=== PATIENT | female | born 1960 | race Caucasian/White ===

== ENCOUNTER 2020-03-31 11:21 | Inpatient (IN) | payer BC ==
[2020-03-31 12:05] LABS: Basophils % (A) 0 %; Eosinophils # (A) 0.2 k/uL (0-0.7); Eosinophils % (A) 1 %; HCT 27.2 % (34.0-46.0); HGB 8.4 gm/dL (11.4-16.0); Hypochromasia Moderate; Lymphocytes # (A) 2.2 k/uL (1.0-4.8); Lymphocytes % (A) 16 %; MCH 30.1 pg (25.0-35.0); Mean Platelet Volume 7.5; Monocytes # (A) 0.7 k/uL (0-1.0); Monocytes % (A) 5 %; Neutrophils # (A) 10.3 k/uL (1.3-7.7); Neutrophils % (A) 76 %; Platelet Count 360 k/uL (150-450); RDW 15.1 % (11.5-15.5); WBC 13.6 k/uL (3.8-10.6)
--- NOTE | 2020-03-31 12:11 | XR ---
EXAMINATION TYPE: XR chest 1V portable DATE OF EXAM: 03/31/2020 COMPARISON: NONE HISTORY: Shortness of breath TECHNIQUE: Single frontal view of the chest is obtained. FINDINGS: There is hyperinflation compatible COPD. Subcentimeter nodules along the periphery of the left lower lobe. Large area of consolidation and pleural effusion involving the right lung. There is prominence the right paratracheal region which could reflect mass or adenopathy. Diffuse osteopenia. IMPRESSION: 1. Large area of consolidation and pleural effusion on the right correlate for pneumonia. Prominence the right hilum and upper mediastinum could be associated with mass or adenopathy correlate clinicall y. 2. Vague peripheral lung nodules along the periphery of the left lower lobe. 3. COPD correlate for chronic interstitial lung disease.
--- NOTE | 2020-03-31 12:18 | ED ---
SOB HPI - General Chief Complaint: Shortness of Breath Stated Complaint: SOB Time Seen by Provider: 03/31/20 11:30 Source: patient Mode of arrival: EMS Limitations: no limitations - History of Present Illness Initial Comments: Patient is a 60-year-old female who presents to the emergency department from [facility]. She has been hospitalized there for 5 days. Patient previously spent the month before that at [facility]. She was discharged back to the rehab facility and states that she has been feeling unwell. She missed her dialysis last tuesday due to this. EMS were called to [facility] because the patient was having increasing respiratory distress over the weekend which led to impending respiratory arrest today. EMS stated that they arrived on scene and were concerned that they were To intubate the patient. I did place her on CPAP. She has a history of congestive heart failure when she misses her dialysis. Patient denies a cough, fevers or chills. No hemoptysis. Denies any chest pain area patient continues to make urine. No urinary changes. Denies any lower extremity edema. Admits to diarrhea. No black or tarry stools. Remainder of the HPI is limited because the patient is a poor historian Review of the patient's heart demonstrates that the patient was turned back to the [facility] on the . She has a diagnosis chronic inflammatory demyelinating polyneuritis, end-stage renal disease on hemodialysis, diabetes, asthma patient on 1 L nasal cannula - Related Data Home Medications Medication Instructions Recorded Confirmed Acetaminophen Tab [Tylenol] 650 mg PO Q6H PRN 03/31/20 03/31/20 Albuterol Sulfate [Ventolin HFA] 2 puff INHALATION Q4H PRN 03/31/20 03/31/20 Budesonide-Formot 160-4.5 Mcg 2 puff INHALATION RT-BID@0800,199903/31/20 03/31/20 [Symbicort 160-4.5 Mcg Inhaler] Diff-Stat Probiotic 2 cap PO BID 03/31/20 03/31/20 EPINEPHrine (Auto Inject) [Epipen] 0.3 mg IM ONCE PRN 03/31/20 03/31/20 Folic Acid-Vit B Complex-Vit C 1 cap PO DAILY@1700 03/31/20 03/31/20 [Nephrocaps] Hizentra 10gm/50ml 10 gm SQ Q7D 03/31/20 03/31/20 House Supplement 1 can PO TID@0800,1200,1700 03/31/20 03/31/20 House Supplement 1 can PO TID@0900,1300,1800 03/31/20 03/31/20 Levothyroxine Sodium [Synthroid] 200 mcg PO DAILY@59903/31/20 03/31/20 Melatonin 3 mg PO HS@199903/31/20 03/31/20 Montelukast Sodium [Singulair] 10 mg PO HS@199903/31/20 03/31/20 Moxifloxacin HCl [Avelox] 400 mg PO DAILY@59903/31/20 03/31/20 NIFEdipine [NIFEdipine ER] 30 mg PO DAILY@79903/31/20 03/31/20 Ondansetron [Zofran] 4 mg PO Q6H PRN 03/31/20 03/31/20 Simvastatin [Zocor] 80 mg PO DAILY@79903/31/20 03/31/20 hydrALAZINE HCL [Apresoline] 25 mg PO Q4H PRN 03/31/20 03/31/20 sevelamer HCL [Sevelamer HCl] 1,600 mg PO TID@0830,1230,1730 03/31/20 03/31/20 Allergies Allergy/AdvReac Type Severity Reaction Status Date / Time No Known Allergies Allergy Verified 03/31/20 13:53 Review of Systems ROS Statement: Those systems with pertinent positive or pertinent negative responses have been documented in the HPI. ROS Other: All systems not noted in ROS Statement are negative. Past Medical History Past Medical History: Asthma, Heart Failure, Diabetes Mellitus, Hyperlipidemia, Hypertension, Pneumonia, Renal Disease, Thyroid Disorder Additional Past Medical History / Comment(s): type 2 diabetes, end stage renal disease, dialysis, anemia History of Any Multi-Drug Resistant Organisms: None Reported Additional Past Surgical History / Comment(s): dialysis port Past Psychological History: No Psychological Hx Reported Smoking Status: Former smoker Past Alcohol Use History: None Reported Past Drug Use History: None Reported - Past Family History Mother Additional Family Medical History / Comment(s): nothing reported Father Family Medical History: Cancer Additional Family Medical History / Comment(s): no reported hx General Exam Limitations: no limitations General appearance: alert, in distress Eye exam: Present: normal appearance, PERRL, EOMI. Absent: scleral icterus, conjunctival injection, periorbital swelling ENT exam: Present: normal exam, mucous membranes moist Neck exam: Present: normal inspection. Absent: tenderness, meningismus, lymphadenopathy Respiratory exam: Present: respiratory distress, wheezes, rales, accessory muscle use Cardiovascular Exam: Present: normal rhythm, tachycardia GI/Abdominal exam: Present: soft, normal bowel sounds. Absent: distended, tenderness, guarding, rebound, rigid Neurological exam: Present: alert, oriented X3, CN II-XII intact Psychiatric exam: Present: anxious Course Vital Signs 03/31/20 03/31/20 03/31/20 11:27 11:30 12:00 Temperature 98.2 F Pulse Rate 102 H 101 H 98 Pulse Rate [ Pulse Oximetery ] Respiratory 34 H 16 16 Rate Blood Pressure 167/82 167/82 143/102 Blood Pressure [Right Arm] O2 Sat by Pulse 99 100 98 Oximetry 03/31/20 03/31/20 03/31/20 12:46 13:00 14:00 Temperature Pulse Rate 97 99 95 Pulse Rate [ Pulse Oximetery ] Respiratory 25 H 16 14 Rate Blood Pressure 147/78 147/78 158/81 Blood Pressure [Right Arm] O2 Sat by Pulse 98 98 99 Oximetry 03/31/20 03/31/20 03/31/20 15:00 16:00 16:21 Temperature 97.7 F 98.1 F Pulse Rate 97 86 Pulse Rate [ 87 Pulse Oximetery ] Respiratory 30 H 30 H Rate Blood Pressure 153/77 149/73 Blood Pressure 139/73 [Right Arm] O2 Sat by Pulse 99 100 Oximetry Medical Decision Making - Medical Decision Making Upon arrival the patient is placed into room 11. A thorough history and physical exam were performed per patient is up to continuous pulse ox and cardiac monitoring. I reviewed the patient's packet. Patient is transferred from EMS CPAP to BiPAP. Her increased work of breathing decreases. Lab studies were obtained and the patient has a portable chest x-ray performed. Lab studies demonstrate a leukocytosis of 13.6. Creatinine is 5.7. BNP 31,800. Chest x- ray demonstrates a large area of consolidation and pleural effusion on the right. Prominence of the right hilum and upper mediastinum to be associated with mass. Blood cultures were obtained the patient was started on Levaquin and Vanco. She was given 80 mg of Lasix for her CHF. I called and discussed the case with Dr. Bagley will arrange the patient's dialysis. Patient was reevaluated. Breathing was markedly improved. Patient is currently awaiting a bed on the floor - Lab Data Result diagrams: 04/03/20 06:37 04/03/20 06:37 Lab Results 03/31/20 03/31/20 03/31/20 Range/Units 11:47 11:47 11:47 WBC 13.6 H (3.8-10.6) k/uL RBC 2.80 L (3.80-5.40) m/uL Hgb 8.4 L (11.4-16.0) gm/dL Hct 27.2 L (34.0-46.0) % MCV 97.0 (80.0-100.0) fL MCH 30.1 (25.0-35.0) pg MCHC 31.0 (31.0-37.0) g/dL RDW 15.1 (11.5-15.5) % Plt Count 360 (150-450) k/uL Neutrophils % 76 % Lymphocytes % 16 % Monocytes % 5 % Eosinophils % 1 % Basophils % 0 % Neutrophils # 10.3 H (1.3-7.7) k/uL Lymphocytes # 2.2 (1.0-4.8) k/uL Monocytes # 0.7 (0-1.0) k/uL Eosinophils # 0.2 (0-0.7) k/uL Basophils # 0.0 (0-0.2) k/uL Hypochromasia Moderate PT 10.7 (9.0-12.0) sec INR 1.0 (<1.2) APTT 25.1 (22.0-30.0) sec Sodium 135 L (137-145) mmol/L Potassium 5.6 H (3.5-5.1) mmol/L Chloride 99 (98-107) mmol/L Carbon Dioxide 28 (22-30) mmol/L Anion Gap 8 mmol/L BUN 31 H (7-17) mg/dL Creatinine 5.79 H (0.52-1.04) mg/dL Est GFR (CKD-EPI)AfAm 8 (>60 ml/min/1.73 sqM) Est GFR (CKD-EPI)NonAf 7 (>60 ml/min/1.73 sqM) Glucose 90 (74-99) mg/dL Plasma Lactic Acid Elias (0.7-2.0) mmol/L Calcium 9.8 (8.4-10.2) mg/dL Magnesium 2.3 (1.6-2.3) mg/dL Total Bilirubin 0.6 (0.2-1.3) mg/dL AST 27 (14-36) U/L ALT 16 (4-34) U/L Alkaline Phosphatase 144 H (38-126) U/L Troponin I (0.000-0.034) ng/mL NT-Pro-B Natriuret Pep pg/mL Total Protein 6.4 (6.3-8.2) g/dL Albumin 3.0 L (3.5-5.0) g/dL Procalcitonin (0.02-0.09) ng/mL 03/31/20 03/31/20 03/31/20 Range/Units 11:47 11:47 11:47 WBC (3.8-10.6) k/uL RBC (3.80-5.40) m/uL Hgb (11.4-16.0) gm/dL Hct (34.0-46.0) % MCV (80.0-100.0) fL MCH (25.0-35.0) pg MCHC (31.0-37.0) g/dL RDW (11.5-15.5) % Plt Count (150-450) k/uL Neutrophils % % Lymphocytes % % Monocytes % % Eosinophils % % Basophils % % Neutrophils # (1.3-7.7) k/uL Lymphocytes # (1.0-4.8) k/uL Monocytes # (0-1.0) k/uL Eosinophils # (0-0.7) k/uL Basophils # (0-0.2) k/uL Hypochromasia PT (9.0-12.0) sec INR (<1.2) APTT (22.0-30.0) sec Sodium (137-145) mmol/L Potassium (3.5-5.1) mmol/L Chloride (98-107) mmol/L Carbon Dioxide (22-30) mmol/L Anion Gap mmol/L BUN (7-17) mg/dL Creatinine (0.52-1.04) mg/dL Est GFR (CKD-EPI)AfAm (>60 ml/min/1.73 sqM) Est GFR (CKD-EPI)NonAf (>60 ml/min/1.73 sqM) Glucose (74-99) mg/dL Plasma Lactic Acid Elias 1.0 (0.7-2.0) mmol/L Calcium (8.4-10.2) mg/dL Magnesium (1.6-2.3) mg/dL Total Bilirubin (0.2-1.3) mg/dL AST (14-36) U/L ALT (4-34) U/L Alkaline Phosphatase (38-126) U/L Troponin I 0.032 (0.000-0.034) ng/mL NT-Pro-B Natriuret Pep 85373 pg/mL Total Protein (6.3-8.2) g/dL Albumin (3.5-5.0) g/dL Procalcitonin (0.02-0.09) ng/mL 03/31/20 Range/Units 11:47 WBC (3.8-10.6) k/uL RBC (3.80-5.40) m/uL Hgb (11.4-16.0) gm/dL Hct (34.0-46.0) % MCV (80.0-100.0) fL MCH (25.0-35.0) pg MCHC (31.0-37.0) g/dL RDW (11.5-15.5) % Plt Count (150-450) k/uL Neutrophils % % Lymphocytes % % Monocytes % % Eosinophils % % Basophils % % Neutrophils # (1.3-7.7) k/uL Lymphocytes # (1.0-4.8) k/uL Monocytes # (0-1.0) k/uL Eosinophils # (0-0.7) k/uL Basophils # (0-0.2) k/uL Hypochromasia PT (9.0-12.0) sec INR (<1.2) APTT (22.0-30.0) sec Sodium (137-145) mmol/L Potassium (3.5-5.1) mmol/L Chloride (98-107) mmol/L Carbon Dioxide (22-30) mmol/L Anion Gap mmol/L BUN (7-17) mg/dL Creatinine (0.52-1.04) mg/dL Est GFR (CKD-EPI)AfAm (>60 ml/min/1.73 sqM) Est GFR (CKD-EPI)NonAf (>60 ml/min/1.73 sqM) Glucose (74-99) mg/dL Plasma Lactic Acid Elias (0.7-2.0) mmol/L Calcium (8.4-10.2) mg/dL Magnesium (1.6-2.3) mg/dL Total Bilirubin (0.2-1.3) mg/dL AST (14-36) U/L ALT (4-34) U/L Alkaline Phosphatase (38-126) U/L Troponin I (0.000-0.034) ng/mL NT-Pro-B Natriuret Pep pg/mL Total Protein (6.3-8.2) g/dL Albumin (3.5-5.0) g/dL Procalcitonin 2.04 H (0.02-0.09) ng/mL - EKG Data EKG Comments: EKG demonstrates sinus tachycardia with a ventricular rate of 101. AR interval 132. QRS 84. QTC 464. No acute ST segment elevations or depressions or depressions concerning for ischemic changes Critical Care Time Critical Care Time: Yes Critical Care Time: 32 minutes for management of acute respiratory distress requiring BiPap support. Disposition Clinical Impression: Congestive heart failure, Pneumonia, ESRD (end stage renal disease), BiPAP (biphasic positive airway pressure) dependence Disposition: ADMITTED IP TO THIS HOSP Condition: Serious Is patient prescribed a controlled substance at d/c from ED?: No Decision to Admit Reason: Admit from EC Decision Date: 03/31/20 Decision Time: 13:15
[2020-03-31 12:29] LABS: Calcium 9.8 mg/dL (8.4-10.2); Magnesium 2.3 mg/dL (1.6-2.3); Potassium 5.6 mmol/L (3.5-5.1); Total Bilirubin 0.6 mg/dL (0.2-1.3); Total Protein 6.4 g/dL (6.3-8.2)
[2020-03-31 12:49] LABS: Prothrombin Time 10.7 sec (9.0-12.0)
[2020-03-31 12:50] LABS: Partial Thromboplastin Time 25.1 sec (22.0-30.0)
[2020-03-31] MEDS ORDERED: LEVOFLOXACIN 750MG-D5W PMX 750 MG in DEXTROSE/WATER 1 150ML.BAG IVPB STA (13:08)
[2020-03-31] MEDS ORDERED: PIPERACILLIN-TAZOBACTAM 3.375 GM in SODIUM CHLORIDE 0.9% 100 ML IVPB STA (13:08)
[2020-03-31] MEDS ORDERED: VANCOMYCIN IV PER PHARMACY 1 EACH MISC MISCELLANE PRN (13:08)
[2020-03-31] MEDS ORDERED: VANCOMYCIN 750 MG in SODIUM CHLORIDE 0.9% 250 ML IVPB STA (13:13)
[2020-03-31] MEDS ORDERED: NALOXONE 0.4 MG/ML 1 ML VIAL IV PRN (13:19)
[2020-03-31] MEDS ORDERED: FUROSEMIDE 10 MG/ML 10 ML VIAL IV STA (14:38)
[2020-03-31] MEDS: IPRATROPIUM-ALBUTEROL 3 ML NEB INHALATION SCH ×2 (15:54→19:06)
--- NOTE | 2020-03-31 15:56 | US ---
EXAMINATION TYPE: US chest DATE OF EXAM: 03/31/2020 COMPARISON: NONE CLINICAL HISTORY: Markings for thoracentesis by pulmonary staff. TECHNIQUE: Targeted ultrasound of the posterior lower EXAM MEASUREMENTS: Right Pleural Effusion pocket size: 4.2 cm Right skin surface to fluid distance: 1.7 cm Left Pleural Effusion pocket size: 1.6 cm Right side marked for possible thoracentesis outside the dept. Honeycombed pocket. Left side NOT marked for possible thoracentesis outside the dept. Pulmonologists are able to review the images in the patient?s EMR. IMPRESSIONS: 1. Tiny left pleural effusion. 2. Complex small fluid collection with septations involving the right lung correlate clinically.
[2020-03-31 16:59] LABS: Glucose,Whole Blood 75 mg/dL (75-99)
[2020-03-31] MEDS ORDERED: ACETAMINOPHEN TAB 325 MG TAB PO PRN (17:41)
--- NOTE | 2020-03-31 17:41 | P.HPIM ---
History of Present Illness H&P Date: 03/31/20 Chief Complaint: Shortness of breath Patient is a 60-year-old female with past medical history of COPD on 2 L home O2, diabetes mellitus, hypertension, dyslipidemia, ESRD on hemodialysis Tuesday was a Tuesday, hypothyroidism presented to the ED for shortness of breath. Patient is currently on BiPAP and is unable to communicate effectively. Patient states that she was feeling unwell on Tuesday and was unable to attend her dialysis session. She reports shortness of breath has been worsening since then. She reports a cough that is dry. She reports 2 episodes of nausea and vomiting today. EMS was called from [facility] and patient was started on BiPAP in the ED. She was tachypneic with a respiratory rate of 34. She had a pulse of 102. Her blood pressures mildly elevated at 167/82. CBC showed leukocytosis of 13.6 and hemoglobin 8.4. CMP showed sodium 135, potassium of 5.6, BUN of 31, creatinine 5.79, alkaline phosphatase 144. Troponin was 0.032, EKG showing sinus tachycardia with ST abnormalities. BNP was 31,800. Chest x-ray showed large consolidation and pleural effusion on the right, prominence in the right hilum, left lower lobe nodules, signs of COPD. Patient is admitted for acute on chronic hypoxic respiratory failure with nephrology and pulmonology on consult. Review of Systems Pertinent positives and negatives as discussed in HPI, a complete review of systems was performed and all other systems are negative. Past Medical History Past Medical History: Asthma, Heart Failure, Diabetes Mellitus, Hyperlipidemia, Hypertension, Pneumonia, Renal Disease, Thyroid Disorder Additional Past Medical History / Comment(s): type 2 diabetes, end stage renal disease, dialysis, anemia History of Any Multi-Drug Resistant Organisms: None Reported Additional Past Surgical History / Comment(s): dialysis port Past Psychological History: No Psychological Hx Reported Smoking Status: Former smoker Past Alcohol Use History: None Reported Past Drug Use History: None Reported Medications and Allergies Home Medications Medication Instructions Recorded Confirmed Type Acetaminophen Tab [Tylenol] 650 mg PO Q6H PRN 03/31/20 03/31/20 History Albuterol Sulfate [Ventolin HFA] 2 puff INHALATION Q4H PRN 03/31/20 03/31/20 History Budesonide-Formot 160-4.5 Mcg 2 puff INHALATION RT-BID@08,199903/31/20 03/31/20 History [Symbicort 160-4.5 Mcg Inhaler] Diff-Stat Probiotic 2 cap PO BID 03/31/20 03/31/20 History EPINEPHrine (Auto Inject) [Epipen] 0.3 mg IM ONCE PRN 03/31/20 03/31/20 History Folic Acid-Vit B Complex-Vit C 1 cap PO DAILY@1700 03/31/20 03/31/20 History [Nephrocaps] Hizentra 10gm/50ml 10 gm SQ Q7D 03/31/20 03/31/20 History House Supplement 1 can PO TID@0800,1200,1700 03/31/20 03/31/20 History House Supplement 1 can PO TID@0900,1300,1800 03/31/20 03/31/20 History Levothyroxine Sodium [Synthroid] 200 mcg PO DAILY@0600 03/31/20 03/31/20 History Melatonin 3 mg PO HS@199903/31/20 03/31/20 History Montelukast Sodium [Singulair] 10 mg PO HS@199903/31/20 03/31/20 History Moxifloxacin HCl [Avelox] 400 mg PO DAILY@0603/31/20 03/31/20 History NIFEdipine [NIFEdipine ER] 30 mg PO DAILY@79903/31/20 03/31/20 History Ondansetron [Zofran] 4 mg PO Q6H PRN 03/31/20 03/31/20 History Simvastatin [Zocor] 80 mg PO DAILY@79903/31/20 03/31/20 History hydrALAZINE HCL [Apresoline] 25 mg PO Q4H PRN 03/31/20 03/31/20 History sevelamer HCL [Sevelamer HCl] 1,600 mg PO TID@0830,1230,1730 03/31/20 03/31/20 History Allergies Allergy/AdvReac Type Severity Reaction Status Date / Time No Known Allergies Allergy Verified 03/31/20 13:53 Physical Exam Vitals: Vital Signs Temp Pulse Resp BP Pulse Ox 03/31/20 14:00 95 14 158/81 99 03/31/20 13:00 99 16 147/78 98 03/31/20 12:46 97 25 H 147/78 98 03/31/20 12:00 98 16 143/102 98 03/31/20 11:30 101 H 16 167/82 100 03/31/20 11:27 98.2 F 102 H 34 H 16782 99 Intake and Output 03/31/20 03/31/20 03/31/20 06:59 14:59 22:59 Other: Weight 45.359 kg General: [non toxic], [moderate distress on BiPAP], [appears at stated age] Derm: [warm], [dry] Head: [atraumatic], [normocephalic], [symmetric] Eyes: [EOMI], [no lid lag], [anicteric sclera] Mouth: [no lip lesion], [mucus membranes moist] Cardiovascular: [S1S2 reg], [tachycardic], [positive DP pulse bilateral], Lungs: [Coarse breath sounds bilateral worse on the left], [no rhonchi, no rales] , [no accessory muscle use] Abdominal: [soft], [ nontender to palpation], [no guarding], [no appreciable organomegaly] Ext: [no gross muscle atrophy], [no edema], [no contractures] Neuro: [no focal neuro deficits] Psych: [Alert], [oriented], [appropriate affect] Results CBC & Chem 7: 03/31/20 11:47 03/31/20 11:47 Labs: Abnormal Lab Results - Last 24 Hours (Table) 03/31/20 03/31/20 Range/Units 11:47 11:47 WBC 13.6 H (3.8-10.6) k/uL RBC 2.80 L (3.80-5.40) m/uL Hgb 8.4 L (11.4-16.0) gm/dL Hct 27.2 L (34.0-46.0) % Neutrophils # 10.3 H (1.3-7.7) k/uL Sodium 135 L (137-145) mmol/L Potassium 5.6 H (3.5-5.1) mmol/L BUN 31 H (7-17) mg/dL Creatinine 5.79 H (0.52-1.04) mg/dL Alkaline Phosphatase 144 H (38-126) U/L Albumin 3.0 L (3.5-5.0) g/dL Assessment and Plan Assessment: Acute on chronic hypoxic respiratory failure secondary to volume overload and pneumonia Sepsis possibly related to pneumonia Pulmonary nodule Hyperkalemia ESRD on hemodialysis Normocytic anemia COPD Hypertension Hypothyroidism Her shortness of breath is likely multifactorial. Volume overload from missed dialysis session. Chest x-ray shows large consolidation and pleural effusion on the right with possible pulmonary mass. Plans: Nephrology consulted for hemodialysis STAT. Start Lasix 40 mg IV twice a day. Supplemental O2 to maintain O2 saturation greater than 92%. Chest ultrasound ordered. Pulmonology consulted. Telemetry monitoring. Follow pro-calcitonin. Follow blood culture. Follow coronavirus testing. Repeat chest x-ray tomorrow morning. Lactic acid negative. Patient meets sepsis criteria with leukocytosis, tachycardia and positive source of infection. Plans: Start vancomycin and Zosyn for coverage of meeting or pneumonia. Management as above. With possible mass seen on chest x ray. Plans: Chest US ordered. Pulmonology on board. Will need CT chest after clearance of pulmonary edema and consolidation. Potassium 5.6. Likely related to ESRD. Plans: Nephrology consulted for em ergent dialysis. Repeat BMP tomorrow morning. Creatinine 5.79. Plans: Nephrology consulted for emergent dialysis. Avoid nephrotoxins. Repeat BMP tomorrow morning. Restart Sevelamer. Hemoglobin 8.4. Likely related to ESRD. Plans: Follow iron studies. Transfuse if hemoglobin less than 7. Repeat CBC tomorrow morning. Plans: DuoNeb as needed for shortness of breath and wheezing. Restart Sy mbicort. Restart Singulair. BP 158/81. Plans: Restart nifedipine. Anticipated BP to improve with dialysis. Plans: Restart Synthroid. She names her decision maker she can't make decisions for herself. Patient is adamant about being no code. She does not want to be intubated. CODE STATUS was addressed multiple times during this encounter. [Patient admitted for volume overload. Nephrology consulted for emergent dialysis. Also found to be septic with possible pneumonia. On IV antibiotics. Pulmonology on board. She is pending clinical improvement. Likely DC in 2-3 days.]
[2020-03-31] MEDS: SEVELAMER 800 MG TAB PO SCH (18:35)
[2020-03-31] MEDS: SYMBICORT 160-4.5 MCG INHALER INHALATION SCH (19:06)
[2020-03-31 20:43] LABS: Glucose,Whole Blood 116 mg/dL (75-99)
[2020-03-31] MEDS ORDERED: GELATIN SPONGE,ABSORB (LARGE) 1 EACH SPONGE ONE (22:00)
[2020-04-01] MEDS: PIPERACILLIN-TAZOBACTAM 3.375 GM in SODIUM CHLORIDE 0.9% 100 ML IVPB SCH ×3 (00:10→22:19)
[2020-04-01] MEDS: HEPARIN SODIUM,PORCINE 5,000 UNIT/ML 1 ML VIAL SQ SCH ×3 (00:10→22:19)
[2020-04-01] MEDS: MELATONIN 3 MG TABLET PO SCH ×2 (00:11→22:18)
[2020-04-01] MEDS: FUROSEMIDE 10 MG/ML 4 ML VIAL IV SCH ×3 (00:11→22:18)
[2020-04-01] MEDS: MONTELUKAST 10 MG TAB PO SCH ×2 (00:11→22:18)
[2020-04-01] MEDS: IPRATROPIUM-ALBUTEROL 3 ML NEB INHALATION SCH ×6 (00:52→19:18)
[2020-04-01 06:16] LABS: Glucose,Whole Blood 85 mg/dL (75-99)
[2020-04-01] MEDS: LEVOTHYROXINE 100 MCG TAB PO SCH (07:12)
[2020-04-01] MEDS: SYMBICORT 160-4.5 MCG INHALER INHALATION SCH ×2 (07:44→19:18)
[2020-04-01 07:52] LABS: Basophils # (A) 0.1 k/uL (0-0.2); Basophils % (A) 1 %; Eosinophils # (A) 0.2 k/uL (0-0.7); Eosinophils % (A) 2 %; HCT 24.4 % (34.0-46.0); HGB 7.6 gm/dL (11.4-16.0); Hypochromasia Moderate; Lymphocytes # (A) 1.5 k/uL (1.0-4.8); Lymphocytes % (A) 18 %; MCH 30.5 pg (25.0-35.0); MCHC 31.3 g/dL (31.0-37.0); MCV 97.5 fL (80.0-100.0); Mean Platelet Volume 8.2; Monocytes # (A) 0.8 k/uL (0-1.0); Monocytes % (A) 10 %; Neutrophils # (A) 5.6 k/uL (1.3-7.7); Neutrophils % (A) 67 %; Platelet Count 349 k/uL (150-450); RBC 2.51 m/uL (3.80-5.40); RDW 14.4 % (11.5-15.5); WBC 8.3 k/uL (3.8-10.6)
[2020-04-01 07:59] LABS: Calcium 8.9 mg/dL (8.4-10.2); Magnesium 2.1 mg/dL (1.6-2.3); Phosphorus 3.7 mg/dL (2.5-4.5); Potassium 4.3 mmol/L (3.5-5.1)
--- NOTE | 2020-04-01 08:41 | XR ---
EXAMINATION TYPE: XR chest 1V DATE OF EXAM: 04/01/2020 COMPARISON: Prior chest x-ray 03/31/2020 HISTORY: Pneumonia TECHNIQUE: Single frontal view of the chest is obtained. FINDINGS: Airspace disease persists at the right lung base, there is obscured right hemidiaphragm. V olume loss is present in the right hemithorax. Heart remains enlarged. Increased right paratracheal d ensity is noted. No evident pneumothorax, there is persistent nodularity in the left lung base. There are overlying cardiac leads. IMPRESSION: Findings are similar to prior exam. Right lower lobe pneumonia and associated atelectasi s, follow-up recommended to exclude underlying mass.
[2020-04-01] MEDS: ATORVASTATIN 40 MG TAB PO SCH (08:47)
[2020-04-01] MEDS: SEVELAMER 800 MG TAB PO SCH ×3 (08:47→22:18)
[2020-04-01] MEDS: LORazepam 2 MG/ML INJ IV PRN (08:48)
--- NOTE | 2020-04-01 11:54 | CT ---
EXAMINATION TYPE: CT chest wo con DATE OF EXAM: 04/01/2020 COMPARISON: Chest x-ray earlier today and yesterday. Chest ultrasound yesterday. HISTORY: loculated pleural effusion CT DLP: 260.8 mGycm. Automated Exposure Control for Dose Reduction was Utilized. TECHNIQUE: CT scan of the thorax is performed without IV contrast. FINDINGS: LUNGS: Corresponding to ultrasound there is small to moderate size nonsimple right pleural fluid dulce ection. Corresponding to x-ray there is right-sided volume loss. There is diffuse groundglass opacity centrally bilaterally but are seen in the left lung. There is more prominent irregular masslike righ t lung consolidation and/or atelectasis. There is narrowing and irregular filling defects throughout the right upper lobe bronchus along with some narrowing and secretions in the bronchus intermedius ex tending into the middle and lower lobe bronchi. Mild to moderate basilar irregular bronchiectatic lakia nges felt present. There is tiny anterior component of pneumothorax with horizontal air-fluid level a xial image 29. MEDIASTINUM: Lack of IV contrast is noted to limit evaluation for mediastinal and especially hilar a denopathy. There are abnormal thoracic lymph nodes. For reference right pericarinal lymph node measur es 3.0 x 2.0 cm on image 20. Abnormal lymph nodes throughout the anterior superior mediastinum along with prevascular space and AP window. No significant pericardial effusion is seen. Cardiomegaly is pr esent. Moderate three-vessel coronary artery calcification and/or stents. Diminished size and cortica l thinning in both kidneys consistent with product of chronic medical renal disease. OTHER: Linear lucency with sclerosis through the superior L1 endplate consistent with subacute on chr onic fracture. [id number] multilevel anterior spurring in the thoracic spine. IMPRESSION: Small to moderate nonsimple right pleural fluid correlates with ultrasound. There is a lo culated pneumothorax component anterior right mid to lower lung. There is background cardiomegaly and mild to moderate alveolar edema suggesting CHF exacerbation or fluid overload state. There is right- sided volume loss with significant irregular right mass like consolidation greatest inferiorly and ce ntrally with endobronchial involvement and basilar bronchiectasis. Suspect acute infectious process. Underlying neoplasm not excluded. Patient may benefit with bronchoscopy evaluation.
--- NOTE | 2020-04-01 12:07 | P.NPCON ---
History of Present Illness - Reason for Consult end stage renal disease - History of Present Illness Reason for consultation: End-stage renal disease History of present illness: Patient is a 60-year-old female seen in consultation for end-stage renal disease. She is maintained on hemodialysis on Tuesday schedule. Patient was recently admitted at [facility] for over a month and was subsequently discharged to [facility]. She did go to hemodialysis on Tuesday but cut the treatment short. Patient developed respiratory distress over the weekend and was sent to the hospital. She underwent hemodialysis yesterday with 3 L ultrafiltration. She is currently on 4 L is cannula. Denies chest pain at this time. She went for a chest CT this morning which revealed right-sided pleural fluid. She was also noted to have alveolar edema suggestive of CHF exacerbation. Patient has had pneumonia in the past and has required thoracentesis. She is maintained on antibiotics. Hemodynamically stable. No vomiting or diarrhea. She states she feels okay. Tired. Vital signs are stable. General: The patient appeared well nourished and normally developed. HEENT: Head exam is unremarkable. Neck is without jugular venous distension. LUNGS: Breath sounds decreased. HEART: Rate and Rhythm are regular. ABDOMEN: Soft, nontender. EXTREMITITES: No clubbing, cyanosis, or edema. Past Medical History Past Medical History: Asthma, Heart Failure, Diabetes Mellitus, Hyperlipidemia, Hypertension, Pneumonia, Renal Disease, Thyroid Disorder Additional Past Medical History / Comment(s): type 2 diabetes, end stage renal disease, dialysis, anemia History of Any Multi-Drug Resistant Organisms: None Reported Additional Past Surgical History / Comment(s): dialysis port Past Psychological History: No Psychological Hx Reported Smoking Status: Former smoker Past Alcohol Use History: None Reported Past Drug Use History: None Reported - Past Family History Mother Additional Family Medical History / Comment(s): nothing reported Father Additional Family Medical History / Comment(s): no reported hx Medications and Allergies Home Medications Medication Instructions Recorded Confirmed Type Acetaminophen Tab [Tylenol] 650 mg PO Q6H PRN 03/31/20 03/31/20 History Albuterol Sulfate [Ventolin HFA] 2 puff INHALATION Q4H PRN 03/31/20 03/31/20 History Budesonide-Formot 160-4.5 Mcg 2 puff INHALATION RT-BID@0800,199903/31/20 03/31/20 History [Symbicort 160-4.5 Mcg Inhaler] Diff-Stat Probiotic 2 cap PO BID 03/31/20 03/31/20 History EPINEPHrine (Auto Inject) [Epipen] 0.3 mg IM ONCE PRN 03/31/20 03/31/20 History Folic Acid-Vit B Complex-Vit C 1 cap PO DAILY@1700 03/31/20 03/31/20 History [Nephrocaps] Hizentra 10gm/50ml 10 gm SQ Q7D 03/31/20 03/31/20 History House Supplement 1 can PO TID@0800,1200,1700 03/31/20 03/31/20 History House Supplement 1 can PO TID@0900,1300,1800 03/31/20 03/31/20 History Levothyroxine Sodium [Synthroid] 200 mcg PO DAILY@0600 03/31/20 03/31/20 History Melatonin 3 mg PO HS@199903/31/20 03/31/20 History Montelukast Sodium [Singulair] 10 mg PO HS@199903/31/20 03/31/20 History Moxifloxacin HCl [Avelox] 400 mg PO DAILY@0603/31/20 03/31/20 History NIFEdipine [NIFEdipine ER] 30 mg PO DAILY@79903/31/20 03/31/20 History Ondansetron [Zofran] 4 mg PO Q6H PRN 03/31/20 03/31/20 History Simvastatin [Zocor] 80 mg PO DAILY@79903/31/20 03/31/20 History hydrALAZINE HCL [Apresoline] 25 mg PO Q4H PRN 03/31/20 03/31/20 History sevelamer HCL [Sevelamer HCl] 1,600 mg PO TID@0830,1230,1730 03/31/20 03/31/20 History Allergies Allergy/AdvReac Type Severity Reaction Status Date / Time No Known Allergies Allergy Verified 03/31/20 13:53 Physical Exam Vitals: Vital Signs Temp Pulse Pulse Resp BP BP Pulse Ox 04/01/20 11:40 16 04/01/20 08:00 91 16 124/74 100 04/01/20 04:00 91 18 136/63 100 04/01/20 00:00 98.1 F 95 30 H 130/50 99 03/31/20 23:39 97.4 F L 70 18 100/50 03/31/20 20:00 98.0 F 85 36 H 152/72 100 03/31/20 19:17 92 32 H 03/31/20 19:06 90 34 H 03/31/20 16:21 98.1 F 03/31/20 16:00 97.7 F 86 87 30 H 149/73 139/73 100 03/31/20 15:00 97 30 H 153/77 99 03/31/20 14:00 95 14 158/81 99 03/31/20 13:00 99 16 147/78 98 03/31/20 12:46 97 25 H 147/78 98 Intake and Output 03/31/20 04/01/20 04/01/20 22:59 06:59 14:59 Intake Total 240 Output Total 3000 Balance 240 -3000 Intake: Oral 240 Output: Hemodialysis 3000 Other: Voiding Method Bedpan Bedpan Bedpan Incontinent Incontinent Incontinent # Voids 1 0 # Bowel Movements 1 Weight 46.5 kg Results - Lab Results Most recent lab results Calcium 8.9 mg/dL (8.4-10.2) 04/01/20 06:49 Phosphorus 3.7 mg/dL (2.5-4.5) 04/01/20 06:49 Magnesium 2.1 mg/dL (1.6-2.3) 04/01/20 06:49 04/01/20 06:49 04/01/20 06:49 Assessment and Plan Plan: Assessment: 1. End-stage renal disease maintained on hemodialysis on Tuesday schedule. Tolerated hemodialysis well yesterday with 3 L ultrafiltration. 2. Volume overload. Improved post dialysis. 3. Right-sided pleural fluid. 4. Chronic kidney disease mineral bone disease maintained on Renvela. 5. Hypertension with chronic kidney disease. Controlled. 6. Chronic inflammatory demyelinating polyneuritis. Patient has received IVIG in the past. 7. Anemia of chronic kidney disease. Rule out iron deficiency. Plan: Hemodialysis tomorrow. Check iron studies. Add Chenp. Thank you for the consultation. I will continue to follow the patient with you during her hospital stay.
[2020-04-01 12:33] LABS: Glucose,Whole Blood 74 mg/dL (75-99)
[2020-04-01] MEDS ORDERED: VANCOMYCIN 750 MG in SODIUM CHLORIDE 0.9% 250 ML IVPB ONE (14:00)
--- NOTE | 2020-04-01 15:50 | P.CNPUL ---
History of Present Illness Consult date: 04/01/20 Requesting physician: Alirio Weller Reason for consult: pneumonia, pleural effusion Chief complaint: shortness of breath. History of present illness: this is a 60-year-old white female with history of COPD, chronic hypoxic arrest or failure, maintained on home oxygen. End-stage renal disease, on hemodialysis Wednesdays and Fridays.patient is not a great historian, unable to commu nicate effectively, and new to our system, patient lives in [place], and normally gets her medical care in [facility].patient was brought in because she hasn't been feeling well since Tuesday and did not attend her last dialysis session. She was complaining of shortness of breath, dry cough, and 2 episodes of nausea and vomiting the day of admission. EMS picked up the patient from medical [place], and she was placed on BiPAP initially in the emergency room department, she was quite tachypneic, tachycardic, and hypertensive. She was noted to have leukocytosis, hemoglobin of 8.4, and she was also noted to have a right lower lobe consolidation, and right-sided pleural effusion. Ultrasound of the chest showed possibly complicated pleural effusion, it is rather small barely 4.0 cm in size, hence I chose not to perform thoracentesis at this point yet.CT of the chest showed loculated right-sided pneumothorax,and moderate alveolar edema suggestive of congestive heart failure as well as volume loss with significant irregular mass like consolidation in the right lower lobe and basilar bronchiectasis. Underlying neoplasm is not excluded. The overall presentation is mostly a presentation of infection with a parapneumonic effusion, again possibility of underlying malignancy is not entirely ruled out. Review of Systems could not be obtained, patient is a very poor historian. Past Medical History Past Medical History: Asthma, Heart Failure, Diabetes Mellitus, Hyperlipidemia, Hypertension, Pneumonia, Renal Disease, Thyroid Disorder Additional Past Medical History / Comment(s): type 2 diabetes, end stage renal disease, dialysis, anemia History of Any Multi-Drug Resistant Organisms: None Reported Additional Past Surgical History / Comment(s): dialysis port Past Psychological History: No Psychological Hx Reported Smoking Status: Former smoker Past Alcohol Use History: None Reported Past Drug Use History: None Reported - Past Family History Mother Additional Family Medical History / Comment(s): nothing reported Father Additional Family Medical History / Comment(s): no reported hx Medications and Allergies Home Medications Medication Instructions Recorded Confirmed Type Acetaminophen Tab [Tylenol] 650 mg PO Q6H PRN 03/31/20 03/31/20 History Albuterol Sulfate [Ventolin HFA] 2 puff INHALATION Q4H PRN 03/31/20 03/31/20 History Budesonide-Formot 160-4.5 Mcg 2 puff INHALATION RT-BID@799,199903/31/20 03/31/20 History [Symbicort 160-4.5 Mcg Inhaler] Diff-Stat Probiotic 2 cap PO BID 03/31/20 03/31/20 History EPINEPHrine (Auto Inject) [Epipen] 0.3 mg IM ONCE PRN 03/31/20 03/31/20 History Folic Acid-Vit B Complex-Vit C 1 cap PO DAILY@1700 03/31/20 03/31/20 History [Nephrocaps] Hizentra 10gm/50ml 10 gm SQ Q7D 03/31/20 03/31/20 History House Supplement 1 can PO TID@0800,1200,1700 03/31/20 03/31/20 History House Supplement 1 can PO TID@0900,1300,1800 03/31/20 03/31/20 History Levothyroxine Sodium [Synthroid] 200 mcg PO DAILY@59903/31/20 03/31/20 History Melatonin 3 mg PO HS@199903/31/20 03/31/20 History Montelukast Sodium [Singulair] 10 mg PO HS@199903/31/20 03/31/20 History Moxifloxacin HCl [Avelox] 400 mg PO DAILY@59903/31/20 03/31/20 History NIFEdipine [NIFEdipine ER] 30 mg PO DAILY@79903/31/20 03/31/20 History Ondansetron [Zofran] 4 mg PO Q6H PRN 03/31/20 03/31/20 History Simvastatin [Zocor] 80 mg PO DAILY@79903/31/20 03/31/20 History hydrALAZINE HCL [Apresoline] 25 mg PO Q4H PRN 03/31/20 03/31/20 History sevelamer HCL [Sevelamer HCl] 1,600 mg PO TID@0830,1230,1730 03/31/20 03/31/20 History Allergies Allergy/AdvReac Type Severity Reaction Status Date / Time No Known Allergies Allergy Verified 03/31/20 13:53 Physical Exam Vitals: Vital Signs Temp Pulse Pulse Resp BP BP Pulse Ox 04/01/20 15:32 16 04/01/20 12:00 87 16 139/81 04/01/20 11:40 16 04/01/20 08:00 91 16 124/74 100 04/01/20 04:00 91 18 136/63 100 04/01/20 00:00 98.1 F 95 30 H 130/50 99 03/31/20 23:39 97.4 F L 70 18 100/50 03/31/20 20:00 98.0 F 85 36 H 152/72 100 03/31/20 19:17 92 32 H 03/31/20 19:06 90 34 H 03/31/20 16:21 98.1 F 03/31/20 16:00 97.7 F 86 87 30 H 149/73 139/73 100 Intake and Output 04/01/20 04/01/20 04/01/20 06:59 14:59 22:59 Intake Total 180 Output Total 3000 Balance -3000 180 Intake: Oral 180 Output: Hemodialysis 3000 Other: Voiding Method Bedpan Bedpan Bedpan Incontinent Incontinent Incontinent # Voids 0 0 Weight 46.5 kg Physical Exam: Revealed 60-year-old female in no distress. Head: Atraumatic, normocephalic. HEENT:[Neck is supple.] [No neck masses.] [No thyromegaly.] [No JVD.] Chest: [diminished breath sounds and crackles at the right base, left side is clear. Cardiac Exam: [Normal S1 and S2, no S3 gallop, no murmur.] Abdomen: [Soft, nontender, no megaly, no rebound, no guarding, normal bowel sounds.] Extremities: [No clubbing, no edema, no cyanosis.] Neurological Exam: alert, oriented 2, could not give details about her medical history. Psychiatric: Normal mood, affect, and poor mental status. Results - Laboratory Findings CBC and BMP: 04/01/20 06:49 04/01/20 06:49 PT/INR, D-dimer PT 10.7 sec (9.0-12.0) 03/31/20 11:47 INR 1.0 (<1.2) 03/31/20 11:47 Abnormal lab findings: Abnormal Labs 03/31/20 03/31/20 03/31/20 11:47 11:47 11:47 WBC 13.6 H RBC 2.80 L Hgb 8.4 L Hct 27.2 L Neutrophils # 10.3 H Sodium 135 L Potassium 5.6 H Carbon Dioxide BUN 31 H Creatinine 5.79 H POC Glucose (mg/dL) Alkaline Phosphatase 144 H Albumin 3.0 L Procalcitonin 2.04 H 03/31/20 04/01/20 04/01/20 20:42 06:49 06:49 WBC RBC 2.51 L Hgb 7.6 L Hct 24.4 L Neutrophils # Sodium Potassium Carbon Dioxide 32 H BUN Creatinine 2.80 H POC Glucose (mg/dL) 116 H Alkaline Phosphatase Albumin Procalcitonin 04/01/20 12:19 WBC RBC Hgb Hct Neutrophils # Sodium Potassium Carbon Dioxide BUN Creatinine POC Glucose (mg/dL) 74 L Alkaline Phosphatase Albumin Procalcitonin - Diagnostic Findings CT scan - chest: image reviewed (as noted in HPI) Assessment and Plan Assessment: impression: Acute on chronic hypoxic respiratory failure secondary to right lower lobe pneumonia, and suspect chronic right-sided pleural effusion. Fluid overload secondary to end-stage renal disease and missed hemodialysis. Chronic obstructive pulmonary disease. Possible bronchogenic carcinoma however this is felt to be less likely I believe the findings are mostly findings of pneumonia and parapneumonic pleural effusion. Doubt empyema. Benign essential hypertension. Hypothyroidism. Recommendation: Continue hemodialysis. Continue empiric antibiotics. continue bronchodilators. Depending on the patient's response to treatment, may consider bronchoscopy and bronchoalveolar lavage of the right lower lobe. Follow-up chest x-ray in a.m. May consider pigtail catheter placement. By interventional radiology. We'll continue to follow closely. Time with Patient: Greater than 30
[2020-04-01] MEDS: NIFEdipine XL 30 MG TAB.ER.24 PO SCH (16:21)
[2020-04-01] MEDS: DARBEPOETIN ALFA 40 MCG/0.4 ML SYRINGE SQ SCH (16:21)
[2020-04-01 16:56] LABS: Glucose,Whole Blood 106 mg/dL (75-99)
--- NOTE | 2020-04-01 18:18 | P.PN ---
Subjective Progress Note Date: 04/01/20 Patient was seen and examined. No acute events overnight. Patient reports significant improvement in breathing since yesterday. She denies any chest pain or palpitations. No nausea or vomiting. No fever or chills. Discussed with , reports 2 month hospitalization at [facility] discharge 3 days ago to subacute rehab. States that she was treated for pneumonia and had fluid drained from her lungs. Objective - Vital Signs Vital signs: Vital Signs Temp 98.1 F 04/01/20 00:00 Pulse 84 04/01/20 16:00 Resp 16 04/01/20 16:00 BP 133/72 04/01/20 16:00 Pulse Ox 100 04/01/20 16:00 Intake & Output 03/31/20 04/01/20 04/01/20 18:59 06:59 18:59 Intake Total 440 270 Output Total 3000 Balance 440 -3000 270 Weight 45.359 kg 46.5 kg Intake: Oral 440 270 Output: Hemodialysis 3000 Other: Voiding Method Bedpan Bedpan Bedpan Incontinent Incontinent Incontinent # Voids 3 1 1 # Bowel Movements 2 1 1 - Exam General: [non toxic], [no distress on nasal cannula], [appears at stated age] Derm: [warm], [dry] Head: [atraumatic], [normocephalic], [symmetric] Eyes: [EOMI], [no lid lag], [anicteric sclera] Mouth: [no lip lesion], [mucus membranes moist] Cardiovascular: [S1S2 reg], [tachycardic], [positive DP pulse bilateral], Lungs: [Coarse breath sounds bilateral worse on the left], [no rhonchi, no rales] , [no accessory muscle use] Abdominal: [soft], [ nontender to palpation], [no guarding], [no appreciable organomegaly] Ext: [no gross muscle atrophy], [no edema], [no contractures] Neuro: [no focal neuro deficits] Psych: [Alert], [oriented], [appropriate affect] - Labs CBC & Chem 7: 04/01/20 06:49 04/01/20 06:49 Labs: Abnormal Lab Results - Last 24 Hours (Table) 03/31/20 03/31/20 04/01/20 Range/Units 11:47 20:42 06:49 RBC 2.51 L (3.80-5.40) m/uL Hgb 7.6 L (11.4-16.0) gm/dL Hct 24.4 L (34.0-46.0) % Carbon Dioxide (22-30) mmol/L Creatinine (0.52-1.04) mg/dL POC Glucose (mg/dL) 116 H (75-99) mg/dL Procalcitonin 2.04 H (0.02-0.09) ng/mL 04/01/20 04/01/20 04/01/20 Range/Units 06:49 12:19 16:35 RBC (3.80-5.40) m/uL Hgb (11.4-16.0) gm/dL Hct (34.0-46.0) % Carbon Dioxide 32 H (22-30) mmol/L Creatinine 2.80 H (0.52-1.04) mg/dL POC Glucose (mg/dL) 74 L 106 H (75-99) mg/dL Procalcitonin (0.02-0.09) ng/mL Microbiology - Last 24 Hours (Table) 03/31/20 13:36 Blood Culture - Preliminary Blood No Growth after 24 hours Assessment and Plan Assessment: Acute on chronic hypoxic respiratory failure secondary to volume overload and pneumonia Sepsis possibly related to pneumonia Pulmonary nodule ESRD on hemodialysis Normocytic anemia COPD Hypertension Hypothyroidism Her shortness of breath is likely multifactorial. Volume overload from missed dialysis session. Elevated pro-calcitonin. Coronavirus testing. Chest x-ray shows large consolidation and pleural effusion on the right with possible pulm onary mass. Plans: Nephrology consulted for hemodialysis. Start Lasix 40 mg IV twice a day. Supplemental O2 to maintain O2 saturation greater than 92%. Follow CT chest. Pulmonology consulted. Telemetry monitoring. Follow blood culture. Repeat chest x-ray tomorrow morning. Lactic acid negative. Patient meets sepsis criteria with leukocytosis, tachycardia and positive source of infection. Plans: Start vancomycin and Zosyn for coverage of meeting or pneumonia. Management as above. With possible mass seen on chest x ray. Plans: Pulmonology on board. Follow CT chest. Creatinine 2.8. Plans: Nephrology consulted for emergent dialysis. Avoid nephrotoxins. Repeat BMP tomorrow morning. Restart Sevelamer. Hemoglobin 7.6. Likely related to ESRD. Plans: Follow iron studies. Transfuse if hemoglobin less than 7. Repeat CBC tomorrow morning. Plans: DuoNeb as needed for shortness of breath and wheezing. Restart Symbicort. Restart Singulair. BP 133/72. Plans: Restart nifedipine. Anticipated BP to improve with dialysis. Plans: Restart Synthroid. She names her decision maker she can't make decisions for herself. Patient is wanting to be FULL CODE at this time. Continue hemodialysis. Continue IV antibiotics. Follow CT chest. Obtain records from [facility]. Patient is pending clinical improvement. Likely DC in 3-4 days.
[2020-04-01 19:07] LABS: % Iron Saturation 11.41 (12.00-45.00); Ferritin 2175.7 ng/mL (10.0-291.0)
[2020-04-01 20:13] LABS: Glucose,Whole Blood 118 mg/dL (75-99)
[2020-04-02] MEDS: IPRATROPIUM-ALBUTEROL 3 ML NEB INHALATION SCH ×6 (01:09→21:17)
[2020-04-02 06:20] LABS: Glucose,Whole Blood 93 mg/dL (75-99)
[2020-04-02] MEDS: MONTELUKAST 10 MG TAB PO SCH ×2 (06:43→21:07)
[2020-04-02] MEDS: MELATONIN 3 MG TABLET PO SCH ×2 (06:43→21:07)
[2020-04-02] MEDS: SEVELAMER 800 MG TAB PO SCH ×4 (06:43→17:22)
[2020-04-02] MEDS: LEVOTHYROXINE 100 MCG TAB PO SCH (06:45)
[2020-04-02] MEDS: SYMBICORT 160-4.5 MCG INHALER INHALATION SCH ×2 (08:08→21:17)
[2020-04-02] MEDS: FUROSEMIDE 10 MG/ML 4 ML VIAL IV SCH ×2 (08:58→21:06)
[2020-04-02] MEDS: HEPARIN SODIUM,PORCINE 5,000 UNIT/ML 1 ML VIAL SQ SCH ×2 (08:58→21:06)
[2020-04-02] MEDS: LORazepam 2 MG/ML INJ IV PRN (08:58)
[2020-04-02] MEDS: ATORVASTATIN 40 MG TAB PO SCH (08:58)
[2020-04-02] MEDS: PIPERACILLIN-TAZOBACTAM 3.375 GM in SODIUM CHLORIDE 0.9% 100 ML IVPB SCH ×2 (08:58→21:07)
--- NOTE | 2020-04-02 09:16 | XR ---
EXAMINATION TYPE: XR chest 1V portable DATE OF EXAM: 04/02/2020 CLINICAL HISTORY: Pneumonia TECHNIQUE: Portable upright view of the chest obtained COMPARISON: 04/01/2020 chest radiograph. Ultrasound chest 03/31/2020. CT chest 04/01/2020. FINDINGS: Cardiomegaly. Mediastinal silhouette unchanged. Right-sided volume loss. There is moderate right pleural effusion with loculated anterior pneumothorax component better defined on 04/01/2020 CT comparison. Unchanged patchy right basilar consolidative opacities. No left pleural effusion. IMPRESSION: Unchanged radiographic appearance of the chest as above.
[2020-04-02 09:39] LABS: Basophils # (A) 0.1 k/uL (0-0.2); Basophils % (A) 1 %; Eosinophils # (A) 0.2 k/uL (0-0.7); Eosinophils % (A) 3 %; HCT 24.8 % (34.0-46.0); HGB 7.4 gm/dL (11.4-16.0); Hypochromasia Marked; Lymphocytes # (A) 1.7 k/uL (1.0-4.8); Lymphocytes % (A) 23 %; MCH 29.9 pg (25.0-35.0); MCHC 29.8 g/dL (31.0-37.0); MCV 100.3 fL (80.0-100.0); Macrocytosis Slight; Mean Platelet Volume 7.7; Monocytes # (A) 0.9 k/uL (0-1.0); Monocytes % (A) 12 %; Neutrophils % (A) 57 %; Platelet Count 368 k/uL (150-450); RBC 2.47 m/uL (3.80-5.40); RDW 14.9 % (11.5-15.5); WBC 7.1 k/uL (3.8-10.6)
[2020-04-02 09:52] LABS: Vancomycin,Random 19.7 ug/mL
--- NOTE | 2020-04-02 10:55 | P.PN ---
Subjective Progress Note Date: 04/02/20 Patient was seen and examined. No acute events overnight. Patient reports significant improvement in breathing since yesterday. She denies any chest pain or palpitations. No nausea or vomiting. No fever or chills. [facility] records reviewed showed the patient was admitted for hospital-acquired pneu monia, acute hypoxic respiratory failure requiring intubation, sepsis and complete heart block/bradycardia. she did have a chest tube during this admission. [facility] to [facility] oral antibiotics. Objective - Vital Signs Vital signs: Vital Signs Temp 98.2 F 04/02/20 04:00 Pulse 88 04/02/20 08:25 Resp 18 04/02/20 04:00 BP 142/81 04/02/20 04:00 Pulse Ox 100 04/02/20 04:00 Intake & Output 04/01/20 04/02/20 04/02/20 18:59 06:59 18:59 Intake Total 507 237 120 Balance 507 237 120 Weight 46 kg Intake: Oral 507 237 120 Other: Voiding Method Bedpan Bedpan Incontinent Incontinent # Voids 1 1 # Bowel Movements 1 1 - Exam General: [non toxic], [no distress on nasal cannula], [appears at stated age] Derm: [warm], [dry] Head: [atraumatic], [normocephalic], [symmetric] Eyes: [EOMI], [no lid lag], [anicteric sclera] Mouth: [no lip lesion], [mucus membranes moist] Cardiovascular: [S1S2 reg], [tachycardic], [positive DP pulse bilateral], Lungs: [Coarse breath sounds bilateral worse on the left], [no rhonchi, no rales] , [no accessory muscle use] Abdominal: [soft], [ nontender to palpation], [no guarding], [no appreciable organomegaly] Ext: [no gross muscle atrophy], [no edema], [no contractures] Neuro: [no focal neuro deficits] Psych: [Alert], [oriented], [appropriate affect] - Labs CBC & Chem 7: 04/02/20 06:17 04/02/20 06:17 Labs: Abnormal Lab Results - Last 24 Hours (Table) 04/01/20 04/01/20 04/01/20 Range/Units 06:49 06:49 12:19 RBC 2.51 L (3.80-5.40) m/uL Hgb 7.6 L (11.4-16.0) gm/dL Hct 24.4 L (34.0-46.0) % MCV (80.0-100.0) fL MCHC (31.0-37.0) g/dL Creatinine (0.52-1.04) mg/dL POC Glucose (mg/dL) 74 L (75-99) mg/dL Iron 21 L (50-170) ug/dL TIBC 184 L (228-460) ug/dL % Saturation 11.41 L (12.00-45.00) Ferritin 2175.7 H (10.0-291.0) ng/mL 04/01/20 04/01/20 04/02/20 Range/Units 16:35 20:12 06:17 RBC (3.80-5.40) m/uL Hgb (11.4-16.0) gm/dL Hct (34.0-46.0) % MCV (80.0-100.0) fL MCHC (31.0-37.0) g/dL Creatinine 4.50 H (0.52-1.04) mg/dL POC Glucose (mg/dL) 106 H 118 H (75-99) mg/dL Iron (50-170) ug/dL TIBC (228-460) ug/dL % Saturation (12.00-45.00) Ferritin (10.0-291.0) ng/mL 04/02/20 Range/Units 06:17 RBC 2.47 L (3.80-5.40) m/uL Hgb 7.4 L (11.4-16.0) gm/dL Hct 24.8 L (34.0-46.0) % MCV 100.3 H (80.0-100.0) fL MCHC 29.8 L (31.0-37.0) g/dL Creatinine (0.52-1.04) mg/dL POC Glucose (mg/dL) (75-99) mg/dL Iron (50-170) ug/dL TIBC (228-460) ug/dL % Saturation (12.00-45.00) Ferritin (10.0-291.0) ng/mL Microbiology - Last 24 Hours (Table) 03/31/20 13:36 Blood Culture - Preliminary Blood No Growth after 24 hours Assessment and Plan Assessment: Acute on chronic hypoxic respiratory failure secondary to volume overload and pneumonia Sepsis possibly related to pneumonia Pulmonary nodule ESRD on hemodialysis Normocytic anemia COPD Hypertension Hypothyroidism Her shortness of breath is likely multifactorial. Volume overload from missed dialysis session. Elevated pro-calcitonin. Coronavirus testing negative. Chest x-ray shows large consolidation and pleural effusion on the right with possible pulmonary mass. CT chest shows small to moderate non-simple right pleural fluid,loculated pneumothorax, alveolar edema, irregular masslike consolidation with endobronchial involvement and basilar bronchiectasis. Plans: Nephrology consulted for hemodialysis. Start Lasix 40 mg IV twice a day. Supplemental O2 to maintain O2 saturation greater than 92%. Pulmonology consulted. Telemetry monitoring. Follow blood culture. Repeat chest x-ray tomorrow morning. Lactic acid negative. Patient meets sepsis criteria with leukocytosis, tachycardia and positive source of infection. Plans: Start vancomycin and Zosyn for coverage of meeting or pneumonia. Management as above.follow pulmonology consultation. With possible mass seen on chest x ray. Plans: Pulmonology on board. Creatinine 4.5. Plans: Nephrology consulted for emergent dialysis. Avoid ne phrotoxins. Repeat BMP tomorrow morning. Restart Sevelamer. Hemoglobin 7.4. Likely related to ESRD. Plans: Follow iron studies. Transfuse if hemoglobin less than 7. Repeat CBC tomorrow morning. Plans: DuoNeb as needed for shortness of breath and wheezing. Restart Symbicort. Restart Singulair. BP 142/81. Plans: Restart nifedipine. Anticipated BP to improve with dialysis. Plans: Restart Synthroid. She names her decision maker she can't make decisions for herself. Patient is wanting to be FULL CODE at this time. Continue hemodialysis. Continue IV antibiotics. Pulmonology on board. Patient would benefit from repeat CT after clearing consolidation. Patient is pending cl inical improvement. Likely DC in 2-3 days.
[2020-04-02 11:21] LABS: Calcium 9.4 mg/dL (8.4-10.2); Potassium 5.1 mmol/L (3.5-5.1)
--- NOTE | 2020-04-02 11:25 | P.PN ---
Subjective Patient is seen in follow-up for end-stage renal disease. She is maintained on hemodialysis on Tuesday schedule. Currently awake and alert. Hemodynamically stable. Denies chest pain or shortness of breath. Feels better today. Vital signs are stable. General: The patient appeared well nourished and normally developed. HEENT: Head exam is unremarkable. Neck is without jugular venous distension. LUNGS: Breath sounds decreased. HEART: Rate and Rhythm are regular. ABDOMEN: Breath sounds decreased. EXTREMITITES: No clubbing, cyanosis, or edema. Objective - Vital Signs Vital signs: Vital Signs Temp 98.2 F 04/02/20 04:00 Pulse 88 04/02/20 08:25 Resp 18 04/02/20 04:00 BP 142/81 04/02/20 04:00 Pulse Ox 100 04/02/20 04:00 Intake & Output 04/01/20 04/02/20 04/02/20 18:59 06:59 18:59 Intake Total 507 237 120 Balance 507 237 120 Weight 46 kg 46 kg Intake: Oral 507 237 120 Other: Voiding Method Bedpan Bedpan Incontinent Incontinent # Voids 1 1 1 # Bowel Movements 1 1 1 - Labs CBC & Chem 7: 04/02/20 06:17 04/02/20 06:17 Labs: Abnormal Lab Results - Last 24 Hours (Table) 04/01/20 04/01/20 04/01/20 Range/Units 06:49 06:49 12:19 RBC 2.51 L (3.80-5.40) m/uL Hgb 7.6 L (11.4-16.0) gm/dL Hct 24.4 L (34.0-46.0) % MCV (80.0-100.0) fL MCHC (31.0-37.0) g/dL BUN (7-17) mg/dL Creatinine (0.52-1.04) mg/dL Glucose (74-99) mg/dL POC Glucose (mg/dL) 74 L (75-99) mg/dL Iron 21 L (50-170) ug/dL TIBC 184 L (228-460) ug/dL % Saturation 11.41 L (12.00-45.00) Ferritin 2175.7 H (10.0-291.0) ng/mL 04/01/20 04/01/20 04/02/20 Range/Units 16:35 20:12 06:17 RBC (3.80-5.40) m/uL Hgb (11.4-16.0) gm/dL Hct (34.0-46.0) % MCV (80.0-100.0) fL MCHC (31.0-37.0) g/dL BUN 19 H (7-17) mg/dL Creatinine 4.50 H (0.52-1.04) mg/dL Glucose 73 L (74-99) mg/dL POC Glucose (mg/dL) 106 H 118 H (75-99) mg/dL Iron (50-170) ug/dL TIBC (228-460) ug/dL % Saturation (12.00-45.00) Ferritin (10.0-291.0) ng/mL 04/02/20 Range/Units 06:17 RBC 2.47 L (3.80-5.40) m/uL Hgb 7.4 L (11.4-16.0) gm/dL Hct 24.8 L (34.0-46.0) % MCV 100.3 H (80.0-100.0) fL MCHC 29.8 L (31.0-37.0) g/dL BUN (7-17) mg/dL Creatinine (0.52-1.04) mg/dL Glucose (74-99) mg/dL POC Glucose (mg/dL) (75-99) mg/dL Iron (50-170) ug/dL TIBC (228-460) ug/dL % Saturation (12.00-45.00) Ferritin (10.0-291.0) ng/mL Microbiology - Last 24 Hours (Table) 03/31/20 13:36 Blood Culture - Preliminary Blood No Growth after 24 hours Assessment and Plan Plan: Assessment: 1. End-stage renal disease maintained on hemodialysis on Tuesday schedule. 2. Volume overload. Improved post dialysis. 3. Right-sided pleural fluid. Pulmonology following. 4. Chronic kidney disease mineral bone disease maintained on Renvela. 5. Hypertension with chronic kidney disease. Controlled. 6. Chronic inflammatory demyelinating polyneuritis. Patient has received IVIG in the past. 7. Anemia of chronic kidney disease. Maintained on Aranesp. High ferritin noted. Plan: Hemodialysis today. Monitor vancomycin levels. Target level near 15. Dose to be adjusted for renal function.
[2020-04-02] MEDS ORDERED: VANCOMYCIN 750 MG in SODIUM CHLORIDE 0.9% 250 ML IVPB ONE (12:00)
[2020-04-02 12:03] LABS: Glucose,Whole Blood 104 mg/dL (75-99)
[2020-04-02] MEDS: NIFEdipine XL 30 MG TAB.ER.24 PO SCH (12:35)
--- NOTE | 2020-04-02 12:45 | P.PN ---
Subjective Progress Note Date: 04/02/20 Principal diagnosis: Acute hypoxic respiratory failure related to right lower lobe pneumonia and chronic right-sided pleural effusion this is a 60-year-old white female with history of COPD, chronic hypoxic arrest or failure, maintained on home oxygen. End-stage renal disease, on hemodialysis Wednesdays and Fridays.patient is not a great historian, unable to communicate effectively, and new to our system, patient lives in [place], and normally gets her medical care in [facility].patient was brought in because she hasn't been feeling well since Tuesday and did not attend her last dialysis session. She was complaining of shortness of breath, dry cough, and 2 episodes of nausea and vomiting the day of admission. EMS picked up the patient from medical [place], and she was placed on BiPAP initially in the emergency room department, she was quite tachypneic, tachycardic, and hypertensive. She was noted to have leukocytosis, hemoglobin of 8.4, and she was also noted to have a right lower lobe consolidation, and right-sided pleural effusion. Ultrasound of the chest showed possibly complicated pleural effusion, it is rather small barely 4.0 cm in size, hence I chose not to perform thoracentesis at this point yet.CT of the chest showed loculated right-sided pneumothorax,and moderate alveolar edema suggestive of congestive heart failure as well as volume loss with significant irregular mass like consolidation in the right lower lobe and basilar bronchiectasis. Underlying neoplasm is not excluded. The overall presentation is mostly a presentation of infection with a parapneumonic effusion, again possibility of underlying malignancy is not entirely ruled out. On 04/02/2020 patient seen in follow-up on selective care unit, she is much more awake on today's exam, breathing has significantly improved, she had hemodial ysis treatment yesterday with removal of 3 L of fluid. She is breathing much easier, did not require BiPAP support last night, FiO2 is currently down to 2 L and her pulse ox is 98%. No complaints of chest pain, occasional cough, nonproductive. Mentation is appropriate, however patient is a poor historian. Today's chest x-ray has been reviewed showing right pleural effusion with loculation and patchy right basilar consolidative opacity likely related to underlying right lung pneumonia. Patient remains on Zosyn and vancomycin, afebrile, hemodynamically stable, she is weak, gets short of breath with exertion, has not been up out of bed. Breathing is comfortable at rest. Today's labs have been reviewed, white blood cell count is 7.1, hemoglobin 7.4, platelet count 368. Electrodes are within normal limits, however renal profile worsened, with BUN at 19, and creatinine has almost doubled, at 4.5. Nephrology has been following. Her procalcitonin level came back elevated at 2.04, proBNP was 31,800. COVID 19 negative. Blood cultures are negative thus far, we reviewed the records from the [facility], where patient had a recent hospitalization, from 02/03/2020 through 03/26/2020, and patient was on the ventilator support for acute exacerbation of CHF, possible pneumonia, right pleural effusion with right chest tube insertion and removal, and patient apparently had some episodes of bradycardia and possibly transient heart block while there, it is unknown what the pleural fluid showed whether was transudative or exudative, and what the cultures grew. Apparently patient was treated with a combination of cefepime and vancomycin while there, she was successfully weaned and extubated, and subsequently went to the [facility] for rehabilitation. On today's exam she is much more awake, and communicative. No hemoptysis, no chest pain. She continues on Zosyn and vancomycin. Objective - Vital Signs Vital signs: Vital Signs Temp 97.2 F L 04/02/20 08:00 Pulse 88 04/02/20 11:55 Resp 16 04/02/20 12:00 BP 126/70 04/02/20 08:00 Pulse Ox 98 04/02/20 08:00 Intake & Output 04/01/20 04/02/20 04/02/20 18:59 06:59 18:59 Intake Total 507 237 120 Balance 507 237 120 Weight 46 kg 46 kg Intake: Oral 507 237 120 Other: Voiding Method Bedpan Bedpan Bedpan Incontinent Incontinent Incontinent # Voids 1 1 1 # Bowel Movements 1 1 1 - Exam GENERAL EXAM: Alert,very pleasant, chronically ill looking, very frail-looking, 60-year-old white female, on 2 L of oxygen with a pulse ox of 98%, comfortable in no apparent distress. HEAD: Normocephalic/atraumatic. EYES: Normal reaction of pupils, equal size. Conjunctiva pink, sclera white. NOSE: Clear with pink turbinates. THROAT: No erythema or exudates. NECK: No masses, no JVD, no thyroid enlargement, no adenopathy. CHEST: No chest wall deformity. Symmetrical expansion. LUNGS: Equal air entry with no crackles, wheeze, rhonchi or dullness. CVS: Regular rate and rhythm, normal S1 and S2, no gallops, no murmurs, no rubs ABDOMEN: Soft, nontender. No hepatosplenomegaly, normal bowel sounds, no guarding or rigidity. EXTREMITIES: No clubbing, no edema, no cyanosis, 2+ pulses and upper and lower extremities. left arm AV fistula with positive bruit and thrill MUSCULOSKELETAL: Muscle strength and tone normal. SPINE: No scoliosis or deformity SKIN: No rashes CENTRAL NERVOUS SYSTEM: Alert and oriented -3. No focal deficits, tone is normal in all 4 extremities. - Labs CBC & Chem 7: 04/02/20 06:17 04/02/20 06:17 Labs: Abnormal Lab Results - Last 24 Hours (Table) 04/01/20 04/01/20 04/01/20 Range/Units 06:49 12:19 16:35 RBC (3.80-5.40) m/uL Hgb (11.4-16.0) gm/dL Hct (34.0-46.0) % MCV (80.0-100.0) fL MCHC (31.0-37.0) g/dL BUN (7-17) mg/dL Creatinine (0.52-1.04) mg/dL Glucose (74-99) mg/dL POC Glucose (mg/dL) 74 L 106 H (75-99) mg/dL Iron 21 L (50-170) ug/dL TIBC 184 L (228-460) ug/dL % Saturation 11.41 L (12.00-45.00) Ferritin 2175.7 H (10.0-291.0) ng/mL 04/01/20 04/02/20 04/02/20 Range/Units 20:12 06:17 06:17 RBC 2.47 L (3.80-5.40) m/uL Hgb 7.4 L (11.4-16.0) gm/dL Hct 24.8 L (34.0-46.0) % MCV 100.3 H (80.0-100.0) fL MCHC 29.8 L (31.0-37.0) g/dL BUN 19 H (7-17) mg/dL Creatinine 4.50 H (0.52-1.04) mg/dL Glucose 73 L (74-99) mg/dL POC Glucose (mg/dL) 118 H (75-99) mg/dL Iron (50-170) ug/dL TIBC (228-460) ug/dL % Saturation (12.00-45.00) Ferritin (10.0-291.0) ng/mL 04/02/20 Range/Units 11:46 RBC (3.80-5.40) m/uL Hgb (11.4-16.0) gm/dL Hct (34.0-46.0) % MCV (80.0-100.0) fL MCHC (31.0-37.0) g/dL BUN (7-17) mg/dL Creatinine (0.52-1.04) mg/dL Glucose (74-99) mg/dL POC Glucose (mg/dL) 104 H (75-99) mg/dL Iron (50-170) ug/dL TIBC (228-460) ug/dL % Saturation (12.00-45.00) Ferritin (10.0-291.0) ng/mL Microbiology - Last 24 Hours (Table) 03/31/20 13:36 Blood Culture - Preliminary Blood No Growth after 24 hours Assessment and Plan Plan: #1. Acute on chronic hypoxic respiratory failure secondary to right lower lobe pneumonia and suspected chronic right-sided pleural effusion #2. Acute exacerbation of CHF, fluid overload secondary to end-stage renal disease, and missed hemodialysis treatment #3. Recent hospitalization from 02/03/2020 through 03/26/2020 at [facility] with acute hypoxic respiratory failure requiring intubation and mechanical ventilator support for right lung pneumonia, acute exacerbation of CHF, bradycardia and possible transient heart block. Patient had a right chest tube at that time for drainage of right pleural effusion, that was possibly parapneumonic, unknown the characteristics of the fluid or the pleural fluid cultures. Further records patient was treated for healthcare acquired pneumonia with cefepime and vancomycin #4. Chronic obstructive pulmonary disease #5. Possibility of bronchogenic carcinoma in the right lung is considered, felt to be less likely #6. Benign essential hypertension #7. Hypothyroidism #8. End-stage renal disease on hemodialysis #9. Former smoker #10. Diabetes mellitus #11. Hypertension #12. Hyperlipidemia #13. Hypothyroidism Plan: Try to obtain records from [facility] regarding the characteristics of the pleural fluid removed from the right lung and the pleural fluid cultures during her most recent admission there. Today's chest x-ray shows persistent right lower lobe consolidation and pleural effusion, which was found to be loculated. We will make the patient nothing by mouth after midnight, and proceed with bronchoscopy with BAL tomorrow, patient may need a pigtail chest tube placed in the right loculated pleural effusion. In the meantime continue same antibiotics, Zosyn and vancomycin. Clinically patient is doing and looking better, weaning FiO2, maintain aspiration precautions will continue to follow I performed a history & physical examination of the patient and discussed their management with my nurse practitioner, Teresa Ortiz. I reviewed the nurse practitioner's note and agree with the documented findings and plan of care. Lung sounds are positive for diminished breath sounds. The findings and the impression was discussed with the patient. I attest to the documentation by the nurse practitioner. Time with Patient: Less than 30
[2020-04-02 16:47] LABS: Glucose,Whole Blood 158 mg/dL (75-99)
[2020-04-02 20:06] LABS: Glucose,Whole Blood 254 mg/dL (75-99)
[2020-04-02] MEDS ORDERED: ONDANSETRON 4 MG/2 ML VIAL IVP PRN (22:02)
[2020-04-03] MEDS: IPRATROPIUM-ALBUTEROL 3 ML NEB INHALATION SCH ×7 (00:16→23:18)
[2020-04-03] MEDS: LEVOTHYROXINE 100 MCG TAB PO SCH (06:05)
[2020-04-03 06:08] LABS: Glucose,Whole Blood 106 mg/dL (75-99)
[2020-04-03] MEDS: LACTATED RINGERS 1,000 ML IV SCH (06:13)
[2020-04-03] MEDS: SYMBICORT 160-4.5 MCG INHALER INHALATION SCH ×2 (08:20→19:18)
[2020-04-03 08:58] LABS: Basophils # (A) 0.1 k/uL (0-0.2); Basophils % (A) 1 %; Eosinophils # (A) 0.2 k/uL (0-0.7); Eosinophils % (A) 3 %; HCT 23.1 % (34.0-46.0); HGB 7.2 gm/dL (11.4-16.0); Hypochromasia Marked; Lymphocytes # (A) 1.5 k/uL (1.0-4.8); Lymphocytes % (A) 22 %; MCH 30.5 pg (25.0-35.0); MCHC 30.9 g/dL (31.0-37.0); MCV 98.7 fL (80.0-100.0); Mean Platelet Volume 7.7; Monocytes # (A) 0.9 k/uL (0-1.0); Monocytes % (A) 13 %; Neutrophils # (A) 3.9 k/uL (1.3-7.7); Neutrophils % (A) 57 %; Platelet Count 330 k/uL (150-450); RBC 2.34 m/uL (3.80-5.40); RDW 14.9 % (11.5-15.5)
[2020-04-03] MEDS: ATORVASTATIN 40 MG TAB PO SCH (09:11)
[2020-04-03] MEDS: NIFEdipine XL 30 MG TAB.ER.24 PO SCH (09:11)
[2020-04-03] MEDS: FUROSEMIDE 10 MG/ML 4 ML VIAL IV SCH ×2 (09:11→20:56)
[2020-04-03] MEDS: SEVELAMER 800 MG TAB PO SCH ×3 (09:11→17:29)
[2020-04-03] MEDS: PIPERACILLIN-TAZOBACTAM 3.375 GM in SODIUM CHLORIDE 0.9% 100 ML IVPB SCH ×2 (09:12→20:56)
[2020-04-03] MEDS: HEPARIN SODIUM,PORCINE 5,000 UNIT/ML 1 ML VIAL SQ SCH ×2 (09:12→20:56)
[2020-04-03 09:15] LABS: Potassium 4.6 mmol/L (3.5-5.1)
--- NOTE | 2020-04-03 10:48 | P.PN ---
Subjective Patient is seen in follow-up for end-stage renal disease. She is maintained on hemodialysis on Tuesday schedule. Feels tired. Hemodynamically stable. Denies chest pain or shortness of breath. He tolerated dialysis well yesterday. Vital signs are stable. General: The patient appeared well nourished and normally developed. HEENT: Head exam is unremarkable. Neck is without jugular venous distension. LUNGS: Breath sounds decreased. HEART: Rate and Rhythm are regular. ABDOMEN: Breath sounds decreased. EXTREMITITES: No clubbing, cyanosis, or edema. Objective - Vital Signs Vital signs: Vital Signs Temp 97.5 F L 04/03/20 03:42 Pulse 85 04/03/20 08:00 Resp 16 04/03/20 08:00 BP 143/80 04/03/20 08:00 Pulse Ox 97 04/03/20 08:00 Intake & Output 04/02/20 04/03/20 04/03/20 18:59 06:59 18:59 Intake Total 860 Output Total 2800 Balance -1940 Weight 46 kg 46.5 kg Intake: Intake, IV Titration 350 Amount Piperacillin-Tazobactam 3 100 .375 gm In Sodium Chloride 0.9% 100 ml @ 25 mls/hr IVPB Q12H [facility] Rx# :[id number] Vancomycin 750 mg In 250 Sodium Chloride 0.9% 250 ml @ 125 mls/hr IVPB ONCE ONE Rx#:[id number] Oral 510 Output: Urine 100 Hemodialysis 2700 Other: Voiding Method Bedpan Bedpan Bedpan Incontinent Incontinent Incontinent # Voids 1 1 # Bowel Movements 1 1 - Labs CBC & Chem 7: 04/03/20 06:37 04/03/20 06:37 Labs: Abnormal Lab Results - Last 24 Hours (Table) 04/02/20 04/02/20 04/02/20 Range/Units 06:17 11:46 16:38 RBC (3.80-5.40) m/uL Hgb (11.4-16.0) gm/dL Hct (34.0-46.0) % MCHC (31.0-37.0) g/dL BUN 19 H (7-17) mg/dL Creatinine 4.50 H (0.52-1.04) mg/dL Glucose 73 L (74-99) mg/dL POC Glucose (mg/dL) 104 H 158 H (75-99) mg/dL 04/02/20 04/03/20 04/03/20 Range/Units 20:04 06:06 06:37 RBC (3.80-5.40) m/uL Hgb (11.4-16.0) gm/dL Hct (34.0-46.0) % MCHC (31.0-37.0) g/dL BUN (7-17) mg/dL Creatinine 2.62 H (0.52-1.04) mg/dL Glucose (74-99) mg/dL POC Glucose (mg/dL) 254 H 106 H (75-99) mg/dL 04/03/20 Range/Units 06:37 RBC 2.34 L (3.80-5.40) m/uL Hgb 7.2 L (11.4-16.0) gm/dL Hct 23.1 L (34.0-46.0) % MCHC 30.9 L (31.0-37.0) g/dL BUN (7-17) mg/dL Creatinine (0.52-1.04) mg/dL Glucose (74-99) mg/dL POC Glucose (mg/dL) (75-99) mg/dL Microbiology - Last 24 Hours (Table) 03/31/20 13:36 Blood Culture - Preliminary Blood No Growth after 48 hours Assessment and Plan Plan: Assessment: 1. End-stage renal disease maintained on hemodialysis on Tuesday schedule. 2. Volume overload. Improved post dialysis. 3. Right-sided pleural fluid. Pulmonology following. 4. Chronic kidney disease mineral bone disease maintained on Renvela. 5. Hypertension with chronic kidney disease. Controlled. 6. Chronic inflammatory demyelinating polyneuritis. Patient has received IVIG in the past. 7. Anemia of chronic kidney disease. Maintained on Aranesp. High ferritin noted. Plan: Hemodialysis tomorrow. Monitor vancomycin levels. Target level near 15. Dose to be adjusted for renal function.
[2020-04-03 11:39] LABS: Glucose,Whole Blood 91 mg/dL (75-99)
[2020-04-03] MEDS ORDERED: PROPOFOL 10 MG/ML 20 ML VIAL IV ONE (12:13)
[2020-04-03] MEDS ORDERED: LIDOCAINE 1% INJ 10MG/ML (20 ML MDV) ONE (12:13)
[2020-04-03] MEDS ORDERED: IV FLUID CONTINUATION 1,000 ML IV ONE (12:14)
[2020-04-03] MEDS ORDERED: LIDOCAINE 2% INJ 20 MG/ML INTRATRACH ONE (12:21)
--- NOTE | 2020-04-03 12:59 | P.PN ---
Subjective Progress Note Date: 04/03/20 Principal diagnosis: Acute hypoxic respiratory failure related to right lower lobe pneumonia and chronic right-sided pleural effusion this is a 60-year-old white female with history of COPD, chronic hypoxic arrest or failure, maintained on home oxygen. End-stage renal disease, on hemodialysis Wednesdays and Fridays.patient is not a great historian, unable to communicate effectively, and new to our system, patient lives in [place], and normally gets her medical care in [facility].patient was brought in because she hasn't been feeling well since Tuesday and did not attend her last dialysis session. She was complaining of shortness of breath, dry cough, and 2 episodes of nausea and vomiting the day of admission. EMS picked up the patient from medical [place], and she was placed on BiPAP initially in the emergency room department, she was quite tachypneic, tachycardic, and hypertensive. She was noted to have leukocytosis, hemoglobin of 8.4, and she was also noted to have a right lower lobe consolidation, and right-sided pleural effusion. Ultrasound of the chest showed possibly complicated pleural effusion, it is rather small barely 4.0 cm in size, hence I chose not to perform thoracentesis at this point yet.CT of the chest showed loculated right-sided pneumothorax,and moderate alveolar edema suggestive of congestive heart failure as well as volume loss with significant irregular mass like consolidation in the right lower lobe and basilar bronchiectasis. Underlying neoplasm is not excluded. The overall presentation is mostly a presentation of infection with a parapneumonic effusion, again possibility of underlying malignancy is not entirely ruled out. On 04/02/2020 patient seen in follow-up on selective care unit, she is much more awake on today's exam, breathing has significantly improved, she had hemodial ysis treatment yesterday with removal of 3 L of fluid. She is breathing much easier, did not require BiPAP support last night, FiO2 is currently down to 2 L and her pulse ox is 98%. No complaints of chest pain, occasional cough, nonproductive. Mentation is appropriate, however patient is a poor historian. Today's chest x-ray has been reviewed showing right pleural effusion with loculation and patchy right basilar consolidative opacity likely related to underlying right lung pneumonia. Patient remains on Zosyn and vancomycin, afebrile, hemodynamically stable, she is weak, gets short of breath with exertion, has not been up out of bed. Breathing is comfortable at rest. Today's labs have been reviewed, white blood cell count is 7.1, hemoglobin 7.4, platelet count 368. Electrodes are within normal limits, however renal profile worsened, with BUN at 19, and creatinine has almost doubled, at 4.5. Nephrology has been following. Her procalcitonin level came back elevated at 2.04, proBNP was 31,800. COVID 19 negative. Blood cultures are negative thus far, we reviewed the records from the [facility], where patient had a recent hospitalization, from 02/03/2020 through 03/26/2020, and patient was on the ventilator support for acute exacerbation of CHF, possible pneumonia, right pleural effusion with right chest tube insertion and removal, and patient apparently had some episodes of bradycardia and possibly transient heart block while there, it is unknown what the pleural fluid showed whether was transudative or exudative, and what the cultures grew. Apparently patient was treated with a combination of cefepime and vancomycin while there, she was successfully weaned and extubated, and subsequently went to the [facility] for rehabilitation. On today's exam she is much more awake, and communicative. No hemoptysis, no chest pain. She continues on Zosyn and vancomycin. On 04/03/2020 patient seen in follow-up on selective care unit. She is resting comfortably in bed, in no acute distress, she is on 2 L of oxygen her pulse ox is 97%, respirations are nonlabored, altered mentation, patient is answering questions appropriately, she is on a combination of Zosyn and vancomycin for empiric antibiotic coverage, patient has been nothing by mouth after midnight for bronchoscopy with BAL today. No complaints of chest pain, no hemoptysis. She had hemodialysis treatment today would removal of 2.7 L of fluid. Today's labs have been reviewed, showing white blood cell count of 7.0, hemoglobin is 7.2, electrolytes were within normal limits, renal profile improved, with creatinine down to 2.62. Objective - Vital Signs Vital signs: Vital Signs Temp 97.5 F L 04/03/20 03:42 Pulse 85 04/03/20 08:00 Resp 16 04/03/20 11:31 BP 143/80 04/03/20 08:00 Pulse Ox 97 04/03/20 08:00 Intake & Output 04/02/20 04/03/20 04/03/20 18:59 06:59 18:59 Intake Total 860 50 Output Total 2800 Balance -1940 50 Weight 46 kg 46.5 kg Intake: IV 50 Intake, IV Titration 350 Amount Piperacillin-Tazobactam 3 100 .375 gm In Sodium Chloride 0.9% 100 ml @ 25 mls/hr IVPB Q12H [facility] Rx# :[id number] Vancomycin 750 mg In 250 Sodium Chloride 0.9% 250 ml @ 125 mls/hr IVPB ONCE ONE Rx#:[id number] Oral 510 Output: Urine 100 Hemodialysis 2700 Other: Voiding Method Bedpan Bedpan Bedpan Incontinent Incontinent Incontinent # Voids 1 1 # Bowel Movements 1 1 1 - Exam GENERAL EXAM: Alert,very pleasant, chronically ill looking, very frail-looking, 60-year-old white female, on 2 L of oxygen with a pulse ox of 98%, comfortable in no apparent distress. HEAD: Normocephalic/atraumatic. EYES: Normal reaction of pupils, equal size. Conjunctiva pink, sclera white. NOSE: Clear with pink turbinates. THROAT: No erythema or exudates. NECK: No masses, no JVD, no thyroid enlargement, no adenopathy. CHEST: No chest wall deformity. Symmetrical expansion. LUNGS: Equal air entry with no crackles, wheeze, rhonchi or dullness. CVS: Regular rate and rhythm, normal S1 and S2, no gallops, no murmurs, no rubs ABDOMEN: Soft, nontender. No hepatosplenomegaly, normal bowel sounds, no guarding or rigidity. EXTREMITIES: No clubbing, no edema, no cyanosis, 2+ pulses and upper and lower extremities. left arm AV fistula with positive bruit and thrill MUSCULOSKELETAL: Muscle strength and tone normal. SPINE: No scoliosis or deformity SKIN: No rashes CENTRAL NERVOUS SYSTEM: Alert and oriented -3. No focal deficits, tone is n ormal in all 4 extremities. - Labs CBC & Chem 7: 04/03/20 06:37 04/03/20 06:37 Labs: Abnormal Lab Results - Last 24 Hours (Table) 04/02/20 04/02/20 04/03/20 Range/Units 16:38 20:04 06:06 RBC (3.80-5.40) m/uL Hgb (11.4-16.0) gm/dL Hct (34.0-46.0) % MCHC (31.0-37.0) g/dL Creatinine (0.52-1.04) mg/dL POC Glucose (mg/dL) 158 H 254 H 106 H (75-99) mg/dL 04/03/20 04/03/20 Range/Units 06:37 06:37 RBC 2.34 L (3.80-5.40) m/uL Hgb 7.2 L (11.4-16.0) gm/dL Hct 23.1 L (34.0-46.0) % MCHC 30.9 L (31.0-37.0) g/dL Creatinine 2.62 H (0.52-1.04) mg/dL POC Glucose (mg/dL) (75-99) mg/dL Microbiology - Last 24 Hours (Table) 03/31/20 13:36 Blood Culture - Preliminary Blood No Growth after 48 hours Assessment and Plan Plan: #1. Acute on chronic hypoxic respiratory failure secondary to right lower lobe pneumonia and suspected chronic right-sided pleural effusion #2. Acute exacerbation of CHF, fluid overload secondary to end-stage renal disease, and missed hemodialysis treatment #3. Recent hospitalization from 02/03/2020 through 03/26/2020 at [facility] with acute hypoxic respiratory failure requiring intubation and mechanical ventilator support for right lung pneumonia, acute exacerbation of CHF, bradycardia and possible transient heart block. Patient had a right chest tube at that time for drainage of right pleural effusion, that was possibly parapneumonic, unknown the characteristics of the fluid or the pleural fluid cultures. Further records patient was treated for healthcare acquired pneumonia with cefepime and vancomycin #4. Chronic obstructive pulmonary disease #5. Possibility of bronchogenic carcinoma in the right lung is considered, felt to be less likely #6. Benign essential hypertension #7. Hypothyroidism #8. End-stage renal disease on hemodialysis #9. Former smoker #10. Diabetes mellitus #11. Hypertension #12. Hyperlipidemia #13. Hypothyroidism Plan: Lab results obtained from [facility] have been reviewed, however I don't see any results for pleural fluid cultures or pleural fluid analysis. Clinically patient is doing better, she is looking her breathing better, esteban nue with same antibiotics, she was taken down for a bronchoscopy with BAL, tolerated procedure well, will await results of the bronchial wash cultures. Follow-up chest x-ray in the morning I performed a history & physical examination of the patient and discussed their management with my nurse practitioner, Teresa Ortiz. I reviewed the nurse practitioner's note and agree with the documented findings and plan of care. Lung sounds are positive for diminished breath sounds. The findings and the impression was discussed with the patient. I attest to the documentation by the nurse practitioner. Time with Patient: Less than 30
--- NOTE | 2020-04-03 14:46 | XR ---
EXAMINATION TYPE: XR chest 1V portable DATE OF EXAM: 04/03/2020 CLINICAL HISTORY: Shortness of breath. Post bronchoscopy and bronchoalveolar lavage of right lung. TECHNIQUE: Portable upright view of the chest obtained. COMPARISON: Chest radiograph 04/02/2020. CT chest 04/01/2020. FINDINGS: Cardiomegaly. Sternal silhouette unchanged. Right-sided volume loss. Moderate right pleura l effusion and patchy right lung airspace opacities unchanged. There is loculated mid and lower anter ior pneumothorax which is better appreciated on CT comparison. No evidence of new or significantly in creased pneumothorax status post endoscopy. IMPRESSION: Unchanged moderate right pleural effusion, patchy right consolidative opacities, and mid/ lower anterior right loculated pneumothorax. No evidence of significant change status post bronchosco py.
[2020-04-03] MEDS ORDERED: HYDROmorphone 0.5 MG/0.5 ML SYRINGE IVP STA (16:04)
[2020-04-03 16:16] LABS: Appearance,BF Cloudy; Nucleated Cells, Body Fluid 1000 /uL; RBC, Body Fluid 300 /uL
[2020-04-03 16:20] LABS: Mononuclear WBC,Body Fluid 12 %; Polynuclear WBC,Body Fluid 88 %; Total Cells Counted,Body Fluid 100
--- NOTE | 2020-04-03 16:31 | P.PN ---
Subjective Progress Note Date: 04/03/20 Patient was seen and examined. No acute events overnight. Patient reports significant improvement in breathing since yesterday. She denies any chest pain or palpitations. No nausea or vomiting. No fever or chills. Underwent bronchoscopy and BAL today. CT surgery consulted for pigtail catheter placement for loculated complex fluid. Objective - Vital Signs Vital signs: Vital Signs Temp 97.5 F L 04/03/20 03:42 Pulse 81 04/03/20 16:05 Resp 22 04/03/20 15:36 BP 103/60 04/03/20 16:05 Pulse Ox 96 04/03/20 16:05 Intake & Output 04/02/20 04/03/20 04/03/20 18:59 06:59 18:59 Intake Total 860 50 Output Total 2800 Balance -1940 50 Weight 46 kg 46.5 kg Intake: IV 50 Intake, IV Titration 350 Amount Piperacillin-Tazobactam 3 100 .375 gm In Sodium Chloride 0.9% 100 ml @ 25 mls/hr IVPB Q12H [facility] Rx# :[id number] Vancomycin 750 mg In 250 Sodium Chloride 0.9% 250 ml @ 125 mls/hr IVPB ONCE ONE Rx#:[id number] Oral 510 Output: Urine 100 Hemodialysis 2700 Other: Voiding Method Bedpan Bedpan Bedpan Incontinent Incontinent Incontinent # Voids 1 1 # Bowel Movements 1 1 1 - Exam General: [non toxic], [no distress on nasal cannula], [appears at stated age] Derm: [warm], [dry] Head: [atraumatic], [normocephalic], [symmetric] Eyes: [EOMI], [no lid lag], [anicteric sclera] Mouth: [no lip lesion], [mucus membranes moist] Cardiovascular: [S1S2 reg], [tachycardic], [positive DP pulse bilateral], Lungs: [Coarse breath sounds bilateral worse on the left], [no rhonchi, no rales] , [no accessory muscle use] Abdominal: [soft], [ nontender to palpation], [no guarding], [no appreciable organomegaly] Ext: [no gross muscle atrophy], [no edema], [no contractures] Neuro: [no focal neuro deficits] Psych: [Alert], [oriented], [appropriate affect] - Labs CBC & Chem 7: 04/03/20 06:37 04/03/20 06:37 Labs: Abnormal Lab Results - Last 24 Hours (Table) 04/02/20 04/02/20 04/03/20 Range/Units 16:38 20:04 06:06 RBC (3.80-5.40) m/uL Hgb (11.4-16.0) gm/dL Hct (34.0-46.0) % MCHC (31.0-37.0) g/dL Creatinine (0.52-1.04) mg/dL POC Glucose (mg/dL) 158 H 254 H 106 H (75-99) mg/dL 04/03/20 04/03/20 Range/Units 06:37 06:37 RBC 2.34 L (3.80-5.40) m/uL Hgb 7.2 L (11.4-16.0) gm/dL Hct 23.1 L (34.0-46.0) % MCHC 30.9 L (31.0-37.0) g/dL Creatinine 2.62 H (0.52-1.04) mg/dL POC Glucose (mg/dL) (75-99) mg/dL Microbiology - Last 24 Hours (Table) 03/31/20 13:36 Blood Culture - Preliminary Blood No Growth after 72 hours Assessment and Plan Assessment: Acute on chronic hypoxic respiratory failure secondary to volume overload and pneumonia Sepsis possibly related to pneumonia Pulmonary nodule ESRD on hemodialysis Normocytic anemia COPD Hypertension Hypothyroidism Her shortness of breath is likely multifactorial. Volume overload from missed dialysis session. Elevated pro-calcitonin. Coronavirus testing negative. Chest x-ray shows large consolidation and pleural effusion on the right with possible pulmonary mass. CT chest shows small to moderate non-simple right pleural fluid, loculated pneumothorax, alveolar edema, irregular masslike consolidation with endobronchial involvement and basilar bronchiectasis. Plans: Nephrology consulted for hemodialysis. Start Lasix 40 mg IV twice a day. Supplemental O2 to maintain O2 saturation greater than 92%. Pulmonology consulted. Telemetry monitoring. Follow blood culture. Repeat chest x-ray tomorrow morning. s/p bronchoscopy and BAL, follow up cultures. CT surgery consulted for pigtail placement for complex loculated fluid collection in the R lung. Lactic acid negative. Patient meets sepsis criteria with leukocytosis, tachycardia and positive source of infection. Plans: Start vancomycin and Zosyn for coverage of meeting or pneumonia. Management as above. Follow pulmonology consultation. With possible mass seen on chest x ray. Plans: Pulmonology on board. Creatinine 2.62. Plans: Nephrology consulted for emergent dialysis. Avoid nephrotoxins. Repeat BMP tomorrow morning. Restart Sevelamer. Hemoglobin 7.2. Likely related to ESRD. Plans: Follow iron studies. Transfuse if hemoglobin less than 7. Repeat CBC tomorrow morning. Plans: DuoNeb as needed for shortness of breath and wheezing. Restart Symbicort. Restart Singulair. BP 103/57. Plans: Restart nifedipine. Anticipated BP to improve with dialysis. Plans: Restart Synthroid. She names her decision maker she can't make decisions for herself. Patient is wanting to be FULL CODE at this time. [Continue hemodialysis. Continue IV antibiotics. Pulmonology on board. s/p BAL, cultures pending. CT surgery for pigtail placement. Patient is pending clinical improvement. Likely DC in 2-3 days.]
--- NOTE | 2020-04-03 16:37 | PCN ---
PROCEDURE NOTE PROCEDURE: Bronchoscopy and bronchoalveolar lavage of the right lower lobe, right middle lobe and right upper lobe. PREOPERATIVE DIAGNOSIS: Extensive right-sided pneumonia with parapneumonic effusion. POSTOPERATIVE DIAGNOSIS: Extensive right-sided pneumonia with parapneumonic effusion. ANESTHESIA USED: IV conscious sedation. PROCEDURE DESCRIPTION: The patient was prepared according the bronchoscopy protocol. O2 was applied via nasal cannula, and she was in the supine position, we monitored his O2 saturation continuously. Blood pressure was intermittently monitored and cardiac rhythm was continuously monitored. After adequate IV conscious sedation, the bronchoscope was inserted through the left naris to the area of the vocal cords, lidocaine applied over the vocal cords and vocal cords were noted to be patent. Then the bronchoscope was advanced further down to the trachea. Thorough examination was done of the trachea, right upper lobe, briana, right middle lobe, right lower lobe, left upper lobe, lingula and left lower lobe. There was evidence of significant purulent thick secretions in the distal trachea, also in the right mainstem bronchus, right upper lobe bronchus, the right middle lobe bronchus and right lower lobe. All these thick secretions were lavaged and suctioned, and I was able to visualize the different segments of the different lobes, these were lavages orally until all the thick purulent secretions were cleared. The left side was examined. No evidence of any significant abnormalities on the left side, no lavages were done on the left side. The procedure was well tolerated. There was definitely no evidence of endobronchial tumors. The procedure was well tolerated and the fluid was sent for different diagnostic studies, updated her on her condition. MMODL / IJN: [id number] /
--- NOTE | 2020-04-03 17:05 | P.OP ---
Date of Procedure: 04/03/20 Preoperative Diagnosis: pneumonia with loculated right pleural effusion and loculated anterior right pneumothorax Procedure(s) Performed: CT-guided right chest tube placement Anesthesia: local Surgeon: Bess Bello Estimated Blood Loss (ml): 0 Pathology: none sent Condition: stable Disposition: floor Description of Procedure: Right CT-guided 10FR chest tube placement into loculated right pleural effusion. 100 cc clear serous fluid removed. Small right posterior pneumothorax and/or component of trapped lung at completion of exam. Pt stable vitals with no difficulty breathing. Chest tube connected to Pleura Vac.
--- NOTE | 2020-04-03 17:16 | P.GSCN ---
History of Present Illness Consult date: 04/03/20 Reason for Consult: Complicated right pleural effusion, possible decortication Requesting physician: Earline Stinson History of present illness: This is a 60-year-old female who follows on an outpatient basis with Dr. Tim soriano. She is a previous medical history of COPD, chronic hypoxic respiratory failure currently maintained on home oxygen, end-stage renal disease currently receiving hemodialysis with chronic anemia, diabetes mellitus, hypertension, hyperlipidemia, hypothyroid, and previous tobacco dependence. She presented to [facility] emergency room on 03/31/2020 from [facility] for shortness of breath. Per the patient he was not the best historian, she was at [facility] for over a month with pulmonary issues. She does describe having had a chest tube placed at some point with drainage. She states she was transferred to [facility] upon discharge from the hospital for rehabilitation. She has been there for a few days and has had progressive shortness of breath, she was felt to be in impending respiratory failure and was brought here for treatment. In the ER she was to, tachycardic, and hypertensive. She was placed on BiPAP. She was afebrile. White blood cell count was 13.6. She was found to have right lower lobe consolidation on chest x-ray and right-sided pleural effusion. Ultrasound of the chest demonstrated complicated pleural effusion but it was small and thoracentesis was not performed. CT of the chest demonstrated a loculated right-sided pneumothorax, moderate alveolar output edema as well as volume loss, irregular masslike consolidation in the right lower lobe and basilar bronchiectasis. The overall presentation was consistent with infection with parapneumonic effusion. She was admitted for treatment with consultation placed to pulmonology and nephrology. Dr. Stinson performed bronchoscopy with bronchoalveolar lavage of the right lower lobe, right middle lobe, and right upper lobe today until all thick purulent secretions were cleared. Consultation was placed to infectious disease as well as Dr. Aariza for recommendations and treatment of complicated right pleural effusion. Review of Systems Review of systems was completed and was negative except as noted - Respiratory Reports as per HPI, Reports cough with sputum, Reports dyspnea Past Medical History Past Medical History: Asthma, Heart Failure, Diabetes Mellitus, Hyperlipidemia, Hypertension, Pneumonia, Renal Disease, Thyroid Disorder Additional Past Medical History / Comment(s): type 2 diabetes, end stage renal disease, dialysis, anemia History of Any Multi-Drug Resistant Organisms: None Reported Past Surgical History: Appendectomy Additional Past Surgical History / Comment(s): dialysis port Past Psychological History: No Psychological Hx Reported Smoking Status: Former smoker Past Alcohol Use History: None Reported Past Drug Use History: None Reported - Past Family History Mother Additional Family Medical History / Comment(s): nothing reported Father Family Medical History: Cancer Additional Family Medical History / Comment(s): Throat cancer Medications and Allergies Home Medications Medication Instructions Recorded Confirmed Type Acetaminophen Tab [Tylenol] 650 mg PO Q6H PRN 03/31/20 03/31/20 History Albuterol Sulfate [Ventolin HFA] 2 puff INHALATION Q4H PRN 03/31/20 03/31/20 History Budesonide-Formot 160-4.5 Mcg 2 puff INHALATION RT-BID@799,199903/31/20 03/31/20 History [Symbicort 160-4.5 Mcg Inhaler] Diff-Stat Probiotic 2 cap PO BID 03/31/20 03/31/20 History EPINEPHrine (Auto Inject) [Epipen] 0.3 mg IM ONCE PRN 03/31/20 03/31/20 History Folic Acid-Vit B Complex-Vit C 1 cap PO DAILY@169903/31/20 03/31/20 History [Nephrocaps] Hizentra 10gm/50ml 10 gm SQ Q7D 03/31/20 03/31/20 History House Supplement 1 can PO TID@0800,1200,1700 03/31/20 03/31/20 History House Supplement 1 can PO TID@0900,1300,1800 03/31/20 03/31/20 History Levothyroxine Sodium [Synthroid] 200 mcg PO DAILY@59903/31/20 03/31/20 History Melatonin 3 mg PO HS@199903/31/20 03/31/20 History Montelukast Sodium [Singulair] 10 mg PO HS@199903/31/20 03/31/20 History Moxifloxacin HCl [Avelox] 400 mg PO DAILY@0600 03/31/20 03/31/20 History NIFEdipine [NIFEdipine ER] 30 mg PO DAILY@0803/31/20 03/31/20 History Ondansetron [Zofran] 4 mg PO Q6H PRN 03/31/20 03/31/20 History Simvastatin [Zocor] 80 mg PO DAILY@0800 03/31/20 03/31/20 History hydrALAZINE HCL [Apresoline] 25 mg PO Q4H PRN 03/31/20 03/31/20 History sevelamer HCL [Sevelamer HCl] 1,600 mg PO TID@0830,1230,1730 03/31/20 03/31/20 History Allergies Allergy/AdvReac Type Severity Reaction Status Date / Time No Known Allergies Allergy Verified 03/31/20 13:53 Surgical - Exam Vital Signs Temp Pulse Resp BP Pulse Ox 98.2 F 102 H 34 H 167/82 99 03/31/20 11:27 03/31/20 11:27 03/31/20 11:27 03/31/20 11:27 03/31/20 11:27 - General well developed, well nourished, no distress, no pain, chronically ill - Eyes normal ocular movement - ENT no hearing loss - Neck no masses, no bruits, trachea midline - Respiratory Lungs sounds diminished on the left, coarse on the right. Respirations even, nonlabored. Currently on 4 L nasal cannula with oxygen saturation 99%. - Cardiovascular S1, S2 present. Regular rate and rhythm, sinus rhythm on telemetry. Palpable peripheral pulses bilaterally. No edema present. No calf pain or tenderness noted. - Abdomen Abdomen: soft, non tender, bowel sounds - Genitourinary Deferred - Rectum Deferred - Integumentary no rash, no growths - Neurologic normal coordination, normal sensation - Musculoskeletal normal posture - Psychiatric oriented to time, oriented to person, oriented to place Results - Labs 04/03/20 06:37 04/03/20 06:37 Abnormal Lab Results - Last 24 Hours (Table) 04/02/20 04/03/20 04/03/20 Range/Units 20:04 06:06 06:37 RBC (3.80-5.40) m/uL Hgb (11.4-16.0) gm/dL Hct (34.0-46.0) % MCHC (31.0-37.0) g/dL Creatinine 2.62 H (0.52-1.04) mg/dL POC Glucose (mg/dL) 254 H 106 H (75-99) mg/dL 04/03/20 Range/Units 06:37 RBC 2.34 L (3.80-5.40) m/uL Hgb 7.2 L (11.4-16.0) gm/dL Hct 23.1 L (34.0-46.0) % MCHC 30.9 L (31.0-37.0) g/dL Creatinine (0.52-1.04) mg/dL POC Glucose (mg/dL) (75-99) mg/dL Microbiology - Last 24 Hours (Table) 03/31/20 13:36 Blood Culture - Preliminary Blood No Growth after 72 hours Diabetes panel 04/03/20 Range/Units 06:37 Sodium 137 (137-145) mmol/L Potassium 4.6 (3.5-5.1) mmol/L Chloride 102 (98-107) mmol/L Carbon Dioxide 30 (22-30) mmol/L BUN 16 (7-17) mg/dL Creatinine 2.62 H (0.52-1.04) mg/dL Glucose 88 (74-99) mg/dL Calcium 9.0 (8.4-10.2) mg/dL Calcium panel 04/03/20 Range/Units 06:37 Calcium 9.0 (8.4-10.2) mg/dL Pituitary panel 04/03/20 Range/Units 06:37 Sodium 137 (137-145) mmol/L Potassium 4.6 (3.5-5.1) mmol/L Chloride 102 (98-107) mmol/L Carbon Dioxide 30 (22-30) mmol/L BUN 16 (7-17) mg/dL Creatinine 2.62 H (0.52-1.04) mg/dL Glucose 88 (74-99) mg/dL Calcium 9.0 (8.4-10.2) mg/dL Adrenal panel 04/03/20 Range/Units 06:37 Sodium 137 (137-145) mmol/L Potassium 4.6 (3.5-5.1) mmol/L Chloride 102 (98-107) mmol/L Carbon Dioxide 30 (22-30) mmol/L BUN 16 (7-17) mg/dL Creatinine 2.62 H (0.52-1.04) mg/dL Glucose 88 (74-99) mg/dL Calcium 9.0 (8.4-10.2) mg/dL - Imaging Chest x-ray: report reviewed, image reviewed CT scan - chest: report reviewed, image reviewed Assessment and Plan Assessment: 1. Shortness of breath on admission, right-sided pleural effusion, likely parapneumonic effusion 2. Acute and chronic hypoxic respiratory failure 3. Leukocytosis on admission, pneumonia 4. History of COPD, chronic hypoxic respiratory failure currently maintained on home oxygen 5. End-stage renal disease, on hemodialysis with chronic anemia 6. Diabetes mellitus 7. Hypertension 8. Hyperlipidemia 9. Hypothyroid 10. Previous tobacco dependence Plan: The patient was seen and examined at bedside. Chart/diagnostics were reviewed with Dr. Araiza. Our recommendations are for placement of pigtail catheter by interventional radiology for alteplase infusion to break up loculations. This was discussed with the patient and her and they were agreeable. I nterventional radiology consultation was placed, we will instill alteplase tomorrow. Wean O2 as tolerated. Antibiotics per infectious disease. Will check chest x-ray tomorrow. Management of other comorbidities per primary care service, pulmonology, nephrology. More recommendations to follow. Thank you Dr. Stinson for this consult. We look forward to working with you in the care of your patient Time with Patient: Greater than 30
[2020-04-03 17:26] LABS: Glucose,Whole Blood 73 mg/dL (75-99)
--- NOTE | 2020-04-03 17:36 | CT ---
EXAMINATION TYPE: CT chest tube insertion DATE OF EXAM: 04/03/2020 COMPARISON: EXAMINATION TYPE: CT chest tube insertion DATE OF EXAM: 04/03/2020 HISTORY: Right-sided pneumonia with loculated right pleural effusion and loculated right anterior pne umothorax. COMPARISON: CT chest 04/01/2020. Ultrasound chest 03/31/2020. VISION REHABILITATION THERAPIST: Dr. Bess Bello PROCEDURE: Right-sided chest tube placement. The procedure was discussed with the patient. The risks, complications, benefits, and alternatives we re discussed and any questions were answered. Informed consent was obtained. Preprocedure preliminary imaging demonstrated multilobar right-sided consolidative opacities, small t o moderate volume right pleural effusion, and loculated anterior pneumothorax. Maximal barrier technique was utilized. The skin over suitable path to the right pleural effusion was localized with CT and the right anterolateral chest overlying skin prepped and draped. Lidocaine was used for local anesthesia. Access was gained using CT guidance with a 5FR 7cm one-step centesis cath eter, with return of clear serous fluid. The centesis needle was removed. A 0.018 inch wire was advan tien through the centesis catheter sheath and the access site was upsized. Subsequently an 10-FR drai n was deployed within the right pleural effusion. 100 cc of clear serous fluid aspirated. Catheter fi xed in place with stay-fix device and the cathter was attached to Pleur-evac. There is small right po sterior pneumothorax. The patient remained in stable condition with oxygen saturation 99% on 2 L O2 v ia nasal cannula. Postprocedure imaging demonstrated small right basilar pneumothorax, and chest tube coiled posteriorl y and inferiorly in the desirable position. Drain care orders placed in patient's chart. Dr. Bess Bello spoke with LUKE Barrera on 04/03/2020 at 1700 hours to discuss procedure findi ngs and chest tube management. IMPRESSION: 1. Status post CT-guided 10FR coiled catheter drainage of loculated right pleural effusion. 2. There was a small right basilar pneumothorax status post chest tube placement, and patient remain ed in stable condition.
[2020-04-03 19:45] LABS: Glucose,Whole Blood 110 mg/dL (75-99)
--- NOTE | 2020-04-03 22:52 | P.CONS ---
History of Present Illness - Reason for Consult Consult date: 04/03/20 Pneumonia and antibiotic recommendation Requesting physician: Alirio Weller - Chief Complaint Shortness of breath x one day - History of Present Illness Patient is a 60 year female with a past medical history significant for COPD chronic hypoxic respiratory failure on home O2 and still uses on hemodialysis in this patient who recently did have a prolonged stay at [facility] where apparently the patient did have pneumonia and pleural effusion requiring chest tube subsequently the patient was sent to [facility] for rehabilitation with the patient has been there for a few days patient was sent to [facility] ER on 03/31/2020 for increasing shortness of breath that was getting worse for a day before the patient was sent to the ER patient denies having any chest pain patient did have mild to moderate cough with occasional sputum and no hemoptysis denies having any nausea no vomiting and no choking with food no abdominal pain or any diarrhea on arrival to the patient was afebrile patient did have elevated white count 13.6 chest x-ray was suspicious for right-sided pneumonia and effusion CT chest was suggestive of pneumothorax and loculated effusion, patient is status post bronchoscopy this morning by pulmonary and also have a chest tube placement by interventional radiology, patient is currently being treated vancomycin and Zosyn and infectious disease was consulted for further management of antibiotic therapy Review of Systems Positive point has been mentioned in the HPI rest of the systems are negative Past Medical History Past Medical History: Asthma, Heart Failure, Diabetes Mellitus, Hyperlipidemia, Hypertension, Pneumonia, Renal Disease, Thyroid Disorder Additional Past Medical History / Comment(s): type 2 diabetes, end stage renal disease, dialysis, anemia History of Any Multi-Drug Resistant Organisms: None Reported Additional Past Surgical History / Comment(s): dialysis port Past Psychological History: No Psychological Hx Reported Smoking Status: Former smoker Past Alcohol Use History: None Reported Past Drug Use History: None Reported - Past Family History Mother Additional Family Medical History / Comment(s): nothing reported Father Additional Family Medical History / Comment(s): no reported hx Medications and Allergies Home Medications Medication Instructions Recorded Confirmed Type Acetaminophen Tab [Tylenol] 650 mg PO Q6H PRN 03/31/20 03/31/20 History Albuterol Sulfate [Ventolin HFA] 2 puff INHALATION Q4H PRN 03/31/20 03/31/20 History Budesonide-Formot 160-4.5 Mcg 2 puff INHALATION RT-BID@799,199903/31/20 03/31/20 History [Symbicort 160-4.5 Mcg Inhaler] Diff-Stat Probiotic 2 cap PO BID 03/31/20 03/31/20 History EPINEPHrine (Auto Inject) [Epipen] 0.3 mg IM ONCE PRN 03/31/20 03/31/20 History Folic Acid-Vit B Complex-Vit C 1 cap PO DAILY@17003/31/20 03/31/20 History [Nephrocaps] Hizentra 10gm/50ml 10 gm SQ Q7D 03/31/20 03/31/20 History House Supplement 1 can PO TID@0800,1200,1700 03/31/20 03/31/20 History House Supplement 1 can PO TID@0900,1300,1800 03/31/20 03/31/20 History Levothyroxine Sodium [Synthroid] 200 mcg PO DAILY@59903/31/20 03/31/20 History Melatonin 3 mg PO HS@199903/31/20 03/31/20 History Montelukast Sodium [Singulair] 10 mg PO HS@199903/31/20 03/31/20 History Moxifloxacin HCl [Avelox] 400 mg PO DAILY@59903/31/20 03/31/20 History NIFEdipine [NIFEdipine ER] 30 mg PO DAILY@79903/31/20 03/31/20 History Ondansetron [Zofran] 4 mg PO Q6H PRN 03/31/20 03/31/20 History Simvastatin [Zocor] 80 mg PO DAILY@79903/31/20 03/31/20 History hydrALAZINE HCL [Apresoline] 25 mg PO Q4H PRN 03/31/20 03/31/20 History sevelamer HCL [Sevelamer HCl] 1,600 mg PO TID@0830,1230,1730 03/31/20 03/31/20 History Allergies Allergy/AdvReac Type Severity Reaction Status Date / Time No Known Allergies Allergy Verified 03/31/20 13:53 Physical Exam Vitals: Vital Signs Temp Pulse Pulse Resp BP Pulse Ox 04/03/20 16:25 80 103/57 99 04/03/20 16:20 79 20 105/47 100 04/03/20 16:15 76 20 101/47 100 04/03/20 16:05 81 103/60 96 04/03/20 15:36 79 22 125/48 93 L 04/03/20 11:31 16 04/03/20 08:00 85 16 143/80 97 04/03/20 03:42 97.5 F L 90 19 148/79 95 04/03/20 00:00 97.9 F 104 H 18 150/81 94 L 04/02/20 21:28 92 04/02/20 21:18 93 04/02/20 20:00 98.2 F 109 H 19 134/93 95 Intake and Output 04/03/20 04/03/20 04/03/20 06:59 14:59 22:59 Intake Total 50 Balance 50 Intake: IV 50 Other: Voiding Method Bedpan Bedpan Bedpan Incontinent Incontinent Incontinent # Voids 1 # Bowel Movements 1 1 Weight 46.5 kg GENERAL DESCRIPTION: Middle-aged female lying in bed, no distress. No tachypnea or accessory muscle of respiration use. HEENT: Shows Pallor , no scleral icterus. Oral mucous membrane is dry. No pharyngeal erythema or thrush NECK: Trachea central, no thyromegaly. LUNGS: Unlabored breathing. Decreased breath sound the bases. HEART: S1, S2, regular rate and rhythm. No loud murmur ABDOMEN: Soft, no tenderness , guarding or rigidity, no organomegaly EXTREMITIES: No edema of feet. SKIN: No rash, no masses palpable. NEUROLOGICAL: The patient is awake, alert, oriented x3, mood and affect normal. Results CBC & Chem 7: 04/03/20 06:37 04/03/20 06:37 Labs: Abnormal Lab Results - Last 24 Hours (Table) 04/02/20 04/03/20 04/03/20 Range/Units 20:04 06:06 06:37 RBC (3.80-5.40) m/uL Hgb (11.4-16.0) gm/dL Hct (34.0-46.0) % MCHC (31.0-37.0) g/dL Creatinine 2.62 H (0.52-1.04) mg/dL POC Glucose (mg/dL) 254 H 106 H (75-99) mg/dL 04/03/20 Range/Units 06:37 RBC 2.34 L (3.80-5.40) m/uL Hgb 7.2 L (11.4-16.0) gm/dL Hct 23.1 L (34.0-46.0) % MCHC 30.9 L (31.0-37.0) g/dL Creatinine (0.52-1.04) mg/dL POC Glucose (mg/dL) (75-99) mg/dL Microbiology - Last 24 Hours (Table) 03/31/20 13:36 Blood Culture - Preliminary Blood No Growth after 72 hours Assessment and Plan Assessment: 1-patient presented to the hospital with increasing shortness of breath and cough with slightly multifactorial in this patient who did have underlying COPD and stage I home O2 with this admission to the outside facility with pneumonia and effusion requiring chest tube now with evidence of recurrent pleural effusion which has been reported to be loculated status post chest tube and bronchoscopy, we will need to cover for resistant gram-positive as well as g jhoan-negative pathogen to be the likely source of his pneumonia (1) Loculated pleural effusion Current Visit: Yes Status: Acute Code(s): J90 - PLEURAL EFFUSION, NOT ELSEWHERE CLASSIFIED SNOMED Code(s): 794481245 (2) Pneumonia Current Visit: Yes Status: Acute Code(s): J18.9 - PNEUMONIA, UNSPECIFIED ORGANISM SNOMED Code(s): 147345702 Plan: 1- Zosyn 3.375 g every 12 dose adjusted to the kidney function 2-vancomycin pharmacy to dose We will follow on clinical condition and cultures to further adjust medication if needed Thank you for this consultation will follow this patient with you Time with Patient: Greater than 30
[2020-04-03] MEDS ORDERED: IPRATROPIUM-ALBUTEROL 3 ML NEB INHALATION PRN (23:19)
[2020-04-04] MEDS: MONTELUKAST 10 MG TAB PO SCH ×2 (00:37→20:10)
[2020-04-04] MEDS: MELATONIN 3 MG TABLET PO SCH ×2 (00:37→20:10)
[2020-04-04 06:09] LABS: Glucose,Whole Blood 91 mg/dL (75-99)
[2020-04-04] MEDS ORDERED: ALTEPLASE 10 MG in SODIUM CHLORIDE 0.9% 100 ML IRRIGATION ONE ×2 (06:17→20:00)
[2020-04-04] MEDS: LEVOTHYROXINE 100 MCG TAB PO SCH (06:21)
[2020-04-04] MEDS: IPRATROPIUM-ALBUTEROL 3 ML NEB INHALATION SCH ×4 (07:37→19:14)
[2020-04-04] MEDS: SYMBICORT 160-4.5 MCG INHALER INHALATION SCH ×2 (07:37→19:14)
[2020-04-04 08:09] LABS: Calcium 9.3 mg/dL (8.4-10.2); Potassium 5.2 mmol/L (3.5-5.1)
[2020-04-04 08:18] LABS: Basophils # (A) 0.1 k/uL (0-0.2); Basophils % (A) 1 %; Eosinophils # (A) 0.2 k/uL (0-0.7); Eosinophils % (A) 3 %; HCT 23.7 % (34.0-46.0); HGB 7.2 gm/dL (11.4-16.0); Hypochromasia Moderate; Lymphocytes # (A) 2.1 k/uL (1.0-4.8); Lymphocytes % (A) 28 %; MCH 29.7 pg (25.0-35.0); MCHC 30.4 g/dL (31.0-37.0); MCV 97.8 fL (80.0-100.0); Mean Platelet Volume 7.5; Monocytes # (A) 0.8 k/uL (0-1.0); Monocytes % (A) 11 %; Neutrophils # (A) 3.8 k/uL (1.3-7.7); Neutrophils % (A) 53 %; Platelet Count 314 k/uL (150-450); RBC 2.42 m/uL (3.80-5.40); RDW 14.8 % (11.5-15.5); WBC 7.3 k/uL (3.8-10.6)
[2020-04-04] MEDS: LACTATED RINGERS 1,000 ML IV SCH (08:44)
[2020-04-04] MEDS: PIPERACILLIN-TAZOBACTAM 3.375 GM in SODIUM CHLORIDE 0.9% 100 ML IVPB SCH ×2 (08:45→20:11)
[2020-04-04] MEDS: HEPARIN SODIUM,PORCINE 5,000 UNIT/ML 1 ML VIAL SQ SCH ×2 (08:45→20:10)
[2020-04-04] MEDS: NIFEdipine XL 30 MG TAB.ER.24 PO SCH (08:45)
[2020-04-04] MEDS: ATORVASTATIN 40 MG TAB PO SCH (08:45)
[2020-04-04] MEDS: FUROSEMIDE 10 MG/ML 4 ML VIAL IV SCH ×2 (08:45→20:11)
[2020-04-04] MEDS: SEVELAMER 800 MG TAB PO SCH ×3 (08:45→17:17)
--- NOTE | 2020-04-04 08:55 | P.PN ---
Subjective Progress Note Date: 04/04/20 Principal diagnosis: Complicated right pleural effusion, likely parapneumonic in nature, acute on chronic hypoxic respiratory failure, leukocytosis on admission, pneumonia. Previous medical history of COPD, chronic hypoxic respiratory failure currently on home oxygen, end-stage renal disease on hemodialysis, chronic anemia, diabetes, hypertension, hyperlipidemia, hypothyroid, previous tobacco dependence POD #1 placement of right sided pigtail catheter by interventional radiology The patient is currently sitting up in bed in no acute distress eating breakfast in the cardiac stepdown unit. Does complain of pain from the electronic device monitor but denies pain from her pigtail catheter, states shortness of breath has improved. Pigtail catheter was placed history by interventional radiology, will consult placed today Objective - Vital Signs Vital signs: Vital Signs Temp 98.8 F 04/04/20 04:00 Pulse 83 04/04/20 04:00 Resp 16 04/04/20 04:00 BP 135/67 04/04/20 04:00 Pulse Ox 96 04/04/20 04:00 Intake & Output 04/03/20 04/04/20 04/04/20 18:59 06:59 18:59 Intake Total 50 120 Output Total 42 Balance 50 78 Weight 48.5 kg Intake: IV 50 120 Lactated Ringers 1,000 ml 120 @ 20 mls/hr IV .Q24H FORMERLY [facility], 1928–1983 Rx#:[id number] Output: Chest Tube Drainage 42 Pleural Catheter Right 42 Upper Lateral Chest Other: Voiding Method Bedpan Bedpan Incontinent Incontinent # Bowel Movements 1 - Constitutional General appearance: Present: cooperative, no acute distress - Respiratory Details: Lungs sounds diminished on the left, coarse on the right. Respirations even, nonlabored. Currently on 2 L nasal cannula with oxygen saturation 96%. Right- sided pigtail catheter present, connected to continuous wall suction, 15 mL serous fluid drained overnight, 85 mL since placement, no air leak - Cardiovascular Details: S1, S2 present. Regular rate and rhythm, sinus rhythm on telemetry. Palpable peripheral pulses bilaterally. No edema present. No calf pain or tenderness noted. - Gastrointestinal Gastrointestinal Comment(s): Abdomen soft, nontender, nondistended. Active bowel sounds present 4 quadrants. Tolerating diet. - Genitourinary Genitourinary Comment(s): Continues to void - Integumentary Integumentary Comment(s): Skin is warm and dry - Neurologic Neurologic: Present: CNII-XII intact - Musculoskeletal Musculoskeletal: Present: strength equal bilaterally - Psychiatric Psychiatric: Present: A&O x's 3, appropriate affect - Allied health notes Allied health notes reviewed: nursing - Labs CBC & Chem 7: 04/04/20 07:16 04/04/20 07:16 Labs: Abnormal Lab Results - Last 24 Hours (Table) 04/03/20 04/03/20 04/03/20 Range/Units 06:37 06:37 17:24 RBC 2.34 L (3.80-5.40) m/uL Hgb 7.2 L (11.4-16.0) gm/dL Hct 23.1 L (34.0-46.0) % MCHC 30.9 L (31.0-37.0) g/dL Creatinine 2.62 H (0.52-1.04) mg/dL POC Glucose (mg/dL) 73 L (75-99) mg/dL 04/03/20 Range/Units 19:43 RBC (3.80-5.40) m/uL Hgb (11.4-16.0) gm/dL Hct (34.0-46.0) % MCHC (31.0-37.0) g/dL Creatinine (0.52-1.04) mg/dL POC Glucose (mg/dL) 110 H (75-99) mg/dL Microbiology - Last 24 Hours (Table) 04/03/20 12:23 Acid Fast Bacilli Smear - Final Bronchial Washings - Right Acid Fast Bacilli Culture - Preliminary 04/03/20 12:23 Fungal Culture - Preliminary Bronchial Washings - Right 04/03/20 12:23 Bronchial Washings Culture - Preliminary Bronchial Washings - Right 03/31/20 13:36 Blood Culture - Preliminary Blood No Growth after 72 hours - Imaging and Cardiology Chest x-ray: image reviewed Assessment and Plan Assessment: 1. Shortness of breath on admission, right-sided pleural effusion, likely parapneumonic effusion, status post right-sided pigtail catheter placement by interventional radiology 2. Acute and chronic hypoxic respiratory failure 3. Leukocytosis on admission, pneumonia 4. History of COPD, chronic hypoxic respiratory failure currently maintained on home oxygen 5. End-stage renal disease, on hemodialysis with chronic anemia 6. Diabetes mellitus 7. Hypertension 8. Hyperlipidemia 9. Hypothyroid 10. Previous tobacco dependence Plan: 1. We will instill alteplase today and clamp pigtail for 1 hour. We will continue to monitor output and instill alteplase daily 2. Will monitor daily x-rays 3. Wean O2 as tolerated. Bronchodilators, steroids per pulmonology 4. Incentive spirometry ordered, encourage its use 10 times every hour while awake 5. Antibiotics per infectious disease 6. Management of other comorbidities per primary care service, other consultants 7. More recommendations to follow Time with Patient: Greater than 30
[2020-04-04 09:02] LABS: Vancomycin,Random 21.3 ug/mL
--- NOTE | 2020-04-04 09:07 | XR ---
EXAMINATION TYPE: XR chest 1V portable DATE OF EXAM: 04/04/2020 COMPARISON: 04/03/2020 HISTORY: Pneumothorax TECHNIQUE: Single frontal view of the chest is obtained. FINDINGS: Right-sided pigtail catheter seen and there is persistent consolidation and pleural effusi on as well as air likely representing loculated pleural fluid with pneumothorax. The left lung is eliana ar. Heart is enlarged and there is changes of COPD. Arthropathy of the shoulders with diffuse osteope abdi. IMPRESSION: 1. Hydropneumothorax in the right is reduced relative to the prior exam. Perihilar and lower lobe con solidation persists. 2. COPD and cardiomegaly. Chronic interstitial lung disease suspected.
[2020-04-04] MEDS: LOPERAMIDE 2 MG CAP PO SCH ×4 (10:14→22:07)
--- NOTE | 2020-04-04 11:09 | P.PN ---
Subjective Patient is seen in follow-up for end-stage renal disease. She is maintained on hemodialysis on Tuesday schedule. Currently working with physical therapy. She is noted to have right-sided parapneumonic effusion and had a pigtail catheter placed yesterday. Hemodynamically stable. Denies chest pain or shortness of breath. Vital signs are stable. General: The patient appeared well nourished and normally developed. HEENT: Head exam is unremarkable. Neck is without jugular venous distension. LUNGS: Breath sounds decreased. HEART: Rate and Rhythm are regular. ABDOMEN: Breath sounds decreased. EXTREMITITES: No clubbing, cyanosis, or edema. Objective - Vital Signs Vital signs: Vital Signs Temp 98 F 04/04/20 08:00 Pulse 84 04/04/20 08:00 Resp 18 04/04/20 08:00 BP 137/76 04/04/20 08:00 Pulse Ox 97 04/04/20 08:00 Intake & Output 04/03/20 04/04/20 04/04/20 18:59 06:59 18:59 Intake Total 50 120 236 Output Total 42 Balance 50 78 236 Weight 48.5 kg Intake: IV 50 120 Lactated Ringers 1,000 ml 120 @ 20 mls/hr IV .Q24H [facility] Rx#:[id number] Oral 236 Output: Chest Tube Drainage 42 Pleural Catheter Right 42 Upper Lateral Chest Other: Voiding Method Bedpan Bedpan Bedpan Incontinent Incontinent Incontinent # Bowel Movements 1 1 1 - Labs CBC & Chem 7: 04/04/20 07:16 04/04/20 07:16 Labs: Abnormal Lab Results - Last 24 Hours (Table) 04/03/20 04/03/20 04/04/20 Range/Units 17:24 19:43 07:12 RBC (3.80-5.40) m/uL Hgb (11.4-16.0) gm/dL Hct (34.0-46.0) % MCHC (31.0-37.0) g/dL Sodium (137-145) mmol/L Potassium (3.5-5.1) mmol/L BUN (7-17) mg/dL Creatinine 4.06 H (0.52-1.04) mg/dL POC Glucose (mg/dL) 73 L 110 H (75-99) mg/dL 04/04/20 04/04/20 Range/Units 07:16 07:16 RBC 2.42 L (3.80-5.40) m/uL Hgb 7.2 L (11.4-16.0) gm/dL Hct 23.7 L (34.0-46.0) % MCHC 30.4 L (31.0-37.0) g/dL Sodium 134 L (137-145) mmol/L Potassium 5.2 H (3.5-5.1) mmol/L BUN 22 H (7-17) mg/dL Creatinine 4.16 H (0.52-1.04) mg/dL POC Glucose (mg/dL) (75-99) mg/dL Microbiology - Last 24 Hours (Table) 04/03/20 12:23 Gram Stain - Preliminary Bronchial Washings - Right Bronchial Washings Culture - Preliminary 04/03/20 12:23 Acid Fast Bacilli Smear - Final Bronchial Washings - Right Acid Fast Bacilli Culture - Preliminary 04/03/20 12:23 Fungal Culture - Preliminary Bronchial Washings - Right 03/31/20 13:36 Blood Culture - Preliminary Blood No Growth after 72 hours Assessment and Plan Plan: Assessment: 1. End-stage renal disease maintained on hemodialysis on Tuesday schedule. 2. Volume overload. Improved post dialysis. 3. Right-sided parapneumonic effusion status post pigtail catheter placement on April 03. 4. Chronic kidney disease mineral bone disease maintained on Renvela. 5. Hypertension with chronic kidney disease. Controlled. 6. Chronic inflammatory demyelinating polyneuritis. Patient has received IVIG in the past. 7. Anemia of chronic kidney disease. Maintained on Aranesp. High ferritin noted. Plan: Hemodialysis today. Monitor vancomycin levels. Target level near 15. Dose to be adjusted for renal function.
[2020-04-04 11:45] LABS: Glucose,Whole Blood 90 mg/dL (75-99)
--- NOTE | 2020-04-04 14:49 | P.PN ---
Subjective Progress Note Date: 04/04/20 Principal diagnosis: Acute hypoxic respiratory failure related to right lower lobe pneumonia and chronic right-sided pleural effusion this is a 60-year-old white female with history of COPD, chronic hypoxic arrest or failure, maintained on home oxygen. End-stage renal disease, on hemodialysis Wednesdays and Fridays.patient is not a great historian, unable to communicate effectively, and new to our system, patient lives in [place], and normally gets her medical care in [facility].patient was brought in because she hasn't been feeling well since Tuesday and did not attend her last dialysis session. She was complaining of shortness of breath, dry cough, and 2 episodes of nausea and vomiting the day of admission. EMS picked up the patient from [facility], and she was placed on BiPAP initially in the emergency room department, she was quite tachypneic, tachycardic, and hypertensive. She was noted to have leukocytosis, hemoglobin of 8.4, and she was also noted to have a right lower lobe consolidation, and right-sided pleural effusion. Ultrasound of the chest showed possibly complicated pleural effusion, it is rather small barely 4.0 cm in size, hence I chose not to perform thoracentesis at this point yet.CT of the chest showed loculated right-sided pneumothorax,and moderate alveolar edema suggestive of congestive heart failure as well as volume loss with significant irregular mass like consolidation in the right lower lobe and basilar bronchiectasis. Underlying neoplasm is not excluded. The overall presentation is mostly a presentation of infection with a parapneumonic effusion, again possibility of underlying malignancy is not entirely ruled out. On 04/02/2020 patient seen in follow-up on selective care unit, she is much more awake on today's exam, breathing has significantly improved, she had hemodial ysis treatment yesterday with removal of 3 L of fluid. She is breathing much easier, did not require BiPAP support last night, FiO2 is currently down to 2 L and her pulse ox is 98%. No complaints of chest pain, occasional cough, nonproductive. Mentation is appropriate, however patient is a poor historian. Today's chest x-ray has been reviewed showing right pleural effusion with loculation and patchy right basilar consolidative opacity likely related to underlying right lung pneumonia. Patient remains on Zosyn and vancomycin, afebrile, hemodynamically stable, she is weak, gets short of breath with exertion, has not been up out of bed. Breathing is comfortable at rest. Today's labs have been reviewed, white blood cell count is 7.1, hemoglobin 7.4, platelet count 368. Electrodes are within normal limits, however renal profile worsened, with BUN at 19, and creatinine has almost doubled, at 4.5. Nephrology has been following. Her procalcitonin level came back elevated at 2.04, proBNP was 31,800. COVID 19 negative. Blood cultures are negative thus far, we reviewed the records from the [facility], where patient had a recent hospitalization, from 02/03/2020 through 03/26/2020, and patient was on the ventilator support for acute exacerbation of CHF, possible pneumonia, right pleural effusion with right chest tube insertion and removal, and patient apparently had some episodes of bradycardia and possibly transient heart block while there, it is unknown what the pleural fluid showed whether was transudative or exudative, and what the cultures grew. Apparently patient was treated with a combination of cefepime and vancomycin while there, she was successfully weaned and extubated, and subsequently went to the [facility] for rehabilitation. On today's exam she is much more awake, and communicative. No hemoptysis, no chest pain. She continues on Zosyn and vancomycin. On 04/03/2020 patient seen in follow-up on selective care unit. She is resting comfortably in bed, in no acute distress, she is on 2 L of oxygen her pulse ox is 97%, respirations are nonlabored, altered mentation, patient is answering questions appropriately, she is on a combination of Zosyn and vancomycin for empiric antibiotic coverage, patient has been nothing by mouth after midnight for bronchoscopy with BAL today. No complaints of chest pain, no hemoptysis. She had hemodialysis treatment today would removal of 2.7 L of fluid. Today's labs have been reviewed, showing white blood cell count of 7.0, hemoglobin is 7.2, electrolytes were within normal limits, renal profile improved, with creatinine down to 2.62. On 04/04/2020 patient seen in follow-up on selective care unit. She is awake and alert, resting comfortably in bed, on 2 L of oxygen pulse ox is 99%, she is afebrile, respirations are nonlabored, she status post right CT-guided 10-Mauritan[place] pigtail chest tube insertion by interventional radiology on 04/03/2020 into the loculated right pleural effusion. Patient had a small right posterior pneumothorax and/or component of trapped lung at completion of the exam, however clinically she denies any worsening shortness of breath. In the last 24 hours there has been 90 mL of clear yellow-colored fluid resembling urine. Patient also underwent bronchoscopy with bronchoalveolar lavage yesterday, brown quash cultures are pending, Gram stain showing no organisms. Remains on IV diuretics, and broad-spectrum antibiotics including Zosyn and vancomycin. Today's chest x- ray shows hydropneumothorax in the right slightly improved and persistence of perihilar and lower lobe consolidation on the right. Dose of TPA was given per CT surgery. Objective - Vital Signs Vital signs: Vital Signs Temp 97.8 F 04/04/20 11:14 Pulse 82 04/04/20 11:14 Resp 18 04/04/20 11:14 BP 148/84 04/04/20 11:14 Pulse Ox 99 04/04/20 11:14 Intake & Output 04/03/20 04/04/20 04/04/20 18:59 06:59 18:59 Intake Total 50 120 236 Output Total 42 45 Balance 50 78 191 Weight 48.5 kg 48.5 kg Intake: IV 50 120 Lactated Ringers 1,000 ml 120 @ 20 mls/hr IV .Q24H [facility] Rx#:[id number] Oral 236 Output: Chest Tube Drainage 42 45 Pleural Catheter Right 42 45 Upper Lateral Chest Other: Voiding Method Bedpan Bedpan Bedpan Incontinent Incontinent Incontinent # Bowel Movements 1 1 1 - Exam GENERAL EXAM: Alert,very pleasant, chronically ill looking, very frail-looking, 60-year-old white female, on 2 L of oxygen with a pulse ox of 98%, comfortable in no apparent distress. HEAD: Normocephalic/atraumatic. EYES: Normal reaction of pupils, equal size. Conjunctiva pink, sclera white. NOSE: Clear with pink turbinates. THROAT: No erythema or exudates. NECK: No masses, no JVD, no thyroid enlargement, no adenopathy. CHEST: No chest wall deformity. Symmetrical expansion. Right posterior pigtail chest tube connected to pleuravac with 90 cc of clear yellow urine-like output LUNGS: Equal air entry with no crackles, wheeze, rhonchi or dullness. CVS: Regular rate and rhythm, normal S1 and S2, no gallops, no murmurs, no rubs ABDOMEN: Soft, nontender. No hepatosplenomegaly, normal bowel sounds, no guarding or rigidity. EXTREMITIES: No clubbing, no edema, no cyanosis, 2+ pulses and upper and lower extremities. left arm AV fistula with positive bruit and thrill MUSCULOSKELETAL: Muscle strength and tone normal. SPINE: No scoliosis or deformity SKIN: No rashes CENTRAL NERVOUS SYSTEM: Alert and oriented -3. No focal deficits, tone is normal in all 4 extremities. - Labs CBC & Chem 7: 04/04/20 07:16 04/04/20 07:16 Labs: Abnormal Lab Results - Last 24 Hours (Table) 04/03/20 04/03/20 04/04/20 Range/Units 17:24 19:43 07:12 RBC (3.80-5.40) m/uL Hgb (11.4-16.0) gm/dL Hct (34.0-46.0) % MCHC (31.0-37.0) g/dL Sodium (137-145) mmol/L Potassium (3.5-5.1) mmol/L BUN (7-17) mg/dL Creatinine 4.06 H (0.52-1.04) mg/dL POC Glucose (mg/dL) 73 L 110 H (75-99) mg/dL 04/04/20 04/04/20 Range/Units 07:16 07:16 RBC 2.42 L (3.80-5.40) m/uL Hgb 7.2 L (11.4-16.0) gm/dL Hct 23.7 L (34.0-46.0) % MCHC 30.4 L (31.0-37.0) g/dL Sodium 134 L (137-145) mmol/L Potassium 5.2 H (3.5-5.1) mmol/L BUN 22 H (7-17) mg/dL Creatinine 4.16 H (0.52-1.04) mg/dL POC Glucose (mg/dL) (75-99) mg/dL Microbiology - Last 24 Hours (Table) 04/03/20 12:23 Gram Stain - Preliminary Bronchial Washings - Right Bronchial Washings Culture - Preliminary 04/03/20 12:23 Acid Fast Bacilli Smear - Final Bronchial Washings - Right Acid Fast Bacilli Culture - Preliminary 04/03/20 12:23 Fungal Culture - Preliminary Bronchial Washings - Right 03/31/20 13:36 Blood Culture - Preliminary Blood No Growth after 72 hours Assessment and Plan Plan: #1. Acute on chronic hypoxic respiratory failure secondary to right lower lobe pneumonia and loculated right-sided pleural effusion, status post bronchoscopy with bronchoalveolar lavage on 04/04/2020, and placement of right-sided pigtail chest tube catheter on 04/04/2020, bronch lavage cultures are negative thus far, cytology is pending, pleural fluid cultures pending, cytology pending #2. Acute exacerbation of CHF, fluid overload secondary to end-stage renal disease, and missed hemodialysis treatment #3. Recent hospitalization from 02/03/2020 through 03/26/2020 at [facility] with acute hypoxic respiratory failure requiring intubation and mechanical ventilator support for right lung pneumonia, acute exacerbation of CHF, bradycardia and possible transient heart block. Patient had a right chest tube at that time for drainage of right pleural effusion, that was possibly parapneumonic, unknown the characteristics of the fluid or the pleural fluid cultures. Per [facility] records patient was treated for healthcare acquired pneumonia with cefepime and vancomycin #4. Chronic obstructive pulmonary disease #5. Possibility of bronchogenic carcinoma in the right lung is considered, felt to be less likely #6. Benign essential hypertension #7. Hypothyroidism #8. End-stage renal disease on hemodialysis #9. Former smoker #10. Diabetes mellitus #11. Hypertension #12. Hyperlipidemia #13. Hypothyroidism Plan: Today's chest x-ray has been reviewed, agree with the TPA infusion into the right chest pigtail catheter to continue draining the loculated right-sided pleural effusion. Awaiting results of the bronchial lavage and pleural fluid cultures and cytology, so far Gram stain negative. Clinically patient is stable, no worsening dyspnea, continue same antibiotics, continue diuretics and hemodialysis per nephrology. Daily chest x-rays and labs, we'll continue to follow I performed a history & physical examination of the patient and discussed their management with my nurse practitioner, Teresa Ortiz. I reviewed the nurse jayna hopson's note and agree with the documented findings and plan of care. Lung sounds are positive for diminished breath sounds. The findings and the impression was discussed with the patient. I attest to the documentation by the nurse practitioner. Time with Patient: Less than 30
--- NOTE | 2020-04-04 15:37 | P.PN ---
Subjective Progress Note Date: 04/04/20 Patient was seen and examined. No acute events overnight. Patient reports significant improvement in breathing since yesterday. She denies any chest pain or palpitations. No nausea or vomiting. No fever or chills. Patient reports multiple episodes of diarrhea since last night. Pigtail placed yesterday by CT surgery, 90 mL drainage overnight of serous sanguinous fluid. Objective - Vital Signs Vital signs: Vital Signs Temp 97.8 F 04/04/20 11:14 Pulse 82 04/04/20 11:14 Resp 18 04/04/20 11:14 BP 148/84 04/04/20 11:14 Pulse Ox 99 04/04/20 11:14 Intake & Output 04/03/20 04/04/20 04/04/20 18:59 06:59 18:59 Intake Total 50 120 236 Output Total 42 45 Balance 50 78 191 Weight 48.5 kg 48.5 kg Intake: IV 50 120 Lactated Ringers 1,000 ml 120 @ 20 mls/hr IV .Q24H [facility] Rx#:[id number] Oral 236 Output: Chest Tube Drainage 42 45 Pleural Catheter Right 42 45 Upper Lateral Chest Other: Voiding Method Bedpan Bedpan Bedpan Incontinent Incontinent Incontinent # Bowel Movements 1 1 1 - Exam General: [non toxic], [no distress on nasal cannula], [appears at stated age] Derm: [warm], [dry] Head: [atraumatic], [normocephalic], [symmetric] Eyes: [EOMI], [no lid lag], [anicteric sclera] Mouth: [no lip lesion], [mucus membranes moist] Cardiovascular: [S1S2 reg], [no murmur], [positive DP pulse bilateral], Lungs: [Coarse breath sounds bilateral worse on the left], [no rhonchi, no rales] , [no accessory muscle use], right-sided pigtail in place Abdominal: [soft], [ nontender to palpation], [no guarding], [no appreciable organomegaly] Ext: [no gross muscle atrophy], [no edema], [no contractures] Neuro: [no focal neuro deficits] Psych: [Alert], [oriented], [appropriate affect] - Labs CBC & Chem 7: 04/04/20 07:16 04/04/20 07:16 Labs: Abnormal Lab Results - Last 24 Hours (Table) 04/03/20 04/03/20 04/04/20 Range/Units 17:24 19:43 07:12 RBC (3.80-5.40) m/uL Hgb (11.4-16.0) gm/dL Hct (34.0-46.0) % MCHC (31.0-37.0) g/dL Sodium (137-145) mmol/L Potassium (3.5-5.1) mmol/L BUN (7-17) mg/dL Creatinine 4.06 H (0.52-1.04) mg/dL POC Glucose (mg/dL) 73 L 110 H (75-99) mg/dL 04/04/20 04/04/20 Range/Units 07:16 07:16 RBC 2.42 L (3.80-5.40) m/uL Hgb 7.2 L (11.4-16.0) gm/dL Hct 23.7 L (34.0-46.0) % MCHC 30.4 L (31.0-37.0) g/dL Sodium 134 L (137-145) mmol/L Potassium 5.2 H (3.5-5.1) mmol/L BUN 22 H (7-17) mg/dL Creatinine 4.16 H (0.52-1.04) mg/dL POC Glucose (mg/dL) (75-99) mg/dL Microbiology - Last 24 Hours (Table) 04/03/20 12:23 Gram Stain - Preliminary Bronchial Washings - Right Bronchial Washings Culture - Preliminary 04/03/20 12:23 Acid Fast Bacilli Smear - Final Bronchial Washings - Right Acid Fast Bacilli Culture - Preliminary 04/03/20 12:23 Fungal Culture - Preliminary Bronchial Washings - Right 03/31/20 13:36 Blood Culture - Preliminary Blood No Growth after 72 hours Assessment and Plan Assessment: Diarrhea Hyperkalemia Acute on chronic hypoxic respiratory failure secondary to volume overload and pneumonia Sepsis possibly related to pneumonia Pulmonary nodule ESRD on hemodialysis Normocytic anemia COPD Hypertension Hypothyroidism Likely due to antibiotics. Plans: Follow C. diff. Start Imodium. Potassium 5.2. Plans: Repeat BMP tomorrow morning. Telemetry monitoring. Continue dialysis as per nephrology recommendations. Her shortness of breath is likely multifactorial. Volume overload from missed dialysis session. Elevated pro-calcitonin. Coronavirus testing negative. Chest x-ray shows large consolidation and pleural effusion on the right with possible pulmonary mass. CT chest shows small to moderate non-simple right pleural fluid, loculated pneumothorax, alveolar edema, irregular masslike consolidation with endobronchial involvement and basilar bronchiectasis. Plans: Nephrology consulted for hemodialysis. Continue Lasix 40 mg IV twice a day. Supplemental O2 to maintain O2 saturation greater than 92%. Pulmonology consulted. Telemetry monitoring. Follow blood culture. Repeat chest x-ray tomorrow morning. s/p bronchoscopy and BAL 04/03, follow up cultures. s/p pigtail placement 04/03 for complex loculated fluid collection in the R lung. Lactic acid negative. Patient meets sepsis criteria with leukocytosis, tachycardia and positive source of infection. Plans: Continue vancomycin and Zosyn for coverage of meeting or pneumonia. Management as above. Follow pulmonology consultation. ID consulted. With possible mass seen on chest x ray. Plans: Pulmonology on board. Creatinine 4.16. Plans: Nephrology consulted for emergent dialysis. Avoid nephrotoxins. Repeat BMP tomorrow morning. Restart Sevelamer. Hemoglobin 7.2. Likely related to ESRD. Plans: Follow iron studies. Transfuse if hemoglobin less than 7. Repeat CBC tomorrow morning. Plans: DuoNeb as needed for shortness of breath and wheezing. Restart Symbicort. Restart Singulair. BP 148/84. Plans: Restart nifedipine. Anticipated BP to improve with dialysis. Plans: Restart Synthroid. She names her decision maker she can't make decisions for herself. Patient is wanting to be FULL CODE at this time. [Continue hemodialysis. Continue IV antibiotics. Pulmonology on board. s/p BAL, cultures pending. s/p pigtail placement. Patient is pending clinical improvement. ID on board. New onset diarrhea today. Likely DC in 2-3 days.]
[2020-04-04 17:00] LABS: Glucose,Whole Blood 113 mg/dL (75-99)
--- NOTE | 2020-04-04 17:21 | PN ---
PROGRESS NOTE DATE OF SERVICE: 04/04/2020 REASON FOR FOLLOWUP: Pneumonia and loculated effusion. INTERVAL HISTORY: The patient is currently afebrile. The patient is breathing more comfortably. Patient denies having any chest pain. Minimal cough. No nausea. No abdominal pain or diarrhea. EXAMINATION: Blood pressure 142/84 with a pulse of 82, temperature 97.8. He is 99% on 2 liters nasal cannula. General description is a middle-aged male lying in bed in no distress. Respiratory system: Unlabored breathing, decreased breath sounds, no wheeze. Heart S1, S2. Regular rate and rhythm. Abdomen soft, no tenderness. LABS: Hemoglobin 7.1, white count 7.3, BUN of 22, creatinine 4.16. DIAGNOSTIC IMPRESSION AND PLAN: Patient with right-sided pneumonia and loculated effusion status post bronchoscopy and chest tube placement. Patient is covered with Zosyn and vancomycin to continue while waiting for the culture to finalize. Continue supportive care. MMODL / IJN: [id number] /
[2020-04-04 18:24] LABS: Glucose,Whole Blood 80 mg/dL (75-99)
[2020-04-04 19:45] LABS: Glucose,Whole Blood 106 mg/dL (75-99)
[2020-04-05] MEDS: LACTATED RINGERS 1,000 ML IV SCH (00:35)
[2020-04-05 06:10] LABS: Glucose,Whole Blood 83 mg/dL (75-99)
[2020-04-05] MEDS: LEVOTHYROXINE 100 MCG TAB PO SCH (06:33)
--- NOTE | 2020-04-05 07:05 | XR ---
EXAMINATION TYPE: XR chest 1V portable DATE OF EXAM: 04/05/2020 CLINICAL HISTORY: Difficulty breathing and pleural effusion progress study. TECHNIQUE: Single AP portable upright view of the chest is obtained. COMPARISON: Chest x-ray from one day earlier and older studies. CT chest 4 days ago. FINDINGS: Persistent right basilar pigtail pleural drainage catheter. Persistent lateral focal air l ikely reflecting loculated pneumothorax. Persistent right mid and lower lung consolidation. Left lung remains clear. Heart size remains enlarged. Osseous structures remain demineralized. IMPRESSION: Overall stable findings from most recent x-ray, right-sided hydropneumothorax with basil ar pigtail pleural drainage catheter. Cardiomegaly and chronic emphysematous change with right mid to lower lung infiltrate and/or atelectasis and right-sided volume loss all redemonstrated.
[2020-04-05] MEDS ORDERED: ALTEPLASE 10 MG in SODIUM CHLORIDE 0.9% 100 ML IRRIGATION ONE (07:30)
[2020-04-05] MEDS: SYMBICORT 160-4.5 MCG INHALER INHALATION SCH ×2 (08:09→20:00)
[2020-04-05] MEDS: IPRATROPIUM-ALBUTEROL 3 ML NEB INHALATION SCH ×4 (08:09→20:00)
[2020-04-05] MEDS: NIFEdipine XL 30 MG TAB.ER.24 PO SCH (08:50)
[2020-04-05] MEDS: FUROSEMIDE 10 MG/ML 4 ML VIAL IV SCH ×2 (08:50→20:27)
[2020-04-05] MEDS: LOPERAMIDE 2 MG CAP PO SCH ×4 (08:50→20:28)
[2020-04-05] MEDS: ATORVASTATIN 40 MG TAB PO SCH (08:50)
[2020-04-05] MEDS: PIPERACILLIN-TAZOBACTAM 3.375 GM in SODIUM CHLORIDE 0.9% 100 ML IVPB SCH ×2 (08:50→20:27)
[2020-04-05] MEDS: HEPARIN SODIUM,PORCINE 5,000 UNIT/ML 1 ML VIAL SQ SCH ×2 (08:50→20:27)
[2020-04-05] MEDS: SEVELAMER 800 MG TAB PO SCH ×3 (08:50→17:07)
[2020-04-05] MEDS ORDERED: VANCOMYCIN 750 MG in SODIUM CHLORIDE 0.9% 250 ML IVPB ONE (10:00)
[2020-04-05] MEDS: HYDROcodone/APAP 5-325MG 1 EACH TAB PO PRN (10:37)
--- NOTE | 2020-04-05 11:59 | P.PN ---
Subjective Progress Note Date: 04/05/20 Principal diagnosis: Complicated right pleural effusion, likely parapneumonic in nature, acute on chronic hypoxic respiratory failure, leukocytosis on admission, pneumonia. Previous medical history of COPD, chronic hypoxic respiratory failure currently on home oxygen, end-stage renal disease on hemodialysis, chronic anemia, diabetes, hypertension, hyperlipidemia, hypothyroid, previous tobacco dependence POD #2 placement of right sided pigtail catheter by interventional radiology. The patient was seen and examined today on 04/05/2020 at her bedside on the cardiac stepdown unit. She is awake, alert and oriented 3 and a no acute distress. She is complaining of some generalized back discomfort at her insertion site of the pigtail catheter. Her right chest pigtail catheter remains in place and is draining thin serous sanguinous drainage with 230 mL output the last 8 hours and 660 mL output in the last 24 hours. A dose of alteplase 10 mg/100 mL of normal saline 0.9% was instilled per the pigtail catheter yesterday. Oxygen saturations are 96% on 2 L nasal cannula and she is achieving 500 mL on her incentive spirometry. Objective - Vital Signs Vital signs: Vital Signs Temp 98.3 F 04/05/20 08:00 Pulse 74 04/05/20 08:00 Resp 16 04/05/20 08:00 BP 133/50 04/05/20 08:00 Pulse Ox 96 04/05/20 08:00 Intake & Output 04/04/20 04/05/20 04/05/20 18:59 06:59 18:59 Intake Total 236 60 Output Total 2075 320 210 Balance -1839 -320 -150 Weight 48.5 kg 48.7 kg Intake: Oral 236 60 Output: Chest Tube Drainage 75 320 20 Pleural Catheter Right 75 320 20 Upper Lateral Chest Urine 0 190 Hemodialysis 2000 Other: Voiding Method Bedpan Bedpan Bedpan Incontinent Incontinent Incontinent # Voids 0 1 # Bowel Movements 1 - Constitutional General appearance: Present: cooperative, no acute distress, thin - EENT Eyes: Present: PERRLA, normal appearance. Absent: scleral icterus ENT: Present: hearing grossly normal - Neck Details: Neck is supple, no JVD. - Respiratory Details: Lung sounds diminished to her right lower lobe, essentially clear throughout. Respirations are symmetrical and nonlabored. Oxygen saturation are 96% on 2 L nasal cannula. Right-sided pigtail catheter is in place and connected to cont inuous low wall suction -20 cm H2O. No air leak is present. 230 mL output in the last 8 hours, 660 mL output in the last 24 hours. - Cardiovascular Details: Regular rhythm and rate. S1 and S2 present, negative for S3, gallop or murmur. No edema present. - Gastrointestinal Gastrointestinal Comment(s): Abdomen is soft, nontender and nondistended. Active bowel sounds present in all 4 abdominal quadrants. Tolerating oral intake. - Genitourinary Genitourinary Comment(s): Left arm fistula with good thrill and bruit. Hemodialysis yesterday with 2000 mL of fluid removed. - Integumentary Integumentary Comment(s): Skin is warm and dry. No clubbing or cyanosis is present. - Neurologic Neurologic: Present: CNII-XII intact - Musculoskeletal Musculoskeletal: Present: generalized weakness, strength equal bilaterally - Psychiatric Psychiatric: Present: A&O x's 3, appropriate affect, intact judgment & insight - Allied health notes Allied health notes reviewed: nursing - Labs CBC & Chem 7: 04/04/20 07:16 04/04/20 07:16 Labs: Abnormal Lab Results - Last 24 Hours (Table) 04/04/20 04/04/20 Range/Units 16:58 19:44 POC Glucose (mg/dL) 113 H 106 H (75-99) mg/dL Microbiology - Last 24 Hours (Table) 04/03/20 12:23 Gram Stain - Final Bronchial Washings - Right Bronchial Washings Culture - Final Shantell albicans 03/31/20 13:36 Blood Culture - Preliminary Blood No Growth after 96 hours - Imaging and Cardiology Chest x-ray: report reviewed, image reviewed Assessment and Plan Assessment: 1. Shortness of breath on admission, right-sided pleural effusion, likely parapneumonic effusion, status post right-sided pigtail catheter placement by interventional radiology 2. Acute and chronic hypoxic respiratory failure 3. Leukocytosis on admission, pneumonia 4. History of COPD, chronic hypoxic respiratory failure currently maintained on home oxygen 5. End-stage renal disease, on hemodialysis with chronic anemia 6. Diabetes mellitus 7. Hypertension 8. Hyperlipidemia 9. Hypothyroid 10. Previous tobacco dependence Plan: 1. We will instill alteplase today and clamp pigtail for 1 hour then release after an hour. We will continue to monitor output and instill alteplase daily. 2. Will monitor daily x-rays. 3. Wean O2 as tolerated. Bronchodilators, steroids per pulmonology. 4. Encourage incentive spirometry use 10 times every hour while awake. 5. Antibiotics management per infectious disease. 6. Management of other comorbidities per primary care service, other consultants. 7. More recommendations to follow based on patient's clinical course. Time with Patient: Greater than 30
[2020-04-05 12:11] LABS: Glucose,Whole Blood 109 mg/dL (75-99)
--- NOTE | 2020-04-05 12:13 | P.PN ---
Subjective Progress Note Date: 04/05/20 Follow-up for ESRD. Objective - Vital Signs Vital signs: Vital Signs Temp 98.3 F 04/05/20 11:50 Pulse 79 04/05/20 11:50 Resp 16 04/05/20 11:50 BP 131/62 04/05/20 11:50 Pulse Ox 98 04/05/20 11:50 Intake & Output 04/04/20 04/05/20 04/05/20 18:59 06:59 18:59 Intake Total 236 60 Output Total 2075 320 230 Balance -1839 -320 -170 Weight 48.5 kg 48.7 kg Intake: Oral 236 60 Output: Chest Tube Drainage 75 320 40 Pleural Catheter Right 75 320 40 Upper Lateral Chest Urine 0 190 Hemodialysis 2000 Other: Voiding Method Bedpan Bedpan Bedpan Incontinent Incontinent Incontinent # Voids 0 1 # Bowel Movements 1 - Exam No acute distress S1-S2 heard Lungs clear Abdomen soft No edema Left upper arm aVF - Labs CBC & Chem 7: 04/04/20 07:16 04/04/20 07:16 Labs: Abnormal Lab Results - Last 24 Hours (Table) 04/04/20 04/04/20 Range/Units 16:58 19:44 POC Glucose (mg/dL) 113 H 106 H (75-99) mg/dL Microbiology - Last 24 Hours (Table) 04/03/20 12:23 Gram Stain - Final Bronchial Washings - Right Bronchial Washings Culture - Final Shantell albicans 03/31/20 13:36 Blood Culture - Preliminary Blood No Growth after 96 hours Assessment and Plan Assessment: #1 ESRD MWF #2 volume overload improved postdialysis #3 right-sided parapneumonic effusion status post pigtail catheter placement #4 anemia with ESRD #5 hypertension with ESRD #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
--- NOTE | 2020-04-05 13:22 | P.PN ---
Subjective Progress Note Date: 04/05/20 No new complaints today. Patient says her shortness of breath is much better. Was able to get some sleep last night, but still feels tired today. Her breathing is improved. Objective - Vital Signs Vital signs: Vital Signs Temp 98.3 F 04/05/20 11:50 Pulse 79 04/05/20 11:50 Resp 16 04/05/20 11:50 BP 131/62 04/05/20 11:50 Pulse Ox 98 04/05/20 11:50 Intake & Output 04/04/20 04/05/20 04/05/20 18:59 06:59 18:59 Intake Total 236 120 Output Total 2075 320 230 Balance -1839 -320 -110 Weight 48.5 kg 48.7 kg Intake: Oral 236 120 Output: Chest Tube Drainage 75 320 40 Pleural Catheter Right 75 320 40 Upper Lateral Chest Urine 0 190 Hemodialysis 2000 Other: Voiding Method Bedpan Bedpan Bedpan Incontinent Incontinent Incontinent # Voids 0 1 # Bowel Movements 1 - Exam Gen: awake, alert HEENT: normocephalic, atraumatic, good hearing acuity, moist mucous membranes Resp: no accessory muscle use, exchanging air well on 2 L nasal cannula, chest tube on the right side CVS: good distal perfusion x 4, RRR, no murmurs, clicks, gallops GI: soft, NTTP, ND : no SPT, no CVAT, bender catheter [IS/NOT] present MSK: no pitting edema, no clubbing Neuro: non-focal, no sensory deficits, appropriate tone Psych: cooperative, euthymic mood - Labs CBC & Chem 7: 04/04/20 07:16 04/04/20 07:16 Labs: Abnormal Lab Results - Last 24 Hours (Table) 04/04/20 04/04/20 04/05/20 Range/Units 16:58 19:44 12:10 POC Glucose (mg/dL) 113 H 106 H 109 H (75-99) mg/dL Microbiology - Last 24 Hours (Table) 04/03/20 12:23 Gram Stain - Final Bronchial Washings - Right Bronchial Washings Culture - Final Shantell albicans 03/31/20 13:36 Blood Culture - Preliminary Blood No Growth after 96 hours Assessment and Plan Assessment: Diarrhea Hyperkalemia Acute on chronic hypoxic respiratory failure secondary to volume overload and pneumonia Sepsis possibly related to pneumonia Pulmonary nodule ESRD on hemodialysis Normocytic anemia COPD Hypertension Hypothyroidism Likely due to antibiotics. Plans: C. diff was negative. Start Imodium. Potassium 5.2. Plans: Repeat BMP tomorrow morning. Telemetry monitoring. Continue dialysis as per nephrology recommendations. Her shortness of breath is likely multifactorial. Volume overload from missed d ialysis session. Elevated pro-calcitonin. Coronavirus testing negative. Chest x-ray shows large consolidation and pleural effusion on the right with possible pulmonary mass. CT chest shows small to moderate non-simple right pleural fluid, loculated pneumothorax, alveolar edema, irregular masslike consolidation with endobronchial involvement and basilar bronchiectasis. Plans: Nephrology consulted for hemodialysis. Continue Lasix 40 mg IV twice a day. Supplemental O2 to maintain O2 saturation greater than 92%. Pulmonology consulted. Telemetry monitoring. Follow blood culture. Repeat chest x-ray tomorrow morning. s/p bronchoscopy and BAL 04/03, follow up cultures. s/p pigtail placement 04/03 for complex loculated fluid collection in the R lung. Daily alteplase in the chest tube per pulmonology Lactic acid negative. Patient meets sepsis criteria with leukocytosis, tachycardia and positive source of infection. Plans: Continue vancomycin and Zosyn for coverage of meeting or pneumonia. Management as above. Follow pulmonology consultation. ID consulted. With possible mass seen on chest x ray. Plans: Pulmonology on board. Creatinine 4.16. Plans: Nephrology consulted for emergent dialysis. Avoid nephrotoxins. Repeat BMP tomorrow morning. Restart Sevelamer. Hemoglobin 7.2. Likely related to ESRD. Plans: Follow iron studies. Transfuse if hemoglobin less than 7. Repeat CBC tomorrow morning. Plans: DuoNeb as needed for shortness of breath and wheezing. Restart Symb icort. Restart Singulair. BP 148/84. Plans: Restart nifedipine. Anticipated BP to improve with dialysis. Plans: Restart Synthroid. She names her decision maker she can't make decisions for herself. Patient is wanting to be FULL CODE at this time. [Continue hemodialysis. Continue IV antibiotics. Pulmonology on board. s/p BAL, cultures pending. s/p pigtail placement. Patient is pending clinical improvement. ID on board. New onset diarrhea today. Likely DC in 2-3 days.]
--- NOTE | 2020-04-05 14:39 | P.PN ---
Subjective Progress Note Date: 04/05/20 Principal diagnosis: Right lower lobe pneumonia with a right sided parapneumonic complicated pleural effusion. this is a 60-year-old white female with history of COPD, chronic hypoxic arrest or failure, maintained on home oxygen. End-stage renal disease, on hemodialysis Wednesdays and Fridays.patient is not a great historian, unable to communicate effectively, and new to our system, patient lives in [place], and normally gets her medical care in [facility].patient was brought in because she hasn't been feeling well since Tuesday and did not attend her last dialysis session. She was complaining of shortness of breath, dry cough, and 2 episodes of nausea and vomiting the day of admission. EMS picked up the patient from [facility], and she was placed on BiPAP initially in the emergency room department, she was quite tachypneic, tachycardic, and hypertensive. She was noted to have leukocytosis, hemoglobin of 8.4, and she was also noted to have a right lower lobe consolidation, and right-sided pleural effusion. Ultrasound of the chest showed possibly complicated pleural effusion, it is rather small barely 4.0 cm in size, hence I chose not to perform thoracentesis at this point yet.CT of the chest showed loculated right-sided pneumothorax,and moderate alveolar edema suggestive of congestive heart failure as well as volume loss with significant irregular mass like consolidation in the right lower lobe and basilar bronchiectasis. Underlying neoplasm is not excluded. The overall presentation is mostly a presentation of infection with a parapneumonic effusion, again possibility of underlying malignancy is not entirely ruled out. On 04/02/2020 patient seen in follow-up on selective care unit, she is much more awake on today's exam, breathing has significantly improved, she had hemodialysis treatment yesterday with removal of 3 L of fluid. She is breathing much easier, did not require BiPAP support last night, FiO2 is currently down to 2 L and her pulse ox is 98%. No complaints of chest pain, occasional cough, nonproductive. Mentation is appropriate, however patient is a poor historian. Today's chest x-ray has been reviewed showing right pleural effusion with loculation and patchy right basilar consolidative opacity likely related to underlying right lung pneumonia. Patient remains on Zosyn and vancomycin, afebrile, hemodynamically stable, she is weak, gets short of breath with exertion, has not been up out of bed. Breathing is comfortable at rest. Today's labs have been reviewed, white blood cell count is 7.1, hemoglobin 7.4, platelet count 368. Electrodes are within normal limits, however renal profile worsened, with BUN at 19, and creatinine has almost doubled, at 4.5. Nephrology has been following. Her procalcitonin level came back elevated at 2.04, proBNP was 31,800. COVID 19 negative. Blood cultures are negative thus far, we reviewed the records from the [facility], where patient had a recent hospitalization, from 02/03/2020 through 03/26/2020, and patient was on the ventilator support for acute exacerbation of CHF, possible pneumonia, right pleural effusion with right chest tube insertion and removal, and patient apparently had some episodes of bradycardia and possibly transient heart block while there, it is unknown what the pleural fluid showed whether was transudative or exudative, and what the cultures grew. Apparently patient was treated with a combination of cefepime and vancomycin while there, she was successfully weaned and extubated, and subsequently went to the [facility] for rehabilitation. On today's exam she is much more awake, and communicative. No hemoptysis, no chest pain. She continues on Zosyn and vancomycin. On 04/03/2020 patient seen in follow-up on selective care unit. She is resting comfortably in bed, in no acute distress, she is on 2 L of oxygen her pulse ox is 97%, respirations are nonlabored, altered mentation, patient is answering questions appropriately, she is on a combination of Zosyn and vancomycin for empiric antibiotic coverage, patient has been nothing by mouth after midnight for bronchoscopy with BAL today. No complaints of chest pain, no hemoptysis. She had hemodialysis treatment today would removal of 2.7 L of fluid. Today's labs have been reviewed, showing white blood cell count of 7.0, hemoglobin is 7.2, electrolytes were within normal limits, renal profile improved, with creatinine down to 2.62. On 04/04/2020 patient seen in follow-up on selective care unit. She is awake and alert, resting comfortably in bed, on 2 L of oxygen pulse ox is 99%, she is afebrile, respirations are nonlabored, she status post right CT-guided 10-Syrian pigtail chest tube insertion by interventional radiology on 04/03/2020 into the loculated right pleural effusion. Patient had a small right posterior pneumothorax and/or component of trapped lung at completion of the exam, however clinically she denies any worsening shortness of breath. In the last 24 hours there has been 90 mL of clear yellow-colored fluid resembling urine. Patient also underwent bronchoscopy with bronchoalveolar lavage yesterday, brown quash cultures are pending, Gram stain showing no organisms. Remains on IV diuretics, and broad-spectrum antibiotics including Zosyn and vancomycin. Today's chest x- ray shows hydropneumothorax in the right slightly improved and persistence of perihilar and lower lobe consolidation on the right. Dose of TPA was given per CT surgery. Reevaluated today on 04/05/20, patient is feeling better, breathing a lot easier. Bronchial cultures are nondiagnostic so far. Patient remains empirically on antibiotics, and she is continuing to have significant drainage from the right sided pleural effusion via pigtail catheter. Patient has been receiving alteplase 10 mg per 100 mL of normal saline instilled via pigtail catheter last was done yesterday. Patient had O2 saturation of 96% on 2 L, she had thin serous serosanguineous drainage, 203 0 mL output in the last 8 hours. And 660 m L in the last 24 hours. Clinically the patient is doing great, Objective - Vital Signs Vital signs: Vital Signs Temp 98.3 F 04/05/20 11:50 Pulse 79 04/05/20 11:50 Resp 16 04/05/20 11:50 BP 131/62 04/05/20 11:50 Pulse Ox 98 04/05/20 11:50 Intake & Output 04/04/20 04/05/20 04/05/20 18:59 06:59 18:59 Intake Total 236 120 Output Total 3638 320 230 Balance -1839 -320 -110 Weight 48.5 kg 48.7 kg Intake: Oral 236 120 Output: Chest Tube Drainage 75 320 40 Pleural Catheter Right 75 320 40 Upper Lateral Chest Urine 0 190 Hemodialysis 1999 Other: Voiding Method Bedpan Bedpan Bedpan Incontinent Incontinent Incontinent # Voids 0 1 # Bowel Movements 1 - Exam GENERAL EXAM: Alert,very pleasant, chronically ill looking, very frail-looking, 60-year-old white female, on 2 L of oxygen with a pulse ox of 98%, comfortable in no apparent distress. HEENT: PERRLA, EOMI, no icterus, no neck masses, no JVD. CHEST: No chest wall deformity. Symmetrical expansion. Right posterior pigtail chest tube connected to pleuravac with 90 cc of clear yellow urine-like output LUNGS: Equal air entry with no crackles, wheeze, rhonchi or dullness. CVS: Regular rate and rhythm, normal S1 and S2, no gallops, no murmurs, no rubs ABDOMEN: Soft, nontender. No hepatosplenomegaly, normal bowel sounds, no guarding or rigidity. EXTREMITIES: No clubbing, no edema, no cyanosis, 2+ pulses and upper and lower extremities. left arm AV fistula with positive bruit and thrill MUSCULOSKELETAL: Muscle strength and tone normal. SPINE: No scoliosis or deformity SKIN: No rashes CENTRAL NERVOUS SYSTEM: Alert and oriented -3. No focal deficits, tone is normal in all 4 extremities. - Labs CBC & Chem 7: 04/04/20 07:16 04/04/20 07:16 Labs: Abnormal Lab Results - Last 24 Hours (Table) 04/04/20 04/04/20 04/05/20 Range/Units 16:58 19:44 12:10 POC Glucose (mg/dL) 113 H 106 H 109 H (75-99) mg/dL Microbiology - Last 24 Hours (Table) 04/03/20 12:23 Gram Stain - Final Bronchial Washings - Right Bronchial Washings Culture - Final Shantell albicans 03/31/20 13:36 Blood Culture - Preliminary Blood No Growth after 96 hours Assessment and Plan Assessment: impression: Acute on chronic hypoxic respiratory failure secondary to right lower lobe pneumonia, right-sided parapneumonic pleural effusion, complicated. Status post pigtail catheter placement by interventional radiology. Status post alteplase injections in the pleural space to relieve loculated pleural effusion. Fluid overload secondary to end-stage renal disease and missed hemodialysis. Chronic obstructive pulmonary disease. Benign essential hypertension. Hypothyroidism. Recommendation: Continue hemodialysis. Continue empiric antibiotics. continue bronchodilators. Continue to monitor daily chest x-rays, her chest x-ray today showed significant improvement compared to baseline/admission chest x-ray. Continue to monitor the final report on her bronchial cultures so far nondiagnostic. We'll continue to follow. Time with Patient: Less than 30
[2020-04-05 17:06] LABS: Glucose,Whole Blood 122 mg/dL (75-99)
[2020-04-05 19:55] LABS: Glucose,Whole Blood 141 mg/dL (75-99)
[2020-04-05] MEDS: MONTELUKAST 10 MG TAB PO SCH (20:27)
[2020-04-05] MEDS: MELATONIN 3 MG TABLET PO SCH (20:27)
--- NOTE | 2020-04-05 23:16 | PN ---
PROGRESS NOTE DATE OF SERVICE: 04/05/2020 REASON FOR FOLLOWUP: Pneumonia. INTERVAL HISTORY: Patient is currently afebrile. Patient is breathing comfortably. The patient denies having any chest pain. Minimal cough. No nausea, no vomiting. No abdominal pain or diarrhea. PHYSICAL EXAMINATION: Blood pressure 135/62 with a pulse of 88, temperature 98.5. She is 93% on 2 L nasal cannula. General description is a middle-aged female lying in bed in no distress. Respiratory system: Unlabored breathing, decreased breath sounds at the bases. No wheeze. Heart S1, S2. Regular rate and rhythm. Abdomen soft, no tenderness. LABS: Hemoglobin 7.8, white count 7.3, BUN of 22, creatinine 4.16. Bronchoscopy cultures currently pending. DIAGNOSTIC IMPRESSION AND PLAN: Patient with right-sided pneumonia, concern for loculated infiltrate, status post chest tube. Unfortunately no cultures were obtained from the pleural fluid. Bronchoscopy cultures currently pending. The patient is currently covered with Zosyn and vancomycin to continue while waiting for the culture to finalize. Continue supportive care. MMODL / IJN: [id number] /
[2020-04-06] MEDS: LACTATED RINGERS 1,000 ML IV SCH (01:30)
[2020-04-06 06:11] LABS: Glucose,Whole Blood 119 mg/dL (75-99)
[2020-04-06] MEDS: LEVOTHYROXINE 100 MCG TAB PO SCH (06:20)
[2020-04-06] MEDS ORDERED: ALTEPLASE 10 MG in SODIUM CHLORIDE 0.9% 100 ML IRRIGATION ONE (07:00)
[2020-04-06] MEDS: SYMBICORT 160-4.5 MCG INHALER INHALATION SCH ×2 (07:35→21:01)
[2020-04-06] MEDS: IPRATROPIUM-ALBUTEROL 3 ML NEB INHALATION SCH ×5 (07:36→21:04)
--- NOTE | 2020-04-06 08:19 | XR ---
EXAMINATION TYPE: XR chest 1V portable DATE OF EXAM: 04/06/2020 Comparison: 04/05/2020 Clinical History: 60 year-old female right pleural effusion Findings: Heart mildly enlarged. Mild interstitial density. Continued focal right midlung opacity with a locula juan luis appearing air at the peripheral right base but with increasing opacity here. A right basilar pigt ail pleural catheter remains in place. Impression: 1. Right-sided basilar pigtail pleural catheter remains in place with redemonstrated right basilar hy dropneumothorax. The pleural effusion component appears to be increasing. 2. Adjacent focal right midlung opacity/infiltrate is unchanged.
[2020-04-06] MEDS: LOPERAMIDE 2 MG CAP PO SCH ×4 (08:35→20:35)
[2020-04-06] MEDS: PIPERACILLIN-TAZOBACTAM 3.375 GM in SODIUM CHLORIDE 0.9% 100 ML IVPB SCH ×2 (08:36→20:36)
[2020-04-06] MEDS: SEVELAMER 800 MG TAB PO SCH ×3 (08:36→16:47)
[2020-04-06] MEDS: ATORVASTATIN 40 MG TAB PO SCH (08:36)
[2020-04-06] MEDS: NIFEdipine XL 30 MG TAB.ER.24 PO SCH (08:36)
[2020-04-06] MEDS: HEPARIN SODIUM,PORCINE 5,000 UNIT/ML 1 ML VIAL SQ SCH ×2 (08:37→20:36)
[2020-04-06] MEDS: FUROSEMIDE 10 MG/ML 4 ML VIAL IV SCH ×2 (08:37→20:36)
[2020-04-06 09:43] LABS: Total Protein 5.4 g/dL (6.3-8.2)
--- NOTE | 2020-04-06 10:44 | P.PN ---
Subjective Progress Note Date: 04/06/20 Follow-up for ESRD. Objective - Vital Signs Vital signs: Vital Signs Temp 98.4 F 04/06/20 08:45 Pulse 79 04/06/20 08:45 Resp 16 04/06/20 08:45 BP 126/64 04/06/20 08:45 Pulse Ox 97 04/06/20 08:45 Intake & Output 04/05/20 04/06/20 04/06/20 18:59 06:59 18:59 Intake Total 120 60 Output Total 330 745 40 Balance -210 -745 20 Weight 49 kg Intake: Oral 120 60 Output: Chest Tube Drainage 140 545 40 Pleural Catheter Right 140 545 40 Upper Lateral Chest Urine 190 200 Other: Voiding Method Bedpan Diaper Diaper Incontinent Incontinent Incontinent # Voids 5 0 # Bowel Movements 1 1 - Exam No acute distress S1-S2 heard Lungs clear Abdomen soft No edema Left upper arm aVF - Labs CBC & Chem 7: 04/04/20 07:16 04/04/20 07:16 Labs: Abnormal Lab Results - Last 24 Hours (Table) 04/05/20 04/05/20 04/05/20 Range/Units 06:12 12:10 17:05 POC Glucose (mg/dL) 109 H 122 H (75-99) mg/dL Total Protein 5.4 L (6.3-8.2) g/dL 04/05/20 04/06/20 Range/Units 19:53 06:10 POC Glucose (mg/dL) 141 H 119 H (75-99) mg/dL Total Protein (6.3-8.2) g/dL Microbiology - Last 24 Hours (Table) 03/31/20 13:36 Blood Culture - Preliminary Blood No Growth after 120 hours 04/03/20 12:23 Gram Stain - Final Bronchial Washings - Right Bronchial Washings Culture - Final Shantell albicans Assessment and Plan Assessment: #1 ESRD MWF #2 volume overload improved postdialysis #3 right-sided parapneumonic effusion status post pigtail catheter placement #4 anemia with ESRD #5 hypertension with ESRD #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
--- NOTE | 2020-04-06 11:06 | P.PN ---
Subjective Progress Note Date: 04/06/20 No new complaints today. Resting in bed comfortably. Chest tube draining serosanginous fluid. Does not appear to have distressed work of breathing. Objective - Vital Signs Vital signs: Vital Signs Temp 98.4 F 04/06/20 08:45 Pulse 79 04/06/20 08:45 Resp 16 04/06/20 08:45 BP 126/64 04/06/20 08:45 Pulse Ox 97 04/06/20 08:45 Intake & Output 04/05/20 04/06/20 04/06/20 18:59 06:59 18:59 Intake Total 120 60 Output Total 330 745 40 Balance -210 -745 20 Weight 49 kg Intake: Oral 120 60 Output: Chest Tube Drainage 140 545 40 Pleural Catheter Right 140 545 40 Upper Lateral Chest Urine 190 200 Other: Voiding Method Bedpan Diaper Diaper Incontinent Incontinent Incontinent # Voids 5 0 # Bowel Movements 1 1 - Exam Gen: awake, alert HEENT: normocephalic, atraumatic, good hearing acuity, moist mucous membranes Resp: no accessory muscle use, exchanging air well on 2 L nasal cannula, chest tube on the right side CVS: good distal perfusion x 4, RRR, no murmurs, clicks, gallops GI: soft, NTTP, ND : no SPT, no CVAT, bender catheter [IS/NOT] present MSK: no pitting edema, no clubbing Neuro: non-focal, no sensory deficits, appropriate tone Psych: cooperative, euthymic mood - Labs CBC & Chem 7: 04/04/20 07:16 04/04/20 07:16 Labs: Abnormal Lab Results - Last 24 Hours (Table) 04/05/20 04/05/20 04/05/20 Range/Units 06:12 12:10 17:05 POC Glucose (mg/dL) 109 H 122 H (75-99) mg/dL Total Protein 5.4 L (6.3-8.2) g/dL 04/05/20 04/06/20 Range/Units 19:53 06:10 POC Glucose (mg/dL) 141 H 119 H (75-99) mg/dL Total Protein (6.3-8.2) g/dL Microbiology - Last 24 Hours (Table) 03/31/20 13:36 Blood Culture - Preliminary Blood No Growth after 120 hours 04/03/20 12:23 Gram Stain - Final Bronchial Washings - Right Bronchial Washings Culture - Final Shantell albicans Assessment and Plan Assessment: Diarrhea Hyperkalemia Acute on chronic hypoxic respiratory failure secondary to volume overload and pneumonia Sepsis possibly related to pneumonia Pulmonary nodule ESRD on hemodialysis Normocytic anemia COPD Hypertension Hypothyroidism Likely due to antibiotics. Plans: C. diff was negative. Start Imodium. Potassium 5.2. Plans: Repeat BMP tomorrow morning. Telemetry monitoring. Continue dialysis as per nephrology recommendations. Her shortness of breath is likely multifactorial. Volume overload from missed dialysis session. Elevated pro-calcitonin. Coronavirus testing negative. Chest x-ray shows large consolidation and pleural effusion on the right with possible pulmonary mass. CT chest shows small to moderate non-simple right pleural fluid, loculated pneumothorax, alveolar edema, irregular masslike consolidation with endobronchial involvement and basilar bronchiectasis. Plans: Nephrology consulted for hemodialysis. Continue Lasix 40 mg IV twice a day. Supplemental O2 to maintain O2 saturation greater than 92%. Pulmonology consulted. Telemetry monitoring. Follow blood culture. Repeat chest x-ray tomorrow morning. s/p bronchoscopy and BAL 04/03, follow up cultures. s/p pigtail placement 04/03 for complex loculated fluid collection in the R lung. Daily alteplase in the chest tube per pulmonology Lactic acid negative. Patient meets sepsis criteria with leukocytosis, ta chycardia and positive source of infection. Plans: Continue vancomycin and Zosyn for coverage of meeting or pneumonia. Management as above. Follow pulmonology consultation. ID consulted. With possible mass seen on chest x ray. Plans: Pulmonology on board. Creatinine 4.16. Plans: Nephrology consulted for emergent dialysis. Avoid nephrotoxins. Repeat BMP tomorrow morning. Restart Sevelamer. Hemoglobin 7.2. Likely related to ESRD. Plans: Follow iron studies. Transfuse if hemoglobin less than 7. Repeat CBC tomorrow morning. Plans: DuoNeb as needed for shortness of breath and wheezing. Restart Symbicort. Restart Singulair. BP 148/84. Plans: Restart nifedipine. Anticipated BP to improve with dialysis. Plans: Restart Synthroid. She names her decision maker she can't make decisions for herself. Patient is wanting to be FULL CODE at this time. [Continue hemodialysis. Continue IV antibiotics. Pulmonology on board. s/p BAL, cultures pending. s/p pigtail placement. Patient is pending clinical improvement. ID on board. New onset diarrhea today. Likely DC in 2-3 days.]
--- NOTE | 2020-04-06 11:09 | P.PN ---
Subjective Progress Note Date: 04/06/20 Principal diagnosis: Complicated right pleural effusion, likely parapneumonic in nature, acute on chronic hypoxic respiratory failure, leukocytosis on admission, pneumonia. Previous medical history of COPD, chronic hypoxic respiratory failure currently on home oxygen, end-stage renal disease on hemodialysis, chronic anemia, diabetes, hypertension, hyperlipidemia, hypothyroid, previous tobacco dependence POD #3 placement of right sided pigtail catheter by interventional radiology. The patient was seen and examined today on 04/06/2020 at her bedside on the cardiac stepdown unit. Patient is laying in bed, she is awake, alert and oriented 3 and denies any complaints of pain or shortness of breath at this time. Right pleural pigtail catheter remains in place to low continuous wall suction -20 cm H2O. No air leaks present. Draining thin serosanguineous drainage with 40 mL output in the last 8 hours and 725 mL output in the last 24 hours. She received a dose of alteplase 10 mg/100 mL 0.9% normal saline pleural instillation yesterday. Oxygen saturations are 97% on 2 L nasal cannula and she is achieving 500 mL on her incentive spirometry. Objective - Vital Signs Vital signs: Vital Signs Temp 98.4 F 04/06/20 08:45 Pulse 79 04/06/20 08:45 Resp 16 04/06/20 08:45 BP 126/64 04/06/20 08:45 Pulse Ox 97 04/06/20 08:45 Intake & Output 04/05/20 04/06/20 04/06/20 18:59 06:59 18:59 Intake Total 120 60 Output Total 330 745 40 Balance -210 -745 20 Weight 49 kg Intake: Oral 120 60 Output: Chest Tube Drainage 140 545 40 Pleural Catheter Right 140 545 40 Upper Lateral Chest Urine 190 200 Other: Voiding Method Bedpan Diaper Diaper Incontinent Incontinent Incontinent # Voids 5 0 # Bowel Movements 1 1 - Constitutional General appearance: Present: cooperative, no acute distress, thin - EENT Eyes: Present: PERRLA, normal appearance. Absent: scleral icterus ENT: Present: hearing grossly normal - Neck Details: Neck is supple, no JVD. - Respiratory Details: Lung sounds essentially clear to her bilateral upper lobes, diminished bilateral bases right greater than left. Right pleural pigtail catheter remains in place to low continuous wall suction -20 cm H2O. No air leaks present. Draining thin serosanguineous drainage with 40 mL output in the last 8 hours and 725 mL output in the last 24 hours. Oxygen saturation 97% on 2 L nasal cannula and she is achieving 500 mL on her incentive spirometry with much encouragement. - Cardiovascular Details: Regular rhythm and rate. S1 and S2 present, negative for S3, gallop or murmur. Remote telemetry showing normal sinus rhythm heart rate 83. No edema present. - Gastrointestinal Gastrointestinal Comment(s): Abdomen is soft, nontender and nondistended. Active bowel sounds present all 4 abdominal quadrants. No guarding or rigidity. No organomegaly appreciated. - Genitourinary Genitourinary Comment(s): Continues to void, hemodialysis per home schedule. Left arm fistula with good thrill and bruit. - Integumentary Integumentary Comment(s): Skin is warm and dry. No clubbing or cyanosis is present. - Neurologic Neurologic: Present: CNII-XII intact - Musculoskeletal Musculoskeletal: Present: generalized weakness, strength equal bilaterally - Psychiatric Psychiatric: Present: A&O x's 3, appropriate affect, intact judgment & insight - Allied health notes Allied health notes reviewed: nursing - Labs CBC & Chem 7: 04/04/20 07:16 04/04/20 07:16 Labs: Abnormal Lab Results - Last 24 Hours (Table) 04/05/20 04/05/20 04/05/20 Range/Units 06:12 12:10 17:05 POC Glucose (mg/dL) 109 H 122 H (75-99) mg/dL Total Protein 5.4 L (6.3-8.2) g/dL 04/05/20 04/06/20 Range/Units 19:53 06:10 POC Glucose (mg/dL) 141 H 119 H (75-99) mg/dL Total Protein (6.3-8.2) g/dL Microbiology - Last 24 Hours (Table) 03/31/20 13:36 Blood Culture - Preliminary Blood No Growth after 120 hours 04/03/20 12:23 Gram Stain - Final Bronchial Washings - Right Bronchial Washings Culture - Final Shantell albicans - Imaging and Cardiology Chest x-ray: report reviewed, image reviewed Assessment and Plan Assessment: 1. Shortness of breath on admission, right-sided pleural effusion, likely parapneumonic effusion, status post right-sided pigtail catheter placement by interventional radiology 2. Acute and chronic hypoxic respiratory failure 3. Leukocytosis on admission, pneumonia 4. History of COPD, chronic hypoxic respiratory failure currently maintained on home oxygen 5. End-stage renal disease, on hemodialysis with chronic anemia 6. Diabetes mellitus 7. Hypertension 8. Hyperlipidemia 9. Hypothyroid 10. Previous tobacco dependence Plan: 1. We will instill alteplase today and clamp pigtail for 1 hour then release after an hour. We will continue to monitor pigtail catheter output and instill alteplase daily. 2. Will monitor daily chest x-rays. 3. Wean O2 as tolerated. Bronchodilators, steroids per pulmonology. 4. Encourage incentive spirometry use 10 times every hour while awake. 5. Antibiotics management per infectious disease. 6. Management of other comorbidities per primary care service, other consultants. 7. More recommendations to follow based on patient's clinical course. Time with Patient: Greater than 30
--- NOTE | 2020-04-06 13:09 | P.PN ---
Subjective Progress Note Date: 04/06/20 Principal diagnosis: Right lower lobe pneumonia with right-sided parapneumonic complicated pleural effusion this is a 60-year-old white female with history of COPD, chronic hypoxic arrest or failure, maintained on home oxygen. End-stage renal disease, on hemodialysis Wednesdays and Fridays.patient is not a great historian, unable to communicate effectively, and new to our system, patient lives in [place], and normally gets her medical care in [facility].patient was brought in because she hasn't been feeling well since Tuesday and did not attend her last dialysis session. She was complaining of shortness of breath, dry cough, and 2 episodes of nausea and vomiting the day of admission. EMS picked up the patient from medical [place], and she was placed on BiPAP initially in the emergency room department, she was quite tachypneic, tachycardic, and hypertensive. She was noted to have leukocytosis, hemoglobin of 8.4, and she was also noted to have a right lower lobe consolidation, and right-sided pleural effusion. Ultrasound of the chest showed possibly complicated pleural effusion, it is rather small barely 4.0 cm in size, hence I chose not to perform thoracentesis at this point yet.CT of the chest showed loculated right-sided pneumothorax,and moderate alveolar edema suggestive of congestive heart failure as well as volume loss with significant irregular mass like consolidation in the right lower lobe and basilar bronchiectasis. Underlying neoplasm is not excluded. The overall presentation is mostly a presentation of infection with a parapneumonic effusion, again possibility of underlying malignancy is not entirely ruled out. On 04/02/2020 patient seen in follow-up on selective care unit, she is much more awake on today's exam, breathing has significantly improved, she had hemodialysis treatment yesterday with removal of 3 L of fluid. She is breathing much easier, did not require BiPAP support last night, FiO2 is currently down to 2 L and her pulse ox is 98%. No complaints of chest pain, occasional cough, nonproductive. Mentation is appropriate, however patient is a poor historian. Today's chest x-ray has been reviewed showing right pleural effusion with loculation and patchy right basilar consolidative opacity likely related to underlying right lung pneumonia. Patient remains on Zosyn and vancomycin, afebrile, hemodynamically stable, she is weak, gets short of breath with exertion, has not been up out of bed. Breathing is comfortable at rest. Today's labs have been reviewed, white blood cell count is 7.1, hemoglobin 7.4, platelet count 368. Electrodes are within normal limits, however renal profile worsened, with BUN at 19, and creatinine has almost doubled, at 4.5. Nephrology has been following. Her procalcitonin level came back elevated at 2.04, proBNP was 31,800. COVID 19 negative. Blood cultures are negative thus far, we reviewed the records from the [facility], where patient had a recent hospitalization, from 02/03/2020 through 03/26/2020, and patient was on the ventilator support for acute exacerbation of CHF, possible pneumonia, right pleural effusion with right chest tube insertion and removal, and patient apparently had some episodes of bradycardia and possibly transient heart block while there, it is unknown what the pleural fluid showed whether was transudative or exudative, and what the cultures grew. Apparently patient was treated with a combination of cefepime and vancomycin while there, she was successfully weaned and extubated, and subsequently went to the [facility] for rehabilitation. On today's exam she is much more awake, and communicative. No hemoptysis, no chest pain. She continues on Zosyn and vancomycin. On 04/03/2020 patient seen in follow-up on selective care unit. She is resting comfortably in bed, in no acute distress, she is on 2 L of oxygen her pulse ox is 97%, respirations are nonlabored, altered mentation, patient is answering questions appropriately, she is on a combination of Zosyn and vancomycin for em piric antibiotic coverage, patient has been nothing by mouth after midnight for bronchoscopy with BAL today. No complaints of chest pain, no hemoptysis. She had hemodialysis treatment today would removal of 2.7 L of fluid. Today's labs have been reviewed, showing white blood cell count of 7.0, hemoglobin is 7.2, electrolytes were within normal limits, renal profile improved, with creatinine down to 2.62. On 04/04/2020 patient seen in follow-up on selective care unit. She is awake and alert, resting comfortably in bed, on 2 L of oxygen pulse ox is 99%, she is afebrile, respirations are nonlabored, she status post right CT-guided 10-Honduran pigtail chest tube insertion by interventional radiology on 04/03/2020 into the loculated right pleural effusion. Patient had a small right posterior pneumothorax and/or component of trapped lung at completion of the exam, however clinically she denies any worsening shortness of breath. In the last 24 hours there has been 90 mL of clear yellow-colored fluid resembling urine. Patient also underwent bronchoscopy with bronchoalveolar lavage yesterday, brown quash cultures are pending, Gram stain showing no organisms. Remains on IV diuretics, and broad-spectrum antibiotics including Zosyn and vancomycin. Today's chest x- ray shows hydropneumothorax in the right slightly improved and persistence of perihilar and lower lobe consolidation on the right. Dose of TPA was given per CT surgery. Reevaluated today on 04/05/20, patient is feeling better, breathing a lot easier. Bronchial cultures are nondiagnostic so far. Patient remains empirically on antibiotics, and she is continuing to have significant drainage from the right sided pleural effusion via pigtail catheter. Patient has been receiving alteplase 10 mg per 100 mL of normal saline instilled via pigtail catheter last was done yesterday. Patient had O2 saturation of 96% on 2 L, she had thin serous serosanguineous drainage, 203 0 mL output in the last 8 hours. And 660 mL in the last 24 hours. Clinically the patient is doing great, The patient is seen today 04/06/2020 in follow-up on the selective care unit. She is currently resting comfortably in bed. Awake and alert in no acute distress. Right-sided pig tail catheter remains in place. She had 725 mLs out the past 24 hours. She did receive alteplase again today. She is maintaining good O2 saturations in the mid 90s on 2 L/m per nasal cannula. She's afebrile. Chest x-ray continues to reveal right basilar hydropneumothorax with continued pleural effusion. Right midlung opacity/infiltrate unchanged. Objective - Vital Signs Vital signs: Vital Signs Temp 97.8 F 04/06/20 12:39 Pulse 93 04/06/20 12:39 Resp 16 04/06/20 12:39 BP 142/69 04/06/20 12:39 Pulse Ox 95 04/06/20 12:39 Intake & Output 08/04/06/20 04/06/20 18:59 06:59 18:59 Intake Total 120 120 Output Total 330 745 60 Balance -210 -745 60 Weight 49 kg Intake: Oral 120 120 Output: Chest Tube Drainage 140 545 60 Pleural Catheter Right 140 545 60 Upper Lateral Chest Urine 190 200 Other: Voiding Method Bedpan Diaper Diaper Incontinent Incontinent Incontinent # Voids 5 0 # Bowel Movements 1 1 - Exam GENERAL EXAM: Alert,very pleasant, chronically ill looking, frail 60-year-old female patient, on 2 L of oxygen with a pulse ox of 95%, comfortable in no apparent distress. HEENT: PERRLA, EOMI, no icterus, no neck masses, no JVD. CHEST: No chest wall deformity. Symmetrical expansion. Right posterior pigtail chest tube connected to pleuravac LUNGS: Equal air entry with crackles in the right lung base. CVS: Regular rate and rhythm, normal S1 and S2, no gallops, no murmurs, no rubs ABDOMEN: Soft, nontender. No hepatosplenomegaly, normal bowel sounds, no guarding or rigidity. EXTREMITIES: No clubbing, no edema, no cyanosis, 2+ pulses and upper and lower extremities. left arm AV fistula with positive bruit and thrill MUSCULOSKELETAL: Muscle strength and tone normal. SPINE: No scoliosis or deformity SKIN: No rashes CENTRAL NERVOUS SYSTEM: Alert and oriented -3. No focal deficits, tone is normal in all 4 extremities. - Labs CBC & Chem 7: 04/04/20 07:16 04/04/20 07:16 Labs: Abnormal Lab Results - Last 24 Hours (Table) 04/05/20 04/05/20 04/05/20 Range/Units 06:12 17:05 19:53 POC Glucose (mg/dL) 122 H 141 H (75-99) mg/dL Total Protein 5.4 L (6.3-8.2) g/dL 04/06/20 Range/Units 06:10 POC Glucose (mg/dL) 119 H (75-99) mg/dL Total Protein (6.3-8.2) g/dL Microbiology - Last 24 Hours (Table) 03/31/20 13:36 Blood Culture - Preliminary Blood No Growth after 120 hours Assessment and Plan Assessment: Acute on chronic hypoxic respiratory failure secondary to right lower lobe pneumonia, right-sided parapneumonic pleural effusion, complicated. Status post pigtail catheter placement by interventional radiology. Status post alteplase injections in the pleural space to relieve loculated pleural effusion. Fluid overload secondary to end-stage renal disease and missed hemodialysis. Chronic obstructive pulmonary disease. Benign essential hypertension. Hypothyroidism. Plan: The patient was seen and evaluated by Dr. Stinson Chest x-ray and labs reviewed Right-sided pigtail catheter remains in place Received alteplase this morning Output continues to be monitored Continued antibiotics in the form of vancomycin and Zosyn Chest x-ray in a.m. We'll continue to follow I, the cosigning physician, performed a history & physical examination of the patient. Lungs sounds with crackles in the right base. Maintaining good O2 saturations in the 90s on 2 L/m per nasal cannula. I discussed the assessment and plan of care with my nurse practitioner, Myla Carrizales. I attest to the above note as dictated by her.
[2020-04-06] MEDS: MONTELUKAST 10 MG TAB PO SCH (20:35)
[2020-04-06] MEDS: MELATONIN 3 MG TABLET PO SCH (20:35)
--- NOTE | 2020-04-06 23:08 | PN ---
PROGRESS NOTE DATE OF SERVICE: 04/06/2020 REASON FOR FOLLOWUP: Pneumonia and loculated pleural effusion. INTERVAL HISTORY: The patient is currently afebrile. Patient is breathing comfortably. Denies having any chest pain or cough. No nausea or vomiting. No abdominal pain or diarrhea. PHYSICAL EXAMINATION: Blood pressure 142/69 with a pulse of 93, temperature 97.8. She is 95% on 2 L nasal cannula. General description is a middle-aged female lying in bed in no distress. RESPIRATORY SYSTEM: Unlabored breathing, decreased breath sounds in the base. No wheeze. HEART: S1, S2. Regular rate and rhythm. ABDOMEN: Soft, no tenderness. LABS: Hemoglobin 7.2, white count 7.3, BUN of 22, creatinine 4.16. Bronchoscopy culture with Shantell albicans. DIAGNOSTIC IMPRESSION AND PLAN: Patient with right-sided pneumonia, possible loculated effusion, status post bronchoscopy and chest tube placement with the culture negative for MRSA. Will discontinue the vancomycin. Keep the patient on Zosyn and monitor clinical course closely. MMODL / IJN: [id number] /
[2020-04-07] MEDS: LACTATED RINGERS 1,000 ML IV SCH (01:46)
[2020-04-07] MEDS: LEVOTHYROXINE 100 MCG TAB PO SCH (06:29)
[2020-04-07] MEDS ORDERED: ALTEPLASE 10 MG in SODIUM CHLORIDE 0.9% 100 ML IRRIGATION ONE (07:21)
[2020-04-07] MEDS: IPRATROPIUM-ALBUTEROL 3 ML NEB INHALATION SCH ×4 (07:52→19:33)
[2020-04-07] MEDS: SYMBICORT 160-4.5 MCG INHALER INHALATION SCH ×2 (07:52→19:25)
--- NOTE | 2020-04-07 08:46 | XR ---
EXAMINATION TYPE: XR chest 1V portable DATE OF EXAM: 04/07/2020 CLINICAL HISTORY: Right pleural effusion and chest tube. TECHNIQUE: Portable upright view of the chest obtained. COMPARISON: 04/06/2020 chest radiograph FINDINGS: Right basilar coiled chest tube remains in place. Redemonstrated right basilar hydropneumo thorax, with pleural effusion component mildly decreased versus 04/06/2020. Right mid lung patchy airs pace opacity appears similar. Cardiomegaly. IMPRESSION: 1. Right basilar coiled catheter and right basilar hydropneumothorax redemonstrated. The pleural eff usion component is mildly decreased versus 04/06/2020. 2. Right midlung patchy airspace opacity unchanged.
--- NOTE | 2020-04-07 10:21 | P.PN ---
Subjective Progress Note Date: 04/07/20 Principal diagnosis: Complicated right pleural effusion, likely parapneumonic in nature, acute on chronic hypoxic respiratory failure, leukocytosis on admission, pneumonia. Previous medical history of COPD, chronic hypoxic respiratory failure currently on home oxygen, end-stage renal disease on hemodialysis, chronic anemia, diabetes, hypertension, hyperlipidemia, hypothyroid, previous tobacco dependence POD #4 placement of right sided pigtail catheter by interventional radiology The patient is currently sitting up in bed in no acute distress eating breakfast in the cardiac stepdown unit. Denies pain, states shortness of breath has improved. Right sided pigtail catheter continues to drain, Alteplase instilled the last 3 days. Objective - Vital Signs Vital signs: Vital Signs Temp 98.1 F 04/07/20 04:00 Pulse 73 04/07/20 04:00 Resp 16 04/07/20 04:00 BP 124/59 04/07/20 04:00 Pulse Ox 99 04/07/20 04:00 Intake & Output 04/06/20 04/07/20 04/07/20 18:59 06:59 18:59 Intake Total 190 460 Output Total 140 500 Balance 50 -40 Weight 47 kg Intake: IV 160 Lactated Ringers 1,000 ml 160 @ 20 mls/hr IV .Q24H [facility] Rx#:[id number] Oral 190 300 Output: Chest Tube Drainage 140 500 Pleural Catheter Right 140 500 Upper Lateral Chest Other: Voiding Method Diaper Diaper Incontinent Incontinent # Voids 5 2 # Bowel Movements 5 - Constitutional General appearance: Present: cooperative, no acute distress - Respiratory Details: Lungs sounds diminished on the left, coarse on the right. Respirations even, nonlabored. Currently on 2 L nasal cannula with oxygen saturation 99%. Right- sided pigtail catheter present, connected to continuous wall suction, 450 mL serous fluid drained overnight, 730 mL in the last 24 hours, no air leak - Cardiovascular Details: S1, S2 present. Regular rate and rhythm, sinus rhythm on telemetry. Palpable peripheral pulses bilaterally. No edema present. No calf pain or tenderness noted. - Gastrointestinal Gastrointestinal Comment(s): Abdomen soft, nontender, nondistended. Active bowel sounds present 4 quadrants. Tolerating diet. - Genitourinary Genitourinary Comment(s): Continues to void - Integumentary Integumentary Comment(s): Skin is warm and dry - Neurologic Neurologic: Present: CNII-XII intact - Musculoskeletal Musculoskeletal: Present: gait normal, strength equal bilaterally - Psychiatric Psychiatric: Present: A&O x's 3 - Allied health notes Allied health notes reviewed: nursing - Labs CBC & Chem 7: 04/04/20 07:16 04/04/20 07:16 Labs: Microbiology - Last 24 Hours (Table) 04/03/20 12:23 Fungal Culture - Preliminary Bronchial Washings - Right Yeast species 03/31/20 13:36 Blood Culture - Final Blood No Growth after 144 hours - Imaging and Cardiology Chest x-ray: report reviewed, image reviewed Assessment and Plan Assessment: 1. Shortness of breath on admission, right-sided pleural effusion, likely parapneumonic effusion, status post right-sided pigtail catheter placement by interventional radiology 2. Acute and chronic hypoxic respiratory failure 3. Leukocytosis on admission, pneumonia 4. History of COPD, chronic hypoxic respiratory failure currently maintained on home oxygen 5. End-stage renal disease, on hemodialysis with chronic anemia 6. Diabetes mellitus 7. Hypertension 8. Hyperlipidemia 9. Hypothyroid 10. Previous tobacco dependence Plan: 1. We will instill alteplase today and clamp pigtail for 1 hour. We will continue to monitor output and instill alteplase daily 2. Will monitor daily x-rays 3. Wean O2 as tolerated. Bronchodilators, steroids per pulmonology 4. Incentive spirometry ordered, encourage its use 10 times every hour while awake 5. Antibiotics per infectious disease 6. Management of other comorbidities per primary care service, other consultants 7. More recommendations to follow Time with Patient: Greater than 30
[2020-04-07] MEDS: LOPERAMIDE 2 MG CAP PO SCH ×2 (10:53→12:39)
[2020-04-07] MEDS: NIFEdipine XL 30 MG TAB.ER.24 PO SCH (10:53)
[2020-04-07] MEDS: SEVELAMER 800 MG TAB PO SCH ×3 (10:53→19:37)
[2020-04-07] MEDS: ATORVASTATIN 40 MG TAB PO SCH (10:53)
[2020-04-07] MEDS: PIPERACILLIN-TAZOBACTAM 3.375 GM in SODIUM CHLORIDE 0.9% 100 ML IVPB SCH ×2 (10:55→22:26)
[2020-04-07] MEDS: FUROSEMIDE 10 MG/ML 4 ML VIAL IV SCH ×2 (10:56→22:26)
[2020-04-07] MEDS: HEPARIN SODIUM,PORCINE 5,000 UNIT/ML 1 ML VIAL SQ SCH (10:57)
--- NOTE | 2020-04-07 11:04 | P.PN ---
Subjective Progress Note Date: 04/07/20 No new complaints. Ongoing management for infx, pleural effusion per pulm/ID. On room air upon my evaluation, reports feeling tired, but no dyspnea. Objective - Vital Signs Vital signs: Vital Signs Temp 98.1 F 04/07/20 04:00 Pulse 73 04/07/20 04:00 Resp 16 04/07/20 04:00 BP 124/59 04/07/20 04:00 Pulse Ox 99 04/07/20 04:00 Intake & Output 04/06/20 04/07/20 04/07/20 18:59 06:59 18:59 Intake Total 190 460 Output Total 140 500 Balance 50 -40 Weight 47 kg 47 kg Intake: IV 160 Lactated Ringers 1,000 ml 160 @ 20 mls/hr IV .Q24H [facility] Rx#:[id number] Oral 190 300 Output: Chest Tube Drainage 140 500 Pleural Catheter Right 140 500 Upper Lateral Chest Other: Voiding Method Diaper Diaper Incontinent Incontinent # Voids 5 2 # Bowel Movements 5 - Exam Gen: awake, alert HEENT: normocephalic, atraumatic, good hearing acuity, moist mucous membranes Resp: no accessory muscle use, exchanging air well on 2 L nasal cannula, chest tube on the right side CVS: good distal perfusion x 4, RRR, no murmurs, clicks, gallops GI: soft, NTTP, ND : no SPT, no CVAT, bender catheter [IS/NOT] present MSK: no pitting edema, no clubbing Neuro: non-focal, no sensory deficits, appropriate tone Psych: cooperative, euthymic mood - Labs CBC & Chem 7: 04/04/20 07:16 04/04/20 07:16 Labs: Microbiology - Last 24 Hours (Table) 04/03/20 12:23 Fungal Culture - Preliminary Bronchial Washings - Right Yeast species 03/31/20 13:36 Blood Culture - Final Blood No Growth after 144 hours Assessment and Plan Assessment: Diarrhea Hyperkalemia Acute on chronic hypoxic respiratory failure secondary to volume overload and pneumonia Sepsis possibly related to pneumonia Pulmonary nodule ESRD on hemodialysis Normocytic anemia COPD Hypertension Hypothyroidism Likely due to antibiotics. Plans: C. diff was negative. Start Imodium. Potassium 5.2. Plans: Repeat BMP tomorrow morning. Telemetry monitoring. Continue dialysis as per nephrology recommendations. Her shortness of breath is likely multifactorial. Volume overload from missed dialysis session. Elevated pro-calcitonin. Coronavirus testing negative. Chest x-ray shows large consolidation and pleural effusion on the right with possible pulmonary mass. CT chest shows small to moderate non-simple right pleural fluid, loculated pneumothorax, alveolar edema, irregular masslike consolidation with endobronchial involvement and basilar bronchiectasis. Plans: Nephrology consulted for hemodialysis. Continue Lasix 40 mg IV twice a day. Supplemental O2 to maintain O2 saturation greater than 92%. Pulmonology consulted. Telemetry monitoring. Follow blood culture. Repeat chest x-ray tomorrow morning. s/p bronchoscopy and BAL 04/03, follow up cultures. s/p pigtail placement 04/03 for complex loculated fluid collection in the R lung. Daily alteplase in the chest tube per pulmonology Lactic acid negative. Patient meets sepsis criteria with leukocytosis, tachycardia and positive source of infection. Plans: Continue vancomycin and Zosyn for coverage of meeting or pneumonia. Management as above. Follow pulmonology consultation. ID consulted. With possible mass seen on chest x ray. Plans: Pulmonology on board. Creatinine 4.16. Plans: Nephrology consulted for emergent dialysis. Avoid nephrotoxins. Repeat BMP tomorrow morning. Restart Sevelamer. Hemoglobin 7.2. Likely related to ESRD. Plans: Follow iron studies. Transfuse if hemoglobin less than 7. Repeat CBC tomorrow morning. Plans: DuoNeb as needed for shortness of breath and wheezing. Restart Symbicort. Restart Singulair. BP 148/84. Plans: Restart nifedipine. Anticipated BP to improve with dialysis. Plans: Restart Synthroid. She names her decision maker she can't make decisions for herself. Patient is wanting to be FULL CODE at this time. [Continue hemodialysis. Continue IV antibiotics. Pulmonology on board. s/p BAL, cultures pending. s/p pigtail placement. Patient is pending clinical improvement. ID on board. New onset diarrhea today. Likely DC in 2-3 days.]
[2020-04-07] MEDS: HYDROcodone/APAP 5-325MG 1 EACH TAB PO PRN ×2 (12:38→16:28)
--- NOTE | 2020-04-07 13:55 | PN ---
PROGRESS NOTE PULMONARY/CRITICAL CARE PROGRESS NOTE: DATE OF SERVICE: 04/07/2020 This is a 60-year-old female who looks much older than her stated age, who was admitted to the hospital on March 31. She was admitted with a diagnosis of right lower lobe pneumonia, chronic hypoxemic respiratory failure, and right parapneumonic effusion. The parapneumonic effusion was complicated. A pigtail catheter was placed. It was done by Interventional Radiology. Today, she will receive her 3rd dose of tPA injected into the pigtail catheter. I did tell the nurse to make sure the pigtail catheter was clamped. It should be clamped for at least an hour and maybe longer. The patient should be advised to lay in the supine and prone position, head up and head down position, and right lateral recumbent position. Each position should be held for about 5 minutes for good distribution of the alteplase. In addition, she has a history of fluid overload secondary to missed hemodialysis, COPD, benign essential hypertension, and hypothyroidism. PHYSICAL EXAMINATION: VITAL SIGNS: Current vital signs are reviewed. Temperature is 98.1, heart rate 73, respiratory rate 16, blood pressure 124/59, mean 80, 2 L saturation 99%. Appears in no acute distress. HEENT: Examination is grossly unremarkable. NECK: Supple. Full range of motion. No adenopathy. Neck veins are flat. CARDIOVASCULAR: Examination reveals regular rhythm and rate. S1, S2 normal. There is no S3, S4, or murmur. LUNGS: Reveal diminished breath sounds on the right side. A few scattered rhonchi on the right. No wheezes or crackles. Breath sounds unequal. ABDOMEN: Soft. Bowel sounds are heard. EXTREMITIES: Intact. Minimal to no edema. SKIN: Without rash. There are areas of ecchymoses. NEUROLOGIC: Neurologic examination finds the patient to be very lethargic and somnolent, but she does arouse. LABS: Reviewed. No recent labs noted. Microbiology reveals bronchial washings which are negative for Shantell albicans. Blood cultures negative. IMAGING: Chest x-ray done reveals the pigtail catheter to be coiled in the right pleural space. She does have a right basilar hydropneumothorax. The pleural fluid component is decreased compared to an x-ray done on April 06. There is also some patchy right mid lung disease. CURRENT MEDICATIONS: Reviewed. She is currently on Tylenol, Lipitor, Symbicort, Aranesp, Lasix, heparin subcu, [place], DuoNeb, levothyroxine, Imodium, Ativan, melatonin, Singulair, Narcan, nifedipine, Renvela. ASSESSMENT: 1. Acute on chronic hypoxemic respiratory failure, secondary to right lower lobe pneumonia, complicated by right-sided complicated parapneumonic effusion, status post pigtail catheter insertion by Interventional Radiology and subsequently, 3 doses of tPA/alteplase. 2. Loculated right-sided effusion. 3. Fluid overload secondary to end-stage renal disease, and missed hemodialysis. 4. Chronic obstructive pulmonary disease. 5. Benign essential hypertension. 6. Hypothyroidism. PLAN: The patient will get additional tPA inserted into the pigtail catheter. According to the nurse, although she was not exactly sure, only 80 mL of fluid exited the pigtail catheter in the last 24 hours. If we see a similar amount tomorrow, we may pull the catheter. Additional recommendations and suggestions are forthcoming. MMIHSANL / IJN: [id number] /
--- NOTE | 2020-04-07 16:46 | PN ---
PROGRESS NOTE Patient is seen for followup for end-stage renal disease. She is currently lying in bed. She is comfortable. Patient denies any significant complaints. She is scheduled for hemodialysis today. PHYSICAL EXAMINATION: On examination, blood pressure is 116/65, heart rate 76 per minute. She is afebrile. EXAMINATION OF THE HEART: S1 and S2. EXAMINATION OF LUNGS: Bilateral breath sounds are heard. ABDOMEN: Soft, non-tender. Examination of lower extremities shows no significant edema. LINE [employer] COOK exam is grossly intact. LABS: Sodium 134, potassium 5.2 on 04/04/2020. ASSESSMENT: 1. End-stage renal disease, on hemodialysis on a Tuesday, Tuesday, Tuesday schedule. We will schedule the patient for hemodialysis today. 2. Volume overload, currently improved. 3. Right parapneumonic effusion, status post pigtail catheter placement. 4. Chronic kidney disease mineral bone disorder. PLAN: Hemodialysis today; UF about 1 to 2 liters. MMODL / IJN: [id number] /
--- NOTE | 2020-04-07 23:08 | PN ---
PROGRESS NOTE DATE OF SERVICE: 04/07/2020 REASON FOR FOLLOWUP: Pneumonia. INTERVAL HISTORY: The patient is currently afebrile. The patient is breathing more comfortably. Patient denies having any chest pain. Occasional cough. No nausea, no vomiting. No abdominal pain, no diarrhea. PHYSICAL EXAMINATION: Blood pressure is 101/61 with a pulse of 86, temperature 97.6. She is 97% on 2 L nasal cannula. General description is a middle-aged female lying in bed in no distress. RESPIRATORY SYSTEM: Unlabored breathing, decreased breath sounds at the bases. No wheeze. HEART: S1, S2. Regular rate and rhythm. ABDOMEN: Soft, no tenderness. LABS: The bronchoscopy culture with Shantell. DIAGNOSTIC IMPRESSION AND PLAN: Patient with right-sided pneumonia with loculated fluid, status post chest tube as well as bronchoscopy. The patient is covered with Zosyn to continue and monitor clinical course closely. MMODL / IJN: [id number] /
[2020-04-08] MEDS: LOPERAMIDE 2 MG CAP PO SCH ×6 (00:52→21:34)
[2020-04-08] MEDS: MONTELUKAST 10 MG TAB PO SCH ×2 (00:52→21:34)
[2020-04-08] MEDS: MELATONIN 3 MG TABLET PO SCH ×2 (00:52→21:34)
[2020-04-08] MEDS: HEPARIN SODIUM,PORCINE 5,000 UNIT/ML 1 ML VIAL SQ SCH ×3 (00:52→21:34)
[2020-04-08] MEDS: LACTATED RINGERS 1,000 ML IV SCH (00:53)
[2020-04-08] MEDS: LEVOTHYROXINE 100 MCG TAB PO SCH (06:09)
[2020-04-08] MEDS: IPRATROPIUM-ALBUTEROL 3 ML NEB INHALATION SCH ×4 (07:59→19:54)
[2020-04-08] MEDS: SYMBICORT 160-4.5 MCG INHALER INHALATION SCH ×2 (07:59→19:53)
[2020-04-08 09:21] LABS: Calcium 8.5 mg/dL (8.4-10.2); Potassium 4.4 mmol/L (3.5-5.1)
--- NOTE | 2020-04-08 09:26 | P.PN ---
Subjective Progress Note Date: 04/08/20 Principal diagnosis: Complicated right pleural effusion, likely parapneumonic in nature, acute on chronic hypoxic respiratory failure, leukocytosis on admission, pneumonia. Previous medical history of COPD, chronic hypoxic respiratory failure currently on home oxygen, end-stage renal disease on hemodialysis, chronic anemia, diabetes, hypertension, hyperlipidemia, hypothyroid, previous tobacco dependence POD #5 placement of right sided pigtail catheter by interventional radiology The patient is currently sitting up in bed in no acute distress resting in bed in the cardiac stepdown unit. Denies pain, states shortness of breath has improved. Right sided pigtail catheter continues to drain although less and less daily, Alteplase instilled the last 4 days. Objective - Vital Signs Vital signs: Vital Signs Temp 99.2 F 04/08/20 04:00 Pulse 86 04/08/20 04:00 Resp 17 04/08/20 04:00 BP 112/62 04/08/20 04:00 Pulse Ox 94 L 04/08/20 04:00 Intake & Output 04/07/20 04/08/20 04/08/20 18:59 06:59 18:59 Intake Total 440 50 Output Total 220 0 Balance 220 50 Weight 47 kg 47.5 kg Intake: IV 50 Lactated Ringers 1,000 ml 50 @ 20 mls/hr IV .Q24H [facility] Rx#:[id number] Oral 440 Output: Chest Tube Drainage 220 0 Pleural Catheter Right 220 0 Upper Lateral Chest Other: Voiding Method Diaper Diaper Incontinent Incontinent # Voids 2 1 # Bowel Movements 2 4 - Constitutional General appearance: Present: cooperative, no acute distress - Respiratory Details: Lungs sounds diminished on the left, coarse on the right. Respirations even, nonlabored. Currently on 2 L nasal cannula with oxygen saturation 99%. Right- sided pigtail catheter present, connected to continuous wall suction, 170 mL in the last 24 hours, no air leak - Cardiovascular Details: S1, S2 present. Regular rate and rhythm, sinus rhythm on telemetry. Palpable peripheral pulses bilaterally. No edema present. No calf pain or tenderness noted. - Gastrointestinal Gastrointestinal Comment(s): Abdomen soft, nontender, nondistended. Active bowel sounds present 4 quadrants. Tolerating diet. - Genitourinary Genitourinary Comment(s): Continues to void - Integumentary Integumentary Comment(s): Skin is warm and dry - Neurologic Neurologic: Present: CNII-XII intact - Musculoskeletal Musculoskeletal: Present: gait normal, strength equal bilaterally - Psychiatric Psychiatric: Present: A&O x's 3 - Allied health notes Allied health notes reviewed: nursing - Labs CBC & Chem 7: 04/04/20 07:16 04/08/20 08:40 Labs: Abnormal Lab Results - Last 24 Hours (Table) 04/03/20 Range/Units 12:23 Viral Test See Below H Microbiology - Last 24 Hours (Table) 04/03/20 12:23 Fungal Culture - Preliminary Bronchial Washings - Right Shantell albicans - Imaging and Cardiology Chest x-ray: report reviewed, image reviewed Assessment and Plan Assessment: 1. Shortness of breath on admission, right-sided pleural effusion, likely parapneumonic effusion, status post right-sided pigtail catheter placement by interventional radiology 2. Acute and chronic hypoxic respiratory failure 3. Leukocytosis on admission, pneumonia 4. History of COPD, chronic hypoxic respiratory failure currently maintained on home oxygen 5. End-stage renal disease, on hemodialysis with chronic anemia 6. Diabetes mellitus 7. Hypertension 8. Hyperlipidemia 9. Hypothyroid 10. Previous tobacco dependence Plan: 1. Will reconsult interventional radiology to discontinue pigtail. If parapneumonic effusion returns, we may place PleurX catheter. 2. Will monitor daily x-rays 3. Wean O2 as tolerated. Bronchodilators, steroids per pulmonology 4. Incentive spirometry ordered, encourage its use 10 times every hour while awake 5. Antibiotics per infectious disease 6. Management of other comorbidities per primary care service, other consultants 7. More recommendations to follow Time with Patient: Greater than 30
[2020-04-08] MEDS: PIPERACILLIN-TAZOBACTAM 3.375 GM in SODIUM CHLORIDE 0.9% 100 ML IVPB SCH ×2 (09:33→21:35)
[2020-04-08] MEDS: ATORVASTATIN 40 MG TAB PO SCH (09:33)
[2020-04-08] MEDS: FUROSEMIDE 10 MG/ML 4 ML VIAL IV SCH ×2 (09:33→21:35)
[2020-04-08] MEDS: HYDROcodone/APAP 5-325MG 1 EACH TAB PO PRN (09:33)
[2020-04-08] MEDS: NIFEdipine XL 30 MG TAB.ER.24 PO SCH (09:34)
[2020-04-08] MEDS: SEVELAMER 800 MG TAB PO SCH ×3 (09:34→18:33)
--- NOTE | 2020-04-08 10:44 | PN ---
PROGRESS NOTE PULMONARY/CRITICAL CARE PROGRESS NOTE: DATE OF SERVICE: 04/08/2020 This is a 60-year-old female who looks much older than her stated age. She was admitted to the hospital on March 31. She came in with a diagnosis of right lower lobe pneumonia, chronic hypoxemic respiratory failure, and complicated right parapneumonic effusion. The patient had a pigtail catheter placed by Interventional Radiology. She has had tPA instilled into the catheter now for a number of days. Anyway, there was no drainage from the pigtail catheter anymore. The patient will have the pigtail catheter removed by Thoracic Surgery, I believe. From the pulmonary standpoint, she seems to be relatively stable. She is not requiring any supplemental oxygen. She is not having any difficulty with her breathing. No pain. She does have a history of fluid overload secondary to missed hemodialysis, COPD, benign essential hypertension, and hypothyroidism. PHYSICAL EXAMINATION: VITAL SIGNS: Current vital signs are reviewed. Temperature 98, heart rate 89, respiratory rate 18, blood pressure 140/65, mean 90, 2 L saturation 99%. Appears in no acute distress. HEENT: Examination is grossly unremarkable. NECK: Supple. Full range of motion. No adenopathy. Neck veins are flat. CARDIOVASCULAR: Examination reveals regular rhythm and rate. LUNGS: Reveal diminished breath sounds on the right. A few scattered rhonchi. ABDOMEN: Soft. Bowel sounds are heard. EXTREMITIES: Intact. No cyanosis, clubbing, or edema. SKIN: Without rash. NEUROLOGIC: Examination is nonfocal. LABS: Reviewed. Sodium 131, potassium 4.4, chloride 100, CO2 27, anion gap is 4. BUN and creatinine were 12 and 2.52. Microbiology is essentially negative. There is some Shantell albicans in the bronchial washings. IMAGING: No recent x-ray to report. The last x-ray was done yesterday. MEDICATIONS: Reviewed. ASSESSMENT: 1. Acute on chronic hypoxemic respiratory failure, secondary to right lower lobe pneumonia, complicated by right-sided parapneumonic effusion, status post pigtail catheter insertion by Interventional Radiology and subsequently, 3 doses of tPA/alteplase. 2. Loculated right-sided effusion. 3. Fluid overload secondary to end-stage renal disease, and missed hemodialysis. 4. Chronic obstructive pulmonary disease. 5. Benign essential hypertension. 6. Hypothyroidism. PLAN: Currently, the patient seems to be doing relatively well. The plan is to remove the catheter. No additional recommendations are made. We will continue to follow. The patient should be able to be discharged hopefully in the next 24 to 48 hours. She will probably need to go home on some oral antibiotic. Additional recommendations and suggestions are forthcoming. Prognosis is guarded. She is to follow with Dr. Stinson. PRASHANTH / MARIA DE JESUS: [id number] /
--- NOTE | 2020-04-08 10:47 | XR ---
EXAMINATION TYPE: XR chest 1V portable DATE OF EXAM: 04/08/2020 COMPARISON: 04/07/2020 HISTORY: Follow-up pleural effusion TECHNIQUE: Single frontal view of the chest is obtained. FINDINGS: Right basilar coiled chest tube remains in place. Redemonstrated right basilar hydropneumo thorax, with pleural effusion component stable from prior exam. Right mid lung patchy airspace opacit y appears similar. Cardiomegaly. Diffuse osteopenia. IMPRESSION: 1. Stable right-sided consolidation and hydropneumothorax. 2. Cardiomegaly
--- NOTE | 2020-04-08 12:26 | P.PN ---
Subjective Progress Note Date: 04/08/20 No new complaints. Reports feeling tired, but no dyspnea. Objective - Vital Signs Vital signs: Vital Signs Temp 98 F 04/08/20 08:50 Pulse 89 04/08/20 08:50 Resp 18 04/08/20 08:50 BP 140/65 04/08/20 08:50 Pulse Ox 99 04/08/20 08:50 Intake & Output 04/07/20 04/08/20 04/08/20 18:59 06:59 18:59 Intake Total 440 50 180 Output Total 220 0 300 Balance 220 50 -120 Weight 47 kg 47.5 kg Intake: IV 50 Lactated Ringers 1,000 ml 50 @ 20 mls/hr IV .Q24H [facility]WIN Rx#:[id number] Oral 440 180 Output: Chest Tube Drainage 220 0 Pleural Catheter Right 220 0 Upper Lateral Chest Urine 300 Other: Voiding Method Diaper Diaper Incontinent Incontinent # Voids 2 1 # Bowel Movements 2 4 - Exam Gen: awake, alert HEENT: normocephalic, atraumatic, good hearing acuity, moist mucous membranes Resp: no accessory muscle use, exchanging air well on 2 L nasal cannula, chest tube on the right side CVS: good distal perfusion x 4, RRR, no murmurs, clicks, gallops GI: soft, NTTP, ND : no SPT, no CVAT, bender catheter [IS/NOT] present MSK: no pitting edema, no clubbing Neuro: non-focal, no sensory deficits, appropriate tone Psych: cooperative, euthymic mood - Labs CBC & Chem 7: 04/04/20 07:16 04/08/20 08:40 Labs: Abnormal Lab Results - Last 24 Hours (Table) 04/03/20 04/08/20 Range/Units 12:23 08:40 Sodium 131 L (137-145) mmol/L Creatinine 2.52 H (0.52-1.04) mg/dL Glucose 63 L (74-99) mg/dL Viral Test See Below H Microbiology - Last 24 Hours (Table) 04/03/20 12:23 Fungal Culture - Preliminary Bronchial Washings - Right Shantell albicans Assessment and Plan Assessment: Diarrhea Hyperkalemia Acute on chronic hypoxic respiratory failure secondary to volume overload and pneumonia Sepsis possibly related to pneumonia Pulmonary nodule ESRD on hemodialysis Normocytic anemia COPD Hypertension Hypothyroidism Likely due to antibiotics. Plans: C. diff was negative. Start Imodium. Potassium 5.2. Plans: Repeat BMP tomorrow morning. Telemetry monitoring. Continue dialysis as per nephrology recommendations. Her shortness of breath is likely multifactorial. Volume overload from missed dialysis session. Elevated pro-calcitonin. Coronavirus testing negative. Chest x-ray shows large consolidation and pleural effusion on the right with possible pulmonary mass. CT chest shows small to moderate non-simple right pleural fluid, loculated pneumothorax, alveolar edema, irregular masslike consolidation with endobronchial involvement and basilar bronchiectasis. Plans: Nephrology consulted for hemodialysis. Continue Lasix 40 mg IV twice a day. Supplemental O2 to maintain O2 saturation greater than 92%. Pulmonology consulted. Telemetry monitoring. Follow blood culture. Repeat chest x-ray to . s/p bronchoscopy and BAL 04/03, follow up cultures. s/p pigtail placement 04/03 for complex loculated fluid collection in the R lung. Daily alteplase in the chest tube per pulmonology. Pulm plans on removing chest tube today. Will try to wean from oxygen. Lactic acid negative. Patient meets sepsis criteria with leukocytosis, tachycardia and positive source of infection. Plans: Continue vancomycin and Zosyn for coverage of meeting or pneumonia. Management as above. Follow pulm onology consultation. ID consulted. With possible mass seen on chest x ray. Plans: Pulmonology on board. Creatinine 4.16. Plans: Nephrology consulted for emergent dialysis. Avoid nephrotoxins. Repeat BMP tomorrow morning. Restart Sevelamer. Hemoglobin 7.2. Likely related to ESRD. Plans: Follow iron studies. Transfuse if hemoglobin less than 7. Repeat CBC tomorrow morning. Plans: DuoNeb as needed for shortness of breath and wheezing. Restart Symbicort. Restart Singulair. BP 148/84. Plans: Restart nifedipine. Anticipated BP to improve with dialysis. Plans: Restart Synthroid. She names her decision maker she can't make decisions for herself. Patient is wanting to be FULL CODE at this time. [Continue hemodialysis. Continue IV antibiotics. Pulmonology on board. s/p BAL, cultures pending. s/p pigtail placement. Patient is pending clinical improvement. ID on board. New onset diarrhea today. Likely DC in 1-2 days.]
[2020-04-08] MEDS: DARBEPOETIN ALFA 40 MCG/0.4 ML SYRINGE SQ SCH (12:37)
--- NOTE | 2020-04-08 15:32 | PN ---
PROGRESS NOTE Patient is seen for followup for end-stage renal disease. She is maintained on a Tuesday, Tuesday, Tuesday schedule. Patient tolerated her dialysis fairly well yesterday. No significant complaints today. PHYSICAL EXAMINATION: On examination, blood pressure is 140/65, heart rate 89 per minute. She is afebrile. EXAMINATION OF THE HEART: S1 and S2. EXAMINATION OF LUNGS: Bilateral breath sounds are heard. ABDOMEN: Soft, non-tender. Examination of lower extremities shows no significant edema. DECAL TRANSFERRER exam is grossly intact. LABS: Sodium 131, potassium 4.4. Vancomycin level was 22.4. ASSESSMENT: 1. End-stage renal disease, on hemodialysis on a Tuesday, Tuesday, Tuesday schedule. 2. Sepsis related to pneumonia. 3. Volume overload on initial admission, currently improved. 4. Right parapneumonic effusions, status post pigtail catheter placement. 5. Chronic kidney disease mineral bone disorder. PLAN: Repeat hemodialysis in a.m. Goal UF about 1 to 2 liters. MMODL / IJN: [id number] /
[2020-04-09] MEDS: PIPERACILLIN-TAZOBACTAM 3.375 GM in SODIUM CHLORIDE 0.9% 100 ML IVPB SCH ×3 (00:29→21:16)
--- NOTE | 2020-04-09 00:33 | PN ---
PROGRESS NOTE DATE OF SERVICE: 04/08/2020 REASON FOR FOLLOWUP: Right lower lobe pneumonia and parapneumonic effusion. INTERVAL HISTORY: The patient is currently afebrile. Patient is breathing comfortably. Denies having any chest pain. Minimal cough. No nausea. No vomiting. No abdominal pain. No diarrhea. PHYSICAL EXAMINATION: Blood pressure 117/58 with a pulse of 80, temperature 98. She is 97% on 1 L nasal cannula. General description is a middle-aged female lying in bed in no distress. RESPIRATORY SYSTEM: Unlabored breathing, decreased breath sounds at the bases. No wheeze. HEART: S1, S2. Regular rate and rhythm. ABDOMEN: Soft, no tenderness. EXTREMITIES: No edema of the feet. LABS: Bronchoscopy culture with Shantell. Pleural fluid cultures were not done. DIAGNOSTIC IMPRESSION AND PLAN: Patient with right lower lobe pneumonia, parapneumonic effusion, status post chest tube placement. Unfortunately, pleural fluid cultures were not done with the bronchoscopy culture has been negative so far. Patient covered with Zosyn. Finish therapy with oral antibiotic on discharge and monitor clinical course closely. MMODL / IJN: [id number] /
[2020-04-09] MEDS: LACTATED RINGERS 1,000 ML IV SCH ×2 (03:21→21:17)
[2020-04-09 06:20] LABS: Basophils # (A) 0.1 k/uL (0-0.2); Basophils % (A) 1 %; Eosinophils # (A) 0.2 k/uL (0-0.7); Eosinophils % (A) 3 %; HCT 24.7 % (34.0-46.0); HGB 7.6 gm/dL (11.4-16.0); Hypochromasia Moderate; Lymphocytes # (A) 2.4 k/uL (1.0-4.8); Lymphocytes % (A) 34 %; MCH 29.9 pg (25.0-35.0); MCV 96.6 fL (80.0-100.0); Mean Platelet Volume 7.1; Monocytes # (A) 0.7 k/uL (0-1.0); Monocytes % (A) 10 %; Neutrophils # (A) 3.5 k/uL (1.3-7.7); Neutrophils % (A) 50 %; Platelet Count 396 k/uL (150-450); RBC 2.55 m/uL (3.80-5.40); RDW 14.9 % (11.5-15.5)
[2020-04-09 06:29] LABS: Calcium 8.7 mg/dL (8.4-10.2); Potassium 4.7 mmol/L (3.5-5.1)
[2020-04-09] MEDS: LEVOTHYROXINE 100 MCG TAB PO SCH (06:41)
[2020-04-09] MEDS: IPRATROPIUM-ALBUTEROL 3 ML NEB INHALATION SCH ×4 (07:39→18:59)
[2020-04-09] MEDS: SYMBICORT 160-4.5 MCG INHALER INHALATION SCH ×2 (07:39→18:59)
[2020-04-09] MEDS: FUROSEMIDE 10 MG/ML 4 ML VIAL IV SCH ×2 (07:52→21:16)
[2020-04-09] MEDS: HEPARIN SODIUM,PORCINE 5,000 UNIT/ML 1 ML VIAL SQ SCH ×2 (07:52→21:16)
--- NOTE | 2020-04-09 07:57 | XR ---
EXAMINATION TYPE: XR chest 1V portable DATE OF EXAM: 04/09/2020 COMPARISON: 04/08/2020 HISTORY: Abnormal x-ray TECHNIQUE: Single frontal view of the chest is obtained. FINDINGS: Right basilar coiled chest tube remains in place. Redemonstrated right basilar hydropneumo thorax, with pleural effusion component stable from prior exam. Right mid lung patchy airspace opacit y appears similar. Cardiomegaly. Diffuse osteopenia. A chest tube no longer identified. Stable promin ence the right paratracheal region. Sclerotic densities overlying both shoulders could represent bone island. IMPRESSION: 1. Stable right-sided consolidation and hydropneumothorax.
[2020-04-09] MEDS: ATORVASTATIN 40 MG TAB PO SCH (09:08)
[2020-04-09] MEDS: NIFEdipine XL 30 MG TAB.ER.24 PO SCH (09:08)
[2020-04-09] MEDS: SEVELAMER 800 MG TAB PO SCH ×3 (09:08→17:35)
[2020-04-09] MEDS: LOPERAMIDE 2 MG CAP PO SCH ×5 (09:08→21:16)
--- NOTE | 2020-04-09 10:49 | P.PN ---
Subjective Progress Note Date: 04/09/20 No new complaints today. Chest tube pulled yesterday, stable CXR today. Objective - Vital Signs Vital signs: Vital Signs Temp 98 F 04/09/20 07:49 Pulse 75 04/09/20 07:49 Resp 16 04/09/20 09:13 BP 122/56 04/09/20 07:49 Pulse Ox 94 L 04/09/20 09:17 Intake & Output 04/08/20 04/09/20 04/09/20 18:59 06:59 18:59 Intake Total 500 0 Output Total 700 Balance -200 0 Weight 46.5 kg Intake: Oral 500 0 Output: Chest Tube Drainage 0 Pleural Catheter Right 0 Upper Lateral Chest Urine 700 Other: Voiding Method Bedpan Bedpan Diaper Diaper Incontinent Incontinent # Voids 2 1 - Exam Gen: asleep, arousable HEENT: normocephalic, atraumatic, good hearing acuity, moist mucous membranes Resp: no accessory muscle use, exchanging air well on 1 L nasal cannula, chest tube on the right side removed CVS: good distal perfusion x 4, RRR, no murmurs, clicks, gallops GI: soft, NTTP, ND : no SPT, no CVAT, bender catheter not present MSK: no pitting edema, no clubbing Neuro: non-focal, no sensory deficits, appropriate tone - Labs CBC & Chem 7: 04/09/20 05:25 04/09/20 05:25 Labs: Abnormal Lab Results - Last 24 Hours (Table) 04/09/20 04/09/20 Range/Units 05:25 05:25 RBC 2.55 L (3.80-5.40) m/uL Hgb 7.6 L (11.4-16.0) gm/dL Hct 24.7 L (34.0-46.0) % Sodium 134 L (137-145) mmol/L Creatinine 3.90 H (0.52-1.04) mg/dL Glucose 62 L (74-99) mg/dL Assessment and Plan Assessment: Diarrhea Hyperkalemia Acute on chronic hypoxic respiratory failure secondary to volume overload and pneumonia Sepsis possibly related to pneumonia Pulmonary nodule ESRD on hemodialysis Normocytic anemia COPD Hypertension Hypothyroidism Likely due to antibiotics. Plans: C. diff was negative. Start Imodium. Potassium 5.2. Plans: Repeat BMP tomorrow morning. Telemetry monitoring. Continue dialysis as per nephrology recommendations. Her shortness of breath is likely multifactorial. Volume overload from missed dialysis session. Elevated pro-calcitonin. Coronavirus testing negative. Chest x-ray shows large consolidation and pleural effusion on the right with possible pulmonary mass. CT chest shows small to moderate non-simple right pleural fluid, loculated pneumothorax, alveolar edema, irregular masslike consolidation with endobronchial involvement and basilar bronchiectasis. Plans: Nephrology consulted for hemodialysis. Continue Lasix 40 mg IV twice a day. Supplemental O2 to maintain O2 saturation greater than 92%. Pulmonology consulted. Telemetry monitoring. Follow blood culture. Repeat chest x-ray tomorrow morning. s/p bronchoscopy and BAL 04/03, follow up cultures. s/p pigtail placement 04/03 for complex loculated fluid collection in the R lung. CT surgery removed chest tube. Will try to wean from oxygen. With possible mass seen on chest x ray. Plans: Pulmonology on board. Creatinine 4.16. Plans: Nephrology consulted for emergent dialysis. Avoid nephrotoxins. Repeat BMP tomorrow morning. Restart Sevelamer. Hemoglobin 7.2. Likely related to ESRD. Plans: Follow iron studies. Transfuse if hemoglobin less than 7. Repeat CBC tomorrow morning. Plans: DuoNeb as needed for shortness of breath and wheezing. Restart Symbicor t. Restart Singulair. BP 148/84. Plans: Restart nifedipine. Anticipated BP to improve with dialysis. Plans: Restart Synthroid. She names her decision maker she can't make decisions for herself. Patient is wanting to be FULL CODE at this time. [Continue hemodialysis. Continue IV antibiotics, convert to orals on discharge.. ID/Pulmonology on board. s/p BAL, cultures negative. s/p pigtail placement, removed. Likely DC tomorrow]
--- NOTE | 2020-04-09 10:54 | CDI ---
Unable to determine -Lenard Documentation Clarification Form Date: 04/09/2020 10:34:53 AM From: Kendra LopezMichaelJAZMINE, CCDS Admit Date: 03/31/2020 01:21:00 PM Patient Name: Mc Ross Visit Number: [id number] Discharge Date: ATTENTION: The Clinical Documentation Specialists (CDI) and [facility] Coding Staff appreciate your assistance in clarifying documentation. Please respond to the clarification below the line at the bottom and electronically sign. The CDI & [facility] Coding staff will review the response and follow-up if needed. Please note: Queries are made part of the Legal Health Record. If you have any questions, please contact the author of this message via ITS. Dr. Matt Weinberg: CHF is documented in the patient's history in the 03/31 ED note, the 03/31 History & Physical, the 04/01 Nephrology Consult and the 04/01 Pulmonary Consult without further specificity. Per the 04/01 Pulmonary Consult and subsequent Progress Note: "CT of the chest showed loculated right-sided pneumothorax,and moderate alveolar edema suggestive of congestive heart failure as well as volume loss with significant irregular mass like consolidation in the right lower lobe and basilar bronchiectasis." Per the 04/02 Pulmonary Progress Note: "Acute exacerbation of CHF, fluid overload secondary to end-stage renal disease, and missed hemodialysis treatment." History/Risk Factors: ESRD on Hemodialysis, Normocytic Anemia, Chronic Hypoxic Respiratory Failure on Home O2, COPD, Hypertension, Hypothyroidism & former smoker. Clinical Indicators: Patient presented to the ED on 03/31 with SOB via EMS from SNF. Hospitalized at [facility] the previous month and discharged back to the rehab facility. Missed dialysis last Tuesday due to not feeling well. Has a history of CHF when she misses her dialysis. VS 03/31: T 98.2, P 102^, R 34^ (sob, labored, accessory muscle use), BP 167/82, PO 99 BiPAP. BNP 03/31: 31,800 ECHO: No ECHO on file. Chest X Ray 04/01: Cardiomegaly and mild-moderate alveolar edema suggesting CHF exacerbation of fluid overload state. Treatment: IV Lasix 80 mg one time in ED (for CHF). 03/31: IV Lasix q12 continued through 04/08. BiPAP 03/31, switched to O2 5Lnc - 4Lnc 04/01. 2L O2 nc 04/02 (sob, labored, accessory muscle use & tachypnea). 1L O2 nc on 04/09. In your professional opinion, can you please clarify the acuity and type of CHF if known? Heart Failure is ruled out Systolic Heart Failure: o Acute o Chronic o Acute on Chronic Diastolic Heart Failure: o Acute o Chronic o Acute on Chronic Systolic & Diastolic Heart Failure: o Acute o Chronic o Acute on Chronic Heart Failure Unable to Determine Other, please specify (Last Revision: November 2017) MTDD
--- NOTE | 2020-04-09 11:30 | P.PN ---
Subjective Progress Note Date: 04/09/20 Principal diagnosis: Acute hypoxic respiratory failure related to right lower lobe pneumonia and chronic right-sided pleural effusion this is a 60-year-old white female with history of COPD, chronic hypoxic arrest or failure, maintained on home oxygen. End-stage renal disease, on hemodialysis Wednesdays and Fridays.patient is not a great historian, unable to communicate effectively, and new to our system, patient lives in [place], and normally gets her medical care in [facility].patient was brought in because she hasn't been feeling well since Tuesday and did not attend her last dialysis session. She was complaining of shortness of breath, dry cough, and 2 episodes of nausea and vomiting the day of admission. EMS picked up the patient from [facility] [place], and she was placed on BiPAP initially in the emergency room department, she was quite tachypneic, tachycardic, and hypertensive. She was noted to have leukocytosis, hemoglobin of 8.4, and she was also noted to have a right lower lobe consolidation, and right-sided pleural effusion. Ultrasound of the chest showed possibly complicated pleural effusion, it is rather small barely 4.0 cm in size, hence I chose not to perform thoracentesis at this point yet.CT of the chest showed loculated right-sided pneumothorax,and moderate alveolar edema suggestive of congestive heart failure as well as volume loss with significant irregular mass like consolidation in the right lower lobe and basilar bronchiectasis. Underlying neoplasm is not excluded. The overall presentation is mostly a presentation of infection with a parapneumonic effusion, again possibility of underlying malignancy is not entirely ruled out. On 04/02/2020 patient seen in follow-up on selective care unit, she is much more awake on today's exam, breathing has significantly improved, she had hemodial ysis treatment yesterday with removal of 3 L of fluid. She is breathing much easier, did not require BiPAP support last night, FiO2 is currently down to 2 L and her pulse ox is 98%. No complaints of chest pain, occasional cough, nonproductive. Mentation is appropriate, however patient is a poor historian. Today's chest x-ray has been reviewed showing right pleural effusion with loculation and patchy right basilar consolidative opacity likely related to underlying right lung pneumonia. Patient remains on Zosyn and vancomycin, afebrile, hemodynamically stable, she is weak, gets short of breath with exertion, has not been up out of bed. Breathing is comfortable at rest. Today's labs have been reviewed, white blood cell count is 7.1, hemoglobin 7.4, platelet count 368. Electrodes are within normal limits, however renal profile worsened, with BUN at 19, and creatinine has almost doubled, at 4.5. Nephrology has been following. Her procalcitonin level came back elevated at 2.04, proBNP was 31,800. COVID 19 negative. Blood cultures are negative thus far, we reviewed the records from the [facility], where patient had a recent hospitalization, from 02/03/2020 through 03/26/2020, and patient was on the ventilator support for acute exacerbation of CHF, possible pneumonia, right pleural effusion with right chest tube insertion and removal, and patient apparently had some episodes of bradycardia and possibly transient heart block while there, it is unknown what the pleural fluid showed whether was transudative or exudative, and what the cultures grew. Apparently patient was treated with a combination of cefepime and vancomycin while there, she was successfully weaned and extubated, and subsequently went to the [facility] for rehabilitation. On today's exam she is much more awake, and communicative. No hemoptysis, no chest pain. She continues on Zosyn and vancomycin. On 04/03/2020 patient seen in follow-up on selective care unit. She is resting comfortably in bed, in no acute distress, she is on 2 L of oxygen her pulse ox is 97%, respirations are nonlabored, altered mentation, patient is answering questions appropriately, she is on a combination of Zosyn and vancomycin for empiric antibiotic coverage, patient has been nothing by mouth after midnight for bronchoscopy with BAL today. No complaints of chest pain, no hemoptysis. She had hemodialysis treatment today would removal of 2.7 L of fluid. Today's labs have been reviewed, showing white blood cell count of 7.0, hemoglobin is 7.2, electrolytes were within normal limits, renal profile improved, with creatinine down to 2.62. On 04/04/2020 patient seen in follow-up on selective care unit. She is awake and alert, resting comfortably in bed, on 2 L of oxygen pulse ox is 99%, she is afebrile, respirations are nonlabored, she status post right CT-guided 10-Danish pigtail chest tube insertion by interventional radiology on 04/03/2020 into the loculated right pleural effusion. Patient had a small right posterior pneumothorax and/or component of trapped lung at completion of the exam, however clinically she denies any worsening shortness of breath. In the last 24 hours there has been 90 mL of clear yellow-colored fluid resembling urine. Patient also underwent bronchoscopy with bronchoalveolar lavage yesterday, brown quash cultures are pending, Gram stain showing no organisms. Remains on IV diuretics, and broad-spectrum antibiotics including Zosyn and vancomycin. Today's chest x- ray shows hydropneumothorax in the right slightly improved and persistence of perihilar and lower lobe consolidation on the right. Dose of TPA was given per CT surgery. On 04/09/2020 patient seen in follow-up on selective care unit, she is awake and alert, in no acute distress. She is on 1 L of oxygen, with a pulse ox of 94%, room air pulse ox was 89%, breathing is comfortable, she denies any chest pain, no significant cough or congestion, she has been afebrile. Her pigtail chest tube has been removed by interventional radiology yesterday, today's follow-up chest x-ray shows right midlung patchy airspace opacity. Clinically patient has been stable, today's labs have been reviewed, showing white blood cell, 7.0, hemoglobin is 7.6, sodium has improved, up to 134, the rest of electrolytes are within normal limits, creatinine is 3.9, and patient has been voiding, her last hemodialysis session was back on 04/03/2020. Her pleural fluid cultures were sent, however there are on the results. Patient remains on antibiotics, and is currently on Zosyn. No fever or chills. No chest pain. Objective - Vital Signs Vital signs: Vital Signs Temp 98 F 04/09/20 07:49 Pulse 75 04/09/20 07:49 Resp 16 04/09/20 09:13 BP 122/56 04/09/20 07:49 Pulse Ox 94 L 04/09/20 09:17 Intake & Output 04/08/20 04/09/20 04/09/20 18:59 06:59 18:59 Intake Total 500 0 Output Total 700 Balance -200 0 Weight 46.5 kg Intake: Oral 500 0 Output: Chest Tube Drainage 0 Pleural Catheter Right 0 Upper Lateral Chest Urine 700 Other: Voiding Method Bedpan Bedpan Diaper Diaper Incontinent Incontinent # Voids 2 1 - Exam GENERAL EXAM: Alert,very pleasant, chronically ill looking, very frail-looking, 60-year-old white female, on 2 L of oxygen with a pulse ox of 98%, comfortable in no apparent distress. HEAD: Normocephalic/atraumatic. EYES: Normal reaction of pupils, equal size. Conjunctiva pink, sclera white. NOSE: Clear with pink turbinates. THROAT: No erythema or exudates. NECK: No masses, no JVD, no thyroid enlargement, no adenopathy. CHEST: No chest wall deformity. Symmetrical expansion. Right posterior pigtail catheter has been discontinued. LUNGS: Equal air entry with no crackles, wheeze, rhonchi or dullness. CVS: Regular rate and rhythm, normal S1 and S2, no gallops, no murmurs, no rubs ABDOMEN: Soft, nontender. No hepatosplenomegaly, normal bowel sounds, no guarding or rigidity. EXTREMITIES: No clubbing, no edema, no cyanosis, 2+ pulses and upper and lower extremities. left arm AV fistula with positive bruit and thrill MUSCULOSKELETAL: Muscle strength and tone normal. SPINE: No scoliosis or deformity SKIN: No rashes CENTRAL NERVOUS SYSTEM: Alert and oriented -3. No focal deficits, tone is normal in all 4 extremities. - Labs CBC & Chem 7: 04/09/20 05:25 04/09/20 05:25 Labs: Abnormal Lab Results - Last 24 Hours (Table) 04/09/20 04/09/20 Range/Units 05:25 05:25 RBC 2.55 L (3.80-5.40) m/uL Hgb 7.6 L (11.4-16.0) gm/dL Hct 24.7 L (34.0-46.0) % Sodium 134 L (137-145) mmol/L Creatinine 3.90 H (0.52-1.04) mg/dL Glucose 62 L (74-99) mg/dL Assessment and Plan Plan: #1. Acute on chronic hypoxic respiratory failure secondary to right lower lobe pneumonia and loculated right-sided pleural effusion, status post bronchoscopy with bronchoalveolar lavage on 04/04/2020, and placement of right-sided pigtail chest tube catheter on 04/04/2020, bronch lavage cultures are negative thus far, cytology is pending, pleural fluid cultures pending, cytology pending #2. Acute exacerbation of CHF, fluid overload secondary to end-stage renal disease, and missed hemodialysis treatment #3. Recent hospitalization from 02/03/2020 through 03/26/2020 at [facility] with acute hypoxic respiratory failure requiring intubation and mechanical ventilator support for right lung pneumonia, acute exacerbation of CHF, bradycardia and possible transient heart block. Patient had a right chest tube at that time for drainage of right pleural effusion, that was possibly parapneumonic, unknown the characteristics of the fluid or the pleural fluid cultures. Per [facility] records patient was treated for healthcare acquired pneumonia with cefepime and vancomycin #4. Chronic obstructive pulmonary disease #5. Possibility of bronchogenic carcinoma in the right lung is considered, felt to be less likely #6. Benign essential hypertension #7. Hypothyroidism #8. End-stage renal disease on hemodialysis #9. Former smoker #10. Diabetes mellitus #11. Hypertension #12. Hyperlipidemia #13. Hypothyroidism Plan: Vital signs are stable, no fever or chills, continue with current antibiotics, today's chest x-ray has been reviewed, showing table right-sided consolidation, her right-sided pigtail catheter has been discontinued, still waiting on the pleural fluid cultures. Clinically patient is improving, no altered mentation, no fever or chills. From pulmonary perspective patient could be considered for discharge and outpatient follow-up. I performed a history & physical examination of the patient and discussed their management with my nurse practitioner, Teresa Ortiz. I reviewed the nurse practitioner's note and agree with the documented findings and plan of care. Lung sounds are positive for diminished breath sounds. The findings and the impression was discussed with the patient. I attest to the documentation by the nurse practitioner. Time with Patient: Less than 30
[2020-04-09 12:32] LABS: Glucose,Whole Blood 102 mg/dL (75-99)
--- NOTE | 2020-04-09 13:55 | P.PN ---
Subjective Progress Note Date: 04/09/20 Principal diagnosis: Complicated right pleural effusion, likely parapneumonic in nature, acute on chronic hypoxic respiratory failure, leukocytosis on admission, pneumonia. Previous medical history of COPD, chronic hypoxic respiratory failure currently on home oxygen, end-stage renal disease on hemodialysis, chronic anemia, diabetes, hypertension, hyperlipidemia, hypothyroid, previous tobacco dependence POD #6 placement of right sided pigtail catheter by interventional radiology The patient is currently laying in bed in no acute distress on the cardiac stepdown unit. Denies pain, states shortness of breath has improved. Right sided pigtail catheter discontinued yesterday by interventional radiology at our request. Objective - Vital Signs Vital signs: Vital Signs Temp 98 F 04/09/20 11:38 Pulse 77 04/09/20 11:38 Resp 16 04/09/20 11:38 BP 126/57 04/09/20 11:38 Pulse Ox 95 04/09/20 11:38 Intake & Output 04/08/20 04/09/20 04/09/20 18:59 06:59 18:59 Intake Total 500 260 Output Total 700 Balance -200 260 Weight 46.5 kg Intake: IV 260 Lactated Ringers 1,000 ml 160 @ 20 mls/hr IV .Q24H [facility] Rx#:[id number] Piperacillin-Tazobactam 3 100 .375 gm In Sodium Chloride 0.9% 100 ml @ 25 mls/hr IVPB Q12H [facility] Rx# :[id number] Oral 500 0 Output: Chest Tube Drainage 0 Pleural Catheter Right 0 Upper Lateral Chest Urine 700 Other: Voiding Method Bedpan Bedpan Diaper Diaper Incontinent Incontinent # Voids 2 1 1 # Bowel Movements 1 - Constitutional General appearance: Present: cooperative, no acute distress - Respiratory Details: Lungs sounds diminished bilaterally, right greater than left. Respirations even, nonlabored. Currently on 1 L nasal cannula with oxygen saturation 95%. Only achieving 500 mL on her incentive spirometry. - Cardiovascular Details: S1, S2 present. Regular rate and rhythm, sinus rhythm on telemetry. Palpable peripheral pulses bilaterally. No edema present. No calf pain or tenderness noted. - Gastrointestinal Gastrointestinal Comment(s): Abdomen soft, nontender, nondistended. Active bowel sounds present 4 quadrants. Tolerating diet. - Genitourinary Genitourinary Comment(s): Continues to void - Integumentary Integumentary Comment(s): Skin is warm and dry - Neurologic Neurologic: Present: CNII-XII intact - Musculoskeletal Musculoskeletal: Present: strength equal bilaterally - Psychiatric Psychiatric: Present: A&O x's 3 - Allied health notes Allied health notes reviewed: nursing - Labs CBC & Chem 7: 04/09/20 05:25 04/09/20 05:25 Labs: Abnormal Lab Results - Last 24 Hours (Table) 04/09/20 04/09/20 04/09/20 Range/Units 05:25 05:25 12:15 RBC 2.55 L (3.80-5.40) m/uL Hgb 7.6 L (11.4-16.0) gm/dL Hct 24.7 L (34.0-46.0) % Sodium 134 L (137-145) mmol/L Creatinine 3.90 H (0.52-1.04) mg/dL Glucose 62 L (74-99) mg/dL POC Glucose (mg/dL) 102 H (75-99) mg/dL - Imaging and Cardiology Chest x-ray: report reviewed, image reviewed Assessment and Plan Assessment: 1. Shortness of breath on admission, right-sided pleural effusion, likely parapneumonic effusion, status post right-sided pigtail catheter placement by interventional radiology 2. Acute and chronic hypoxic respiratory failure 3. Leukocytosis on admission, pneumonia 4. History of COPD, chronic hypoxic respiratory failure currently maintained on home oxygen 5. End-stage renal disease, on hemodialysis with chronic anemia 6. Diabetes mellitus 7. Hypertension 8. Hyperlipidemia 9. Hypothyroid 10. Previous tobacco dependence Plan: 1. Wean O2 as tolerated. Bronchodilators, steroids per pulmonology 2. Encourage incentive spirometry as 3. Antibiotics per infectious disease 4. Management of other comorbidities per primary care service, other consultants 5. Will see again on an as needed basis. From our standpoint patient can be discharged to home when okay with other consultants Time with Patient: Greater than 30
[2020-04-09] MEDS: SODIUM FERRIC GLUCONAT-SUCROSE 125 MG in SODIUM CHLORIDE 0.9% 100 ML IVPB SCH (14:26)
--- NOTE | 2020-04-09 15:33 | PN ---
PROGRESS NOTE Patient is seen for followup for endstage renal disease. Patient is currently comfortable, awake. She is not in acute distress. Left chest tube was removed today. The patient is scheduled for hemodialysis today as well. On examination today, blood pressure 126/57, heart rate 77 per minute. She is afebrile. Examination of the heart S1, S2. Examination of the lungs, bilateral breath sounds are heard. Abdomen is soft, nontender. Examination of lower extremities shows no significant edema CHOKE REAMER exam grossly intact. LAB: Show hemoglobin 11.6, sodium 134, potassium 4.7. Vancomycin trough was 22.4 on 04/07/2020. ASSESSMENT: 1. End-stage renal disease, on hemodialysis on a Tuesday, Tuesday, Tuesday schedule. 2. Anemia, no active bleeding noted maintained on Aranesp. 3. Right parapneumonic effusion, status post pigtail catheter placement and removal today. 4. CKD mineral bone disorder. 5. Volume overload on initial admission, currently resolved. 6. Sepsis secondary to pneumonia, now improved. PLAN: Maintain Aranesp. Hemodialysis today. I will add IV iron if the patient has not received IV iron this hospitalization. MMODL / IJN: [id number] /
--- NOTE | 2020-04-09 17:00 | PN ---
PROGRESS NOTE DATE OF SERVICE: 04/09/2020 REASON FOR FOLLOWUP: Pneumonia and parapneumonic effusion. INTERVAL HISTORY: The patient is currently afebrile. The patient is breathing more comfortably. The chest tube has been discontinued. Denies having any chest pain. Minimal cough. No nausea. No vomiting. No abdominal pain or diarrhea. PHYSICAL EXAMINATION: Blood pressure 126/57, pulse of 77, temperature 98. She is 95% on 1 L nasal cannula. General description is a middle-aged female lying in bed in no distress. RESPIRATORY SYSTEM: Unlabored breathing with decreased breath sounds at the base. No wheeze. HEART: S1, S2. Regular rate and rhythm. ABDOMEN: Soft. No tenderness. LABS: Hemoglobin is 10.3, white count 10.0. BUN of 17, creatinine 3.90. Bronchoscopy culture with Shantell. DIAGNOSTIC IMPRESSION AND PLAN: Patient with right lower lobe pneumonia with parapneumonic effusion, status post chest tube, which has been discontinued. Unfortunately no fluid was sent from the chest tube, though bronchoscopy culture is Shantell, likely a colonizer. The patient is on Zosyn. Transition to oral Avelox 400 daily for about a week on discharge. Continue with supportive care. MMODL / IJN: [id number] /
[2020-04-09 17:14] LABS: Glucose,Whole Blood 100 mg/dL (75-99)
[2020-04-09 19:43] LABS: Glucose,Whole Blood 91 mg/dL (75-99)
[2020-04-09] MEDS: MELATONIN 3 MG TABLET PO SCH (21:16)
[2020-04-09] MEDS: MONTELUKAST 10 MG TAB PO SCH (21:16)
[2020-04-10] MEDS: LEVOTHYROXINE 100 MCG TAB PO SCH (06:20)
[2020-04-10 06:21] LABS: Glucose,Whole Blood 77 mg/dL (75-99)
[2020-04-10] MEDS: IPRATROPIUM-ALBUTEROL 3 ML NEB INHALATION SCH ×3 (07:40→15:24)
[2020-04-10] MEDS: SYMBICORT 160-4.5 MCG INHALER INHALATION SCH (07:40)
[2020-04-10] MEDS: NIFEdipine XL 30 MG TAB.ER.24 PO SCH (09:26)
[2020-04-10] MEDS: ATORVASTATIN 40 MG TAB PO SCH (09:26)
[2020-04-10] MEDS: SEVELAMER 800 MG TAB PO SCH ×3 (09:26→17:16)
[2020-04-10] MEDS: HEPARIN SODIUM,PORCINE 5,000 UNIT/ML 1 ML VIAL SQ SCH (09:27)
[2020-04-10] MEDS: SODIUM FERRIC GLUCONAT-SUCROSE 125 MG in SODIUM CHLORIDE 0.9% 100 ML IVPB SCH (09:27)
[2020-04-10] MEDS: FUROSEMIDE 10 MG/ML 4 ML VIAL IV SCH (09:27)
[2020-04-10] MEDS: LOPERAMIDE 2 MG CAP PO SCH ×2 (09:27→12:11)
--- NOTE | 2020-04-10 10:48 | P.DS ---
Providers Date of admission: 03/31/20 13:21 Attending physician: Alirio Weller MD Consults: 03/31/20 13:24 Consult Physician Urgent Consulting Provider: Vijay Bagley Consult Reason/Comments: AVDRF, ESRD on HD Do you want consulting provider notified?: Already Contacted Consult Physician Urgent Consulting Provider: Earline Stinson Consult Reason/Comments: AVDRF, HCAP, ESRD on HD Do you want consulting provider notified?: Yes 04/03/20 12:41 Consult Physician Routine Consulting Provider: Josias Araiza Consult Reason/Comments: complicated rt pleural effusion,decortication Do you want consulting provider notified?: Yes 04/03/20 12:56 Consult Physician Stat Consulting Provider: Alfreda Landers Consult Reason/Comments: PNA, pleural effusion loculated, prolonged hospital course Do you want consulting provider notified?: Yes Primary care physician: Killian Morillo Hospital Course: 1. Sepsis with Acute on Chronic Hypoxemic Respiratory Failure 2. Acute on Chronic Diastolic Heart Failure Exacerbation 3. Right Sided Community Acquired Pneumonia 4. Empyema 5. Iatrogenic hydropneumothorax 6. ESRD on iHD 7. COPD 8. HTN 9. Hypothyroidism 10. Normocytic Anemia 60 year old woman with history of COPD, ESRD, diastolic heart failure, HTN, hypothyroidism presented with acute on chronic hypoxemic respiratory failure which was multifactorial from COPD and volume overload. Pt had a prolonged hospital stay warranting a pigtail catheter and multiple doses of daily tPA. Procedure was complicated by a small hydropneumothorax, which remained stable after pigtail removal. ID, Pulmonary, CT surgery, and nephrology consulted on the patient and facilitated care. Patient was treated with flagyl and zosyn for broad infection coverage since unfortunately microbiology via BAL, sputum, and blood cultures were unrevealing, unfortunately no culture of pleural fluid was sent initially and subsequent pleural fluid was sterile. Pt was able to recover to oxygen level of 2L NC. Fluid management was facilitated with nephrology, and patient improved with removal of volume. Patient was discharged to [facility] following her hospital stay. I spent more than 30 minutes coordinating this discharge. Pt to follow up with pulmonary, ID, nephrology, and PCP. Patient Condition at Discharge: Serious Plan - Discharge Summary New Discharge Prescriptions: New Darbepoetin Angelo [Aranesp] 40 mcg SQ Q7D syringe Ipratropium-Albuterol Nebulize [Duoneb 0.5 mg-3 mg/3 ml Soln] 3 ml INHALATION RT-QID ml Loperamide [Imodium] 2 mg PO QID cap Furosemide [Lasix] 40 mg PO BID #60 tablet Continue Diff-Stat Probiotic 2 cap PO BID Hizentra 10gm/50ml 10 gm SQ Q7D House Supplement 1 can PO TID@0800,1200,1700 Budesonide-Formot 160-4.5 Mcg [Symbicort 160-4.5 Mcg Inhaler] 2 puff INHALATION RT-BID@0800,1999 Folic Acid-Vit B Complex-Vit C [Nephrocaps] 1 cap PO DAILY@1700 Levothyroxine Sodium [Synthroid] 200 mcg PO DAILY@0600 Melatonin 3 mg PO HS@2000 Montelukast Sodium [Singulair] 10 mg PO HS@2000 NIFEdipine [NIFEdipine ER] 30 mg PO DAILY@0800 Simvastatin [Zocor] 80 mg PO DAILY@0800 Acetaminophen Tab [Tylenol] 650 mg PO Q6H PRN PRN Reason: Pain Ondansetron [Zofran] 4 mg PO Q6H PRN PRN Reason: Nausea Albuterol Sulfate [Ventolin HFA] 2 puff INHALATION Q4H PRN PRN Reason: Shortness Of Breath hydrALAZINE HCL [Apresoline] 25 mg PO Q4H PRN PRN Reason: Hypertension EPINEPHrine (Auto Inject) [Epipen] 0.3 mg IM ONCE PRN PRN Reason: Anaphylaxis sevelamer HCL [Sevelamer HCl] 1,600 mg PO TID@0830,1230,1730 Moxifloxacin HCl [Avelox] 400 mg PO DAILY@0600 #7 tab Discontinued House Supplement 1 can PO TID@0900,1300,1800 Discharge Medication List Acetaminophen Tab [Tylenol] 650 mg PO Q6H PRN 03/31/20 [History] Albuterol Sulfate [Ventolin HFA] 2 puff INHALATION Q4H PRN 03/31/20 [History] Budesonide-Formot 160-4.5 Mcg [Symbicort 160-4.5 Mcg Inhaler] 2 puff INHALATION RT-BID@0800,199903/31/20 [History] Diff-Stat Probiotic 2 cap PO BID 03/31/20 [History] EPINEPHrine (Auto Inject) [Epipen] 0.3 mg IM ONCE PRN 03/31/20 [History] Folic Acid-Vit B Complex-Vit C [Nephrocaps] 1 cap PO DAILY@1700 03/31/20 [History] Hizentra 10gm/50ml 10 gm SQ Q7D 03/31/20 [History] House Supplement 1 can PO TID@0800,1200,1700 03/31/20 [History] Levothyroxine Sodium [Synthroid] 200 mcg PO DAILY@0603/31/20 [History] Melatonin 3 mg PO HS@199903/31/20 [History] Montelukast Sodium [Singulair] 10 mg PO HS@199903/31/20 [History] NIFEdipine [NIFEdipine ER] 30 mg PO DAILY@79903/31/20 [History] Ondansetron [Zofran] 4 mg PO Q6H PRN 03/31/20 [History] Simvastatin [Zocor] 80 mg PO DAILY@0803/31/20 [History] hydrALAZINE HCL [Apresoline] 25 mg PO Q4H PRN 03/31/20 [History] sevelamer HCL [Sevelamer HCl] 1,600 mg PO TID@0830,1230,1730 03/31/20 [History] Darbepoetin Angelo [Aranesp] 40 mcg SQ Q7D syringe 04/10/20 [Rx] Furosemide [Lasix] 40 mg PO BID #60 tablet 04/10/20 [Rx] Ipratropium-Albuterol Nebulize [Duoneb 0.5 mg-3 mg/3 ml Soln] 3 ml INHALATION RT-QID ml 04/10/20 [Rx] Loperamide [Imodium] 2 mg PO QID cap 04/10/20 [Rx] Moxifloxacin HCl [Avelox] 400 mg PO DAILY@0600 #7 tab 04/10/20 [Rx] Follow up Appointment(s)/Referral(s): Killian Morillo MD [Primary Care Provider] - 1-2 days Discharge Disposition: TRANSFER TO SNF/ECF
--- NOTE | 2020-04-10 11:05 | P.PN ---
Subjective Progress Note Date: 04/10/20 Principal diagnosis: Acute hypoxic respiratory failure related to right lower lobe pneumonia and chronic right-sided pleural effusion this is a 60-year-old white female with history of COPD, chronic hypoxic arrest or failure, maintained on home oxygen. End-stage renal disease, on hemodialysis Wednesdays and Fridays.patient is not a great historian, unable to communicate effectively, and new to our system, patient lives in [place], and normally gets her medical care in [facility].patient was brought in because she hasn't been feeling well since Tuesday and did not attend her last dialysis session. She was complaining of shortness of breath, dry cough, and 2 episodes of nausea and vomiting the day of admission. EMS picked up the patient from [facility], and she was placed on BiPAP initially in the emergency room department, she was quite tachypneic, tachycardic, and hypertensive. She was noted to have leukocytosis, hemoglobin of 8.4, and she was also noted to have a right lower lobe consolidation, and right-sided pleural effusion. Ultrasound of the chest showed possibly complicated pleural effusion, it is rather small barely 4.0 cm in size, hence I chose not to perform thoracentesis at this point yet.CT of the chest showed loculated right-sided pneumothorax,and moderate alveolar edema suggestive of congestive heart failure as well as volume loss with significant irregular mass like consolidation in the right lower lobe and basilar bronchiectasis. Underlying neoplasm is not excluded. The overall presentation is mostly a presentation of infection with a parapneumonic effusion, again possibility of underlying malignancy is not entirely ruled out. On 04/02/2020 patient seen in follow-up on selective care unit, she is much more awake on today's exam, breathing has significantly improved, she had hemodial ysis treatment yesterday with removal of 3 L of fluid. She is breathing much easier, did not require BiPAP support last night, FiO2 is currently down to 2 L and her pulse ox is 98%. No complaints of chest pain, occasional cough, nonproductive. Mentation is appropriate, however patient is a poor historian. Today's chest x-ray has been reviewed showing right pleural effusion with loculation and patchy right basilar consolidative opacity likely related to underlying right lung pneumonia. Patient remains on Zosyn and vancomycin, afebrile, hemodynamically stable, she is weak, gets short of breath with exertion, has not been up out of bed. Breathing is comfortable at rest. Today's labs have been reviewed, white blood cell count is 7.1, hemoglobin 7.4, platelet count 368. Electrodes are within normal limits, however renal profile worsened, with BUN at 19, and creatinine has almost doubled, at 4.5. Nephrology has been following. Her procalcitonin level came back elevated at 2.04, proBNP was 31,800. COVID 19 negative. Blood cultures are negative thus far, we reviewed the records from the [facility], where patient had a recent hospitalization, from 02/03/2020 through 03/26/2020, and patient was on the ventilator support for acute exacerbation of CHF, possible pneumonia, right pleural effusion with right chest tube insertion and removal, and patient apparently had some episodes of bradycardia and possibly transient heart block while there, it is unknown what the pleural fluid showed whether was transudative or exudative, and what the cultures grew. Apparently patient was treated with a combination of cefepime and vancomycin while there, she was successfully weaned and extubated, and subsequently went to the [facility] for rehabilitation. On today's exam she is much more awake, and communicative. No hemoptysis, no chest pain. She continues on Zosyn and vancomycin. On 04/03/2020 patient seen in follow-up on selective care unit. She is resting comfortably in bed, in no acute distress, she is on 2 L of oxygen her pulse ox is 97%, respirations are nonlabored, altered mentation, patient is answering questions appropriately, she is on a combination of Zosyn and vancomycin for empiric antibiotic coverage, patient has been nothing by mouth after midnight for bronchoscopy with BAL today. No complaints of chest pain, no hemoptysis. She had hemodialysis treatment today would removal of 2.7 L of fluid. Today's labs have been reviewed, showing white blood cell count of 7.0, hemoglobin is 7.2, electrolytes were within normal limits, renal profile improved, with creatinine down to 2.62. On 04/04/2020 patient seen in follow-up on selective care unit. She is awake and alert, resting comfortably in bed, on 2 L of oxygen pulse ox is 99%, she is afebrile, respirations are nonlabored, she status post right CT-guided 10-Dutch pigtail chest tube insertion by interventional radiology on 04/03/2020 into the loculated right pleural effusion. Patient had a small right posterior pneumothorax and/or component of trapped lung at completion of the exam, however clinically she denies any worsening shortness of breath. In the last 24 hours there has been 90 mL of clear yellow-colored fluid resembling urine. Patient also underwent bronchoscopy with bronchoalveolar lavage yesterday, brown quash cultures are pending, Gram stain showing no organisms. Remains on IV diuretics, and broad-spectrum antibiotics including Zosyn and vancomycin. Today's chest x- ray shows hydropneumothorax in the right slightly improved and persistence of perihilar and lower lobe consolidation on the right. Dose of TPA was given per CT surgery. On 04/09/2020 patient seen in follow-up on selective care unit, she is awake and alert, in no acute distress. She is on 1 L of oxygen, with a pulse ox of 94%, room air pulse ox was 89%, breathing is comfortable, she denies any chest pain, no significant cough or congestion, she has been afebrile. Her pigtail chest tube has been removed by interventional radiology yesterday, today's follow-up chest x-ray shows right midlung patchy airspace opacity. Clinically patient has been stable, today's labs have been reviewed, showing white blood cell, 7.0, hemoglobin is 7.6, sodium has improved, up to 134, the rest of electrolytes are within normal limits, creatinine is 3.9, and patient has been voiding, her last hemodialysis session was back on 04/03/2020. Her pleural fluid cultures were sent, however there are on the results. Patient remains on antibiotics, and is currently on Zosyn. No fever or chills. No chest pain. On 04/10/2020 patient seen in follow-up on selective care unit, she is awake and alert, in no acute distress, she is resting comfortably in bed, she is on room air after with 2 L of oxygen pulse ox is 98%, she's been afebrile, respirations are nonlabored, breathing is comfortable, lung sounds are clear, diminished at the bases, no rhonchi or wheezing. Her pigtail chest tube has been removed, her last chest x-ray right midlung patchy airspace opacity. No fever or chills, her bronchial wash cultures showed Shantell albicans. No altered mentation, no chest pain. Patient is anticipated to go to the [facility] today Objective - Vital Signs Vital signs: Vital Signs Temp 98.2 F 04/10/20 08:00 Pulse 75 04/10/20 08:00 Resp 18 04/10/20 08:00 BP 146/71 04/10/20 08:00 Pulse Ox 98 04/10/20 08:00 Intake & Output 04/09/20 04/10/20 04/10/20 18:59 06:59 18:59 Intake Total 380 240 0 Balance 380 240 0 Weight 44 kg Intake: IV 260 Lactated Ringers 1,000 ml 160 @ 20 mls/hr IV .Q24H [facility] Rx#:[id number] Piperacillin-Tazobactam 3 100 .375 gm In Sodium Chloride 0.9% 100 ml @ 25 mls/hr IVPB Q12H [facility] Rx# :[id number] Oral 120 240 0 Other: Voiding Method Bedpan Bedpan Diaper Diaper Incontinent Incontinent # Voids 1 1 # Bowel Movements 1 - Exam GENERAL EXAM: Alert,very pleasant, chronically ill looking, very frail-looking, 60-year-old white female, on 2 L of oxygen with a pulse ox of 98%, comfortable in no apparent distress. HEAD: Normocephalic/atraumatic. EYES: Normal reaction of pupils, equal size. Conjunctiva pink, sclera white. NOSE: Clear with pink turbinates. THROAT: No erythema or exudates. NECK: No masses, no JVD, no thyroid enlargement, no adenopathy. CHEST: No chest wall deformity. Symmetrical expansion. Right posterior pigtail catheter has been discontinued. LUNGS: Equal air entry with no crackles, wheeze, rhonchi or dullness. CVS: Regular rate and rhythm, normal S1 and S2, no gallops, no murmurs, no rubs ABDOMEN: Soft, nontender. No hepatosplenomegaly, normal bowel sounds, no guarding or rigidity. EXTREMITIES: No clubbing, no edema, no cyanosis, 2+ pulses and upper and lower extremities. left arm AV fistula with positive bruit and thrill MUSCULOSKELETAL: Muscle strength and tone normal. SPINE: No scoliosis or deformity SKIN: No rashes CENTRAL NERVOUS SYSTEM: Alert and oriented -3. No focal deficits, tone is normal in all 4 extremities. - Labs CBC & Chem 7: 04/09/20 05:25 04/09/20 05:25 Labs: Abnormal Lab Results - Last 24 Hours (Table) 04/09/20 04/09/20 Range/Units 12:15 17:10 POC Glucose (mg/dL) 102 H 100 H (75-99) mg/dL Assessment and Plan Plan: #1. Acute on chronic hypoxic respiratory failure secondary to right lower lobe pneumonia and loculated right-sided pleural effusion, status post bronchoscopy with bronchoalveolar lavage on 04/04/2020, and placement of right-sided pigtail chest tube catheter on 04/04/2020, bronch lavage cultures are negative thus far, cytology is negative, pleural fluid cultures and cytology unfortunately were never sent by the nursing staff #2. Acute exacerbation of CHF, fluid overload secondary to end-stage renal disease, and missed hemodialysis treatment #3. Recent hospitalization from 02/03/2020 through 03/26/2020 at [facility] with acute hypoxic respiratory failure requiring intubation and mechanical ventilator support for right lung pneumonia, acute exacerbation of CHF, bradycardia and possible transient heart block. Patient had a right chest tube at that time for drainage of right pleural effusion, that was possibly parapneumonic, unknown the characteristics of the fluid or the pleural fluid cultures. Per [facility] records patient was treated for healthcare acquired pneumonia with cefepime and vancomycin #4. Chronic obstructive pulmonary disease #5. Possibility of bronchogenic carcinoma in the right lung is considered, felt to be less likely #6. Benign essential hypertension #7. Hypothyroidism #8. End-stage renal disease on hemodialysis #9. Former smoker #10. Diabetes mellitus #11. Hypertension #12. Hyperlipidemia #13. Hypothyroidism Plan: Patient has remained stable, no fever or chills, no altered mentation, vital signs are stable, no worsening dyspnea, increase activity as tolerated, Primacorcultures only showed Shantell albicans, with negative cytology, pleural fluid cultures and cytology unfortunately were not sent. No acute events overnight, and discharge is pending for discharge to the ECF today I performed a history & physical examination of the patient and discussed their management with my nurse practitioner, Teresa Ortiz. I reviewed the nurse practitioner's note and agree with the documented findings and plan of care. Lung sounds are positive for diminished breath sounds. The findings and the impression was discussed with the patient. I attest to the documentation by the nurse practitioner. Time with Patient: Less than 30
[2020-04-10] MEDS: PIPERACILLIN-TAZOBACTAM 3.375 GM in SODIUM CHLORIDE 0.9% 100 ML IVPB SCH (11:18)
[2020-04-10 12:25] LABS: Glucose,Whole Blood 43 mg/dL (75-99)
[2020-04-10 12:25] LABS: Glucose,Whole Blood 40 mg/dL (75-99)
[2020-04-10 12:30] LABS: Glucose,Whole Blood 56 mg/dL (75-99)
[2020-04-10] MEDS ORDERED: DEXTROSE 50% SYRINGE 50 ML IVP ONE (12:43)
[2020-04-10 12:48] LABS: Glucose,Whole Blood 68 mg/dL (75-99)
[2020-04-10 12:57] LABS: Glucose,Whole Blood 233 mg/dL (75-99)
[2020-04-10 14:34] VITALS: TEMP 97.4
[2020-04-10 14:56] VITALS: BMI 17.7
[2020-04-10 16:08] VITALS: BP 140/67; PULSE 80; RESP 16
--- NOTE | 2020-04-10 16:16 | PN ---
PROGRESS NOTE Patient is seen for followup for end-stage renal disease. She is currently doing fairly well. Patient is scheduled for hemodialysis in a.m. Her right pigtail catheter was removed. PHYSICAL EXAMINATION: On examination, blood pressure was 130/74, heart rate 78 per minute. She is afebrile. EXAMINATION OF THE HEART: S1 and S2. EXAMINATION OF LUNGS: Bilateral breath sounds are heard. ABDOMEN: Soft, non-tender. Examination of lower extremities shows no significant edema. [employer]IL [employer] exam is grossly intact. LABS: Labs from yesterday show sodium 134, potassium 4.7, hemoglobin 7.6 g/dL. ASSESSMENT: 1. End-stage renal disease, on hemodialysis on a Tuesday, Tuesday, Tuesday schedule. We will arrange for hemodialysis in a.m. if the patient is still here. 2. Pneumonia with right parapneumonic effusion, status post chest tube placement and removal. 3. Chronic kidney disease mineral bone disorder. 4. Volume overload on initial admission, now resolved. 5. Sepsis secondary to pneumonia, now improved. PLAN: Hemodialysis in a.m. if patient is still in-house. Otherwise, she will have her dialysis as outpatient. MMODL / IJN: [id number] /
[2020-04-10 16:51] LABS: Glucose,Whole Blood 261 mg/dL (75-99)
--- NOTE | 2020-04-10 18:05 | PN ---
PROGRESS NOTE DATE OF SERVICE: 04/10/2020 REASON FOR FOLLOWUP: Pneumonia and parapneumonic effusion. INTERVAL HISTORY: The patient is currently afebrile. The patient is breathing comfortably. She denies having any chest pain or shortness of breath. Minimal cough. No nausea, vomiting, abdominal pain or diarrhea. PHYSICAL EXAMINATION: Blood pressure 140/67, pulse of 80, temperature 98.4. She is 97% on 2 L nasal cannula. General description is a middle-aged female lying in bed in no distress. RESPIRATORY SYSTEM: Unlabored breathing with decreased breath sounds at the base. No wheeze. HEART: S1, S2. Regular rate and rhythm. ABDOMEN: Soft. No tenderness. LABS: Hemoglobin is 7.6, white count 7.0, BUN of 17, creatinine 3.90. DIAGNOSTIC IMPRESSION AND PLAN: Patient with right lower lobe pneumonia and parapneumonic effusion, status post chest tube, which has been subsequent discontinued. Currently on Zosyn. Finish therapy with a short course of oral Avelox and close outpatient followup. MMODL / IJN: [id number] /
== END 2020-04-10 18:00 | DRG 871 ==
LOC: EC 11:21 → 3SCARD 13:21
PROVIDERS: ADMIT Family Medicine; ATTEND Family Medicine
PROC: 5A09457 Assistance with Respiratory Ventilation, 24-96 Consecutive Hours, Continuous Positive Airway Pressure (ICD-10-PCS; 2020-03-31)
PROC: 5A1D70Z Performance of Urinary Filtration, Intermittent, Less than 6 Hours Per Day (ICD-10-PCS; 2020-03-31)
PROC: 0B9D8ZX Drainage of Right Middle Lung Lobe, Via Natural or Artificial Opening Endoscopic, Diagnostic (ICD-10-PCS; principal; 2020-04-03 12:00)
PROC: 0B9C8ZX Drainage of Right Upper Lung Lobe, Via Natural or Artificial Opening Endoscopic, Diagnostic (ICD-10-PCS; principal; 2020-04-03 12:00)
PROC: 0B9F8ZX Drainage of Right Lower Lung Lobe, Via Natural or Artificial Opening Endoscopic, Diagnostic (ICD-10-PCS; principal; 2020-04-03 12:00)
PROC: 0W9930Z Drainage of Right Pleural Cavity with Drainage Device, Percutaneous Approach (ICD-10-PCS; 2020-04-03 12:00)
DX: A41.9 Sepsis, unspecified organism (principal); I50.33 Acute on chronic diastolic (congestive) heart failure; J96.21 Acute and chronic respiratory failure with hypoxia; N18.6 End stage renal disease; J18.9 Pneumonia, unspecified organism; J86.9 Pyothorax without fistula; I13.2 Hypertensive heart and chronic kidney disease with heart failure and with stage 5 chronic kidney disease, or end stage renal disease; J44.0 Chronic obstructive pulmonary disease with (acute) lower respiratory infection; G61.81 Chronic inflammatory demyelinating polyneuritis; I44.2 Atrioventricular block, complete; J91.8 Pleural effusion in other conditions classified elsewhere; J94.8 Other specified pleural conditions; J93.9 Pneumothorax, unspecified; R19.7 Diarrhea, unspecified; Z20.828 Contact with and (suspected) exposure to other viral communicable diseases; J45.909 Unspecified asthma, uncomplicated; E87.5 Hyperkalemia; E11.22 Type 2 diabetes mellitus with diabetic chronic kidney disease; E03.9 Hypothyroidism, unspecified; D63.1 Anemia in chronic kidney disease; E83.89 Other disorders of mineral metabolism; Y95 Nosocomial condition; R91.1 Solitary pulmonary nodule; E78.5 Hyperlipidemia, unspecified; Z79.890 Hormone replacement therapy; Z79.51 Long term (current) use of inhaled steroids; Z79.899 Other long term (current) drug therapy; Z87.01 Personal history of pneumonia (recurrent); Z87.891 Personal history of nicotine dependence; Z99.2 Dependence on renal dialysis; Z80.8 Family history of malignant neoplasm of other organs or systems
CPT/HCPCS: 31624; 31645; 32551; 36415; 71045; 71250; 76604; 80048; 80053; 80202; 82565; 82570; 82728; 83540; 83550; 83605; 83615; 83735; 83880; 84100; 84145; 84155; 84484; 85025; 85610; 85730; 87040; 87070; 87102; 87116; 87205; 87206; 87252; 87324; 87496; 87498; 87502; 87529; 87634; 87798; 88108; 88305; 89050; 90935; 93005; 94640; 94660; 94760; 96365; 96366; 96367; 96368; 96375; 99291

== ENCOUNTER 2020-05-14 08:35 | Inpatient (IN) | payer BC ==
--- NOTE | 2020-05-14 08:41 | ED ---
General Adult HPI - General Stated complaint: THERESA Time Seen by Provider: 05/14/20 08:35 Source: patient, RN notes reviewed, old records reviewed - History of Present Illness Initial comments: This is a 60-year-old female who presents emergency department with past medical history significant for asthma and chronic renal failure. Patient was supposed to be dialyzed today but she also missed her last dialysis appointment. Patient states she woke up this morning short of breath last night prior to bed she was feeling fine. Patient states throughout the night she has oxygen on but when she woke up this morning her oxygen was not working. Patient denies any fever chills. Patient denies any chest pain or palpitations. Patient denies any increased swelling to the legs or calf tenderness. Patient states she is just having a hard time getting a good breath. Patient denies any abdominal pain. Patient denies any nausea or vomiting. Patient denies lightheadedness or dizziness. Patient denies any headache patient denies numbness or weakness. - Related Data Home Medications Medication Instructions Recorded Confirmed Acetaminophen Tab [Tylenol] 650 mg PO Q6H PRN 03/31/20 03/31/20 Albuterol Sulfate [Ventolin HFA] 2 puff INHALATION Q4H PRN 03/31/20 03/31/20 Budesonide-Formot 160-4.5 Mcg 2 puff INHALATION RT-BID@799,199903/31/20 03/31/20 [Symbicort 160-4.5 Mcg Inhaler] Diff-Stat Probiotic 2 cap PO BID 03/31/20 03/31/20 EPINEPHrine (Auto Inject) [Epipen] 0.3 mg IM ONCE PRN 03/31/20 03/31/20 Folic Acid-Vit B Complex-Vit C 1 cap PO DAILY@1700 03/31/20 03/31/20 [Nephrocaps] Hizentra 10gm/50ml 10 gm SQ Q7D 03/31/20 03/31/20 House Supplement 1 can PO TID@0800,1200,1700 03/31/20 03/31/20 Levothyroxine Sodium [Synthroid] 200 mcg PO DAILY@0600 03/31/20 03/31/20 Melatonin 3 mg PO HS@199903/31/20 03/31/20 Montelukast Sodium [Singulair] 10 mg PO HS@199903/31/20 03/31/20 NIFEdipine [NIFEdipine ER] 30 mg PO DAILY@0803/31/20 03/31/20 Ondansetron [Zofran] 4 mg PO Q6H PRN 03/31/20 03/31/20 Simvastatin [Zocor] 80 mg PO DAILY@0803/31/20 03/31/20 hydrALAZINE HCL [Apresoline] 25 mg PO Q4H PRN 03/31/20 03/31/20 sevelamer HCL [Sevelamer HCl] 1,600 mg PO TID@0830,1230,1730 03/31/20 03/31/20 Previous Rx's Medication Instructions Recorded Darbepoetin Angelo [Aranesp] 40 mcg SQ Q7D syringe 04/10/20 Furosemide [Lasix] 40 mg PO BID #60 tablet 04/10/20 Ipratropium-Albuterol Nebulize 3 ml INHALATION RT-QID ml 04/10/20 [Duoneb 0.5 mg-3 mg/3 ml Soln] Loperamide [Imodium] 2 mg PO QID cap 04/10/20 Moxifloxacin HCl [Avelox] 400 mg PO DAILY@0600 #7 tab 04/10/20 Allergies Allergy/AdvReac Type Severity Reaction Status Date / Time No Known Allergies Allergy Verified 05/14/20 08:44 Review of Systems ROS Statement: Those systems with pertinent positive or pertinent negative responses have been documented in the HPI. ROS Other: All systems not noted in ROS Statement are negative. Past Medical History Past Medical History: Asthma, Heart Failure, Diabetes Mellitus, Hyperlipidemia, Hypertension, Pneumonia, Renal Disease, Thyroid Disorder Additional Past Medical History / Comment(s): type 2 diabetes, end stage renal disease, dialysis, anemia History of Any Multi-Drug Resistant Organisms: None Reported Past Surgical History: Appendectomy Additional Past Surgical History / Comment(s): dialysis port Past Psychological History: No Psychological Hx Reported Smoking Status: Former smoker Past Alcohol Use History: None Reported Past Drug Use History: None Reported - Past Family History Mother Additional Family Medical History / Comment(s): nothing reported Father Family Medical History: Cancer Additional Family Medical History / Comment(s): no reported hx General Exam - General Exam Comments Initial Comments: GENERAL: Patient is well-developed and well-nourished. Patient is nontoxic and well- hydrated and is in mild distress. ENT: Neck is soft and supple. No significant lymphadenopathy is noted. Oropharynx is clear. Moist mucous membranes. Neck has full range of motion without eliciting any pain. EYES: The sclera were anicteric and conjunctiva were pink and moist. Extraocular movements were intact and pupils were equal round and reactive to light. Eyelids were unremarkable. PULMONARY: Patient has crackles mid way up on the right did not hear any on the left. Patient is currently oxygenating 96% on 2 L CARDIOVASCULAR: There is a regular rate and rhythm without any murmurs gallops or rubs. ABDOMEN: Soft and nontender with normal bowel sounds. No palpable organomegaly was noted. There is no palpable pulsatile mass. SKIN: Skin is clear with no lesions or rashes and otherwise unremarkable. NEUROLOGIC: Patient is alert and oriented x3. Cranial nerves II through XII are grossly intact. Motor and sensory are also intact. Normal speech, volume and content. Symmetrical smile. MUSCULOSKELETAL: Normal extremities with adequate strength and full range of motion. No lower extremity swelling or edema. No calf tenderness. LYMPHATICS: No significant lymphadenopathy is noted PSYCHIATRIC: Normal psychiatric evaluation. Course Vital Signs 05/14/20 05/14/20 08:40 09:36 Temperature 97.5 F L Pulse Rate 108 H 104 H Respiratory 24 20 Rate Blood Pressure 182/96 183/97 O2 Sat by Pulse 97 96 Oximetry Medical Decision Making - Medical Decision Making EKG shows sinus tachycardia at 108 bpm MS interval is 140 QRS is 84 QT interval 348 QTC is 466. Patient's EKG shows no ST segment elevation or depression. Chest x-ray shows pulmonary edema. I spoke with Dr. Bagley he wanted the patient to get Lasix and calcium chloride insulin and D50 in the emergency department and he will set up the patient to get dialysis as soon as possible. I spoke with Dr. Bell he agreed to admit the patient admitted the patient wrote admitting orders. - Lab Data Result diagrams: 05/14/20 08:54 05/14/20 08:54 Lab Results 05/14/20 05/14/20 05/14/20 Range/Units 08:54 08:54 08:54 WBC 10.4 (3.8-10.6) k/uL RBC 3.17 L (3.80-5.40) m/uL Hgb 9.0 L (11.4-16.0) gm/dL Hct 31.0 L (34.0-46.0) % MCV 97.9 (80.0-100.0) fL MCH 28.5 (25.0-35.0) pg MCHC 29.1 L (31.0-37.0) g/dL RDW 19.4 H (11.5-15.5) % Plt Count 394 (150-450) k/uL Neutrophils % 71 % Lymphocytes % 17 % Monocytes % 6 % Eosinophils % 3 % Basophils % 1 % Neutrophils # 7.4 (1.3-7.7) k/uL Lymphocytes # 1.8 (1.0-4.8) k/uL Monocytes # 0.7 (0-1.0) k/uL Eosinophils # 0.3 (0-0.7) k/uL Basophils # 0.1 (0-0.2) k/uL Hypochromasia Marked Anisocytosis Slight Macrocytosis Moderate PT 11.6 (9.0-12.0) sec INR 1.1 (<1.2) APTT 27.5 (22.0-30.0) sec Sodium 137 (137-145) mmol/L Potassium 6.6 H* (3.5-5.1) mmol/L Chloride 99 (98-107) mmol/L Carbon Dioxide 25 (22-30) mmol/L Anion Gap 13 mmol/L BUN 59 H (7-17) mg/dL Creatinine 7.33 H* (0.52-1.04) mg/dL Est GFR (CKD-EPI)AfAm 6 (>60 ml/min/1.73 sqM) Est GFR (CKD-EPI)NonAf 5 (>60 ml/min/1.73 sqM) Glucose 109 H (74-99) mg/dL Plasma Lactic Acid Elias (0.7-2.0) mmol/L Calcium 10.0 (8.4-10.2) mg/dL Magnesium 2.5 H (1.6-2.3) mg/dL Total Bilirubin 0.7 (0.2-1.3) mg/dL AST 45 H (14-36) U/L ALT 33 (4-34) U/L Alkaline Phosphatase 186 H (38-126) U/L Troponin I (0.000-0.034) ng/mL NT-Pro-B Natriuret Pep pg/mL Total Protein 7.5 (6.3-8.2) g/dL Albumin 3.9 (3.5-5.0) g/dL 05/14/20 05/14/20 05/14/20 Range/Units 08:54 08:54 08:54 WBC (3.8-10.6) k/uL RBC (3.80-5.40) m/uL Hgb (11.4-16.0) gm/dL Hct (34.0-46.0) % MCV (80.0-100.0) fL MCH (25.0-35.0) pg MCHC (31.0-37.0) g/dL RDW (11.5-15.5) % Plt Count (150-450) k/uL Neutrophils % % Lymphocytes % % Monocytes % % Eosinophils % % Basophils % % Neutrophils # (1.3-7.7) k/uL Lymphocytes # (1.0-4.8) k/uL Monocytes # (0-1.0) k/uL Eosinophils # (0-0.7) k/uL Basophils # (0-0.2) k/uL Hypochromasia Anisocytosis Macrocytosis PT (9.0-12.0) sec INR (<1.2) APTT (22.0-30.0) sec Sodium (137-145) mmol/L Potassium (3.5-5.1) mmol/L Chloride (98-107) mmol/L Carbon Dioxide (22-30) mmol/L Anion Gap mmol/L BUN (7-17) mg/dL Creatinine (0.52-1.04) mg/dL Est GFR (CKD-EPI)AfAm (>60 ml/min/1.73 sqM) Est GFR (CKD-EPI)NonAf (>60 ml/min/1.73 sqM) Glucose (74-99) mg/dL Plasma Lactic Acid Elias 1.2 (0.7-2.0) mmol/L Calcium (8.4-10.2) mg/dL Magnesium (1.6-2.3) mg/dL Total Bilirubin (0.2-1.3) mg/dL AST (14-36) U/L ALT (4-34) U/L Alkaline Phosphatase (38-126) U/L Troponin I 0.058 H* (0.000-0.034) ng/mL NT-Pro-B Natriuret Pep 82292 pg/mL Total Protein (6.3-8.2) g/dL Albumin (3.5-5.0) g/dL Critical Care Time Critical Care Time: Yes Total Critical Care Time: 35 Disposition Clinical Impression: Acute pulmonary edema, Hyperkalemia, Chronic renal failure Disposition: ADMITTED IP TO THIS HOSP Referrals: Nonstaff,Physician [Primary Care Provider] - 1-2 days Time of Disposition: 10:21
[2020-05-14] MEDS ORDERED: LORazepam 2 MG/ML INJ IV STA (09:00)
[2020-05-14 09:15] LABS: Anisocytosis Slight; Basophils # (A) 0.1 k/uL (0-0.2); Basophils % (A) 1 %; Eosinophils # (A) 0.3 k/uL (0-0.7); Eosinophils % (A) 3 %; Hypochromasia Marked; Lymphocytes # (A) 1.8 k/uL (1.0-4.8); Lymphocytes % (A) 17 %; MCH 28.5 pg (25.0-35.0); MCHC 29.1 g/dL (31.0-37.0); MCV 97.9 fL (80.0-100.0); Macrocytosis Moderate; Mean Platelet Volume 6.7; Monocytes # (A) 0.7 k/uL (0-1.0); Monocytes % (A) 6 %; Neutrophils # (A) 7.4 k/uL (1.3-7.7); Neutrophils % (A) 71 %; Platelet Count 394 k/uL (150-450); RBC 3.17 m/uL (3.80-5.40); RDW 19.4 % (11.5-15.5); WBC 10.4 k/uL (3.8-10.6)
[2020-05-14 09:18] LABS: INR 1.1 (<1.2); Partial Thromboplastin Time 27.5 sec (22.0-30.0); Prothrombin Time 11.6 sec (9.0-12.0)
[2020-05-14 09:23] LABS: Albumin 3.9 g/dL (3.5-5.0); Magnesium 2.5 mg/dL (1.6-2.3); Total Bilirubin 0.7 mg/dL (0.2-1.3); Total Protein 7.5 g/dL (6.3-8.2)
--- NOTE | 2020-05-14 09:27 | XR ---
EXAMINATION TYPE: XR chest 2V DATE OF EXAM: 05/14/2020 COMPARISON: 04/09/2020 TECHNIQUE: PA and lateral views submitted. HISTORY: Difficulty breathing FINDINGS: There is bilateral infiltrate and pleural effusion greater on the right. The heart is enlarged. No pn eumothorax. Diffuse osteopenia. Atherosclerotic change aorta. The lateral view there is retrosternal lucency suggesting there may be a component of air within the pleural space. IMPRESSION: 1. Bilateral infiltrate and pleural effusion correlate for CHF superimposed on a background of COPD. 2. There is a lucency in the retrosternal space on the lateral view which could represent air within the pleural space correlate with CT scan.
[2020-05-14 09:32] LABS: Potassium 6.6 mmol/L (3.5-5.1)
[2020-05-14] MEDS ORDERED: FUROSEMIDE 10 MG/ML 10 ML VIAL IV STA (10:18)
[2020-05-14] MEDS ORDERED: CALCIUM CHLORIDE 100 MG/ML 10 ML SYRINGE IVP STA (10:19)
[2020-05-14] MEDS ORDERED: INSULIN REGULAR 100 UNIT/ML VIAL IV ONE (10:19)
[2020-05-14] MEDS ORDERED: DEXTROSE 50% SYRINGE 50 ML IVP STA (10:20)
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
[2020-05-14] MEDS ORDERED: DARBEPOETIN ALFA 40 MCG/0.4 ML SYRINGE SQ SCH (12:00)
[2020-05-14 12:03] LABS: Glucose,Whole Blood 118 mg/dL (75-99)
[2020-05-14] MEDS ORDERED: hydrALAZINE HCL 25 MG TAB PO PRN (12:35)
[2020-05-14] MEDS ORDERED: ONDANSETRON 4 MG/2 ML VIAL IVP PRN (12:36)
--- NOTE | 2020-05-14 13:32 | P.HPIM ---
History of Present Illness H&P Date: 05/14/20 Chief Complaint: Shortness of breath This is a 60-year-old female with complex past medical history noted below significant for end-stage renal disease on hemodialysis and chronic hypoxic respiratory failure on home O2 and presented to the emergency room with worsening shortness of breath. Patient sent that she ran out of her home oxygen since yesterday and is been feeling more short of breath. She denies any cough. No fever or chills. No orthopnea. Also patient has missed her dialysis on Tuesday as she said that she was having problems with constipation and diarrhea at the time and did not want to go to dialysis. No symptoms improved and she is currently having normal bowel movement. She was evaluated in the ER and was found to have evidence of decompensated heart failure on chest x-ray. Potassium level was 6.6. Patient was admitted to the hospital for urgent dialysis. She was seen by me on [facility]. She was getting hemodialysis and tolerating well. She said that her shortness of breath is improving. She denies any chest pain otherwise. Hyperkalemia was treated medically in the ER. Review of Systems Review of system: 14 points review of systems were obtained and were negative except to what were mentioned in the HPI. Past Medical History Past Medical History: Asthma, Heart Failure, Diabetes Mellitus, Hyperlipidemia, Hypertension, Pneumonia, Renal Disease, Thyroid Disorder Additional Past Medical History / Comment(s): Pt recently admitted to [facility] on 04/10/20 with sepsis, acute on chronic respiratory failure/sepsis r/t pneumonia, R side pneumonia/empyema/R sided pleural effusion/chest tube with small pneumo. Other hx: NIDDM type II-no rx since wt loss, ESRD with hemodialysis M/W/F- missed Tuesday's (05/12/20) dialysis d/t constipation/abdominal pain-received rx for constipation and had BM Tuesday05/13/20, mineral bone disease, normocytic an emia, chronic respiratory failure/home oxygen at 2L/NC ATC, chronic inflammatory demyelination polyneuritis with injections weekly, past IVIG infusions, hypothyroid. History of Any Multi-Drug Resistant Organisms: None Reported Past Surgical History: Appendectomy, Hysterectomy Additional Past Surgical History / Comment(s): 04/03/20 bronchoscopy, dialysis port Smoking Status: Never smoker - Past Family History Mother Family Medical History: Unable to Obtain Additional Family Medical History / Comment(s): Mother was wheelchair bound. Father Family Medical History: Unable to Obtain Additional Family Medical History / Comment(s): no reported hx Medications and Allergies Home Medications Medication Instructions Recorded Confirmed Type Acetaminophen Tab [Tylenol] 650 mg PO Q6H PRN 03/31/20 05/14/20 History Albuterol Sulfate [Ventolin HFA] 2 puff INHALATION RT-Q4H PRN 03/31/20 05/14/20 History Budesonide-Formot 160-4.5 Mcg 2 puff INHALATION RT-BID@799,199903/31/20 05/14/20 History [Symbicort 160-4.5 Mcg Inhaler] EPINEPHrine (Auto Inject) [Epipen] 0.3 mg IM ONCE PRN 03/31/20 05/14/20 History Levothyroxine Sodium [Synthroid] 200 mcg PO DAILY@0603/31/20 05/14/20 History Montelukast Sodium [Singulair] 10 mg PO HS@199903/31/20 05/14/20 History NIFEdipine [NIFEdipine ER] 30 mg PO DAILY@79903/31/20 05/14/20 History Ondansetron [Zofran] 4 mg PO Q6H PRN 03/31/20 05/14/20 History Simvastatin [Zocor] 80 mg PO DAILY 03/31/20 05/14/20 History hydrALAZINE HCL [Apresoline] 25 mg PO Q4H PRN 03/31/20 05/14/20 History sevelamer HCL [Sevelamer HCl] 1,600 mg PO TID@0830,1230,1730 03/31/20 05/14/20 History Furosemide [Lasix] 40 mg PO BID #60 tablet 04/10/20 05/14/20 Rx Ipratropium-Albuterol Nebulize 3 ml INHALATION RT-QID ml 04/10/20 05/14/20 Rx [Duoneb 0.5 mg-3 mg/3 ml Soln] Loperamide [Imodium] 2 mg PO QID cap 04/10/20 05/14/20 Rx Allergies Allergy/AdvReac Type Severity Reaction Status Date / Time No Known Allergies Allergy Verified 05/14/20 08:44 Physical Exam Vitals: Vital Signs Temp Pulse Resp BP Pulse Ox 05/14/20 10:47 98.3 F 110 H 22 167/91 95 05/14/20 10:19 100 20 183/93 99 05/14/20 09:36 104 H 20 183/97 96 05/14/20 08:40 97.5 F L 108 H 24 182/96 97 Intake and Output 05/13/20 05/14/20 05/14/20 22:59 06:59 14:59 Other: Weight 45.359 kg General: The patient is awake and alert, in no distress Eye: there is normal conjunctiva bilaterally. Neck: The neck is supple, there is no JVD. Cardiovascular: Normal S1-S2, no S3-S4, no murmurs. Respiratory: Lungs are diminished with scattered crackles Gastrointestinal: Abdomen is soft, nontender Musculoskeletal: There is no pedal edema. Neurological:. Speech is normal. Skin: Skin is warm and dry Results CBC & Chem 7: 05/14/20 08:54 05/14/20 08:54 Labs: Abnormal Lab Results - Last 24 Hours (Table) 05/14/20 05/14/20 05/14/20 Range/Units 08:54 08:54 08:54 RBC 3.17 L (3.80-5.40) m/uL Hgb 9.0 L (11.4-16.0) gm/dL Hct 31.0 L (34.0-46.0) % MCHC 29.1 L (31.0-37.0) g/dL RDW 19.4 H (11.5-15.5) % Potassium 6.6 H* (3.5-5.1) mmol/L BUN 59 H (7-17) mg/dL Creatinine 7.33 H* (0.52-1.04) mg/dL Glucose 109 H (74-99) mg/dL POC Glucose (mg/dL) (75-99) mg/dL Magnesium 2.5 H (1.6-2.3) mg/dL AST 45 H (14-36) U/L Alkaline Phosphatase 186 H (38-126) U/L Troponin I 0.058 H* (0.000-0.034) ng/mL 05/14/20 Range/Units 12:01 RBC (3.80-5.40) m/uL Hgb (11.4-16.0) gm/dL Hct (34.0-46.0) % MCHC (31.0-37.0) g/dL RDW (11.5-15.5) % Potassium (3.5-5.1) mmol/L BUN (7-17) mg/dL Creatinine (0.52-1.04) mg/dL Glucose (74-99) mg/dL POC Glucose (mg/dL) 118 H (75-99) mg/dL Magnesium (1.6-2.3) mg/dL AST (14-36) U/L Alkaline Phosphatase (38-126) U/L Troponin I (0.000-0.034) ng/mL Thrombosis Risk Factor Assmnt - Choose All That Apply Any of the Below Risk Factors Present?: Yes Each Factor Represents 1 point: Heart failure (<1month), Medical pt on bed rest, Sepsis (< 1month), Serious lung disease incl. pneumonia (< 1month) Other Risk Factors: Yes Each Risk Factor Represents 2 Points: Age 61-74 years, Patient confined to bed Other congenital or acquired thrombophilia - If yes, enter type in comment: No Thrombosis Risk Factor Assessment Total Risk Factor Score: 8 Thrombosis Risk Factor Assessment Level: High Risk Assessment and Plan Assessment: 1. Acute diastolic heart failure exacerbation, secondary to noncompliance with dialysis and fluid overload. Will resume home dose of Lasix. Patient is sc heduled for dialysis today. 2. End-stage renal disease on hemodialysis, Tuesday/Tuesday/Tuesday. Patient getting dialysis today. Nephrology following. Appreciate recommendations. 3. Hyperkalemia, treated medically in the ER. Undergoing dialysis now. Repeat lab work in the morning. 4. Essential hypertension, blood pressure not well controlled. Resume home regimen. We will improve with dialysis. We will continue to monitor. 5. Hypothyroidism on levothyroxine 6. Recent erythrogenic hydropneumothorax during last hospitalization requiring chest tube 7. Underlying COPD, with no evidence of exacerbation Today, I reviewed her medication list and lab work results. I counseled the patient extensively regarding compliance with dialysis. Appreciate nephrology recommendations. Repeat lab work in the morning.
[2020-05-14 14:29] VITALS: BMI 19.5
[2020-05-14] MEDS: IPRATROPIUM-ALBUTEROL 3 ML NEB INHALATION SCH ×2 (15:55→20:19)
[2020-05-14 16:35] LABS: Glucose,Whole Blood 168 mg/dL (75-99)
[2020-05-14] MEDS: SEVELAMER 800 MG TAB PO SCH (16:54)
[2020-05-14] MEDS: FUROSEMIDE 40 MG TAB PO SCH (16:55)
[2020-05-14] MEDS ORDERED: MONTELUKAST 10 MG TAB PO SCH (20:00)
[2020-05-14] MEDS: SYMBICORT 160-4.5 MCG INHALER INHALATION SCH (20:19)
[2020-05-14 20:27] LABS: Glucose,Whole Blood 394 mg/dL (75-99)
[2020-05-14] MEDS: INSULIN ASPART (NovoLOG) 100 UNIT/ML VIAL SQ SCH (20:34)
[2020-05-14] MEDS: HEPARIN SODIUM,PORCINE 5,000 UNIT/ML 1 ML VIAL SQ SCH (20:35)
[2020-05-14] MEDS ORDERED: IPRATROPIUM-ALBUTEROL 3 ML NEB INHALATION PRN (20:53)
[2020-05-15] MEDS ORDERED: LEVOTHYROXINE 100 MCG TAB PO SCH (06:00)
[2020-05-15 06:14] LABS: Glucose,Whole Blood 75 mg/dL (75-99)
[2020-05-15] MEDS: INSULIN ASPART (NovoLOG) 100 UNIT/ML VIAL SQ SCH ×3 (06:15→17:46)
[2020-05-15] MEDS: IPRATROPIUM-ALBUTEROL 3 ML NEB INHALATION SCH ×3 (07:37→16:25)
[2020-05-15] MEDS: SYMBICORT 160-4.5 MCG INHALER INHALATION SCH (07:38)
[2020-05-15] MEDS ORDERED: NIFEdipine XL 30 MG TAB.ER.24 PO SCH (08:00)
[2020-05-15 08:22] VITALS: BP 146/67
[2020-05-15 08:36] LABS: Calcium 9.3 mg/dL (8.4-10.2); Magnesium 2.3 mg/dL (1.6-2.3); Phosphorus 6.8 mg/dL (2.5-4.5); Potassium 4.4 mmol/L (3.5-5.1)
[2020-05-15] MEDS ORDERED: ATORVASTATIN 40 MG TAB PO SCH (09:00)
[2020-05-15] MEDS: FUROSEMIDE 40 MG TAB PO SCH ×2 (09:25→17:47)
[2020-05-15] MEDS: SEVELAMER 800 MG TAB PO SCH ×3 (09:25→17:47)
[2020-05-15] MEDS: HEPARIN SODIUM,PORCINE 5,000 UNIT/ML 1 ML VIAL SQ SCH (09:25)
--- NOTE | 2020-05-15 10:14 | P.DS ---
Providers Date of admission: 05/14/20 10:22 Expected date of discharge: 05/15/20 Attending physician: Cong Bell Consults: 05/14/20 10:21 Consult Physician Routine Consulting Provider: Vijay Bagley Consult Reason/Comments: Acute pulmonary edema Do you want consulting provider notified?: Already Contacted Primary care physician: Physician Nonstaff Hospital Course: This is a 60-year-old female with past medical history noted below who presented to the emergency room with worsening shortness of breath 2 days after missing her dialysis on Tuesday. Patient was evaluated in the ER and admitted to the hospital for further management of her medical problems noted below. 1. Acute diastolic heart failure exacerbation, secondary to noncompliance with dialysis and fluid overload. Improved significantly. Resume home dose of Lasix. 2. End-stage renal disease on hemodialysis, Tuesday/Tuesday/Tuesday. Patient was seen and evaluated by nephrology. She underwent dialysis on Tuesday. She will resume her regular schedule starting tomorrow 3. Hyperkalemia, resolved. 4. Essential hypertension, blood pressure within acceptable range. Resume home medications. 5. Hypothyroidism on levothyroxine 6. Recent iatrorogenic hydropneumothorax during last hospitalization requiring chest tube 7. Underlying COPD, with no evidence of exacerbation 8. Chronic hypoxic respiratory failure on home O2 On the day of discharge, patient was breathing comfortably with no shortness of breath. Home healthcare will check on her oxygen at home and make sure that is working fine. Patient will be discharged home in a stable condition. For further details about this hospitalization please refer to the electronic chart. Patient Condition at Discharge: Stable Plan - Discharge Summary Discharge Rx Participant: No New Discharge Prescriptions: Continue Budesonide-Formot 160-4.5 Mcg [Symbicort 160-4.5 Mcg Inhaler] 2 puff INHALATION RT-BID@0800,1999 Levothyroxine Sodium [Synthroid] 200 mcg PO DAILY@0600 Montelukast Sodium [Singulair] 10 mg PO HS@1999 NIFEdipine [NIFEdipine ER] 30 mg PO DAILY@0800 Simvastatin [Zocor] 80 mg PO DAILY Acetaminophen Tab [Tylenol] 650 mg PO Q6H PRN PRN Reason: Pain Ondansetron [Zofran] 4 mg PO Q6H PRN PRN Reason: Nausea Albuterol Sulfate [Ventolin HFA] 2 puff INHALATION RT-Q4H PRN PRN Reason: Shortness Of Breath hydrALAZINE HCL [Apresoline] 25 mg PO Q4H PRN PRN Reason: Hypertension EPINEPHrine (Auto Inject) [Epipen] 0.3 mg IM ONCE PRN PRN Reason: Anaphylaxis sevelamer HCL [Sevelamer HCl] 1,600 mg PO TID@0830,1230,1730 Ipratropium-Albuterol Nebulize [Duoneb 0.5 mg-3 mg/3 ml Soln] 3 ml INHALATION RT-QID ml Loperamide [Imodium] 2 mg PO QID cap Furosemide [Lasix] 40 mg PO BID #60 tablet Discharge Medication List Acetaminophen Tab [Tylenol] 650 mg PO Q6H PRN 03/31/20 [History] Albuterol Sulfate [Ventolin HFA] 2 puff INHALATION RT-Q4H PRN 03/31/20 [History] Budesonide-Formot 160-4.5 Mcg [Symbicort 160-4.5 Mcg Inhaler] 2 puff INHALATION RT-BID@799,199903/31/20 [History] EPINEPHrine (Auto Inject) [Epipen] 0.3 mg IM ONCE PRN 03/31/20 [History] Levothyroxine Sodium [Synthroid] 200 mcg PO DAILY@0603/31/20 [History] Montelukast Sodium [Singulair] 10 mg PO HS@199903/31/20 [History] NIFEdipine [NIFEdipine ER] 30 mg PO DAILY@0800 03/31/20 [History] Ondansetron [Zofran] 4 mg PO Q6H PRN 03/31/20 [History] Simvastatin [Zocor] 80 mg PO DAILY 03/31/20 [History] hydrALAZINE HCL [Apresoline] 25 mg PO Q4H PRN 03/31/20 [History] sevelamer HCL [Sevelamer HCl] 1,600 mg PO TID@0830,1230,1730 03/31/20 [History] Furosemide [Lasix] 40 mg PO BID #60 tablet 04/10/20 [Rx] Ipratropium-Albuterol Nebulize [Duoneb 0.5 mg-3 mg/3 ml Soln] 3 ml INHALATION RT-QID ml 04/10/20 [Rx] Loperamide [Imodium] 2 mg PO QID cap 04/10/20 [Rx] Follow up Appointment(s)/Referral(s): Sundar Moore [STAFF PHYSICIAN] - 05/20/20 10:30 am Discharge Disposition: HOME WITH HOME HEALTH SERVICES
--- NOTE | 2020-05-15 11:47 | P.PN ---
Subjective patient is seen in follow-up for incisional disease. She is maintained on hemodialysis on Tuesday schedule. Feels better today. T olerated 4 L ultrafiltration yesterday. No chest pain or shortness of breath at this time. Vital signs are stable. General: The patient appeared well nourished and normally developed. HEENT: Head exam is unremarkable. Neck is without jugular venous distension. LUNGS: Lungs are clear to auscultation and percussion. Breath sounds decreased. HEART: Rate and Rhythm are regular. ABDOMEN: soft, nontender. EXTREMITITES: No clubbing, cyanosis, or edema. Objective - Vital Signs Vital signs: Vital Signs Temp 98.5 F 05/15/20 08:20 Pulse 102 H 05/15/20 09:14 Resp 14 05/15/20 09:14 BP 146/67 05/15/20 08:20 Pulse Ox 98 05/15/20 08:20 Intake & Output 05/14/20 05/15/20 05/15/20 18:59 06:59 18:59 Intake Total 340 300 240 Output Total 4000 Balance -3660 300 240 Weight 45.359 kg 45.5 kg Intake: Oral 340 300 240 Output: Hemodialysis 4000 Other: # Voids 1 0 # Bowel Movements 1 - Labs CBC & Chem 7: 05/14/20 08:54 05/15/20 07:41 Labs: Abnormal Lab Results - Last 24 Hours (Table) 05/14/20 05/14/20 05/14/20 Range/Units 12:01 16:34 20:25 Carbon Dioxide (22-30) mmol/L BUN (7-17) mg/dL Creatinine (0.52-1.04) mg/dL Glucose (74-99) mg/dL POC Glucose (mg/dL) 118 H 168 H 394 H (75-99) mg/dL Phosphorus (2.5-4.5) mg/dL 05/15/20 Range/Units 07:41 Carbon Dioxide 33 H (22-30) mmol/L BUN 28 H (7-17) mg/dL Creatinine 3.83 H (0.52-1.04) mg/dL Glucose 103 H (74-99) mg/dL POC Glucose (mg/dL) (75-99) mg/dL Phosphorus 6.8 H (2.5-4.5) mg/dL Microbiology - Last 24 Hours (Table) 05/14/20 08:54 Blood Culture - Preliminary Blood No Growth after 24 hours Assessment and Plan Plan: Assessment: 1. End-stage renal disease maintained on hemodialysis on Tuesday schedule. 2. Dyspnea secondary to volume overload. better. 3. Noncompliance with hemodialysis treatments outpatient. 4. Chronic kidney disease mineral bone disease maintained on Renvela. 5. Hypertension with chronic kidney disease. stable. 6. Recent pneumonia with loculated right pleural effusion status post chest tube placement and removal. 7. Anemia of chronic kidney disease maintained on Aranesp. 8. Chronic inflammatory demyelinating polyneuritis. Plan: Hemodialysis tomorrow. Low salt diet. strongly advised patient to be compliant with her medications and hemodialysis treatments outpatient. Stable to be discharged home from nephrology standpoint.
[2020-05-15 12:03] LABS: Glucose,Whole Blood 172 mg/dL (75-99)
[2020-05-15 12:33] VITALS: RESP 20; TEMP 97.8
[2020-05-15 16:18] LABS: Hemoglobin A1C 4.8 % (4.0-6.0)
[2020-05-15 16:28] VITALS: PULSE 100
[2020-05-15 17:04] LABS: Glucose,Whole Blood 136 mg/dL (75-99)
== END 2020-05-15 18:45 | disposition home health service (06) | DRG 291 ==
LOC: EC 08:35 → 3SCARD 10:22
PROVIDERS: ADMIT Internal Medicine; ATTEND Internal Medicine
PROC: 5A1D70Z Performance of Urinary Filtration, Intermittent, Less than 6 Hours Per Day (ICD-10-PCS; principal; 2020-05-14)
DX: I13.2 Hypertensive heart and chronic kidney disease with heart failure and with stage 5 chronic kidney disease, or end stage renal disease (principal); I50.33 Acute on chronic diastolic (congestive) heart failure; N18.6 End stage renal disease; G61.81 Chronic inflammatory demyelinating polyneuritis; J96.11 Chronic respiratory failure with hypoxia; D63.1 Anemia in chronic kidney disease; E03.9 Hypothyroidism, unspecified; E11.22 Type 2 diabetes mellitus with diabetic chronic kidney disease; E78.5 Hyperlipidemia, unspecified; E87.5 Hyperkalemia; J44.9 Chronic obstructive pulmonary disease, unspecified; E83.9 Disorder of mineral metabolism, unspecified; Z91.15 Patient's noncompliance with renal dialysis; Z99.2 Dependence on renal dialysis; Z79.51 Long term (current) use of inhaled steroids; Z79.890 Hormone replacement therapy; Z79.899 Other long term (current) drug therapy; Z87.01 Personal history of pneumonia (recurrent); Z87.891 Personal history of nicotine dependence; Z90.710 Acquired absence of both cervix and uterus; Z90.49 Acquired absence of other specified parts of digestive tract; Z87.09 Personal history of other diseases of the respiratory system
CPT/HCPCS: 36415; 71046; 80048; 80053; 83036; 83605; 83735; 83880; 84100; 84484; 85025; 85610; 85730; 87040; 90935; 93005; 94640; 94760; 96374; 96375; 99291

== ENCOUNTER 2020-05-20 09:27 | Inpatient (IN) | payer BC ==
[2020-05-20] MEDS ORDERED: ACETAMINOPHEN TAB 500 MG TAB PO STA (09:41)
--- NOTE | 2020-05-20 09:59 | ED ---
General Adult HPI - General Source: patient, EMS Mode of arrival: EMS Limitations: no limitations <Harshil Reich Luda - Last Filed: 05/20/20 09:59> <Roshan Young - Last Filed: 05/20/20 11:40> - General Chief complaint: Shortness of Breath Stated complaint: THERESA Time Seen by Provider: 05/20/20 09:31 - History of Present Illness Initial comments: Patient is 60-year-old female with history of heart failure, pneumonia, asthma, end-stage renal disease presenting to the emergency department chief complaint of shortness of breath. Patient states her symptoms of benign one for approximately 2-3 days. Patient reports initially she developed dyspnea and exertion which is now progressed to dyspnea at rest. She also reports increased wheezing. States she has had pneumonia before and this feels like it. States she has not had appetite and past 2-3 days since the onset of symptoms. She also reports developing a fever despite morning and contacted EMS. She denies any chest pain, headaches, nausea, vomiting, diarrhea. She does report diaphoretic episodes and chills. (Roshan Young) - Related Data Home Medications Medication Instructions Recorded Confirmed Acetaminophen Tab [Tylenol] 650 mg PO Q6H PRN 03/31/20 05/20/20 Albuterol Sulfate [Ventolin HFA] 2 puff INHALATION RT-Q4H PRN 03/31/20 05/20/20 Budesonide-Formot 160-4.5 Mcg 2 puff INHALATION RT-BID@799,199903/31/20 05/20/20 [Symbicort 160-4.5 Mcg Inhaler] EPINEPHrine (Auto Inject) [Epipen] 0.3 mg IM ONCE PRN 03/31/20 05/20/20 Levothyroxine Sodium [Synthroid] 200 mcg PO DAILY@59903/31/20 05/20/20 Montelukast Sodium [Singulair] 10 mg PO HS@199903/31/20 05/20/20 NIFEdipine [NIFEdipine ER] 30 mg PO DAILY@0803/31/20 05/20/20 Ondansetron [Zofran] 4 mg PO Q6H PRN 03/31/20 05/20/20 sevelamer HCL [Sevelamer HCl] 1,600 mg PO TID@0830,1230,1730 03/31/20 05/20/20 Previous Rx's Medication Instructions Recorded Furosemide [Lasix] 40 mg PO BID #60 tablet 04/10/20 Ipratropium-Albuterol Nebulize 3 ml INHALATION RT-QID ml 04/10/20 [Duoneb 0.5 mg-3 mg/3 ml Soln] Atorvastatin [Lipitor] 40 mg PO DAILY #30 tab 05/15/20 Loperamide [Imodium] 2 mg PO QID PRN #1 cap 05/15/20 hydrALAZINE HCL [Apresoline] 25 mg PO TID #30 tab 05/15/20 Allergies Allergy/AdvReac Type Severity Reaction Status Date / Time No Known Allergies Allergy Verified 05/20/20 11:12 Review of Systems ROS Other: All systems not noted in ROS Statement are negative. <Harshil Reich - Last Filed: 05/20/20 09:59> ROS Other: All systems not noted in ROS Statement are negative. <Roshan Young - Last Filed: 05/20/20 11:40> ROS Statement: Those systems with pertinent positive or pertinent negative responses have been documented in the HPI. Past Medical History Past Medical History: Asthma, Heart Failure, Diabetes Mellitus, Hyperlipidemia, Hypertension, Pneumonia, Renal Disease, Thyroid Disorder Additional Past Medical History / Comment(s): Pt recently admitted to [facility] on 04/10/20 with sepsis, acute on chronic respiratory failure/sepsis r/t pneumonia, R side pneumonia/empyema/R sided pleural effusion/chest tube with small pneumo. Other hx: NIDDM type II-no rx since wt loss, ESRD with hemodialysis M/W/F-mi ssed Tuesday's (05/12/20) dialysis d/t constipation/abdominal pain-received rx for constipation and had BM Tuesday05/13/20, mineral bone disease, normocytic anemia, chronic respiratory failure/home oxygen at 2L/NC ATC, chronic inflammatory demyelination polyneuritis with injections weekly, past IVIG i nfusions, hypothyroid. History of Any Multi-Drug Resistant Organisms: None Reported Past Surgical History: Appendectomy, Hysterectomy Additional Past Surgical History / Comment(s): 04/03/20 bronchoscopy, dialysis port Past Psychological History: No Psychological Hx Reported Smoking Status: Never smoker Past Alcohol Use History: None Reported Past Drug Use History: None Reported - Past Family History Mother Family Medical History: Unable to Obtain Additional Family Medical History / Comment(s): Mother was wheelchair bound. Father Family Medical History: Unable to Obtain Additional Family Medical History / Comment(s): no reported hx <Harshil Reich Last Filed: 05/20/20 09:59> General Exam Limitations: no limitations <Harshil Reich - Last Filed: 05/20/20 09:59> Limitations: no limitations General appearance: alert, in no apparent distress Head exam: Present: atraumatic, normocephalic, normal inspection Eye exam: Present: normal appearance, PERRL, EOMI Pupils: Present: normal accommodation ENT exam: Present: normal exam, normal oropharynx, mucous membranes dry, TM's normal bilaterally, normal external ear exam Neck exam: Present: normal inspection, full ROM. Absent: tenderness Respiratory exam: Present: rhonchi (Right lung base) Cardiovascular Exam: Present: regular rate, normal rhythm, normal heart sounds GI/Abdominal exam: Present: soft. Absent: distended, tenderness, guarding, rebound Extremities exam: Present: normal inspection, full ROM, normal capillary refill. Absent: tenderness Back exam: Present: normal inspection, full ROM. Absent: tenderness, CVA tenderness (R), CVA tenderness (L) Neurological exam: Present: alert, oriented X3 Psychiatric exam: Present: normal affect, normal mood Skin exam: Present: warm, dry, intact, normal color, other (Skin tenting) <Roshan Young Filed: 05/20/20 11:40> Course Vital Signs 05/20/20 05/20/20 09:29 09:35 Temperature 102.4 F H Pulse Rate 114 H Respiratory 26 H Rate Blood Pressure 179/103 165/82 O2 Sat by Pulse 98 Oximetry EKG Findings - EKG Comments: EKG Findings:: EKG: Sinus tachycardia, left atrial enlargement, left axis rate of 112, MT interval 136, QRS duration 86, QTC 458 <Harshil Reich Last Filed: 05/20/20 09:59> Medical Decision Making - Lab Data Result diagrams: 05/20/20 10:05 05/20/20 10:05 <Roshan Young Filed: 05/20/20 11:40> - Medical Decision Making Patient is a 60-year-old female with history of heart failure, end-stage renal disease, pneumonia presenting to the emergency department with chief complaint of shortness of breath. On physical examination, patient appears to be deh ydrated with dry mucous membranes and skin tenting noted. Patient has not been eating much over the last few days due to decreased appetite. This is evident on exam. She does have rhonchi on the right lung base. She is saturating well at 97 on 4 L of oxygen. She is oxygen dependent at home on 2 L. CBC reveals anemia of 8.1 although this appears to be her baseline. CMP shows improvement in creatinine and BUN. Although, this is her baseline considering she has end- stage renal disease. Patient was febrile on evaluation. Concern for pneumonia. Patient was given Rocephin and started on maintenance fluids. Patient had elevation of troponin which I suspect is more of demand ischemia. She also had an elevated troponin on her most recent laboratory labs. X-ray reveals loculated effusion on the right lung. Coumadin testing pending. Patient also started on cefepime for pseudomonal coverage. Azithromycin and vancomycin on board as well. Patient will be admitted for further medical management. Case discussed with Admitting is Dr Bryant (Roshan Young) - Lab Data Lab Results 05/20/20 05/20/20 05/20/20 Range/Units 10:05 10:05 10:05 WBC 13.7 H (3.8-10.6) k/uL RBC 2.82 L (3.80-5.40) m/uL Hgb 8.1 L (11.4-16.0) gm/dL Hct 26.7 L (34.0-46.0) % MCV 94.6 (80.0-100.0) fL MCH 28.8 (25.0-35.0) pg MCHC 30.4 L (31.0-37.0) g/dL RDW 17.9 H (11.5-15.5) % Plt Count 408 (150-450) k/uL Neutrophils % 88 % Lymphocytes % 7 % Monocytes % 4 % Eosinophils % 1 % Basophils % 0 % Neutrophils # 12.0 H (1.3-7.7) k/uL Lymphocytes # 0.9 L (1.0-4.8) k/uL Monocytes # 0.5 (0-1.0) k/uL Eosinophils # 0.1 (0-0.7) k/uL Basophils # 0.0 (0-0.2) k/uL Hypochromasia Moderate Anisocytosis Slight Macrocytosis Slight Sodium 131 L (137-145) mmol/L Potassium 4.8 (3.5-5.1) mmol/L Chloride 95 L (98-107) mmol/L Carbon Dioxide 31 H (22-30) mmol/L Anion Gap 5 mmol/L BUN 21 H (7-17) mg/dL Creatinine 2.73 H (0.52-1.04) mg/dL Est GFR (CKD-EPI)AfAm 21 (>60 ml/min/1.73 sqM) Est GFR (CKD-EPI)NonAf 18 (>60 ml/min/1.73 sqM) Glucose 147 H (74-99) mg/dL Plasma Lactic Acid Elias 0.8 (0.7-2.0) mmol/L Calcium 9.1 (8.4-10.2) mg/dL Magnesium 2.2 (1.6-2.3) mg/dL Total Bilirubin 0.8 (0.2-1.3) mg/dL AST 31 (14-36) U/L ALT 21 (4-34) U/L Alkaline Phosphatase 214 H (38-126) U/L Troponin I (0.000-0.034) ng/mL NT-Pro-B Natriuret Pep pg/mL Total Protein 5.9 L (6.3-8.2) g/dL Albumin 2.8 L (3.5-5.0) g/dL 05/20/20 05/20/20 Range/Units 10:05 10:05 WBC (3.8-10.6) k/uL RBC (3.80-5.40) m/uL Hgb (11.4-16.0) gm/dL Hct (34.0-46.0) % MCV (80.0-100.0) fL MCH (25.0-35.0) pg MCHC (31.0-37.0) g/dL RDW (11.5-15.5) % Plt Count (150-450) k/uL Neutrophils % % Lymphocytes % % Monocytes % % Eosinophils % % Basophils % % Neutrophils # (1.3-7.7) k/uL Lymphocytes # (1.0-4.8) k/uL Monocytes # (0-1.0) k/uL Eosinophils # (0-0.7) k/uL Basophils # (0-0.2) k/uL Hypochromasia Anisocytosis Macrocytosis Sodium (137-145) mmol/L Potassium (3.5-5.1) mmol/L Chloride (98-107) mmol/L Carbon Dioxide (22-30) mmol/L Anion Gap mmol/L BUN (7-17) mg/dL Creatinine (0.52-1.04) mg/dL Est GFR (CKD-EPI)AfAm (>60 ml/min/1.73 sqM) Est GFR (CKD-EPI)NonAf (>60 ml/min/1.73 sqM) Glucose (74-99) mg/dL Plasma Lactic Acid Elias (0.7-2.0) mmol/L Calcium (8.4-10.2) mg/dL Magnesium (1.6-2.3) mg/dL Total Bilirubin (0.2-1.3) mg/dL AST (14-36) U/L ALT (4-34) U/L Alkaline Phosphatase (38-126) U/L Troponin I 0.061 H* (0.000-0.034) ng/mL NT-Pro-B Natriuret Pep 59105 pg/mL Total Protein (6.3-8.2) g/dL Albumin (3.5-5.0) g/dL Disposition <Harshil Reich - Last Filed: 05/20/20 09:59> Is patient prescribed a controlled substance at d/c from ED?: No Time of Disposition: 11:40 <Roshan Young - Last Filed: 05/20/20 11:40> Clinical Impression: Shortness of breath, Pneumonia Disposition: ADMITTED IP TO THIS HOSP Condition: Fair Referrals: Nestor Neal MD [Primary Care Provider] - 1-2 days
[2020-05-20 10:20] LABS: Anisocytosis Slight; Basophils % (A) 0 %; Eosinophils # (A) 0.1 k/uL (0-0.7); Eosinophils % (A) 1 %; HCT 26.7 % (34.0-46.0); HGB 8.1 gm/dL (11.4-16.0); Hypochromasia Moderate; Lymphocytes # (A) 0.9 k/uL (1.0-4.8); Lymphocytes % (A) 7 %; MCH 28.8 pg (25.0-35.0); MCHC 30.4 g/dL (31.0-37.0); MCV 94.6 fL (80.0-100.0); Macrocytosis Slight; Mean Platelet Volume 6.9; Monocytes # (A) 0.5 k/uL (0-1.0); Monocytes % (A) 4 %; Neutrophils % (A) 88 %; Platelet Count 408 k/uL (150-450); RBC 2.82 m/uL (3.80-5.40); RDW 17.9 % (11.5-15.5); WBC 13.7 k/uL (3.8-10.6)
[2020-05-20] MEDS ORDERED: SODIUM CHLORIDE 0.9% 1,000 ML IV STA (10:28)
[2020-05-20] MEDS ORDERED: cefTRIAXone IN SWFI 1,000 MG/10 ML SYRINGE IVP STA (10:29)
[2020-05-20 10:33] LABS: Albumin 2.8 g/dL (3.5-5.0); Calcium 9.1 mg/dL (8.4-10.2); Magnesium 2.2 mg/dL (1.6-2.3); Potassium 4.8 mmol/L (3.5-5.1); Total Bilirubin 0.8 mg/dL (0.2-1.3); Total Protein 5.9 g/dL (6.3-8.2)
--- NOTE | 2020-05-20 11:21 | XR ---
EXAMINATION TYPE: XR chest 2V DATE OF EXAM: 05/20/2020 COMPARISON: Prior chest x-ray 05/14/2020, CT 04/03/2020 HISTORY: Difficulty breathing TECHNIQUE: Frontal and lateral views of the chest are obtained. FINDINGS: Pleural parenchymal changes are similar, there is volume loss in the right hemithorax, ple ural thickening, parenchymal increased attenuation. No evident pneumothorax. Probable scarring at the left costophrenic angle. Heart may be enlarged although patient is rotated. There are overlying card iac leads. Air-fluid level persists on the lateral exam consistent with loculated effusion. IMPRESSION: No significant interval change.
[2020-05-20] MEDS ORDERED: AZITHROMYCIN 500 MG in SODIUM CHLORIDE 0.9% 250 ML IVPB STA (11:26)
[2020-05-20] MEDS ORDERED: VANCOMYCIN IV PER PHARMACY 1 EACH MISC MISCELLANE PRN (11:27)
[2020-05-20] MEDS ORDERED: CEFEPIME 2 GM in SODIUM CHLORIDE 0.9% 100 ML IVPB STA (11:31)
[2020-05-20] MEDS ORDERED: VANCOMYCIN 750 MG in SODIUM CHLORIDE 0.9% 250 ML IVPB STA (11:31)
[2020-05-20] MEDS ORDERED: ACETAMINOPHEN TAB 325 MG TAB PO PRN (11:33)
[2020-05-20] MEDS ORDERED: NALOXONE 0.4 MG/ML 1 ML VIAL IV PRN (11:33)
[2020-05-20] MEDS ORDERED: MORPHINE SULFATE 4 MG/ML SYRINGE IV PRN (11:33)
[2020-05-20] MEDS ORDERED: ONDANSETRON 4 MG/2 ML VIAL IVP PRN (11:33)
[2020-05-20] MEDS ORDERED: LORazepam 2 MG/ML INJ IV PRN (11:33)
[2020-05-20 12:32] LABS: INR 1.2 (<1.2); Partial Thromboplastin Time 29.3 sec (22.0-30.0); Prothrombin Time 11.8 sec (9.0-12.0)
[2020-05-20] MEDS: SODIUM CHLORIDE 0.9% 1,000 ML IV SCH (14:49)
--- NOTE | 2020-05-20 16:18 | CT ---
EXAMINATION TYPE: CT chest wo con DATE OF EXAM: 05/20/2020 COMPARISON: 04/03/2020 HISTORY: pneumonia vs effusion CT DLP: 196.4 mGycm, Automated exposure control for dose reduction was used. CONTRAST: Performed injected with 0 mL of Isovue 300. TECHNIQUE: Axial images were obtained at 5 mm thick sections. Reconstructed images are reviewed on [facility] computer in the coronal plane. FINDINGS: There is a small amount of fluid just above the diaphragm. There are multiple air bronchogr ams present and consolidation more suggestive for pneumonia. There are some patchy infiltrates at the right apex and in the periphery of the posterior lateral left lung and posterior left midlung. Corre late for pneumonia. Consider atypical pneumonia. Debris and/or fluid fills the calcified right distal bronchus. No enlarged mediastinal or hilar adenopathy is evident. Coronary artery calcification is present. T he ascending aorta diameter at the level of the main pulmonary artery is 3.6 cm. The main pulmonary artery diameter at the bifurcation is 2.[address] sections are obtained through the upper abdomen. Abdomen is essentially unremarkable. IMPRESSIONS: 1. Large consolidation at the right lung base can be compatible with pneumonia. There is filling of t he distal right main bronchus. 2. There is a small amount of pleural effusion at the right diaphragm. 3. Previous left lower lobe consolidation has largely resolved. There are some scattered infiltrates on the left mid and upper lung raza.
[2020-05-20] MEDS ORDERED: bisacodyL 5 MG TABLET.DR PO PRN (18:27)
[2020-05-20] MEDS ORDERED: PNEUMONIA PROTOCOL UTILIZED 1 EACH MISC PO PRN (18:27)
--- NOTE | 2020-05-20 18:35 | P.HPIM ---
History of Present Illness H&P Date: 05/20/20 (delayed charting seen at 1430) Chief Complaint: shortness of breath Patient is a 60-year-old female with a history of end-stage renal disease on hemodialysis Tuesday/Tuesday/Tuesday, chronic hypoxic respiratory failure on home O2, recent admission in March 2020 secondary to right-sided pneumonia/empyema with pigtail catheter and recurrent TPA infusions, diabetes, hypertension, and dyslipidemia who presented to the emergency department with complaints of shortness of breath. On arrival to the ER she was febrile with a temperature of 102.4, pulse 114, respiratory rate 26, and blood pressure 179/103. She is satting 98% on 4 L nasal cannula. Initial laboratory analysis showed white blood cell count of 13.7, hemoglobin 8.1 which is her baseline, sodium 131, BUN 21, creatinine 2.73, lactic acid 0.88, troponin 0.061, BNP 65,300. Chest x-ray showed right-sided pleural effusion with possible pneumonia or atelectasis. She was diagnosed with pneumonia with sepsis. She received IV fluids, vancomycin, Zithromax, and cefepime. Arrangements were made for a dmission. Patient seen and examined at bedside the emergency department. She is fixated stated on being hungry. She initially wanted me why she is here but then states she has been short of breath and coughing for approximately 2 days. She's felt tired and winded. She states that she did go to dialysis yesterday. She denies any difficulty urinating, unusual diarrhea or constipation, numbness, tingling, chest pain, problems with moving her body. Review of Systems Pertinent positives and negatives as discussed in HPI, a complete review of systems was performed and all other systems are negative. Past Medical History Past Medical History: Asthma, Heart Failure, Diabetes Mellitus, Hyperlipidemia, Hypertension, Pneumonia, Renal Disease, Thyroid Disorder Additional Past Medical History / Comment(s): Pt admitted to [facility] on 04/10/20 with sepsis, acute on chronic respiratory failure/sepsis r/t pneumonia, R side pneumonia/empyema/R sided pleural effusion/chest tube with small pneumo. Other hx: NIDDM type II-no rx since wt loss, ESRD with hemodialysis M/W/F, mineral bone disease, normocytic anemia, chronic respiratory failure/home oxygen at 2L/NC ATC, chronic inflammatory demyelination polyneuritis with injections weekly, past IVIG infusions, hypothyroid. History of Any Multi-Drug Resistant Organisms: None Reported Past Surgical History: Appendectomy, Hysterectomy Additional Past Surgical History / Comment(s): 04/03/20 bronchoscopy, dialysis port Past Psychological History: No Psychological Hx Reported Smoking Status: Never smoker Past Alcohol Use History: None Reported Past Drug Use History: None Reported - Past Family History Mother Family Medical History: Unable to Obtain Additional Family Medical History / Comment(s): Mother was wheelchair bound. Father Family Medical History: Unable to Obtain Additional Family Medical History / Comment(s): no reported hx Medications and Allergies Home Medications Medication Instructions Recorded Confirmed Type Acetaminophen Tab [Tylenol] 650 mg PO Q6H PRN 03/31/20 05/20/20 History Albuterol Sulfate [Ventolin HFA] 2 puff INHALATION RT-Q4H PRN 03/31/20 05/20/20 History Budesonide-Formot 160-4.5 Mcg 2 puff INHALATION RT-BID@799,199903/31/2005/20 History [Symbicort 160-4.5 Mcg Inhaler] EPINEPHrine (Auto Inject) [Epipen] 0.3 mg IM ONCE PRN 03/31/20 05/20/20 History Levothyroxine Sodium [Synthroid] 200 mcg PO DAILY@0603/31/20 05/20/20 History Montelukast Sodium [Singulair] 10 mg PO HS@199903/31/20 05/20/20 History NIFEdipine [NIFEdipine ER] 30 mg PO DAILY@0800 03/31/20 05/20/20 History Ondansetron [Zofran] 4 mg PO Q6H PRN 03/31/20 05/20/20 History sevelamer HCL [Sevelamer HCl] 1,600 mg PO TID@0830,1230,1730 03/31/20 05/20/20 History Furosemide [Lasix] 40 mg PO BID #60 tablet 04/10/20 05/20/20 Rx Ipratropium-Albuterol Nebulize 3 ml INHALATION RT-QID ml 04/10/20 05/20/20 Rx [Duoneb 0.5 mg-3 mg/3 ml Soln] Atorvastatin [Lipitor] 40 mg PO DAILY #30 tab 05/15/20 05/20/20 Rx Loperamide [Imodium] 2 mg PO QID PRN #1 cap 05/15/20 05/20/20 Rx hydrALAZINE HCL [Apresoline] 25 mg PO TID #30 tab 05/15/20 05/20/20 Rx Allergies Allergy/AdvReac Type Severity Reaction Status Date / Time No Known Allergies Allergy Verified 05/20/20 11:12 Physical Exam Osteopathic Statement: *. No significant issues noted on an osteopathic struc tural exam other than those noted in the History and Physical/Consult. Vitals: Vital Signs Temp Pulse Resp BP Pulse Ox 05/20/20 13:22 102 H 18 166/88 99 05/20/20 12:03 99.4 F 105 H 20 164/83 98 05/20/20 09:35 165/82 05/20/20 09:29 102.4 F H 114 H 26 H 179/103 98 Intake and Output 05/20/20 05/20/20 05/20/20 06:59 14:59 22:59 Other: Weight 45.359 kg General: non toxic, no distress, appears older than stated age, thin with temporal wasting, cough, loss of buccal fat pad Derm: warm, dry Head: atraumatic, normocephalic, symmetric Eyes: EOMI, no lid lag, anicteric sclera, pupils equal round reactive to light ENT: Nose and ears atraumatic, no thrush, no pharyngeal erythema Neck: No thyromegaly, no cervical lymphadenopathy, trachea midline, supple Mouth: no lip lesion, mucus membranes moist Cardiovascular: S1S2 reg, no murmur, positive posterior tibial pulse bilateral, no edema, capillary refill less than 2 seconds Lungs: Coarse breath sounds bilateral, no ronchi, no rales, no wheeze, no accessory muscle use Abdominal: soft, nontender to palpation, no guarding, no appreciable organomegaly, normal bowel sounds Ext: no gross muscle atrophy, muscle strength muscle strength 5 out of 5 in all 4 extremities, no contractures Neuro: CN II-XI grossly intact, light touch intact all 4 extremities, finger to nose within normal limits, Psych: Alert, oriented, anxious, flight of ideas Results CBC & Chem 7: 05/20/20 10:05 05/20/20 10:05 Labs: Abnormal Lab Results - Last 24 Hours (Table) 05/20/20 05/20/20 05/20/20 Range/Units 10:05 10:05 10:05 WBC 13.7 H (3.8-10.6) k/uL RBC 2.82 L (3.80-5.40) m/uL Hgb 8.1 L (11.4-16.0) gm/dL Hct 26.7 L (34.0-46.0) % MCHC 30.4 L (31.0-37.0) g/dL RDW 17.9 H (11.5-15.5) % Neutrophils # 12.0 H (1.3-7.7) k/uL Lymphocytes # 0.9 L (1.0-4.8) k/uL INR (<1.2) Sodium 131 L (137-145) mmol/L Chloride 95 L (98-107) mmol/L Carbon Dioxide 31 H (22-30) mmol/L BUN 21 H (7-17) mg/dL Creatinine 2.73 H (0.52-1.04) mg/dL Glucose 147 H (74-99) mg/dL Alkaline Phosphatase 214 H (38-126) U/L Troponin I 0.061 H* (0.000-0.034) ng/mL Total Protein 5.9 L (6.3-8.2) g/dL Albumin 2.8 L (3.5-5.0) g/dL 05/20/20 Range/Units 11:57 WBC (3.8-10.6) k/uL RBC (3.80-5.40) m/uL Hgb (11.4-16.0) gm/dL Hct (34.0-46.0) % MCHC (31.0-37.0) g/dL RDW (11.5-15.5) % Neutrophils # (1.3-7.7) k/uL Lymphocytes # (1.0-4.8) k/uL INR 1.2 H (<1.2) Sodium (137-145) mmol/L Chloride (98-107) mmol/L Carbon Dioxide (22-30) mmol/L BUN (7-17) mg/dL Creatinine (0.52-1.04) mg/dL Glucose (74-99) mg/dL Alkaline Phosphatase (38-126) U/L Troponin I (0.000-0.034) ng/mL Total Protein (6.3-8.2) g/dL Albumin (3.5-5.0) g/dL Chest x-ray: report reviewed, image reviewed (Possible recurrent pleural effusion) Thrombosis Risk Factor Assmnt - DVT/VTE Prophylaxis DVT/VTE Prophylaxis: Pharmacologic Prophylaxis ordered Assessment and Plan Assessment: Pneumonia with sepsis present on admission -Agree with Vanco and cefepime -Patient refused covidtesting but clinically doubt diagnoses -Check CT secondary to recent parapneumonia effusion requiring pigtail catheter with alteplase instilled. - Consult pulmonary -Pulmonary hygiene -Follow chest x-ray Acute on chronic hypoxic respiratory failure -Treatment as above -Wean oxygen as able Diabetes mellitus type 2 -Hemoglobin A1c 4.89/ -Not currently on medications at home -Monitor sugars through a.m. basic metabolic profile -Start sliding scale if warranted End-stage renal disease on hemodialysis Tuesday, Wednesdays, and Tuesday, bone mineral disease, chronic anemia secondary to end-stage renal disease -Consult nephro -Plan on dialysis in a.m. -Continue with Savelamer -Follow weight closely monitor signs for overloaded -Continue with Lasix Hypertension, urgency on arrival -Resume home hydralazine, nifedipine, Lasix -Follow blood pressures Dyslipidemia -Statin therapy Hypothyroidism -Synthroid Chronic inflammatory demyelinating polyneuritis - hx of VIG The patient is admitted with an anticipated greater than 2 midnight stay for evaluation of pneumonia with sepsis in conjunction with ESRD and recent prolonged stay for parapneumonic effusion. Surrogate decision-maker: CODE STATUS: Full DVT prophylaxis: Heparin Anticipated discharge date: 3-[address]: Home with home health
[2020-05-20] MEDS: guaiFENesin 600 MG TABLET.ER PO SCH (20:22)
[2020-05-20] MEDS: LORazepam 0.5 MG TAB PO SCH (20:22)
[2020-05-21] MEDS: SODIUM CHLORIDE 0.9% 1,000 ML IV SCH (01:11)
[2020-05-21] MEDS ORDERED: hydrALAZINE HCL 25 MG TAB PO STA (03:59)
[2020-05-21] MEDS: hydrALAZINE HCL 25 MG TAB PO SCH ×4 (04:11→22:07)
[2020-05-21] MEDS: LEVOTHYROXINE 100 MCG TAB PO SCH (04:11)
[2020-05-21] MEDS: IPRATROPIUM-ALBUTEROL 3 ML NEB INHALATION SCH ×4 (07:13→19:57)
[2020-05-21] MEDS: SYMBICORT 160-4.5 MCG INHALER INHALATION SCH ×2 (07:13→19:58)
[2020-05-21 08:19] LABS: Anisocytosis Slight; HCT 28.6 % (34.0-46.0); HGB 8.2 gm/dL (11.4-16.0); Hypochromasia Marked; MCH 28.3 pg (25.0-35.0); MCHC 28.8 g/dL (31.0-37.0); MCV 98.5 fL (80.0-100.0); Macrocytosis Slight; Mean Platelet Volume 7.2; Platelet Count 472 k/uL (150-450); RDW 17.9 % (11.5-15.5); WBC 14.2 k/uL (3.8-10.6)
[2020-05-21 08:25] LABS: Calcium 9.2 mg/dL (8.4-10.2); Magnesium 2.4 mg/dL (1.6-2.3); Phosphorus 5.9 mg/dL (2.5-4.5)
[2020-05-21] MEDS: SEVELAMER 800 MG TAB PO SCH ×3 (08:31→16:36)
[2020-05-21] MEDS ORDERED: ATORVASTATIN 40 MG TAB PO SCH (09:00)
[2020-05-21] MEDS ORDERED: VANCOMYCIN 750 MG in SODIUM CHLORIDE 0.9% 250 ML IVPB ONE ×2 (12:00→18:00)
[2020-05-21] MEDS: NIFEdipine XL 30 MG TAB.ER.24 PO SCH (12:32)
[2020-05-21] MEDS: FUROSEMIDE 40 MG TAB PO SCH ×2 (12:33→22:07)
[2020-05-21] MEDS: guaiFENesin 600 MG TABLET.ER PO SCH ×2 (12:33→22:07)
--- NOTE | 2020-05-21 13:58 | P.PN ---
Subjective Progress Note Date: 05/21/20 (delayed charting seen at 10am) Principal diagnosis: shortness of breath Patient is a 60-year-old female with a history of end-stage renal disease on hemodialysis Tuesday/Tuesday/Tuesday, chronic hypoxic respiratory failure on home O2, recent admission in March 2020 secondary to right-sided pneumonia/empyema with pigtail catheter and recurrent TPA infusions, diabetes, hypertension, and dyslipidemia who presented to the emergency department with complaints of shortness of breath. On arrival to the ER she was febrile with a temperature of 102.4, pulse 114, respiratory rate 26, and blood pressure 179/103. She is satting 98% on 4 L nasal cannula. Initial laboratory analysis showed white blood cell count of 13.7, hemoglobin 8.1 which is her baseline, sodium 131, BUN 21, creatinine 2.73, lactic acid 0.88, troponin 0.061, BNP 65,300. Chest x-ray showed right-sided pleural effusion with possible pneumonia or atelectasis. She was diagnosed with pneumonia with sepsis. She received IV fluids, vancomycin, Zithromax, and cefepime. Arrangements were made for a dmission. The morning after admission she was noted to have an increased white blood cell count at 14.2. She did not have any recurrent febrile episodes. She had undergone a CT of the chest which demonstrated right lower lobe pneumonia with filling of the distal right mainstem bronchus. Dr. Dietrich was consulted for pneumonia. Dr. Wells was consulted for hemodialysis. It was noted that the pat ient has had a significant amount of weight loss, reported choking episodes at home, patient with swallowing difficulty this AM. She was seen by speech and needs a modified barrium. Patient seen and examined during dialysis. She moans and nods yes and no appropriately, refuses to open her eyes and participate in conversation. General: non toxic, no distress, appears at stated age, thin cachetic, temporal wasting, loss oc buccal fat pad Derm: warm, dry Head: atraumatic, normocephalic, symmetric Eyes: EOMI, no lid lag, anicteric sclera Mouth: no lip lesion, mucus membranes dry Cardiovascular: S1S2 reg, no murmur, positive posterior tibial pulse bilateral, Lungs: Decreased bs bilateral, no rhonchi, no rales , no accessory muscle use Abdominal: soft, nontender to palpation, no guarding, no appreciable organomegaly Ext: + gross muscle atrophy, no edema, no contractures Psych: lethargic, awakes to sternal rub and is angry Pneumonia with sepsis present on admission, concern for aspiration -Vanco and cefepime -Patient refused covidtesting but clinically doubt diagnoses - CT wtih right sided PNA and filling of the right mainstem bronchus - Consult pulmonary -Pulmonary hygiene -Follow chest x-ray Possible Dysphagia - speech recs appreciated - MBS today Acute on chronic hypoxic respiratory failure -Treatment as above -Wean oxygen as able Cachexia with BMI 16.7, severe protein calorie malnutrition - dietitian recs Diabetes mellitus type 2 -Hemoglobin A1c 4.8 05/15/20 -Not currently on medications at home -Monitor sugars through a.m. basic metabolic profile -Start sliding scale if warranted End-stage renal disease on hemodialysis Tuesday, Wednesdays, and Tuesday, bone mineral disease, chronic anemia secondary to end-stage renal disease -Consult nephro -Plan on dialysis in a.m. -Continue with Savelamer -Follow weight closely monitor signs for overloaded -Continue with Lasix Hypertension, urgency on arrival, improved - hydralazine, nifedipine, Lasix -Follow blood pressures Dyslipidemia -Statin therapy Hypothyroidism -Synthroid Chronic inflammatory demyelinating polyneuritis - hx of IVIG CODE STATUS: Full DVT prophylaxis: Heparin Anticipated discharge date: 3-[address]: Home with home health Objective - Vital Signs Vital signs: Vital Signs Temp 97.5 F L 05/21/20 12:15 Pulse 104 H 05/21/20 12:15 Resp 16 05/21/20 12:15 BP 143/95 05/21/20 12:15 Pulse Ox 95 05/21/20 12:15 Intake & Output 05/20/20 05/21/20 05/21/20 18:59 06:59 18:59 Output Total 0 Balance 0 Weight 45.359 kg 41.5 kg 41.5 kg Output: Urine 0 Other: # Voids 0 0 # Bowel Movements 1 1 - Labs CBC & Chem 7: 05/21/20 07:40 05/21/20 07:40 Labs: Abnormal Lab Results - Last 24 Hours (Table) 05/20/20 05/21/20 05/21/20 Range/Units 10:05 07:40 07:40 WBC 14.2 H (3.8-10.6) k/uL RBC 2.90 L (3.80-5.40) m/uL Hgb 8.2 L (11.4-16.0) gm/dL Hct 28.6 L (34.0-46.0) % MCHC 28.8 L (31.0-37.0) g/dL RDW 17.9 H (11.5-15.5) % Plt Count 472 H (150-450) k/uL Sodium 133 L (137-145) mmol/L Potassium 6.0 H (3.5-5.1) mmol/L BUN 40 H (7-17) mg/dL Creatinine 3.65 H (0.52-1.04) mg/dL Glucose 142 H (74-99) mg/dL Phosphorus 5.9 H (2.5-4.5) mg/dL Magnesium 2.4 H (1.6-2.3) mg/dL C-Reactive Protein 216.5 H (<10.0) mg/L Microbiology - Last 24 Hours (Table) 05/20/20 10:05 Blood Culture - Preliminary Blood No Growth after 24 hours
[2020-05-21] MEDS ORDERED: DARBEPOETIN ALFA 60 MCG/0.3 ML SYRINGE SQ SCH (14:00)
--- NOTE | 2020-05-21 14:43 | FL ---
EXAMINATION TYPE: FL barium swallow w video DATE OF EXAM: 05/21/2020 MODIFIED SWALLOW / DEGLUTITION STUDY CLINICAL HISTORY: Dysphagia. TECHNIQUE: Deglutition study is performed utilizing thin liquid barium, honey and nectar thick liqui d barium, barium thick applesauce, and barium coated cracker. COMPARISON: None. FINDINGS: The oral and pharyngeal phases show satisfactory initiation and propagation with all modali ties tested. Normal mastication is seen with solid modalities tested. There is no evidence of penet ration or aspiration with any modality tested. No significant pharyngeal residue was appreciated. No images submitted. 1 minute 29 seconds of fluoroscopy provided. IMPRESSION: Normal deglutition study. Please refer to speech therapist notes for further details if necessary.
[2020-05-21] MEDS: AMPICILLIN-SULBACTAM 3 GM in SODIUM CHLORIDE 0.9% 100 ML IVPB SCH (14:55)
--- NOTE | 2020-05-21 16:18 | XR ---
EXAMINATION TYPE: XR chest 2V DATE OF EXAM: 05/21/2020 COMPARISON: 2 view chest x-ray HISTORY: Pneumonia TECHNIQUE: Frontal and lateral views of the chest are obtained. FINDINGS: Findings are similar to prior exam. The heart is enlarged. Pleural parenchymal changes kathy w similar appearance in the right lung base. There is mediastinal adenopathy. Coronary artery calcifi cations are present. IMPRESSION: No significant interval change, right pleural effusion and associated atelectasis, possi ble underlying loculated effusion. Follow-up to exclude underlying mass, there is extensive mediastin al adenopathy. Coronary artery disease. Cardiomegaly.
--- NOTE | 2020-05-21 20:03 | CONS ---
CONSULTATION REASON FOR CONSULT: End-stage renal disease. HISTORY OF PRESENT ILLNESS: The patient is a 60-year-old female with end-stage renal disease, on hemodialysis on a Tuesday, Tuesday, Tuesday schedule. She was admitted to the hospital with complaints of shortness of breath. Patient was recently hospitalized with pneumonia and empyema with pigtail catheter placement. On this admission she was noticed to have aspiration. Patient had a chest CT which did show food debris in the right bronchus. She is currently n.p.o. with plans for possible PEG tube placement. No complaints of fevers or chills. No abdominal pain. Patient is complaining of nausea. PAST MEDICAL HISTORY: Past medical history is significant for end-stage renal disease, type 2 diabetes, hypertension, hyperlipidemia, CHF, asthma, hypothyroidism, recent sepsis, pneumonia, empyema with right-sided pigtail catheter placement and history of pneumothorax at that time as well, CKD mineral bone disorder, chronic inflammatory demyelinating polyneuritis, status post IVIG infusions. PAST SURGICAL HISTORY: Appendectomy, hysterectomy, dialysis catheter placement, bronchoscopy. SOCIAL HISTORY: Negative for smoking, drug abuse or alcohol abuse. HOME MEDICATIONS: Medications at home prior to admission included Synthroid, Singulair, nifedipine, Zofran, Lasix, Renagel, Lipitor, Imodium, hydralazine. ALLERGIES: NONE. PHYSICAL EXAMINATION: Patient is comfortable, awake, not in any acute distress. She is currently seen on hemodialysis, complaining of nausea. We are decreasing the ultrafiltration goal. Blood pressure was 130/96, heart rate 104 per minute. She is afebrile. EXAMINATION OF THE HEART: S1 and S2. EXAMINATION OF LUNGS: Decreased breath sounds at bases. Bronchial breath sounds heard on the right side. ABDOMEN: Soft, non-tender. Examination of lower extremities shows no evidence of edema. DIRECTOR OF INFECTION CONTROL exam is grossly intact. LABS: Labs show sodium 133, potassium 6.0, BUN 40, serum creatinine 3.65, hemoglobin 8.2 g/dL. ASSESSMENT: 1. End-stage renal disease, on hemodialysis on a Tuesday, Tuesday, Tuesday schedule. 2. Aspiration pneumonia, currently n.p.o. with plans for possible PEG tube placement. 3. History of severe pneumonia and sepsis with empyema and pigtail catheter placement on the right side in March of 2020. 4. Hyperkalemia in a patient with end-stage renal disease. Expect improvement post dialysis today. PLAN: Hemodialysis today. Decrease ultrafiltration. If patient is not eating, we can hold off on the phosphate binders until the tube feeds have been restarted. Thank you for this consultation. Will continue to follow the patient with you during her hospitalization. PRASHANTH / MARIA DE JESUS: [id number] /
[2020-05-21] MEDS: LORazepam 0.5 MG TAB PO SCH (22:07)
[2020-05-21] MEDS: MONTELUKAST 10 MG TAB PO SCH (22:07)
[2020-05-21] MEDS: ATORVASTATIN 40 MG TAB PO SCH (22:07)
--- NOTE | 2020-05-21 22:40 | CONS ---
CONSULTATION PULMONARY/CRITICAL CARE CONSULTATION: DATE OF SERVICE: 05/21/2020 This is a 60-year-old female who apparently presented to the emergency room via EMS on May 20 complaining of shortness of breath. She has a history of CHF, pneumonia, COPD/asthma, end-stage renal disease, currently on Tuesday, Tuesday, Tuesday hemodialysis. The patient presented to the emergency room on May 20 at 0930 in the morning complaining of shortness of breath. She initially had shortness of breath only on exertion and now it has progressed to shortness of breath at rest. It has been going on for 2 or 3 days and getting worse. In addition, she admits to wheezing and tightness in the chest. She feels like she may have pneumonia. Her chest x-ray shows fluid overload, cardiomegaly a right-sided pleural effusion and/or infiltrate at the right base. She denies any fever or chills. She is coughing, not producing much phlegm. She denies any chest pain. She does admit to poor appetite with poor oral intake of both fluids and food. She is not a particularly good historian, and much of the history is obtained from the ER pauly and also consultations and progress notes from other physicians. When I went to the room to see her, she was actually undergoing hemodialysis. The plan today was to remove 1.5 liters. The patient was very stable during the dialysis session so far today. CURRENT MEDICATIONS: Current medications are reviewed. She is currently on Tylenol, albuterol, Symbicort, EpiPen, Synthroid, Singulair, nifedipine, Zofran, Sevelamer, Lasix, DuoNeb, Lipitor, Imodium and hydralazine. ALLERGIES: DENIED. MEDICAL HISTORY: Medical history includes chronic bronchial asthma, CHF, diabetes, hyperlipidemia, hypertension, episodes of pneumonia, chronic kidney disease, currently on hemodialysis, and hypothyroidism. She has also had prior episodes of sepsis with acute on chronic respiratory failure. She had a right-sided pneumonia with empyema and needed chest tube placement and/or PleurX catheter. Other medical problems include chronic constipation, osteoporosis, anemia of chronic disease and chronic hypoxemic respiratory failure. In addition, the patient has had a previous episode of demyelinating muscle disease with polyneuritis and received IVIG infusions. SURGICAL HISTORY: Surgical history includes appendectomy, hysterectomy, bronchoscopy and dialysis port. SOCIAL HISTORY: Negative for tobacco use. Denies any alcohol or illicit drug use. FAMILY HISTORY: Apparently unremarkable. Mother uses a wheelchair. There is no significant history on the patient's father. REVIEW OF SYSTEMS: Review of systems is somewhat unreliable. CONSTITUTIONAL: Weakness. NEUROLOGIC: Confusion. HEENT: Negative. CARDIOVASCULAR: Negative. PULMONARY: Shortness of breath, wheezing, chest tightness, cough. GI: Negative. : Negative. RHEUMATOLOGIC: Negative. IMMUNOLOGIC: Negative. ENDOCRINOLOGIC: Negative. DERMATOLOGIC: Negative. PHYSICAL EXAMINATION: VITAL SIGNS: Current vital signs are reviewed. Temperature is 97.9, heart rate 105, respiratory rate 16, blood pressure 151/71, mean 97, two-liter saturation 97%. GENERAL APPEARANCE: Appears in no acute distress. Currently a bit confused. Undergoing hemodialysis. HEENT: Examination is grossly unremarkable. Nasal cannula in place. NECK: Supple. Full range of motion. No adenopathy. Neck veins are flat. CARDIOVASCULAR: Examination reveals regular rhythm and rate. Heart rate about 100 beats per minute. S1, S2 normal. Heart sounds distant. LUNGS: Lungs reveal a relatively clear left lung. The right lung has evidence of rhonchi. Breath sounds are diminished at the bases and there is dullness at the base. ABDOMEN: Soft. Bowel sounds are heard. EXTREMITIES: Intact. No significant edema. SKIN: Without rash. NEUROLOGIC: Neurologic examination reveals the patient is somewhat lethargic but does verbalize. She is acting a bit weird right now and calls me "Dr. Dela Cruz" and also asked me to rub her shoulders. CURRENT LABS/IMAGING: Reviewed. White count 14.2, hemoglobin 8.2, hematocrit 28.6, platelet count 472,000. PT, INR were 11.8 and 1.2, respectively. PTT is normal. Sodium 133, potassium 6, chloride 101, CO2 22. Anion gap is 10. BUN and creatinine were 40 and 3.65. Glucose 142. Her N-terminal proBNP was 65,300. Her C-reactive protein 216.5 and troponin 0.061. Microbiologic studies are negative. Chest x-ray from 05/20 shows pleural parenchymal changes in the right lung with volume loss in the right lung, right-sided pleural effusion, pleural thickening and scarring at the left costophrenic angle. The chest x-ray from 05/20 is compared to x-rays done on 05/[address] scan done on 04/03. No major changes are noted. A repeat chest x-ray done today shows similar findings. CURRENT MEDICATIONS: Medications are reviewed. Currently the patient is on Tylenol, Unasyn, Lipitor, Dulcolax, Symbicort, Aranesp, Lasix, Mucinex, Apresoline, DuoNeb, levothyroxine, Ativan, Singulair, Narcan, nifedipine, Zofran, Renvela and vancomycin. ASSESSMENT: 1. Shortness of breath, likely multifactorial, in part related to underlying asthma, chronic pneumonia and chronic changes within the right chest, right pleural effusion and fluid overload. 2. End-stage renal disease, currently on Tuesday, Tuesday, Tuesday hemodialysis. 3. History of chronic bronchial asthma. 4. Recent episode of pneumonia/right-sided empyema, status post PleurX catheter placement. 5. History of congestive heart failure. 6. History of diabetes mellitus. 7. Hyperlipidemia. 8. History of hypertension. 9. Prior history of pneumonia. 10.Hypothyroidism. 11.Chronic hypoxemic respiratory failure. 12.Multiple other medical problems and comorbidities. PLAN: Currently the patient is on appropriate medications. I believe most of the changes in the right chest are probably chronic in nature. Much of her shortness of breath probably relates to underlying asthma exacerbation and/or fluid overload. Will continue to follow. Prognosis is guarded. MMODL / KOBEN: [id number] / MTDD
[2020-05-22] MEDS ORDERED: NALOXONE 0.4 MG/ML 1 ML VIAL IV PRN (01:31)
[2020-05-22] MEDS ORDERED: ONDANSETRON 4 MG/2 ML VIAL IVP PRN (01:32)
[2020-05-22] MEDS: LEVOTHYROXINE 100 MCG TAB PO SCH (06:15)
[2020-05-22] MEDS: SYMBICORT 160-4.5 MCG INHALER INHALATION SCH ×2 (07:05→19:15)
[2020-05-22] MEDS: IPRATROPIUM-ALBUTEROL 3 ML NEB INHALATION SCH ×4 (07:05→19:15)
[2020-05-22 09:38] LABS: Anisocytosis Slight; HCT 25.7 % (34.0-46.0); HGB 7.6 gm/dL (11.4-16.0); Hypochromasia Marked; MCH 29.5 pg (25.0-35.0); MCHC 29.7 g/dL (31.0-37.0); MCV 99.3 fL (80.0-100.0); Macrocytosis Slight; Mean Platelet Volume 6.8; Platelet Count 368 k/uL (150-450); RBC 2.59 m/uL (3.80-5.40); RDW 18.1 % (11.5-15.5); WBC 10.7 k/uL (3.8-10.6)
[2020-05-22 09:41] LABS: Calcium 9.2 mg/dL (8.4-10.2); Potassium 4.1 mmol/L (3.5-5.1)
[2020-05-22] MEDS: NIFEdipine XL 30 MG TAB.ER.24 PO SCH (10:00)
[2020-05-22] MEDS: hydrALAZINE HCL 25 MG TAB PO SCH ×3 (10:00→23:39)
[2020-05-22] MEDS: FUROSEMIDE 40 MG TAB PO SCH ×2 (10:00→23:39)
[2020-05-22] MEDS: guaiFENesin 600 MG TABLET.ER PO SCH ×2 (10:00→23:39)
[2020-05-22] MEDS: SEVELAMER 800 MG TAB PO SCH ×3 (10:00→16:39)
--- NOTE | 2020-05-22 10:28 | P.PN ---
Subjective Progress Note Date: 05/22/20 Principal diagnosis: shortness of breath Patient is a 60-year-old female with a history of end-stage renal disease on hemodialysis Tuesday/Tuesday/Tuesday, chronic hypoxic respiratory failure on home O2, recent admission in March 2020 secondary to right-sided pneumonia/empyema with pigtail catheter and recurrent TPA infusions, diabetes, hypertension, and dyslipidemia who presented to the emergency department with complaints of shortness of breath. On arrival to the ER she was febrile with a temperature of 102.4, pulse 114, respiratory rate 26, and blood pressure 179/103. She is satting 98% on 4 L nasal cannula. Initial laboratory analysis showed white blood cell count of 13.7, hemoglobin 8.1 which is her baseline, sodium 131, BUN 21, creatinine 2.73, lactic acid 0.88, troponin 0.061, BNP 65,300. Chest x-ray showed right-sided pleural effusion with possible pneumonia or atelectasis. She was diagnosed with pneumonia with sepsis. She received IV fluids, vancomycin, Zithromax, and cefepime. Arrangements were made for admission. The morning after admission she was noted to have an increased white blood cell count at 14.2. She did not have any recurrent febrile episodes. She had undergone a CT of the chest which demonstrated right lower lobe pneumonia with filling of the distal right mainstem bronchus. Dr. Dietrich was consulted for pneumonia. Dr. Wells was consulted for hemodialysis. It was noted that the patient has had a significant amount of weight loss, reported choking episodes at home, patient with swallowing difficulty this AM. She was seen by speech and underwent modified barium swallow study which was normal. Her WBC c ount improved on vanco and cefepime. Patient seen and examined. States that she is feeling better than on admission. She sates that cough is better, no nuasea, no vomiting, normal bowel movements. General: non toxic, no distress, appears at stated age, thin cachetic, temporal wasting, loss oc buccal fat pad Derm: warm, dry Head: atraumatic, normocephalic, symmetric Eyes: EOMI, no lid lag, anicteric sclera Mouth: no lip lesion, mucus membranes dry Cardiovascular: S1S2 reg, no murmur, positive posterior tibial pulse bilateral, Lungs: Decreased bs bilateral, no rhonchi, no rales , no accessory muscle use Abdominal: soft, nontender to palpation, no guarding, no appreciable organomegaly Ext: + gross muscle atrophy, no edema, no contractures Psych: awake, alert, appropriate affect Pneumonia with sepsis present on admission, concern for aspiration -Vanco and cefepime -Patient refused covid testing but clinically doubt diagnoses - CT wtih right sided PNA and filling of the right mainstem bronchus -Pulmonary recs appreciated -Pulmonary hygiene -Follow chest x-ray Acute on chronic hypoxic respiratory failure -Treatment as above -Wean oxygen as able Cachexia with BMI 16.7, severe protein calorie malnutrition - dietitian recs Diabetes mellitus type 2 -Hemoglobin A1c 4.8 05/15/20 -Not currently on medications at home -Monitor sugars through a.m. basic metabolic profile -Start sliding scale if warranted End-stage renal disease on hemodialysis Tuesday, Wednesdays, and Tuesday, bone mineral disease, chronic anemia secondary to end-stage renal disease -nephro recs -HD per nephro -Continue with Savelamer -Follow weight closely monitor signs for overloaded -Continue with Lasix Hypertension, urgency on arrival, improved - hydralazine, nifedipine, Lasix -Follow blood pressures Dyslipidemia -Statin therapy Hypothyroidism -Synthroid Chronic inflammatory demyelinating polyneuritis - hx of IVIG Dysphagia ruled out CODE STATUS: Full DVT prophylaxis: Heparin Anticipated discharge date: 2-[address]: Home with home health Objective - Vital Signs Vital signs: Vital Signs Temp 98.4 F 05/22/20 08:28 Pulse 105 H 05/22/20 08:28 Resp 20 05/22/20 08:28 BP 166/75 05/22/20 08:28 Pulse Ox 97 05/22/20 08:28 Intake & Output 05/21/20 05/22/20 05/22/20 18:59 06:59 18:59 Intake Total 250 Output Total 0 1 Balance 0 249 Weight 41.5 kg 42 kg Intake: Intake, IV Titration 250 Amount Vancomycin 750 mg In 250 Sodium Chloride 0.9% 250 ml @ 125 mls/hr IVPB ONCE ONE Rx#:[id number] Output: Urine 0 Stool 1 Other: Voiding Method Diaper # Voids 1 1 # Bowel Movements 2 - Labs CBC & Chem 7: 05/22/20 09:03 05/22/20 09:03 Labs: Abnormal Lab Results - Last 24 Hours (Table) 05/22/20 05/22/20 Range/Units 09:03 09:03 WBC 10.7 H (3.8-10.6) k/uL RBC 2.59 L (3.80-5.40) m/uL Hgb 7.6 L (11.4-16.0) gm/dL Hct 25.7 L (34.0-46.0) % MCHC 29.7 L (31.0-37.0) g/dL RDW 18.1 H (11.5-15.5) % Sodium 136 L (137-145) mmol/L BUN 18 H (7-17) mg/dL Creatinine 2.28 H (0.52-1.04) mg/dL Microbiology - Last 24 Hours (Table) 05/20/20 10:05 Blood Culture - Preliminary Blood No Growth after 24 hours
[2020-05-22] MEDS: AMPICILLIN-SULBACTAM 3 GM in SODIUM CHLORIDE 0.9% 100 ML IVPB SCH ×2 (12:04→23:40)
--- NOTE | 2020-05-22 13:39 | P.PN ---
Subjective Progress Note Date: 05/22/20 Principal diagnosis: Shortness of breath secondary to fluid volume overload, right pleural effusion The patient is seen today 05/22/2020 in follow-up on the selective care unit. She is currently resting in bed. Midline catheter being placed. She is maintaining good O2 saturations in the high 90s on 3 L/m per nasal cannula. She's been afebrile. Blood cultures reveal no growth. White count 10.7. Hemoglobin 7.6. Sodium 136. Potassium 4.1. Creatinine 2.28. She is currently on vancomycin and Unasyn. Objective - Vital Signs Vital signs: Vital Signs Temp 98.0 F 05/22/20 12:28 Pulse 107 H 05/22/20 12:28 Resp 20 05/22/20 12:28 BP 173/85 05/22/20 12:28 Pulse Ox 99 05/22/20 12:28 Intake & Output 05/21/20 05/22/20 05/22/20 18:59 06:59 18:59 Intake Total 250 Output Total 0 1 Balance 0 249 Weight 41.5 kg 42 kg Intake: Intake, IV Titration 250 Amount Vancomycin 750 mg In 250 Sodium Chloride 0.9% 250 ml @ 125 mls/hr IVPB ONCE ONE Rx#:[id number] Output: Urine 0 Stool 1 Other: Voiding Method Diaper # Voids 1 1 # Bowel Movements 2 - Exam GENERAL EXAM: Alert, frail, cachectic 60-year-old female patient, comfortable in no apparent distress. HEAD: Normocephalic. EYES: Normal reaction of pupils, equal size. NOSE: Clear with pink turbinates. THROAT: No erythema or exudates. NECK: No masses, no JVD. CHEST: No chest wall deformity. LUNGS: Equal air entry with crackles in the right base. CVS: S1 and S2 normal with no audible murmur, regular rhythm. ABDOMEN: No hepatosplenomegaly, normal bowel sounds, no guarding or rigidity. SPINE: No scoliosis or deformity SKIN: No rashes CENTRAL NERVOUS SYSTEM: No focal deficits, tone is normal in all 4 extremities. EXTREMITIES: There is no peripheral edema. No clubbing, no cyanosis. Peripheral pulses are intact. - Labs CBC & Chem 7: 05/22/20 09:03 05/22/20 09:03 Labs: Abnormal Lab Results - Last 24 Hours (Table) 05/22/20 05/22/20 Range/Units 09:03 09:03 WBC 10.7 H (3.8-10.6) k/uL RBC 2.59 L (3.80-5.40) m/uL Hgb 7.6 L (11.4-16.0) gm/dL Hct 25.7 L (34.0-46.0) % MCHC 29.7 L (31.0-37.0) g/dL RDW 18.1 H (11.5-15.5) % Sodium 136 L (137-145) mmol/L BUN 18 H (7-17) mg/dL Creatinine 2.28 H (0.52-1.04) mg/dL Microbiology - Last 24 Hours (Table) 05/20/20 10:05 Blood Culture - Preliminary Blood No Growth after 48 hours Assessment and Plan Assessment: Acute on chronic hypoxemic respiratory failure secondary to an acute exacerbation of underlying mild persistent chronic bronchial asthma, fluid volume overload, chronic changes in the right lower lung, right-sided pleural effusion. 2 End stage renal disease currently receiving hemodialysis Tuesday 3 History of chronic bronchial asthma 4 Recent episode of pneumonia site/right-sided empyema status post pigtail catheter placement 5 History of congestive heart failure 6 Diabetes mellitus 7 Hyperlipidemia 8 Hypertension 9 Hypothyroidism 10 Chronic hypoxemic respiratory failure Overall functional performance based on the above-mentioned multiple comorbidities. Plan: The patient was seen and evaluated by Dr. Dietrich Continue the current treatment plan for now Increase her activity as tolerated We'll continue to follow I, the cosigning physician, performed a history & physical examination of the patient. Lungs sounds with crackles in the right lung base. Maintaining good O2 saturations in the 90s on 3 L/m per nasal cannula. I discussed the assessment and plan of care with my nurse practitioner, Myla Carrizales. I attest to the above note as dictated by her.
--- NOTE | 2020-05-22 16:57 | PN ---
PROGRESS NOTE Patient is seen for followup for end-stage renal disease. She was dialyzed yesterday. We had about 1.5 L of fluid taken off. This morning patient's nausea seems to be slightly better. She is comfortable, not in any acute distress. Blood pressure was elevated 166/75, heart rate 105 per minute, she is afebrile. Examination of the heart S1, S2. Examination of the lungs, decreased breath sounds at bases. Abdomen is soft, nontender. Examination of lower extremities shows no significant edema. INTERIOR PAINTER exam grossly intact. LAB: Show sodium 136, potassium 4.1, hemoglobin 7.6 g/dL. ASSESSMENT: 1. End-stage renal disease, on hemodialysis on a Tuesday, Tuesday, Tuesday schedule. Patient will be dialyzed tomorrow. 2. Anemia, no active bleeding noted, maintained on Aranesp. Check iron profile as well. Iron saturation was only 11% in March. We will repeat her iron profile. 3. Aspiration pneumonia. 4. Recent history of pneumonia with empyema and pigtail catheter. 5. Hypertension. Blood pressure has been running high. May increase the hydralazine if blood pressure remains elevated. Expect improvement after dialysis tomorrow. 6. Chronic kidney disease mineral bone disorder, maintained on Renvela. PLAN: Hemodialysis in a.m. Increase Procardia if blood pressure remains elevated. MMODL / IJN: [id number] /
[2020-05-22] MEDS: LORazepam 0.5 MG TAB PO SCH (23:39)
[2020-05-22] MEDS: ATORVASTATIN 40 MG TAB PO SCH (23:39)
[2020-05-23] MEDS: MONTELUKAST 10 MG TAB PO SCH ×2 (00:31→21:33)
[2020-05-23] MEDS: LEVOTHYROXINE 100 MCG TAB PO SCH (06:58)
[2020-05-23] MEDS: hydrALAZINE HCL 25 MG TAB PO SCH ×3 (08:44→21:33)
[2020-05-23] MEDS: FUROSEMIDE 40 MG TAB PO SCH ×2 (08:44→21:33)
[2020-05-23] MEDS: guaiFENesin 600 MG TABLET.ER PO SCH ×2 (08:44→21:33)
[2020-05-23] MEDS: SEVELAMER 800 MG TAB PO SCH ×3 (08:44→16:57)
[2020-05-23] MEDS: NIFEdipine XL 30 MG TAB.ER.24 PO SCH (08:45)
[2020-05-23] MEDS: SYMBICORT 160-4.5 MCG INHALER INHALATION SCH ×2 (09:27→20:45)
[2020-05-23] MEDS: IPRATROPIUM-ALBUTEROL 3 ML NEB INHALATION SCH ×4 (09:27→20:45)
[2020-05-23 09:42] LABS: Anisocytosis Slight; HCT 26.4 % (34.0-46.0); HGB 7.9 gm/dL (11.4-16.0); Hypochromasia Marked; MCHC 29.9 g/dL (31.0-37.0); MCV 96.9 fL (80.0-100.0); Macrocytosis Slight; Mean Platelet Volume 6.7; Platelet Count 369 k/uL (150-450); RBC 2.73 m/uL (3.80-5.40); RDW 17.7 % (11.5-15.5); WBC 8.4 k/uL (3.8-10.6)
[2020-05-23 09:53] LABS: Calcium 9.7 mg/dL (8.4-10.2); Potassium 4.1 mmol/L (3.5-5.1)
--- NOTE | 2020-05-23 10:24 | P.DS ---
Providers Date of admission: 05/20/20 18:28 Expected date of discharge: 05/23/20 Attending physician: Mane Shoemaker MD Consults: 05/20/20 18:30 Consult Physician Routine Consulting Provider: Harshil Dietrich Consult Reason/Comments: pneumonia Do you want consulting provider notified?: Yes 05/21/20 07:55 Consult Physician Urgent Consulting Provider: Manasa Wells Consult Reason/Comments: Hemodialysis orders Do you want consulting provider notified?: Yes Primary care physician: Nestor Neal MD Hospital Course: Discharge Diagnosis: Pneumonia with sepsis present on admission Acute on chronic hypoxic respiratory failure Cachexia with BMI 16.7, severe protein calorie malnutrition Diabetes mellitus type 2 End-stage renal disease on hemodialysis Tuesday, Wednesdays, and Tuesday, bone mineral disease, chronic anemia secondary to end-stage renal disease Hypertension, urgency on arrival, improved Dyslipidemia Hypothyroidism Chronic inflammatory demyelinating polyneuritis Dysphagia ruled out Hospital Course: Patient is a 60-year-old female with a history of end-stage renal disease on hemodialysis Tuesday/Tuesday/Tuesday, chronic hypoxic respiratory failure on home O2, recent admission in March 2020 secondary to right-sided pneumonia/empyema with pigtail catheter and recurrent TPA infusions, diabetes, hypertension, and dyslipidemia who presented to the emergency department with complaints of shortness of breath. On arrival to the ER she was febrile with a temperature of 102.4, pulse 114, respiratory rate 26, and blood pressure 179/103. She is satting 98% on 4 L nasal cannula. Initial laboratory analysis showed white blood cell count of 13.7, hemoglobin 8.1 which is her baseline, sodium 131, BUN 21, creatinine 2.73, lactic acid 0.88, troponin 0.061, BNP 65,300. Chest x-ray showed right-sided pleural effusion with possible pneumonia or atelectasis. She was diagnosed with pneumonia with sepsis. She received IV fluids, vancomycin, Zithromax, and cefepime. Arrangements were made for admission. The morning after admission she was noted to have an increased white blood cell count at 14.2. She did not have any recurrent febrile episodes. She had undergone a CT of the chest which demonstrated right lower lobe pneumonia with filling of the distal right mainstem bronchus. Dr. Dietrich was consulted for pneumonia. Dr. Wells was consulted for hemodialysis. It was noted that the patient has had a significant amount of weight loss, reported choking episodes at home, patient with swallowing difficulty this AM. She was seen by speech and underwent modified barium swallow study which was normal. Her WBC count improved on vanco and cefepime. Her pneumonia was improving. Her fluid status was optimized and she was determined stable for discharge. She was determined not to have decision making capacity. Her does have POA paper and will be making decision for her going forward. She will complete her ocurse of antibiotic with augmentin for an additional 7 days. Patient seen and examined at bedside. Tired, denies any shortness of breath or cough. Vital signs reviewed and stable. General: non toxic, no distress, appears at stated age, thin, temporal wasting, and buccal fat pad wasting Derm: warm, dry Head: atraumatic, normocephalic, symmetric Eyes: EOMI, no lid lag, anicteric sclera Mouth: no lip lesion, mucus membranes moist Cardiovascular: S1S2 reg, no murmur, positive posterior tibial pulse bilateral, Lungs: Course bs on the right , no accessory muscle use Abdominal: soft, nontender to palpation, no guarding, no appreciable organomegaly Ext: no gross muscle atrophy, no edema, no contractures Neuro: CN II-XI grossly intact, no focal neuro deficits Psych: Alert, oriented, appropriate affect A total of 35 minutes of time were spent preparing this complex discharge summary . Patient Condition at Discharge: Stable Plan - Discharge Summary Discharge Rx Participant: Yes New Discharge Prescriptions: New Amoxic-Pot Clav 500-125 mg [Augmentin 500-125 mg] 1 tab PO DAILY #7 tab guaiFENesin [Mucinex] 600 mg PO Q12HR tablet.er Continue Budesonide-Formot 160-4.5 Mcg [Symbicort 160-4.5 Mcg Inhaler] 2 puff IN HALATION RT-BID@0800,1999 Levothyroxine Sodium [Synthroid] 200 mcg PO DAILY@0600 Montelukast Sodium [Singulair] 10 mg PO HS@2000 NIFEdipine [NIFEdipine ER] 30 mg PO DAILY@0800 Acetaminophen Tab [Tylenol] 650 mg PO Q6H PRN PRN Reason: Pain Ondansetron [Zofran] 4 mg PO Q6H PRN PRN Reason: Nausea Albuterol Sulfate [Ventolin HFA] 2 puff INHALATION RT-Q4H PRN PRN Reason: Shortness Of Breath EPINEPHrine (Auto Inject) [Epipen] 0.3 mg IM ONCE PRN PRN Reason: Anaphylaxis sevelamer HCL [Sevelamer HCl] 1,600 mg PO TID@0830,1230,1730 Ipratropium-Albuterol Nebulize [Duoneb 0.5 mg-3 mg/3 ml Soln] 3 ml INHALATION RT-QID ml Furosemide [Lasix] 40 mg PO BID #60 tablet hydrALAZINE HCL [Apresoline] 25 mg PO TID #30 tab Atorvastatin [Lipitor] 40 mg PO DAILY #30 tab Loperamide [Imodium] 2 mg PO QID PRN #1 cap PRN Reason: Diarrhea Discharge Medication List Acetaminophen Tab [Tylenol] 650 mg PO Q6H PRN 03/31/20 [History] Albuterol Sulfate [Ventolin HFA] 2 puff INHALATION RT-Q4H PRN 03/31/20 [History] Budesonide-Formot 160-4.5 Mcg [Symbicort 160-4.5 Mcg Inhaler] 2 puff INHALATION RT-BID@799,199903/31/20 [History] EPINEPHrine (Auto Inject) [Epipen] 0.3 mg IM ONCE PRN 03/31/20 [History] Levothyroxine Sodium [Synthroid] 200 mcg PO DAILY@0600 03/31/20 [History] Montelukast Sodium [Singulair] 10 mg PO HS@199903/31/20 [History] NIFEdipine [NIFEdipine ER] 30 mg PO DAILY@0803/31/20 [History] Ondansetron [Zofran] 4 mg PO Q6H PRN 03/31/20 [History] sevelamer HCL [Sevelamer HCl] 1,600 mg PO TID@0830,1230,1730 03/31/20 [History] Furosemide [Lasix] 40 mg PO BID #60 tablet 04/10/20 [Rx] Ipratropium-Albuterol Nebulize [Duoneb 0.5 mg-3 mg/3 ml Soln] 3 ml INHALATION RT-QID ml 04/10/20 [Rx] Atorvastatin [Lipitor] 40 mg PO DAILY #30 tab 05/15/20 [Rx] Loperamide [Imodium] 2 mg PO QID PRN #1 cap 05/15/20 [Rx] hydrALAZINE HCL [Apresoline] 25 mg PO TID #30 tab 05/15/20 [Rx] Amoxic-Pot Clav 500-125 mg [Augmentin 500-125 mg] 1 tab PO DAILY #7 tab 05/23/20 [Rx] guaiFENesin [Mucinex] 600 mg PO Q12HR tablet.er 05/23/20 [Rx] Follow up Appointment(s)/Referral(s): Manasa Wells MD [STAFF PHYSICIAN] - 1 Week Sundar Moore [STAFF PHYSICIAN] - Activity/Diet/Wound Care/Special Instructions: Activity: as tolerated Diet: renal diet
[2020-05-23 10:56] VITALS: BMI 17.1
--- NOTE | 2020-05-23 11:20 | P.PN ---
Progress Note - Text Progress Note Date: 05/23/20 Patient does not want to go to rehab. We discussed that she is weak and has been failing at home, she has been loosing weight and not eating. She does agree that these things have been happening. She is insistent that her can take care of her, despite him telling multiple people that he is not able to care for her at home. She is fixed on the fact that he can take care of her. When I asked her why she does not want to go to rehab she is unable to tell me a reason and is just repetitive in the fact that her is lazy. She does know that she is in the hospital for pneumonia. She believes that it is October (and then proceeds to list the months in order). She is aware that it is 2019. She cannot tell me who is the President. I presented her with this scenario. There is a stamped envelop on the ground outside of a mailbox when you walk by. What would you do? She responds with pick it up. I asked " then what would you do?" She responds. " I would give it to the man". She was then unsure what man when I asked. I asked "What about the mail box?" She responded "What mailbox?" She is not able to read the clock on the wall. She is unable to tell me why she is not eating at home. She does not appear competent to make her own decisions as she cannot understand risks versus benefit, and executive functioning is impaired. Her has POA appears and we will be enacting them at this point in time, as she is not competent to make decisions.
[2020-05-23] MEDS: AMPICILLIN-SULBACTAM 3 GM in SODIUM CHLORIDE 0.9% 100 ML IVPB SCH ×2 (11:28→21:33)
--- NOTE | 2020-05-23 14:04 | PN ---
PROGRESS NOTE The patient is a 60-year-old female with end-stage renal disease, on hemodialysis on a Tuesday, Tuesday, Tuesday schedule. She was admitted to the hospital with shortness of breath and is being treated for pneumonia, possibly aspiration pneumonia. PHYSICAL EXAMINATION: On examination today, blood pressure is 140/60, heart rate 99 per minute, she is afebrile. Examination of the heart S1, S2. Examination of the lungs, bilateral breath sounds are heard. Abdomen is soft, nontender. Examination lower extremities shows no significant edema. DIAMOND SAWER exam is grossly intact. The patient is moving all four extremities. LAB: Show sodium 136, potassium 4.1, chloride 1998, BUN 24, creatinine 3.58, hemoglobin 7.9 g/dL. ASSESSMENT: 1. End-stage renal disease, on hemodialysis on a Tuesday, Tuesday, Tuesday schedule. Patient will be dialyzed today. 2. Right lung pneumonia, maintained on antibiotics. 3. Concern for possible aspiration, however, barium swallow study was normal. 4. Generalized debility and weight loss. PLAN: Hemodialysis today and UF about 2-3 L as tolerated. MMODL / IJN: [id number] /
--- NOTE | 2020-05-23 14:23 | P.CN ---
Psychiatric Consult - . Consult date: 05/23/20 Consult:: 05/23/20 14:12 IDENTIFYING DATA: This patient is a 60-year-old female who currently lives with her in a house has 1 kid and collects Social Security. REASON FOR REFERRAL: Psychiatry was consulted for capacity HISTORY OF PRESENT ILLNESS: The patient presented to the hospital for shortness of breath and having a history of several comorbidities. Apparently the shortness of breath has been going on for several days prior to admission and patient was displaying wheezing and dyspnea at rest. According to EMR patient has been refusing rehab and despite weakness and falls at home patient has been losing weight and has poor strength. Apparently patient's is not able to take care of patient at home due to her needs. Nursing care patient states that she has been refusing physical therapy and not eating and also refusing to go to rehab. Patient was seen at the bedside while she was receiving hemodialysis. Patient was alert and cooperative with junior copywriter initially however as interview progressed patient became more disinterested. She states that she initially came in the hospital for weakness and feeling "shaky". She claims that she was having falls at home for the past several weeks. Patient was minimizing her medical issues at home. When asked about rehab patient claims that "they're trying to send me there to get stronger". Patient claimed repeatedly that she does not want to go to rehab however was vague and didn't give details why. When asked further patient states that "I've been there twice and I just don't want to go". She states that she understands that she is weak and needs to get stronger however states that "I can do that better at home". Patient was not able to able to verbalize the risks of refusing rehab and going home. She claims that her sleep has been fair and appetite as been poor for the past several weeks. She denied any depression at this time or any anxiety=. At this time patient denies any suicidal or homical ideations, intent or plan. Patient denies any auditory, visual hallucinations and denies any paranoia or delusions. Patients admits to using no recreational drugs including cigarettes. PAST PSYCHIATRIC HISTORY: Patient denies any significant psychiatric history of diagnosis. Patient was on Ativan 0.5 mg daily at bedtime in the hospital. Patient denies any previous psychiatric hospitalizations. Patient denies any psychiatric outpatient follow-up. Patient denies any history of suicide attempts in the past. PAST MEDICAL HISTORY: Heart failure, pneumonia, asthma, end-stage renal disease currently on hemodialysis for the past year, hyperlipidemia, diabetes mellitus, thyroid disorder,. ALLERGIES: as per EMR. CHEMICAL DEPENDENCY HISTORY: as per HPI. FAMILY PSYCHIATRIC/SUBSTANCE USE HISTORY: denies SOCIAL HISTORY: Patient was born and raised in [facility] and states that currently she lives in [place]. She states that she lives in a house with her has 1 kid who moved away. She states that she collects Social Security. 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 She denies any legal history. MENTAL STATUS EXAM: General Appearance: Patient appears to be older than stated age is frail, alert, directable however uncooperative for the most part. Patient appears to have fair hygiene and grooming wearing hospital gown with poor eye contact. Behavior: Patient is calmly lying in bed without any agitated behavior. Uncooperative. Speech: Patient's speech is fluent and nonpressured. Mood/Affect: Patient reports their mood is "ok", affect is congruent and constricted Suicidality/Homicidality: Patient denies having any suicidal or homicidal ideation intent or plan. Perceptions: Patient denies any visual hallucinations and denies any auditory hallucinations Though content/process: There is no evidence of any delusional thought content. Poverty of content. Vague and guarded. Memory and concentration: AOX2, believes that it is April 2020, does not k now who the current president is, poor attention span. Cannot spell "WORLD" backwards. Fair abstraction. Poor memory recall, 1 out of 3 words after 5 minutes Judgment and insight: poor/ limited IMPRESSIONS: Adjustment disorder unspecified PLAN: -At this time patient DOES NOT meet criteria for inpatient psychiatric admission. -Patient DOES NOT have decision making capacity at this time and is unable to reason through and communicate/appreciate the risks, benefits and alternatives to treatment and going to rehab. Patient does have her as the listed power of admitted attorneys. -Delirium precautions recommended with patient including - avoiding use of narcotics and ELECTRONIC ENGINEERING DRAFTSPERSON sedatives, limit anticholinergic medications when possible, frequent re-orientation, minimize use of restraints, open window shades during the day and close them at night -Would recommend the following medication changes/additions: Discontinued Ativan 0.5 mg daily at bedtime. Patient is agreeable to start Remeron 15 mg daily at bedtime for insomnia/appetite/mood. -Communicated plan to patient's nurse and Dr. Burnette -Psychiatry will sign off at this time -Please contact with any questions. 05/23/20 14:23
--- NOTE | 2020-05-23 15:01 | PN ---
PROGRESS NOTE PULMONARY/CRITICAL CARE PROGRESS NOTE: DATE OF SERVICE: May 23, 2020. This is a 60-year-old female with a history of shortness of breath secondary to fluid overload. The patient will have dialysis later today. She is on dialysis Tuesday, Tuesday, Tuesday. The patient is seen again on May 23. She is lying flat in bed. She is not sure about when she might be discharged. The patient was to have a midline catheter placed. Saturations are pretty good in the mid 90s or so on 2-3 L by nasal cannula. She has been afebrile. Blood cultures are negative. She denies any cough or phlegm production. She denies any chest pain or chest discomfort. There is no abdominal pain. She denies any nausea, vomiting or diarrhea. She remains on vancomycin and Unasyn. She does have some chronic changes in the right chest from previous empyema. PHYSICAL EXAMINATION: VITAL SIGNS: Current vital signs are reviewed. Temperature 97.9, heart rate 99, respiratory rate 20, blood pressure 140/60, mean 86, 3 L saturation 97%. GENERAL: She appears in no acute distress. HEENT: Examination is grossly unremarkable. NECK: Supple. Full range of motion. No adenopathy. Neck veins are flat. CARDIOVASCULAR: Examination reveals regular rhythm and rate. S1, S2 normal. Heart sounds are distant. No distinct murmur. LUNGS: Reveal diminished breath sounds on the right. A few scattered rhonchi and crackles noted bilaterally. ABDOMEN: Soft. Bowel sounds are heard. EXTREMITIES are intact. No cyanosis, clubbing, or edema. SKIN: Without rash. Neurologic is brief but nonfocal. LABS: Today include a white count 8.4, hemoglobin 7.9, hematocrit 26.4, platelet count 316,000. Sodium 136, potassium 4.1, chloride 98, CO2 30. Anion gap is 8. BUN and creatinine were 24 and 3.58. Calcium 9.7. Microbiologic studies are negative. No recent chest x-ray. The last chest x-ray was done on May 21 which shows no significant interval change. There is some consolidation and effusion on the right. Current medications are reviewed. ASSESSMENT: 1. Acute on chronic hypoxemic respiratory failure, secondary to an acute exacerbation of chronic bronchial asthma, fluid overload from the patient's renal failure, and chronic changes in the right lower lobe/right-sided pleural effusion. 2. End-stage renal disease, currently on Tuesday, Tuesday, Tuesday hemodialysis. 3. History of chronic bronchial asthma, mildly active. 4. Recent episode of pneumonia with right-sided empyema, status post pigtail catheter placement. 5. History of congestive heart failure. 6. Diabetes mellitus. 7. Hyperlipidemia. 8. History of hypertension. 9. Hypothyroidism. 10.Chronic hypoxemic respiratory failure. PLAN: Currently, the patient is relatively stable. The patient had a midline catheter placed. From the pulmonary standpoint, she is pretty much back to baseline. She will have hemodialysis today. On non hemodialysis days and prior to the next hemodialysis, she is much more short of breath, secondary to fluid overload. Additional recommendations and suggestions are forthcoming. MMODL / IJN: [id number] /
[2020-05-23] MEDS ORDERED: VANCOMYCIN 750 MG in SODIUM CHLORIDE 0.9% 250 ML IVPB ONE (18:00)
[2020-05-23] MEDS: ATORVASTATIN 40 MG TAB PO SCH (21:32)
[2020-05-23] MEDS: MIRTAZAPINE 15 MG TAB PO SCH (21:33)
[2020-05-24] MEDS: LEVOTHYROXINE 100 MCG TAB PO SCH (07:10)
[2020-05-24] MEDS: SYMBICORT 160-4.5 MCG INHALER INHALATION SCH ×2 (08:05→20:33)
[2020-05-24] MEDS: IPRATROPIUM-ALBUTEROL 3 ML NEB INHALATION SCH ×4 (08:05→20:33)
[2020-05-24] MEDS: SEVELAMER 800 MG TAB PO SCH ×3 (09:39→16:39)
[2020-05-24] MEDS: guaiFENesin 600 MG TABLET.ER PO SCH ×2 (09:39→23:15)
[2020-05-24] MEDS: FUROSEMIDE 40 MG TAB PO SCH ×2 (09:39→23:15)
[2020-05-24] MEDS: hydrALAZINE HCL 25 MG TAB PO SCH ×3 (09:39→23:15)
[2020-05-24] MEDS: NIFEdipine XL 30 MG TAB.ER.24 PO SCH (09:39)
--- NOTE | 2020-05-24 09:48 | P.PN ---
Subjective patient seen in follow-up for her incisional disease. She is maintained on hemodialysis on Tuesday schedule. Feels better today. Denies chest pain or shortness of breath. States she wants to go home and not to a rehab facility. Vital signs are stable. General: The patient appeared well nourished and normally developed. HEENT: Head exam is unremarkable. Neck is without jugular venous distension. LUNGS: Breath sounds decreased. HEART: Rate and Rhythm are regular. ABDOMEN: soft, nontender. EXTREMITITES: No clubbing, cyanosis, or edema. Objective - Vital Signs Vital signs: Vital Signs Temp 98.0 F 05/24/20 04:00 Pulse 104 H 05/24/20 08:40 Resp 20 05/24/20 04:00 BP 168/75 05/24/20 04:00 Pulse Ox 98 05/24/20 04:00 Intake & Output 05/23/20 05/24/20 05/24/20 18:59 06:59 18:59 Intake Total 130 Output Total 3000 62 Balance -2870 -62 Weight 42.5 kg 48.6 kg Intake: Oral 130 Output: Urine 50 Stool 12 Hemodialysis 3000 Other: Voiding Method Bedpan Bedpan Diaper Diaper # Voids 1 1 - Labs CBC & Chem 7: 05/23/20 08:50 05/23/20 08:50 Labs: Abnormal Lab Results - Last 24 Hours (Table) 05/23/20 Range/Units 08:50 Sodium 136 L (137-145) mmol/L BUN 24 H (7-17) mg/dL Creatinine 3.58 H (0.52-1.04) mg/dL Glucose 103 H (74-99) mg/dL Microbiology - Last 24 Hours (Table) 05/20/20 10:05 Blood Culture - Preliminary Blood No Growth after 72 hours Assessment and Plan Plan: assessment: 1. End-stage renal disease maintained on hemodialysis on Tuesday schedule. 2. Aspiration pneumonia maintained on antibiotics. 3. Anemia of chronic kidney disease maintained on Aranesp. 4. Chronic kidney disease mineral bone disease maintained on Renvela. 5. Hypertension with chronic kidney disease. Stable. Plan: Hemodialysis on Tuesday.
--- NOTE | 2020-05-24 11:31 | P.PN ---
Subjective Progress Note Date: 05/24/20 Patient was seen and examined. No acute events overnight. Patient does report. She denies any chest pain, shortness of breath or palpitations. No nausea or vomiting. No fever or chills. No active complaints. Objective - Vital Signs Vital signs: Vital Signs Temp 98.6 F 05/24/20 09:30 Pulse 104 H 05/24/20 09:30 Resp 20 05/24/20 09:30 BP 176/81 05/24/20 09:30 Pulse Ox 99 05/24/20 09:30 Intake & Output 05/23/20 05/24/20 05/24/20 18:59 06:59 18:59 Intake Total 130 360 Output Total 3000 62 Balance -2870 -62 360 Weight 42.5 kg 48.6 kg Intake: Oral 130 360 Output: Urine 50 Stool 12 Hemodialysis 3000 Other: Voiding Method Bedpan Bedpan Bedpan Diaper Diaper Diaper # Voids 1 1 # Bowel Movements 5 - Exam General: [non toxic], [no distress], [appears at stated age] Derm: [warm], [dry] Head: [atraumatic], [normocephalic], [symmetric], temporal wasting Eyes: [EOMI], [no lid lag], [anicteric sclera] Mouth: [no lip lesion], [mucus membranes moist] Cardiovascular: [S1S2 reg], [tachycardic], [positive DP pulse bilateral], Lungs: [Decreased breath sounds bilateral], [no rhonchi, no rales] , [no accessory muscle use] Abdominal: [soft], [ nontender to palpation], [no guarding], [no appreciable organomegaly] Ext: [ gross muscle atrophy], [no edema], [no contractures] Neuro: [no focal neuro deficits] Psych: [Alert], [oriented], [appropriate affect] - Labs CBC & Chem 7: 05/23/20 08:50 05/23/20 08:50 Labs: Microbiology - Last 24 Hours (Table) 05/20/20 10:05 Blood Culture - Preliminary Blood No Growth after 72 hours Assessment and Plan Assessment: Pneumonia with sepsis present on admission, concern for aspiration - Unasyn for concerns of aspiration pneumonia, complete 7 days of Augmentin on discharge - Patient refused COVID19 testing but clinically doubt diagnoses - CT with right sided PNA and filling of the right mainstem bronchus - Pulmonary recs appreciated - Pulmonary hygiene - Attempt to wean oxygen Acute on chronic hypoxic respiratory failure - Treatment as above - Wean oxygen as able Cachexia with BMI 16.7, severe protein calorie malnutrition - Dietitian recs Diabetes mellitus type 2 - Hemoglobin A1c 4.8 05/15/20 - Not currently on medications at home - Monitor sugars through a.m. basic metabolic profile - Start sliding scale if warranted End-stage renal disease on hemodialysis Tuesday, Wednesdays, and Tuesday, bone mi neral disease, chronic anemia secondary to end-stage renal disease - Nephro recs - HD per nephro - Continue with Savelamer - Follow weight closely monitor signs for overloaded - Continue with Lasix Hypertension, urgency on arrival, improved - hydralazine, nifedipine, Lasix - Follow blood pressures Dyslipidemia - Statin therapy Hypothyroidism - Synthroid Chronic inflammatory demyelinating polyneuritis - hx of IVIG Dysphagia ruled out [Psych states patient does not have decision making capacity. Anticipate DC when approved by insurance for [facility].]
[2020-05-24] MEDS: AMPICILLIN-SULBACTAM 3 GM in SODIUM CHLORIDE 0.9% 100 ML IVPB SCH ×2 (11:50→23:16)
--- NOTE | 2020-05-24 16:17 | PN ---
PROGRESS NOTE PULMONARY/CRITICAL CARE PROGRESS: DATE OF SERVICE: May 24, 2020 60-year-old female who was admitted back on May 20 for shortness of breath secondary to fluid overload. She is a patient who has Tuesday, Tuesday, Tuesday hemodialysis. Her international recruiter is Dr. Bagley. Currently, she is on a couple of L. She is lying flat in bed. She is not demonstrating any difficulty breathing whatsoever. She does have a history of a chronic empyema in the right chest. I do not believe she has active pneumonia at the time. In the past, she did have a pigtail catheter in the right pleural space. Currently, she remains on antibiotics. PHYSICAL EXAMINATION: VITAL SIGNS: Current vital signs are reviewed. Temperature 98.7, heart rate 100. Respiratory rate 18, blood pressure 161/76, mean 104. 3 L saturation 95%. GENERAL: She appears in no acute distress. HEENT: Examination is grossly unremarkable. NECK: Supple. Full range of motion. CARDIOVASCULAR: Examination reveals regular rhythm and rate. LUNGS: Reveal mostly clear breath sounds. A few scattered rhonchi. There is some diminished breath sounds at the right base. ABDOMEN: Soft. Bowel sounds are heard. EXTREMITIES are intact. No cyanosis, clubbing, or edema. SKIN: Without rash. NEUROLOGIC: Examination is brief but nonfocal. LABS: No new labs from today. The labs from yesterday were reviewed. Microbiology is negative. No new x-rays. Medications are reviewed. ASSESSMENT: 1. Acute on chronic hypoxemic respiratory failure, secondary to an acute exacerbation of the patient's asthma, as well as fluid overload from the patient's renal failure, and chronic changes in the right lower lobe/right-sided pleural effusion. 2. End-stage renal disease, currently on Tuesday, Tuesday, Tuesday hemodialysis. 3. History of chronic bronchial asthma, mildly active. 4. Recent episode of pneumonia with right-sided empyema, status post pigtail catheter placement. 5. History of congestive heart failure. 6. Diabetes mellitus. 7. Hyperlipidemia. 8. History of hypertension. 9. Hypothyroidism. 10.Chronic hypoxemic respiratory failure. PLAN: The patient is doing reasonably well. I believe she is pretty much at baseline. She should continue to get her hemodialysis Tuesday, Tuesday, Tuesday. She is on her baseline O2 at 2 L. No additional recommendations are made. Currently, she is on Unasyn. I believe her antibiotics could be switched to an oral antibiotic such as Augmentin. No additional recommendations are made. We will continue to follow as needed. MMODL / IJN: [id number] /
[2020-05-24] MEDS: MONTELUKAST 10 MG TAB PO SCH (23:15)
[2020-05-24] MEDS: ATORVASTATIN 40 MG TAB PO SCH (23:15)
[2020-05-24] MEDS: MIRTAZAPINE 15 MG TAB PO SCH (23:16)
[2020-05-25] MEDS: LEVOTHYROXINE 100 MCG TAB PO SCH (06:39)
[2020-05-25 08:17] LABS: Potassium 4.5 mmol/L (3.5-5.1)
[2020-05-25] MEDS: IPRATROPIUM-ALBUTEROL 3 ML NEB INHALATION SCH ×4 (09:27→19:05)
[2020-05-25] MEDS: SYMBICORT 160-4.5 MCG INHALER INHALATION SCH ×2 (09:27→19:24)
[2020-05-25] MEDS: hydrALAZINE HCL 25 MG TAB PO SCH ×3 (09:31→20:42)
[2020-05-25] MEDS: FUROSEMIDE 40 MG TAB PO SCH ×2 (09:31→20:42)
[2020-05-25] MEDS: guaiFENesin 600 MG TABLET.ER PO SCH ×2 (09:31→20:42)
[2020-05-25] MEDS: NIFEdipine XL 30 MG TAB.ER.24 PO SCH (09:31)
[2020-05-25] MEDS: SEVELAMER 800 MG TAB PO SCH ×3 (09:36→18:29)
--- NOTE | 2020-05-25 10:38 | P.PN ---
Subjective patient seen in follow-up for end-stage renal disease. She is maintained on hemodialysis on Tuesday schedule. feels okay. No active complaints. Denies chest pain or shortness of breath. States she wants to go home and not to a rehab facility. Vital signs are stable. General: The patient appeared well nourished and normally developed. HEENT: Head exam is unremarkable. Neck is without jugular venous distension. LUNGS: Breath sounds decreased. HEART: Rate and Rhythm are regular. ABDOMEN: soft, nontender. EXTREMITITES: No clubbing, cyanosis, or edema. Objective - Vital Signs Vital signs: Vital Signs Temp 98.2 F 05/25/20 09:30 Pulse 100 05/25/20 09:55 Resp 20 05/25/20 09:30 BP 156/72 05/25/20 09:30 Pulse Ox 98 05/25/20 09:30 Intake & Output 05/24/20 05/25/20 05/25/20 18:59 06:59 18:59 Intake Total 410 100 20 Output Total 76 2 Balance 410 24 18 Weight 48.6 kg Intake: Oral 410 100 20 Output: Urine 70 Stool 6 2 Other: Voiding Method Bedpan Bedpan Bedpan Diaper Diaper Diaper # Bowel Movements 4 - Labs CBC & Chem 7: 05/23/20 08:50 05/25/20 07:38 Labs: Abnormal Lab Results - Last 24 Hours (Table) 05/25/20 Range/Units 07:38 BUN 18 H (7-17) mg/dL Creatinine 3.63 H (0.52-1.04) mg/dL Glucose 69 L (74-99) mg/dL Microbiology - Last 24 Hours (Table) 05/20/20 10:05 Blood Culture - Preliminary Blood No Growth after 96 hours Assessment and Plan Plan: assessment: 1. End-stage renal disease maintained on hemodialysis on Tuesday schedule. 2. Aspiration pneumonia maintained on antibiotics. 3. Anemia of chronic kidney disease maintained on Aranesp. 4. Chronic kidney disease mineral bone disease maintained on Renvela. 5. Hypertension with chronic kidney disease. Stable. Plan: Hemodialysis on Tuesday.
[2020-05-25] MEDS: AMPICILLIN-SULBACTAM 3 GM in SODIUM CHLORIDE 0.9% 100 ML IVPB SCH ×2 (11:19→23:07)
[2020-05-25] MEDS ORDERED: LOPERAMIDE 2 MG CAP PO PRN (11:29)
--- NOTE | 2020-05-25 15:05 | P.PN ---
Subjective Progress Note Date: 05/25/20 Principal diagnosis: Shortness of breath secondary to fluid volume overload, right pleural effusion Patient is seen today 05/25/2020 in follow-up on the selective care unit. She is currently sitting up in a chair at the bedside. Awake and alert in no acute distress. She states she is breathing easier today. Nearing her baseline. She has been treated for an acute on chronic hypoxemic respiratory failure secondary to exacerbation of her moderate persistent chronic bronchial breath asthma along with fluid volume overload secondary to renal failure. She is maintaining O2 saturations up to 100% on 2 L/m per nasal cannula. She's afebrile. Somewhat hypertensive. Blood culture reveals no growth. Sodium 138. Potassium 4.5. Creatinine 3.63. She remains on Symbicort, DuoNeb inhalations, Singulair. Antibiotic in the form of Unasyn. Objective - Vital Signs Vital signs: Vital Signs Temp 98.3 F 05/25/20 11:24 Pulse 96 05/25/20 14:06 Resp 18 05/25/20 11:24 BP 161/80 05/25/20 11:24 Pulse Ox 100 05/25/20 11:24 Intake & Output 05/24/20 05/25/20 05/25/20 18:59 06:59 18:59 Intake Total 410 100 20 Output Total 76 2 Balance 410 24 18 Weight 48.6 kg Intake: Oral 410 100 20 Output: Urine 70 Stool 6 2 Other: Voiding Method Bedpan Bedpan Bedpan Diaper Diaper Diaper # Bowel Movements 4 - Exam GENERAL EXAM: Alert, frail, cachectic 60-year-old female patient, appears older than stated age, on 2 L nasal cannula, comfortable in no apparent distress. HEAD: Normocephalic. EYES: Normal reaction of pupils, equal size. NOSE: Clear with pink turbinates. THROAT: No erythema or exudates. NECK: No masses, no JVD. CHEST: No chest wall deformity. LUNGS: Equal air entry with crackles in the right base. CVS: S1 and S2 normal with no audible murmur, regular rhythm. ABDOMEN: No hepatosplenomegaly, normal bowel sounds, no guarding or rigidity. SPINE: No scoliosis or deformity SKIN: No rashes CENTRAL NERVOUS SYSTEM: No focal deficits, tone is normal in all 4 extremities. EXTREMITIES: There is no peripheral edema. No clubbing, no cyanosis. Peripheral pulses are intact. - Labs CBC & Chem 7: 05/23/20 08:50 05/25/20 07:38 Labs: Abnormal Lab Results - Last 24 Hours (Table) 05/25/20 Range/Units 07:38 BUN 18 H (7-17) mg/dL Creatinine 3.63 H (0.52-1.04) mg/dL Glucose 69 L (74-99) mg/dL Microbiology - Last 24 Hours (Table) 05/20/20 10:05 Blood Culture - Preliminary Blood No Growth after 120 hours Assessment and Plan Assessment: 1 Acute on chronic hypoxemic respiratory failure secondary to an acute exacerbation of underlying mild persistent chronic bronchial asthma, fluid volume overload, chronic changes in the right lower lung, right-sided pleural effusion. 2 End stage renal disease currently receiving hemodialysis Tuesday 3 History of chronic bronchial asthma 4 Recent episode of pneumonia site/right-sided empyema status post pigtail catheter placement 5 History of congestive heart failure 6 Diabetes mellitus 7 Hyperlipidemia 8 Hypertension 9 Hypothyroidism 10 Chronic hypoxemic respiratory failure Overall functional performance based on the above-mentioned multiple comorbiditi es. Plan: The patient was seen and evaluated by Dr. Dietrich Continue the current treatment plan Repeat chest x-ray in a.m. Overall prognosis is guarded We'll continue to follow I, the cosigning physician, performed a history & physical examination of the patient. Lungs sounds with crackles in the right lung base. Maintaining good O2 saturations in the 90s on 2 L/m per nasal cannula. I discussed the assessment and plan of care with my nurse practitioner, Myla Carrizales. I attest to the above note as dictated by her.
[2020-05-25] MEDS ORDERED: DEXTROSE 5%-0.9% NACL 1,000 ML IV SCH (18:15)
[2020-05-25 18:16] LABS: Glucose,Whole Blood 67 mg/dL (75-99)
[2020-05-25 18:26] LABS: Glucose,Whole Blood 80 mg/dL (75-99)
--- NOTE | 2020-05-25 18:28 | P.PN ---
Subjective Progress Note Date: 05/25/20 Patient was seen and examined. No acute events overnight. Patient with no complaints. States that she is tired. Denies any chest pain, shortness of breath or palpitations. Objective - Vital Signs Vital signs: Vital Signs Temp 97.7 F 05/25/20 16:00 Pulse 100 05/25/20 16:00 Resp 20 05/25/20 16:00 BP 164/79 05/25/20 16:00 Pulse Ox 95 05/25/20 16:00 Intake & Output 05/24/20 05/25/20 05/25/20 18:59 06:59 18:59 Intake Total 410 100 20 Output Total 76 2 Balance 410 24 18 Weight 48.6 kg Intake: Oral 410 100 20 Output: Urine 70 Stool 6 2 Other: Voiding Method Bedpan Bedpan Bedpan Diaper Diaper Diaper # Bowel Movements 4 - Exam General: [non toxic], [no distress], [appears at stated age] Derm: [warm], [dry] Head: [atraumatic], [normocephalic], [symmetric], temporal wasting Eyes: [EOMI], [no lid lag], [anicteric sclera] Mouth: [no lip lesion], [mucus membranes moist] Cardiovascular: [S1S2 reg], [tachycardic], [positive DP pulse bilateral], Lungs: [Decreased breath sounds bilateral], [no rhonchi, no rales] , [no accessory muscle use] Abdominal: [soft], [ nontender to palpation], [no guarding], [no appreciable organomegaly] Ext: [ gross muscle atrophy], [no edema], [no contractures] Neuro: [no focal neuro deficits] Psych: [Alert], [oriented], [appropriate affect] - Labs CBC & Chem 7: 05/23/20 08:50 05/25/20 07:38 Labs: Abnormal Lab Results - Last 24 Hours (Table) 05/25/20 Range/Units 07:38 BUN 18 H (7-17) mg/dL Creatinine 3.63 H (0.52-1.04) mg/dL Glucose 69 L (74-99) mg/dL Microbiology - Last 24 Hours (Table) 05/20/20 10:05 Blood Culture - Preliminary Blood No Growth after 120 hours Assessment and Plan Assessment: Pneumonia with sepsis present on admission, concern for aspiration - Unasyn for concerns of aspiration pneumonia, complete 7 days of Augmentin on discharge - Patient refused COVID19 testing but clinically doubt diagnoses - CT with right sided PNA and filling of the right mainstem bronchus - Pulmonary recs appreciated - Pulmonary hygiene - Attempt to wean oxygen - Obtain Echocardiogram Acute on chronic hypoxic respiratory failure - Treatment as above - Wean oxygen as able Cachexia with BMI 16.7, severe protein calorie malnutrition - Dietitian recs Diabetes mellitus type 2 - Hemoglobin A1c 4.8 05/15/20 - Not currently on medications at home - Monitor sugars through a.m. basic metabolic profile - Start sliding scale if warranted End-stage renal disease on hemodialysis Tuesday, Wednesdays, and Tuesday, bone mineral disease, chronic anemia secondary to end-stage renal disease - Nephro recs - HD per nephro - Continue with Savelamer - Follow weight closely monitor signs for overloaded - Continue with Lasix Hypertension, urgency on arrival, improved - hydralazine, nifedipine, Lasix - Follow blood pressures Dyslipidemia - Statin therapy Hypothyroidism - Synthroid Chronic inflammatory demyelinating polyneuritis - hx of IVIG Dysphagia ruled out [Psych states patient does not have decision making capacity. Anticipate DC when approved by insurance for [facility]. Anticipate DC home tomorrow.]
[2020-05-25] MEDS: ATORVASTATIN 40 MG TAB PO SCH (20:42)
[2020-05-25] MEDS: MIRTAZAPINE 15 MG TAB PO SCH (20:42)
[2020-05-25] MEDS: MONTELUKAST 10 MG TAB PO SCH (20:42)
[2020-05-25] MEDS ORDERED: diphenhydrAMINE 25 MG CAP PO STA (23:35)
[2020-05-26 00:02] LABS: Glucose,Whole Blood 163 mg/dL (75-99)
[2020-05-26 06:38] LABS: Glucose,Whole Blood 143 mg/dL (75-99)
[2020-05-26] MEDS: LEVOTHYROXINE 100 MCG TAB PO SCH (07:19)
[2020-05-26 07:31] LABS: Anisocytosis Slight; Basophils # (A) 0.1 k/uL (0-0.2); Basophils % (A) 0 %; Eosinophils # (A) 0.6 k/uL (0-0.7); Eosinophils % (A) 4 %; HCT 26.8 % (34.0-46.0); HGB 8.1 gm/dL (11.4-16.0); Hypochromasia Marked; Lymphocytes # (A) 1.7 k/uL (1.0-4.8); Lymphocytes % (A) 12 %; MCH 28.6 pg (25.0-35.0); MCHC 30.1 g/dL (31.0-37.0); MCV 95.3 fL (80.0-100.0); Macrocytosis Slight; Mean Platelet Volume 7.6; Monocytes # (A) 0.7 k/uL (0-1.0); Monocytes % (A) 5 %; Neutrophils # (A) 10.7 k/uL (1.3-7.7); Neutrophils % (A) 77 %; Platelet Count 378 k/uL (150-450); RBC 2.82 m/uL (3.80-5.40); RDW 17.8 % (11.5-15.5); WBC 13.8 k/uL (3.8-10.6)
[2020-05-26 07:40] LABS: Potassium 4.5 mmol/L (3.5-5.1)
[2020-05-26] MEDS: hydrALAZINE HCL 25 MG TAB PO SCH (08:20)
[2020-05-26] MEDS: FUROSEMIDE 40 MG TAB PO SCH (08:20)
[2020-05-26] MEDS: SEVELAMER 800 MG TAB PO SCH ×2 (08:20→12:12)
[2020-05-26] MEDS: guaiFENesin 600 MG TABLET.ER PO SCH (08:20)
[2020-05-26] MEDS: NIFEdipine XL 30 MG TAB.ER.24 PO SCH (08:20)
[2020-05-26 08:30] VITALS: RESP 16
--- NOTE | 2020-05-26 08:36 | XR ---
EXAMINATION TYPE: XR chest 1V portable DATE OF EXAM: 05/26/2020 COMPARISON: Prior chest x-ray 05/21/2020 HISTORY: Congestive heart failure TECHNIQUE: Single frontal view of the chest is obtained. FINDINGS: There is airspace disease in the right lower lobe greater than left. The heart is enlarged . Persistent mediastinal widening. No evident pneumothorax. IMPRESSION: Pleural parenchymal changes are similar to prior exam. Correlate for pneumonia, effusion , follow-up to exclude underlying mass. Mediastinal adenopathy.
[2020-05-26] MEDS: IPRATROPIUM-ALBUTEROL 3 ML NEB INHALATION SCH ×3 (08:42→15:19)
[2020-05-26] MEDS: SYMBICORT 160-4.5 MCG INHALER INHALATION SCH (08:42)
--- NOTE | 2020-05-26 10:04 | P.PN ---
Subjective patient seen in follow-up for end-stage renal disease. She is maintained on hemodialysis on Tuesday schedule. feels a little better today. No active complaints. States she wants to go home and not to a rehab facility. Vital signs are stable. General: The patient appeared well nourished and normally developed. HEENT: Head exam is unremarkable. Neck is without jugular venous distension. LUNGS: Breath sounds decreased. HEART: Rate and Rhythm are regular. ABDOMEN: soft, nontender. EXTREMITITES: No clubbing, cyanosis, or edema. Objective - Vital Signs Vital signs: Vital Signs Temp 97.7 F 05/26/20 08:15 Pulse 89 05/26/20 08:54 Resp 16 05/26/20 08:15 BP 166/80 05/26/20 08:15 Pulse Ox 94 L 05/26/20 08:15 Intake & Output 05/25/20 05/26/20 05/26/20 18:59 06:59 18:59 Intake Total 245 Output Total 2 2 Balance 243 -2 Weight 40.5 kg Intake: Intake, IV Titration 100 Amount Ampicillin-Sulbactam 3 gm 100 In Sodium Chloride 0.9% 100 ml @ 200 mls/hr IVPB Q12H [facility] Rx#:[id number] Oral 145 Output: Stool 2 2 Other: Voiding Method Bedpan Bedpan Diaper Diaper # Voids 1 # Bowel Movements 1 - Labs CBC & Chem 7: 05/26/20 06:43 05/26/20 06:43 Labs: Abnormal Lab Results - Last 24 Hours (Table) 05/25/20 05/26/20 05/26/20 Range/Units 18:07 00:00 06:05 WBC (3.8-10.6) k/uL RBC (3.80-5.40) m/uL Hgb (11.4-16.0) gm/dL Hct (34.0-46.0) % MCHC (31.0-37.0) g/dL RDW (11.5-15.5) % Neutrophils # (1.3-7.7) k/uL BUN (7-17) mg/dL Creatinine (0.52-1.04) mg/dL Glucose (74-99) mg/dL POC Glucose (mg/dL) 67 L 163 H 143 H (75-99) mg/dL 05/26/20 05/26/20 Range/Units 06:43 06:43 WBC 13.8 H (3.8-10.6) k/uL RBC 2.82 L (3.80-5.40) m/uL Hgb 8.1 L (11.4-16.0) gm/dL Hct 26.8 L (34.0-46.0) % MCHC 30.1 L (31.0-37.0) g/dL RDW 17.8 H (11.5-15.5) % Neutrophils # 10.7 H (1.3-7.7) k/uL BUN 26 H (7-17) mg/dL Creatinine 4.87 H (0.52-1.04) mg/dL Glucose 134 H (74-99) mg/dL POC Glucose (mg/dL) (75-99) mg/dL Microbiology - Last 24 Hours (Table) 05/20/20 10:05 Blood Culture - Preliminary Blood No Growth after 120 hours Assessment and Plan Plan: assessment: 1. End-stage renal disease maintained on hemodialysis on Tuesday schedule. 2. Aspiration pneumonia maintained on antibiotics. 3. Anemia of chronic kidney disease maintained on Aranesp. 4. Chronic kidney disease mineral bone disease maintained on Renvela. 5. Hypertension with chronic kidney disease. Stable. Plan: Hemodialysis today. Stable for discharge from nephrology standpoint.
--- NOTE | 2020-05-26 11:26 | P.DS ---
Providers Date of admission: 05/20/20 18:28 Expected date of discharge: 05/26/20 Attending physician: Mane Shoemaker MD Consults: 05/20/20 18:30 Consult Physician Routine Consulting Provider: Harshil Dietrich Consult Reason/Comments: pneumonia Do you want consulting provider notified?: Yes 05/21/20 07:55 Consult Physician Urgent Consulting Provider: Manasa Wells Consult Reason/Comments: Hemodialysis orders Do you want consulting provider notified?: Yes 05/23/20 10:47 Consult Physician Routine Consulting Provider: Contreras Quan Consult Reason/Comments: compatency Do you want consulting provider notified?: Yes Primary care physician: Nestor Neal MD Hospital Course: Patient is a 60-year-old female with a history of end-stage renal disease on hemodialysis Tuesday/Tuesday/Tuesday, chronic hypoxic respiratory failure on home O2, recent admission in March 2020 secondary to right-sided pneumonia/empyema with pigtail catheter and recurrent TPA infusions, diabetes, hypertension, and dyslipidemia who presented to the emergency department with complaints of shortness of breath. On arrival to the ER she was febrile with a temperature of 102.4, pulse 114, respiratory rate 26, and blood pressure 179/103. She is satting 98% on 4 L nasal cannula. Initial laboratory analysis showed white blood cell count of 13.7, hemoglobin 8.1 which is her baseline, sodium 131, BUN 21, creatinine 2.73, lactic acid 0.88, troponin 0.061, BNP 65,300. Chest x-ray showed right-sided pleural effusion with possible pneumonia or atelectasis. She was diagnosed with pneumonia with sepsis. She received IV fluids, vancomycin, Zithromax, and cefepime. Arrangements were made for admission. The morning after admission she was noted to have an increased white blood cell count at 14.2. She did not have any recurrent febrile episodes. She had undergone a CT of the chest which demonstrated right lower lobe pneumonia with filling of the distal right mainstem bronchus. Dr. Dietrich was consulted for pneumonia. Dr. Wells was consulted for hemodialysis. It was noted that the patient has had a significant amount of weight loss, reported choking episodes at home, patient with swallowing difficulty this AM. She was seen by speech and underwent modified barium swallow study which was normal. Her WBC count improved on vanco and cefepime. Her pneumonia was improving. Her fluid status was optimized and she was determined stable for discharge. She was determined not to have decision making capacity. Her does have POA paper and will be making decision for her going forward. Decision was made to discharge her patient to subacute rehab. She will complete her course of antibiotic with augmentin for an additional 7 days. Patient was seen and examined. No acute events overnight. Patient more awake today. She denies any chest pain, shortness of breath or palpitations. No nausea or vomiting. No fever or chills. General: [non toxic], [no distress], [appears at stated age] Derm: [warm], [dry] Head: [atraumatic], [normocephalic], [symmetric], temporal wasting Eyes: [EOMI], [no lid lag], [anicteric sclera] Mouth: [no lip lesion], [mucus membranes moist] Cardiovascular: [S1S2 reg], [tachycardic], [positive DP pulse bilateral], Lungs: [Decreased breath sounds bilateral], [no rhonchi, no rales] , [no accessory muscle use] Abdominal: [soft], [ nontender to palpation], [no guarding], [no appreciable organomegaly] Ext: [ gross muscle atrophy], [no edema], [no contractures] Neuro: [no focal neuro deficits] Psych: [Alert], [oriented], [appropriate affect] Pneumonia with sepsis present on admission, concern for aspiration - Unasyn for concerns of aspiration pneumonia, complete 7 days of Augmentin on discharge - Patient refused COVID19 testing but clinically doubt diagnoses - CT with right sided PNA and filling of the right mainstem bronchus - Pulmonary recs appreciated - Pulmonary hygiene - Attempt to wean oxygen - Obtain Echocardiogram (obtained for baseline to be followed up with PCP) Acute on chronic hypoxic respiratory failure - Treatment as above - Wean oxygen as able Cachexia with BMI 16.7, severe protein calorie malnutrition - Dietitian recs Diabetes mellitus type 2 - Hemoglobin A1c 4.8 05/15/20 - Not currently on medications at home - Monitor sugars through a.m. basic metabolic profile - Start sliding scale if warranted End-stage renal disease on hemodialysis Tuesday, Wednesdays, and Tuesday, bone mineral disease, chronic anemia secondary to end-stage renal disease - Nephro recs - HD per nephro - Continue with Savelamer - Follow weight closely monitor signs for overloaded - Continue with Lasix Hypertension, urgency on arrival, improved - hydralazine, nifedipine, Lasix - Follow blood pressures Dyslipidemia - Statin therapy Hypothyroidism - Synthroid Chronic inflammatory demyelinating polyneuritis - hx of IVIG Dysphagia ruled out [Psych states patient does not have decision making capacity. Anticipate DC when approved by insurance for [facility]. Anticipate DC home today. This complex DC took about 35 minutes to complete. Discussed with medical social worker and case management.] Pertinent Studies: Video swallow, CXR, Chest CT Patient Condition at Discharge: Stable Plan - Discharge Summary Discharge Rx Participant: Yes New Discharge Prescriptions: New Amoxic-Pot Clav 500-125 mg [Augmentin 500-125 mg] 1 tab PO DAILY #7 tab guaiFENesin [Mucinex] 600 mg PO Q12HR tablet.er Continue Budesonide-Formot 160-4.5 Mcg [Symbicort 160-4.5 Mcg Inhaler] 2 puff INHALATION RT-BID@0800,2000 Levothyroxine Sodium [Synthroid] 200 mcg PO DAILY@0600 Montelukast Sodium [Singulair] 10 mg PO HS@2000 NIFEdipine [NIFEdipine ER] 30 mg PO DAILY@0800 Acetaminophen Tab [Tylenol] 650 mg PO Q6H PRN PRN Reason: Pain Ondansetron [Zofran] 4 mg PO Q6H PRN PRN Reason: Nausea Albuterol Sulfate [Ventolin HFA] 2 puff INHALATION RT-Q4H PRN PRN Reason: Shortness Of Breath EPINEPHrine (Auto Inject) [Epipen] 0.3 mg IM ONCE PRN PRN Reason: Anaphylaxis sevelamer HCL [Sevelamer HCl] 1,600 mg PO TID@0830,1230,1730 Ipratropium-Albuterol Nebulize [Duoneb 0.5 mg-3 mg/3 ml Soln] 3 ml INHALATION RT-QID ml Furosemide [Lasix] 40 mg PO BID #60 tablet hydrALAZINE HCL [Apresoline] 25 mg PO TID #30 tab Atorvastatin [Lipitor] 40 mg PO DAILY #30 tab Loperamide [Imodium] 2 mg PO QID PRN #1 cap PRN Reason: Diarrhea Discharge Medication List Acetaminophen Tab [Tylenol] 650 mg PO Q6H PRN 03/31/20 [History] Albuterol Sulfate [Ventolin HFA] 2 puff INHALATION RT-Q4H PRN 03/31/20 [History] Budesonide-Formot 160-4.5 Mcg [Symbicort 160-4.5 Mcg Inhaler] 2 puff INHALATION RT-BID@799,199903/31/20 [History] EPINEPHrine (Auto Inject) [Epipen] 0.3 mg IM ONCE PRN 03/31/20 [History] Levothyroxine Sodium [Synthroid] 200 mcg PO DAILY@0603/31/20 [History] Montelukast Sodium [Singulair] 10 mg PO HS@199903/31/20 [History] NIFEdipine [NIFEdipine ER] 30 mg PO DAILY@79903/31/20 [History] Ondansetron [Zofran] 4 mg PO Q6H PRN 03/31/20 [History] sevelamer HCL [Sevelamer HCl] 1,600 mg PO TID@0830,1230,1730 03/31/20 [History] Furosemide [Lasix] 40 mg PO BID #60 tablet 04/10/20 [Rx] Ipratropium-Albuterol Nebulize [Duoneb 0.5 mg-3 mg/3 ml Soln] 3 ml INHALATION RT-QID ml 04/10/20 [Rx] Atorvastatin [Lipitor] 40 mg PO DAILY #30 tab 05/15/20 [Rx] Loperamide [Imodium] 2 mg PO QID PRN #1 cap 05/15/20 [Rx] hydrALAZINE HCL [Apresoline] 25 mg PO TID #30 tab 05/15/20 [Rx] Amoxic-Pot Clav 500-125 mg [Augmentin 500-125 mg] 1 tab PO DAILY #7 tab 05/23/20 [Rx] guaiFENesin [Mucinex] 600 mg PO Q12HR tablet.er 05/23/20 [Rx] Follow up Appointment(s)/Referral(s): Manasa Wells MD [STAFF PHYSICIAN] - 1 Week Sundar Moore [STAFF PHYSICIAN] - Activity/Diet/Wound Care/Special Instructions: Activity: as tolerated Diet: renal diet Follow-up PCP within 3 days of discharge. Follow-up with nephrology within 1 week of discharge. Resume dialysis as per home schedule. Take all medications as advised. Discharge Disposition: TRANSFER TO SNF/ECF
[2020-05-26] MEDS: AMPICILLIN-SULBACTAM 3 GM in SODIUM CHLORIDE 0.9% 100 ML IVPB SCH (12:12)
[2020-05-26 12:20] LABS: Glucose,Whole Blood 144 mg/dL (75-99)
--- NOTE | 2020-05-26 12:21 | ECHOF ---
Referral Reason:murmur, history of CHF MEASUREMENTS -------- HEIGHT: 157.5 cm WEIGHT: 40.4 kg BP: RVIDd: 2.9 cm (< 3.3) IVSd: 1.4 cm (0.6 - 1.1) LVIDd: 4.2 cm (3.9 - 5.3) LVPWd: 1.4 cm (0.6 - 1.1) IVSs: 1.8 cm LVIDs: 2.9 cm LVPWs: 1.4 cm LAESV Index (A-L): 45.25 ml/m Ao Diam: 2.4 cm (2.0 - 3.7) AV Cusp: 1.3 cm (1.5 - 2.6) LA Diam: 3.2 cm (2.7 - 3.8) MV EXCURSION: 13.341 mm (> 18.000) MV EF SLOPE: 96 mm/s (70 - 150) EPSS: 0.7 cm MV E Sammy: 1.34 m/s MV DecT: 253 ms MV A Sammy: 1.20 m/s MV E/A Ratio: 1.12 AV maxP.45 mmHg AV meanP.86 mmHg RAP: 5.00 mmHg RVSP: 37.13 mmHg FINDINGS -------- This was a technically good study. The left ventricular size is normal. There is moderate concentric left ventricular hypertrophy. O verall left ventricular systolic function is normal with, an EF between 55 - 60 %. Increased LAP Gr zaira 2 Diastolic Dysfunction. The right ventricle is normal in size. LA is severely dilated >40 ml/m2 The right atrial size is normal. Interatrial and interventricular septum intact. Aortic valve is trileaflet and is mildly thickened. There is mild aortic stenosis present. Peak/m trae gradient across the Aortic Valve is 19.45mmHg / 10.86mmHg. The mitral valve is normal. The mitral valve leaflets are mildly thickened. Mild mitral regurgita tion is present. The tricuspid valve appears structurally normal. Mild tricuspid regurgitation present. There is m ild pulmonary hypertension. The right ventricular systolic pressure, as measured by Doppler, is 37. 13mmHg. There is no pulmonic regurgitation present. The aortic root size is normal. Normal inferior vena cava with normal inspiratory collapse consistent with estimated right atrial pre ssure of 5 mmHg. There is no pericardial effusion. CONCLUSIONS -------- 1. The left ventricular size is normal. 2. There is moderate concentric left ventricular hypertrophy. 3. Overall left ventricular systolic function is normal with, an EF between 55 - 60 %. 4. Increased LAP Grade 2 Diastolic Dysfunction. 5. LA is severely dilated >40 ml/m2 6. Aortic valve is trileaflet and is mildly thickened. 7. There is mild aortic stenosis present. 8. Peak/mean gradient across the Aortic Valve is 19.45mmHg / 10.86mmHg. 9. The mitral valve leaflets are mildly thickened. 10. Mild mitral regurgitation is present. 11. Mild tricuspid regurgitation present. 12. There is mild pulmonary hypertension. 13. The right ventricular systolic pressure, as measured by Doppler, is 37.13mmHg. 14. There is no pericardial effusion. SENIOR PRODUCT MARKETING MANAGER: Smitha Day RDCS
--- NOTE | 2020-05-26 15:50 | P.PN ---
Subjective Progress Note Date: 05/26/20 Principal diagnosis: Shortness of breath secondary to fluid volume overload, right pleural effusion On 05/26/2020 patient seen in follow-up on medical surgical floor. Resting com fortably, in no acute distress. She is on 1 L of oxygen her pulse ox is 94%, hemodynamically stable, she denies any chest pain, no cough or congestion, she is awaiting to be dialyzed again today. Denies any worsening dyspnea, today's chest x-ray has been reviewed showing airspace disease in the right lower lobe greater on the right than the left. Mediastinal adenopathy. Patient is currently on Unasyn for antibiotic coverage, she's had no fever or chills, vital signs stable. No altered mentation, room air pulse ox 94%. Blood cultures have shown no growth. Today's labs have been reviewed, shows a little, 13.8, hemoglobin is 8.1, electrolytes are within normal limits BUN was 26 creatinine is 4.8. Echocardiogram showed EF of 55-60%, mild mitral regurg, mild tricuspid regurg, and PA pressure of 37.2 mmHg. Objective - Vital Signs Vital signs: Vital Signs Temp 97.7 F 05/26/20 08:15 Pulse 89 05/26/20 08:54 Resp 16 05/26/20 08:15 BP 166/80 05/26/20 08:15 Pulse Ox 94 L 05/26/20 08:15 Intake & Output 05/25/20 05/26/20 05/26/20 18:59 06:59 18:59 Intake Total 245 500 Output Total 2 2 Balance 243 -2 500 Weight 40.5 kg Intake: Intake, IV Titration 100 250 Amount Ampicillin-Sulbactam 3 gm 100 In Sodium Chloride 0.9% 100 ml @ 200 mls/hr IVPB Q12H [facility] Rx#:[id number] Dextrose 5%-0.9% NaCl 1, 250 000 ml @ 50 mls/hr IV . Q20H [facility] Rx#:[id number] Oral 145 250 Output: Stool 2 2 Other: Voiding Method Bedpan Bedpan Bedpan Diaper Diaper Diaper # Voids 1 1 # Bowel Movements 1 2 - Exam GENERAL EXAM: Alert, very pleasant, 60-year-old white female, on room air with a pulse ox of 94% comfortable in no apparent distress. HEAD: Normocephalic/atraumatic. EYES: Normal reaction of pupils, equal size. Conjunctiva pink, sclera white. NOSE: Clear with pink turbinates. THROAT: No erythema or exudates. NECK: No masses, no JVD, no thyroid enlargement, no adenopathy. CHEST: No chest wall deformity. Symmetrical expansion. LUNGS: Equal air entry with no crackles, wheeze, rhonchi or dullness. CVS: Regular rate and rhythm, normal S1 and S2, no gallops, no murmurs, no rubs ABDOMEN: Soft, nontender. No hepatosplenomegaly, normal bowel sounds, no gu arding or rigidity. EXTREMITIES: No clubbing, no edema, no cyanosis, 2+ pulses and upper and lower e xtremities. Left arm AV shunt with positive bruit and thrill MUSCULOSKELETAL: Muscle strength and tone normal. SPINE: No scoliosis or deformity SKIN: No rashes CENTRAL NERVOUS SYSTEM: Alert and oriented -3. No focal deficits, tone is normal in all 4 extremities. PSYCHIATRIC: Alert and oriented -3. Appropriate affect. Intact judgment and insight. - Labs CBC & Chem 7: 05/26/20 06:43 05/26/20 06:43 Labs: Abnormal Lab Results - Last 24 Hours (Table) 05/25/20 05/26/20 05/26/20 Range/Units 18:07 00:00 06:05 WBC (3.8-10.6) k/uL RBC (3.80-5.40) m/uL Hgb (11.4-16.0) gm/dL Hct (34.0-46.0) % MCHC (31.0-37.0) g/dL RDW (11.5-15.5) % Neutrophils # (1.3-7.7) k/uL BUN (7-17) mg/dL Creatinine (0.52-1.04) mg/dL Glucose (74-99) mg/dL POC Glucose (mg/dL) 67 L 163 H 143 H (75-99) mg/dL 05/26/20 05/26/20 05/26/20 Range/Units 06:43 06:43 12:18 WBC 13.8 H (3.8-10.6) k/uL RBC 2.82 L (3.80-5.40) m/uL Hgb 8.1 L (11.4-16.0) gm/dL Hct 26.8 L (34.0-46.0) % MCHC 30.1 L (31.0-37.0) g/dL RDW 17.8 H (11.5-15.5) % Neutrophils # 10.7 H (1.3-7.7) k/uL BUN 26 H (7-17) mg/dL Creatinine 4.87 H (0.52-1.04) mg/dL Glucose 134 H (74-99) mg/dL POC Glucose (mg/dL) 144 H (75-99) mg/dL Microbiology - Last 24 Hours (Table) 05/20/20 10:05 Blood Culture - Final Blood No Growth after 144 hours Assessment and Plan Plan: Assessment: 1 Acute on chronic hypoxemic respiratory failure secondary to an acute exacerbation of underlying mild persistent chronic bronchial asthma, fluid volume overload, chronic changes in the right lower lung, right-sided pleural effusion. 2 End stage renal disease currently receiving hemodialysis Tuesday 3 History of chronic bronchial asthma 4 Recent episode of pneumonia site/right-sided empyema status post pigtail catheter placement 5 History of congestive heart failure 6 Diabetes mellitus 7 Hyperlipidemia 8 Hypertension 9 Hypothyroidism 10 Chronic hypoxemic respiratory failure 11 Overall functional performance based on the above-mentioned multiple comorbidities. Plan: Clinically patient has remained stable, she's had no fever or chills, no cough or congestion, no hemoptysis, today's chest x-ray has been reviewed, showing airspace disease in the right lower lobe and left lower lobe, patient remains on Unasyn, ID service is following, continue with diuretics, continue hemodialysis as scheduled, no acute events overnight. Patient is insisting on going home instead of ECF. Would like to see the patient in follow-up in the office in 7- 10 days I performed a history & physical examination of the patient and discussed their management with my nurse practitioner, Teresa Ortiz. I reviewed the nurse practitioner's note and agree with the documented findings and plan of care. Lung sounds are positive for diffuse wheezes throughout the lung raza. The findings and the impression was discussed with the patient. I attest to the documentation by the nurse practitioner. Time with Patient: Less than 30
[2020-05-26 16:18] VITALS: TEMP 96.4
[2020-05-26 17:23] VITALS: BP 154/82; PULSE 93
[2020-05-26 17:42] LABS: Glucose,Whole Blood 100 mg/dL (75-99)
[2020-05-26] MEDS ORDERED: AMPICILLIN-SULBACTAM 3 GM in SODIUM CHLORIDE 0.9% 100 ML IVPB SCH (23:00)
== END 2020-05-26 17:37 | DRG 871 ==
LOC: EC 09:27 → 4SSUR 11:55 → 3SCARD 12:25 → OBSVTOIN 18:28 → 3SCARD 20:53 → 3NCARDOBS 21:16 → 3SCARD 21:16
PROVIDERS: ADMIT Internal Medicine; ATTEND Internal Medicine
PROC: 05HY33Z Insertion of Infusion Device into Upper Vein, Percutaneous Approach (ICD-10-PCS; 2020-05-21)
PROC: 5A1D70Z Performance of Urinary Filtration, Intermittent, Less than 6 Hours Per Day (ICD-10-PCS; principal; 2020-05-21 13:00)
PROC: 05HB33Z Insertion of Infusion Device into Right Basilic Vein, Percutaneous Approach (ICD-10-PCS; 2020-05-22 15:45)
DX: A41.9 Sepsis, unspecified organism (principal); E43 Unspecified severe protein-calorie malnutrition; J69.0 Pneumonitis due to inhalation of food and vomit; J96.21 Acute and chronic respiratory failure with hypoxia; N18.6 End stage renal disease; G61.81 Chronic inflammatory demyelinating polyneuritis; I13.2 Hypertensive heart and chronic kidney disease with heart failure and with stage 5 chronic kidney disease, or end stage renal disease; J45.31 Mild persistent asthma with (acute) exacerbation; R64 Cachexia; D63.1 Anemia in chronic kidney disease; E03.9 Hypothyroidism, unspecified; E11.22 Type 2 diabetes mellitus with diabetic chronic kidney disease; E78.5 Hyperlipidemia, unspecified; E87.5 Hyperkalemia; I08.1 Rheumatic disorders of both mitral and tricuspid valves; I50.9 Heart failure, unspecified; J44.9 Chronic obstructive pulmonary disease, unspecified; E11.649 Type 2 diabetes mellitus with hypoglycemia without coma; M81.0 Age-related osteoporosis without current pathological fracture; E83.9 Disorder of mineral metabolism, unspecified; Z79.51 Long term (current) use of inhaled steroids; F43.20 Adjustment disorder, unspecified; I16.0 Hypertensive urgency; K59.09 Other constipation; Z87.01 Personal history of pneumonia (recurrent); Z99.81 Dependence on supplemental oxygen; R29.6 Repeated falls; Z91.81 History of falling; Z74.2 Need for assistance at home and no other household member able to render care; Z79.890 Hormone replacement therapy; Z79.899 Other long term (current) drug therapy; Z90.49 Acquired absence of other specified parts of digestive tract; Z90.710 Acquired absence of both cervix and uterus; Z99.2 Dependence on renal dialysis; Z53.29 Procedure and treatment not carried out because of patient's decision for other reasons
CPT/HCPCS: 36410; 36415; 71045; 71046; 71250; 74230; 76937; 80048; 80053; 80202; 83605; 83735; 83880; 84100; 84484; 85025; 85027; 85610; 85730; 86140; 87040; 90935; 93005; 93306; 94640; 96361; 96365; 96366; 96367; 96375; 99285

== ENCOUNTER 2020-06-06 22:13 | Inpatient (IN) | payer BC ==
--- NOTE | 2020-06-06 22:52 | XR ---
EXAMINATION TYPE: XR chest 2V DATE OF EXAM: 06/06/2020 COMPARISON: 05/26/2020 HISTORY: Short of breath TECHNIQUE: 2 views FINDINGS: Heart is enlarged. There is some pulmonary vascular congestion. There is moderate right ple ural effusion and right lower lobe airspace infiltrate. There are chest leads. The bony thorax is int act. IMPRESSION: Congestive heart failure with increasing right pleural effusion and right lower lobe infi ltrate compared to recent exam.
[2020-06-06 23:29] LABS: Anisocytosis Slight; Basophils % (A) 0 %; Eosinophils # (A) 0.1 k/uL (0-0.7); Eosinophils % (A) 0 %; HGB 8.2 gm/dL (11.4-16.0); Hypochromasia Marked; Lymphocytes # (A) 1.5 k/uL (1.0-4.8); Lymphocytes % (A) 9 %; MCH 29.9 pg (25.0-35.0); MCHC 30.5 g/dL (31.0-37.0); Macrocytosis Slight; Mean Platelet Volume 7.6; Monocytes % (A) 6 %; Neutrophils # (A) 13.6 k/uL (1.3-7.7); Neutrophils % (A) 83 %; Platelet Count 287 k/uL (150-450); RBC 2.75 m/uL (3.80-5.40); RDW 19.1 % (11.5-15.5); WBC 16.4 k/uL (3.8-10.6)
[2020-06-06 23:40] LABS: INR 1.1 (<1.2); Partial Thromboplastin Time 24.7 sec (22.0-30.0); Prothrombin Time 11.2 sec (9.0-12.0)
[2020-06-06 23:44] LABS: Potassium 4.3 mmol/L (3.5-5.1); Total Bilirubin 0.7 mg/dL (0.2-1.3)
[2020-06-07] MEDS ORDERED: ALBUTEROL NEBULIZED 2.5 MG/3 ML INHALATION STA (00:29)
[2020-06-07] MEDS ORDERED: NITROGLYCERIN OINT 1 INCH/GM PACKET TOPICAL STA (00:45)
[2020-06-07] MEDS ORDERED: IPRATROPIUM-ALBUTEROL 3 ML NEB INHALATION PRN (00:56)
[2020-06-07] MEDS ORDERED: PNEUMONIA PROTOCOL UTILIZED 1 EACH MISC PO PRN (00:56)
[2020-06-07] MEDS ORDERED: ONDANSETRON 4 MG TAB PO PRN (01:03)
[2020-06-07] MEDS ORDERED: LOPERAMIDE 2 MG CAP PO PRN (01:03)
[2020-06-07] MEDS ORDERED: ACETAMINOPHEN TAB 325 MG TAB PO PRN (01:03)
[2020-06-07] MEDS: LEVOTHYROXINE 100 MCG TAB PO SCH (06:40)
[2020-06-07] MEDS: SYMBICORT 160-4.5 MCG INHALER INHALATION SCH ×2 (08:01→20:36)
[2020-06-07] MEDS: ATORVASTATIN 40 MG TAB PO SCH (08:32)
[2020-06-07] MEDS: hydrALAZINE HCL 25 MG TAB PO SCH ×3 (08:32→20:58)
[2020-06-07] MEDS: FUROSEMIDE 40 MG TAB PO SCH ×2 (08:32→20:58)
[2020-06-07] MEDS: SEVELAMER 800 MG TAB PO SCH ×3 (08:32→16:18)
[2020-06-07] MEDS: PIPERACILLIN-TAZOBACTAM 3.375 GM in SODIUM CHLORIDE 0.9% 100 ML IVPB SCH ×2 (08:32→16:20)
[2020-06-07] MEDS: NIFEdipine XL 30 MG TAB.ER.24 PO SCH (08:32)
[2020-06-07] MEDS: IPRATROPIUM-ALBUTEROL 3 ML NEB INHALATION SCH ×3 (11:22→20:36)
--- NOTE | 2020-06-07 13:47 | P.CNPUL ---
History of Present Illness Consult date: 06/07/20 Requesting physician: Klaus Ornelas Reason for consult: dyspnea (Increasing right-sided pleural effusion), abnormal CXR/CT Chief complaint: Shortness of breath, cough, congestion History of present illness: This is a 60-year-old female patient who follows with Dr. Morillo as her primary care provider. She has a history of chronic hypoxemic respiratory failure secondary to chronic persistent bronchial asthma, chronic right lower lobe changes, recurrent right pleural effusion and empyema requiring pigtail placement and subsequent removal. She has end-stage renal disease receiving hemodialysis Tuesday. She also has a history of congestive heart failure, diabetes Uriel, hyperlipidemia, hypertension, hypothyroidism. She had recently been discharged from here on 05/26/2020 to [facility] for inpatient rehabilitation. A chest x-ray yesterday revealed increasing right-sided pleural effusion and she was transferred back here for the same. She is seen today in consultation on the selective care unit. She is currently resting in bed. Awake and alert in no acute distress. She is maintaining O2 saturations in the mid 90s on 2 L/m per nasal cannula. She's been afebrile. Hemodynamically stable. White count 16.4. Hemoglobin 8.2. Sodium 137. Potassium 4.3. Creatinine 1.82. Troponin 0.247, 0.292. ProBNP 120,000. Pro- calcitonin 2.22. Chest x-ray reveals evidence of congestive heart failure with increasing right-sided pleural effusion and right lower lobe infiltrate compared to previous of 05/26/2020. Echocardiogram reveals preserved left ventricular systolic function with ejection fraction 55-60%. She has been initiated and DuoNeb inhalations, Symbicort, oral diuretics, azithromycin and Zosyn. Ultrasound of the chest is pending. Review of Systems REVIEW OF SYSTEMS: CONSTITUTIONAL: Denies any recent significant weight loss or weight gain. EYES: Denies change in vision. EARS, NOSE, MOUTH, THROAT: Denies headaches, denies sore throat. CARDIOVASCULAR: Denies chest pain, palpitations or syncopal episodes. RESPIRATORY: Positive for shortness of breath, no cough, congestion or hemoptysis. GASTROINTESTINAL: Denies change in appetite, denies abdominal pain GENITOURINARY: Denies hematuria, denies infections. MUSKULOSKELETAL: Denies pain, denies swelling. INTEGUMENTARY: Denies rash, denies eczema. NEUROLOGICAL: Denies recent memory loss, no recent seizure activity. PSYCHIATRIC: Denies anxiety, denies depression. HEMATOLOGIC/LYMPHATIC: Denies anemia, denies enlarged lymph nodes. Past Medical History Past Medical History: Asthma, Heart Failure, Diabetes Mellitus, Hyperlipidemia, Hypertension, Pneumonia, Renal Disease, Thyroid Disorder Additional Past Medical History / Comment(s): Pt admitted to [facility] on 04/10/20 with sepsis, acute on chronic respiratory failure/sepsis r/t pneumonia, R side pneumonia/empyema/R sided pleural effusion/chest tube with small pneumo. Other hx: NIDDM type II-no rx since wt loss, ESRD with hemodialysis M/W/F, mineral bone disease, normocytic anemia, chronic respiratory failure/home oxygen at 2L/NC ATC, chronic inflammatory demyelination polyneuritis with injections weekly, past IVIG infusions, hypothyroid. History of Any Multi-Drug Resistant Organisms: None Reported Past Surgical History: Appendectomy, Hysterectomy Additional Past Surgical History / Comment(s): 04/03/20 bronchoscopy, dialysis port Past Anesthesia/Blood Transfusion Reactions: No Reported Reaction Past Psychological History: No Psychological Hx Reported Additional Psychological History / Comment(s): Pt resides with her spouse. She was released from [facility] 4 days ago. Home care had to be switched to [facility] to cover weekly injections. Nona scheduled to come this , 05/15/20. Pt able to stand/pivot to wheelchair/toilet. She has home oxygen/nebulizer and glucometer. Smoking Status: Never smoker Past Alcohol Use History: None Reported Past Drug Use History: None Reported - Past Family History Mother Family Medical History: Unable to Obtain Additional Family Medical History / Comment(s): Mother was wheelchair bound. Father Family Medical History: Unable to Obtain Additional Family Medical History / Comment(s): no reported hx Medications and Allergies Home Medications Medication Instructions Recorded Confirmed Type Acetaminophen Tab [Tylenol] 650 mg PO Q6H PRN 03/31/20 06/07/20 History Albuterol Sulfate [Ventolin HFA] 2 puff INHALATION RT-Q4H PRN 03/31/20 06/07/20 History Budesonide-Formot 160-4.5 Mcg 2 puff INHALATION RT-BID@0800,199903/31/20 06/07/20 History [Symbicort 160-4.5 Mcg Inhaler] EPINEPHrine (Auto Inject) [Epipen] 0.3 mg IM ONCE PRN 03/31/20 06/07/20 History Montelukast Sodium [Singulair] 10 mg PO HS@199903/31/20 06/07/20 History Ondansetron [Zofran] 4 mg PO Q6H PRN 03/31/20 06/07/20 History sevelamer HCL [Sevelamer HCl] 1,600 mg PO TID@0830,1230,1730 03/31/20 06/07/20 History Furosemide [Lasix] 40 mg PO BID #60 tablet 04/10/20 06/07/20 Rx Ipratropium-Albuterol Nebulize 3 ml INHALATION RT-QID ml 04/10/20 06/07/20 Rx [Duoneb 0.5 mg-3 mg/3 ml Soln] Atorvastatin [Lipitor] 40 mg PO DAILY #30 tab 05/15/20 06/07/20 Rx Loperamide [Imodium] 2 mg PO QID PRN #1 cap 05/15/20 06/07/20 Rx hydrALAZINE HCL [Apresoline] 25 mg PO TID #30 tab 05/15/20 06/07/20 Rx ALPRAZolam [Xanax] 0.25 mg PO Q8H PRN 06/07/20 06/07/20 History Levothyroxine Sodium 200 mcg PO DAILY@0600 06/07/20 06/07/20 History NIFEdipine [Procardia] 30 mg PO DAILY@0800 06/07/20 06/07/20 History predniSONE [Deltasone] 40 mg PO DAILY@1600 06/07/20 06/07/20 History Allergies Allergy/AdvReac Type Severity Reaction Status Date / Time No Known Allergies Allergy Verified 05/20/20 11:12 Physical Exam Vitals: Vital Signs Temp Pulse Pulse Resp BP BP Pulse Ox 06/07/20 12:00 98.4 F 103 H 17 101/53 96 06/07/20 11:32 108 H 06/07/20 11:22 112 H 06/07/20 08:15 104 H 06/07/20 08:01 104 H 06/07/20 08:00 97.4 F L 92 18 153/80 94 L 06/07/20 04:00 98.1 F 104 H 18 148/71 96 06/07/20 03:35 98.8 F 101 H 16 158/81 99 06/07/20 02:07 18 164/83 06/07/20 02:00 101 H 18 97 06/07/20 01:00 101 H 97 06/07/20 00:55 100 06/07/20 00:35 100 06/07/20 00:00 104 H 18 97 06/06/20 23:00 104 H 18 96 06/06/20 22:15 98.7 F 101 H 18 151/69 98 Intake and Output 06/06/20 06/07/20 06/07/20 22:59 06:59 14:59 Other: Voiding Method Bedpan Bedpan Diaper Diaper # Voids 1 Weight 45.359 kg 49.5 kg 49.5 kg GENERAL EXAM: Alert, 60-year-old female patient, appears older than stated age, on 2 L nasal cannula with O2 saturation 96%, comfortable in no apparent distress. HEAD: Normocephalic. EYES: Normal reaction of pupils, equal size. NOSE: Clear with pink turbinates. THROAT: No erythema or exudates. NECK: No masses, no JVD. CHEST: No chest wall deformity. LUNGS: Equal air entry with basilar crackles right greater than left, diminished CVS: S1 and S2 normal with no audible murmur, regular rhythm. ABDOMEN: No hepatosplenomegaly, normal bowel sounds, no guarding or rigidity. SPINE: No scoliosis or deformity SKIN: No rashes CENTRAL NERVOUS SYSTEM: No focal deficits, tone is normal in all 4 extremities. EXTREMITIES: Left upper extremity AV fistula. There is trace peripheral edema. No clubbing, no cyanosis. Peripheral pulses are intact. Results - Laboratory Findings CBC and BMP: 06/06/20 23:18 06/06/20 23:18 PT/INR, D-dimer PT 11.2 sec (9.0-12.0) 06/06/20 23:18 INR 1.1 (<1.2) 06/06/20 23:18 Abnormal lab findings: Abnormal Labs 06/06/20 06/06/20 06/06/20 23:18 23:18 23:18 WBC 16.4 H RBC 2.75 L Hgb 8.2 L Hct 27.0 L MCHC 30.5 L RDW 19.1 H Neutrophils # 13.6 H Carbon Dioxide 34 H Creatinine 1.82 H Glucose 165 H Alkaline Phosphatase 154 H Troponin I 0.247 H* Total Protein 6.0 L Albumin 3.0 L Procalcitonin 06/06/20 06/07/20 23:18 09:05 WBC RBC Hgb Hct MCHC RDW Neutrophils # Carbon Dioxide Creatinine Glucose Alkaline Phosphatase Troponin I 0.292 H* Total Protein Albumin Procalcitonin 2.22 H - Diagnostic Findings Chest x-ray: image reviewed Assessment and Plan Assessment: 1 Acute on chronic hypoxemic respiratory failure secondary to fluid volume overload with increasing right-sided pleural effusion, diastolic congestive heart failure. 2 Recent episode of pneumonia/right-sided empyema status post pigtail catheter placement and subsequent removal 3 End stage renal disease currently receiving hemodialysis Tuesday 4 History of chronic bronchial asthma 5 History of diastolic congestive heart failure 6 Diabetes mellitus 7 Hyperlipidemia 8 Hypertension 9 Hypothyroidism 10 Chronic hypoxemic respiratory failure 11 Poor overall functional performance based on the above-mentioned multiple comorbidities. Plan: The patient was seen and evaluated by Dr. Stinson Chest x-ray and labs reviewed Obtain ultrasound of the right chest Continue diuretics and bronchodilators Continue antibiotics We will continue to follow and make further recommendations based on her clinical status I, the cosigning physician, performed a history & physical examination of the patient. Lungs sounds with basilar crackles right greater than left, diminished. Maintaining good O2 saturations in the 90s on 2 L/m per nasal cannula. I discussed the assessment and plan of care with my nurse practitioner, Myla Carrizales. I attest to the above note as dictated by her. Time with Patient: Greater than 30
--- NOTE | 2020-06-07 15:25 | US ---
EXAMINATION TYPE: US chest DATE OF EXAM: 06/07/2020 COMPARISON: X-ray 06/06/20; CT 05/20/20 CLINICAL HISTORY: Markings for thoracentesis by pulmonary staff. TECHNIQUE: Targeted ultrasound of the posterior lower bilateral hemithoraces EXAM MEASUREMENTS: No sizeable pocket fluid Right or Left Pulmonologists are able to review the images in the patient?s EMR. IMPRESSIONS: There is no evidence of any significant quantity of pleural fluid.
--- NOTE | 2020-06-07 16:06 | ECHOF ---
Referral Reason:lv function MEASUREMENTS -------- HEIGHT: 152.4 cm WEIGHT: 49.4 kg BP: 153/80 RAP: 15.00 mmHg RVSP: 51.44 mmHg FINDINGS -------- Sinus rhythm. Limited Study Overall left ventricular systolic function is normal with, an EF between 60 - 65 %. Mild mitral annular calcification present. Mild mitral regurgitation is present. Moderate tricuspid regurgitation present. There is moderate pulmonary hypertension. The right evelyn tricular systolic pressure, as measured by Doppler, is 51.44mmHg. Trace/mild (physiologic) pulmonic regurgitation. There is no pericardial effusion. CONCLUSIONS -------- 1. Limited Study 2. Overall left ventricular systolic function is normal with, an EF between 60 - 65 %. 3. Mild mitral annular calcification present. 4. Mild mitral regurgitation is present. 5. Moderate tricuspid regurgitation present. 6. There is moderate pulmonary hypertension. 7. The right ventricular systolic pressure, as measured by Doppler, is 51.44mmHg. 8. Trace/mild (physiologic) pulmonic regurgitation. 9. There is no pericardial effusion. SUPERVISOR PRODUCT INSPECTION: Juli Baig RDCS
[2020-06-07 17:24] LABS: Glucose,Whole Blood 180 mg/dL (75-99)
[2020-06-07 20:07] LABS: Glucose,Whole Blood 141 mg/dL (75-99)
[2020-06-07] MEDS: ALPRAZolam 0.25 MG TAB PO PRN (20:57)
[2020-06-07] MEDS: MONTELUKAST 10 MG TAB PO SCH (20:58)
--- NOTE | 2020-06-07 21:20 | P.HPIM ---
History of Present Illness H&P Date: 06/07/20 Chief Complaint: Cough History of presenting complaint: This is the patient was brought in from the [facility] to the ER. Patient was here in the hospital in March 2020 seconds to right-sided pneumonia empyema with a pigtail catheter in a current TPA infusions. Patient also received hemodialysis. Patient with having cough with some phlegm for 5 days. Rather congested. Does have some fever and chills. Patient had rehab. Appetite is not good. Wheezing. History of asthma. Nonsmoker. Tired and rundown. Braden colored sputum. Review of systems: GEN.: Tired decreased appetite some fever and chills EYES: None HEENT: None NECK: None RESPIRATORY: As above CARDIOVASCULAR: None GASTROINTESTINAL: None GENITOURINARY: None MUSCULOSKELETAL: Some joint pains LYMPHATICS: None HEMATOLOGICAL: None PSYCHIATRY: Anxious NEUROLOGICAL: None Past medical history to include: Asthma, CHF, diabetes, hyperlipidemia, hypertension, end-stage kidney disease hemodialysis Tuesday minimal bone disease chronic anemia home oxygen 2 L chronic inflammatory demyelinating polyneuritis hypothyroid Social history: At [facility]. . Nonsmoker Family history: Reviewed, noncontributory to presentation Physical examination: VITAL SIGNS: 98.7, 101, 18, 151/69, 98% on 3 L-upon presentation GENERAL: BMI 27.3, laying in bed, tired awake. EYES: [Pupils equal. Conjunctiva pale l. HEENT: External appearance of nose and ears normal, oral cavity grossly normal. NECK: JVD not raised; masses not palpable. HEART: First and second heart sounds are normal; no edema. LUNGS: Respiratory rate increased, diminished breath sounds some wheezing. ABDOMEN: Soft, nontender, liver spleen not palpable, no masses palpable. PSYCH: Alert and oriented x3; mood and affect anxiousl MUSCULAR skeletal: Loss of subcutaneous fat, bony prominences. NEUROLOGICAL: Cranial nerves grossly intact; no facial asymmetry, power and sensation grossly intact. LYMPHATICS: No lymph nodes palpable in the axilla and neck INVESTIGATIONS, reviewed in the clinical context: White count 13.4 hemoglobin 8.2 platelets 287 potassium 4.3 creatinine 1.8 to Troponin I 0.247, 0.292, albumin 3.0 pro-calcitonin 2.2 to EKG tracing personally reviewed by me-sinus rhythm, P pulmonale Chest x-ray film personally reviewed by [id number] infiltrate, not too different from the one on May 26 Previous testing: Creatinine 4.87 on May 26 Assessment: -Pneumonia, suspect gram-negative orgasm -Severe persistent asthma with acute exacerbation -Essential hypertension -Hyperlipidemia -Hypothyroid -Normocytic anemia-multifactorial including chronic kidney disease -Chronic hypoxic respiratory failure home oxygen 2 L -Chronic inflammatory demyelinating polyneuritis with weekly injections -Chronic kidney disease stage 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 No acute: Coronary syndrome Plan: Patient placed on DuoNeb, azithromycin, IV Zosyn, home medications resumed. Patient rather hefty dose of Synthroid given her body habitus. Recheck TSH. We to interpret that carefully in a acute setting. Consultation to pulmonary, cardiogenic, nephrology. Sputum for Gram stain and culture Past Medical History Past Medical History: Asthma, Heart Failure, Diabetes Mellitus, Hyperlipidemia, Hypertension, Pneumonia, Renal Disease, Thyroid Disorder Additional Past Medical History / Comment(s): Pt admitted to [facility] on 04/10/20 with sepsis, acute on chronic respiratory failure/sepsis r/t pneumonia, R side pneumonia/empyema/R sided pleural effusion/chest tube with small pneumo. Other hx: NIDDM type II-no rx since wt loss, ESRD with hemodialysis M/W/F, mineral bone disease, normocytic anemia, chronic respiratory failure/home oxygen at 2L/N C ATC, chronic inflammatory demyelination polyneuritis with injections weekly, past IVIG infusions, hypothyroid. History of Any Multi-Drug Resistant Organisms: None Reported Past Surgical History: Appendectomy, Hysterectomy Additional Past Surgical History / Comment(s): 04/03/20 bronchoscopy, dialysis port Past Anesthesia/Blood Transfusion Reactions: No Reported Reaction Past Psychological History: No Psychological Hx Reported Additional Psychological History / Comment(s): Pt resides with her spouse. She was released from [facility] 4 days ago. Home care had to be switched to [facility] to cover weekly injections. [facility] scheduled to come this , 05/15/20. Pt able to stand/pivot to wheelchair/toilet. She has home oxygen/nebulizer and glucometer. Smoking Status: Never smoker Past Alcohol Use History: None Reported Past Drug Use History: None Reported - Past Family History Mother Family Medical History: Unable to Obtain Additional Family Medical History / Comment(s): Mother was wheelchair bound. Father Family Medical History: Unable to Obtain Additional Family Medical History / Comment(s): no reported hx Medications and Allergies Home Medications Medication Instructions Recorded Confirmed Type Acetaminophen Tab [Tylenol] 650 mg PO Q6H PRN 03/31/20 06/07/20 History Albuterol Sulfate [Ventolin HFA] 2 puff INHALATION RT-Q4H PRN 03/31/20 06/07/20 History Budesonide-Formot 160-4.5 Mcg 2 puff INHALATION RT-BID@799,199903/31/20 06/07/20 History [Symbicort 160-4.5 Mcg Inhaler] EPINEPHrine (Auto Inject) [Epipen] 0.3 mg IM ONCE PRN 03/31/20 06/07/20 History Montelukast Sodium [Singulair] 10 mg PO HS@199903/31/20 06/07/20 History Ondansetron [Zofran] 4 mg PO Q6H PRN 03/31/20 06/07/20 History sevelamer HCL [Sevelamer HCl] 1,600 mg PO TID@0830,1230,1730 03/31/20 06/07/20 History Furosemide [Lasix] 40 mg PO BID #60 tablet 04/10/20 06/07/20 Rx Ipratropium-Albuterol Nebulize 3 ml INHALATION RT-QID ml 04/10/20 06/07/20 Rx [Duoneb 0.5 mg-3 mg/3 ml Soln] Atorvastatin [Lipitor] 40 mg PO DAILY #30 tab 05/15/20 06/07/20 Rx Loperamide [Imodium] 2 mg PO QID PRN #1 cap 05/15/20 06/07/20 Rx hydrALAZINE HCL [Apresoline] 25 mg PO TID #30 tab 05/15/20 06/07/20 Rx ALPRAZolam [Xanax] 0.25 mg PO Q8H PRN 06/07/20 06/07/20 History Levothyroxine Sodium 200 mcg PO DAILY@0600 06/07/20 06/07/20 History NIFEdipine [Procardia] 30 mg PO DAILY@0800 06/07/20 06/07/20 History predniSONE [Deltasone] 40 mg PO DAILY@1600 06/07/20 06/07/20 History Allergies Allergy/AdvReac Type Severity Reaction Status Date / Time No Known Allergies Allergy Verified 05/20/20 11:12 Physical Exam Vitals: Vital Signs Temp Pulse Pulse Resp BP BP Pulse Ox 06/07/20 08:15 104 H 06/07/20 08:01 104 H 06/07/20 08:00 97.4 F L 92 18 153/80 94 L 06/07/20 04:00 98.1 F 104 H 18 148/71 96 06/07/20 03:35 98.8 F 101 H 16 158/81 99 06/07/20 02:07 18 164/83 06/07/20 02:00 101 H 18 97 06/07/20 01:00 101 H 97 06/07/20 00:55 100 06/07/20 00:35 100 06/07/20 00:00 104 H 18 97 06/06/20 23:00 104 H 18 96 06/06/20 22:15 98.7 F 101 H 18 151/69 98 Intake and Output 06/06/20 06/07/20 06/07/20 22:59 06:59 14:59 Other: Voiding Method Bedpan Diaper Weight 45.359 kg 49.5 kg Results CBC & Chem 7: 06/06/20 23:18 06/06/20 23:18 Labs: Abnormal Lab Results - Last 24 Hours (Table) 06/06/20 06/06/20 06/06/20 Range/Units 23:18 23:18 23:18 WBC 16.4 H (3.8-10.6) k/uL RBC 2.75 L (3.80-5.40) m/uL Hgb 8.2 L (11.4-16.0) gm/dL Hct 27.0 L (34.0-46.0) % MCHC 30.5 L (31.0-37.0) g/dL RDW 19.1 H (11.5-15.5) % Neutrophils # 13.6 H (1.3-7.7) k/uL Carbon Dioxide 34 H (22-30) mmol/L Creatinine 1.82 H (0.52-1.04) mg/dL Glucose 165 H (74-99) mg/dL Alkaline Phosphatase 154 H (38-126) U/L Troponin I 0.247 H* (0.000-0.034) ng/mL Total Protein 6.0 L (6.3-8.2) g/dL Albumin 3.0 L (3.5-5.0) g/dL Procalcitonin (0.02-0.09) ng/mL 06/06/20 06/07/20 Range/Units 23:18 09:05 WBC (3.8-10.6) k/uL RBC (3.80-5.40) m/uL Hgb (11.4-16.0) gm/dL Hct (34.0-46.0) % MCHC (31.0-37.0) g/dL RDW (11.5-15.5) % Neutrophils # (1.3-7.7) k/uL Carbon Dioxide (22-30) mmol/L Creatinine (0.52-1.04) mg/dL Glucose (74-99) mg/dL Alkaline Phosphatase (38-126) U/L Troponin I 0.292 H* (0.000-0.034) ng/mL Total Protein (6.3-8.2) g/dL Albumin (3.5-5.0) g/dL Procalcitonin 2.22 H (0.02-0.09) ng/mL Thrombosis Risk Factor Assmnt - Choose All That Apply Each Factor Represents 1 point: Abnormal pulmonary function (COPD) Each Risk Factor Represents 2 Points: Age 61-74 years Other congenital or acquired thrombophilia - If yes, enter type in comment: No Thrombosis Risk Factor Assessment Total Risk Factor Score: 3 Thrombosis Risk Factor Assessment Level: Moderate Risk
[2020-06-08] MEDS: PIPERACILLIN-TAZOBACTAM 3.375 GM in SODIUM CHLORIDE 0.9% 100 ML IVPB SCH ×2 (00:37→10:34)
[2020-06-08] MEDS ORDERED: AZITHROMYCIN 500 MG in SODIUM CHLORIDE 0.9% 250 ML IVPB SCH (01:15)
[2020-06-08 06:14] LABS: Glucose,Whole Blood 83 mg/dL (75-99)
[2020-06-08] MEDS: LEVOTHYROXINE 100 MCG TAB PO SCH (06:23)
[2020-06-08] MEDS: SYMBICORT 160-4.5 MCG INHALER INHALATION SCH (07:45)
[2020-06-08] MEDS: IPRATROPIUM-ALBUTEROL 3 ML NEB INHALATION SCH ×4 (07:45→20:16)
--- NOTE | 2020-06-08 08:40 | XR ---
EXAMINATION TYPE: XR chest 2V DATE OF EXAM: 06/08/2020 COMPARISON: 06/06/2020 HISTORY: 60-year-old female pneumonia TECHNIQUE: AP and lateral views FINDINGS: Increasing now moderate to large right pleural effusion with adjacent atelectasis and/or consolidatio n. The right heart margin is obscured. Interstitial opacity within the left lung is increased. IMPRESSION: Increasing, now moderate to large right pleural effusion with adjacent atelectasis and/or consolidati on. Interstitial change on the left is increased, correlate for possible vascular congestion.
[2020-06-08] MEDS: SEVELAMER 800 MG TAB PO SCH ×3 (09:03→17:53)
[2020-06-08] MEDS: ATORVASTATIN 40 MG TAB PO SCH (09:04)
[2020-06-08] MEDS: hydrALAZINE HCL 25 MG TAB PO SCH ×3 (09:04→20:53)
[2020-06-08] MEDS: NIFEdipine XL 30 MG TAB.ER.24 PO SCH (09:04)
--- NOTE | 2020-06-08 09:42 | CT ---
EXAMINATION TYPE: CT chest wo con DATE OF EXAM: 06/08/2020 COMPARISON: 05/20/2020 HISTORY: 60 year-old female follow-up right lower lobe airspace disease. TECHNIQUE: Contiguous axial scanning of the chest without IV contrast. Coronal and sagittal reconstru ctions performed. CT DLP: 182.8 mGycm Automated exposure control for dose reduction was used. FINDINGS: Heart remains mildly enlarged without pericardial effusion. Scattered three-vessel coronary artery ca lcifications are present. Borderline ectatic ascending aorta 3.5 cm. Mild atherosclerotic arch calcifications. There may be fabian y directly following the left vertebral artery directly from the aortic arch. Mild generalized anasarca change. Lack of contrast limits assessment of the vascular and mediastinal/ hilar structures. There seems to be some underlying mediastinal lymphadenopathy measuring up to 1.3 c m in AP window and possibly measuring up to 1.5 cm right paratracheal region. Assessment limited due to lack of contrast. Small right-sided pleural effusion. Trace pleural effusion on the left. However, there is extensive, worsening airspace disease throughout most of the right lung sparing the anterior mid lung and right apex. Interval development of a rounded area within the periphery of the right midlung measuring 4.9 cm. No corresponding rounded area is seen on the patient's 05/20/2020 prior. Mass is considered less likely. Interstitial change with patchy groundglass throughout the remainder of the lungs. Continued but improving endobronchial opacification extending throughout the bronchus intermedius and more distal airways. Some of this shows improvement from prior. Visualized upper abdomen shows tiny calcified granulomas within the. Bones: No osseous destructive process. IMPRESSION: 1. RESIDUAL DEBRIS/ENDOBRONCHIAL MATERIAL THROUGHOUT THE BRONCHUS INTERMEDIUS AND MORE DISTAL RIGHT M IDDLE/RIGHT LOWER LOBE AIRWAYS THOUGH IMPROVING FROM 05/20/2020. 2. HOWEVER, THERE IS SEVERE AIRSPACE DISEASE/PNEUMONIA INVOLVING MOST OF THE RIGHT MID AND LOWER LUNG , WORSENED FROM 05/20/2020. 3. INTERVAL DEVELOPMENT OF A ROUNDED 4.9 CM AREA IN THE PERIPHERY OF THE RIGHT MIDLUNG. THIS FINDI NG IS NEW FROM 05/20/2020, IT IS LESS LIKELY FELT TO REPRESENT NEOPLASM. FOLLOW-UP RECOMMENDED TO EXCL UDE AN EARLY DEVELOPING ABSCESS. 4. ADDITIONAL AREAS OF INTERSTITIAL AND GROUNDGLASS OPACITY THROUGHOUT THE REMAINDER OF THE LUNGS WIT H CONTINUED SMALL RIGHT AND NEW TRACE LEFT EFFUSION AND GENERALIZED ANASARCA CHANGES. CORRELATE FOR S UPERIMPOSED CHF WITH MILD INTERSTITIAL PULMONARY EDEMA.
[2020-06-08 10:14] LABS: Glucose,Whole Blood 61 mg/dL (75-99)
[2020-06-08 10:30] LABS: Glucose,Whole Blood 60 mg/dL (75-99)
[2020-06-08 10:42] LABS: Glucose,Whole Blood 75 mg/dL (75-99)
[2020-06-08 11:27] LABS: T4, Free (Free Thyroxine) 2.18 ng/dL (0.78-2.19)
--- NOTE | 2020-06-08 11:29 | P.NPCON ---
History of Present Illness - Reason for Consult Consult date: 06/08/20 end stage renal disease - Chief Complaint Shortness of breath - History of Present Illness This is a 60-year-old female known to us with ESRD on dialysis Tuesday. She is diabetic and she was admitted because of worsening shortness of breath and cough. She has right pleural effusion, empyema and has had effusion tab as well as had a catheter that was placed and then subsequently removed She denies any fever chills. No nausea vomiting with poor appetite since lost about 50 pounds over the last few months. Should been on dialysis for approximately 1 year In the past she's had admission for respiratory failure and pneumonia empyema and has had bronchoscopy. A computed tomography scan and chest x-ray shows worsening Past Medical History Past Medical History: Asthma, Heart Failure, Diabetes Mellitus, Hyperlipidemia, Hypertension, Pneumonia, Renal Disease, Thyroid Disorder Additional Past Medical History / Comment(s): Pt admitted to [facility] on 04/10/20 with sepsis, acute on chronic respiratory failure/sepsis r/t pneumonia, R side pneumonia/empyema/R sided pleural effusion/chest tube with small pneumo. Other hx: NIDDM type II-no rx since wt loss, ESRD with hemodialysis M/W/F, mineral bone disease, normocytic anemia, chronic respiratory failure/home oxygen at 2L/[place] ATC, chronic inflammatory demyelination polyneuritis with injections weekly, past IVIG infusions, hypothyroid. History of Any Multi-Drug Resistant Organisms: None Reported Past Surgical History: Appendectomy, Hysterectomy Additional Past Surgical History / Comment(s): 04/03/20 bronchoscopy, dialysis port Past Anesthesia/Blood Transfusion Reactions: No Reported Reaction Past Psychological History: No Psychological Hx Reported Additional Psychological History / Comment(s): Pt resides with her spouse. She was released from [facility] 4 days ago. Home care had to be switched to [facility] to cover weekly injections. [facility] scheduled to come this , 05/15/20. Pt able to stand/pivot to wheelchair/toilet. She has home oxygen/nebulizer and glucometer. Smoking Status: Never smoker Past Alcohol Use History: None Reported Past Drug Use History: None Reported - Past Family History Mother Family Medical History: Unable to Obtain Additional Family Medical History / Comment(s): Mother was wheelchair bound. Father Family Medical History: Unable to Obtain Additional Family Medical History / Comment(s): no reported hx Medications and Allergies Home Medications Medication Instructions Recorded Confirmed Type Acetaminophen Tab [Tylenol] 650 mg PO Q6H PRN 03/31/20 06/07/20 History Albuterol Sulfate [Ventolin HFA] 2 puff INHALATION RT-Q4H PRN 03/31/20 06/07/20 History Budesonide-Formot 160-4.5 Mcg 2 puff INHALATION RT-BID@08,199903/31/20 06/07/20 History [Symbicort 160-4.5 Mcg Inhaler] EPINEPHrine (Auto Inject) [Epipen] 0.3 mg IM ONCE PRN 03/31/20 06/07/20 History Montelukast Sodium [Singulair] 10 mg PO HS@199903/31/20 06/07/20 History Ondansetron [Zofran] 4 mg PO Q6H PRN 03/31/20 06/07/20 History sevelamer HCL [Sevelamer HCl] 1,600 mg PO TID@0830,1230,1730 03/31/20 06/07/20 History Furosemide [Lasix] 40 mg PO BID #60 tablet 04/10/20 06/07/20 Rx Ipratropium-Albuterol Nebulize 3 ml INHALATION RT-QID ml 04/10/20 06/07/20 Rx [Duoneb 0.5 mg-3 mg/3 ml Soln] Atorvastatin [Lipitor] 40 mg PO DAILY #30 tab 05/15/20 06/07/20 Rx Loperamide [Imodium] 2 mg PO QID PRN #1 cap 05/15/20 06/07/20 Rx hydrALAZINE HCL [Apresoline] 25 mg PO TID #30 tab 05/15/20 06/07/20 Rx ALPRAZolam [Xanax] 0.25 mg PO Q8H PRN 06/07/20 06/07/20 History Levothyroxine Sodium 200 mcg PO DAILY@0600 06/07/20 06/07/20 History NIFEdipine [Procardia] 30 mg PO DAILY@0800 06/07/20 06/07/20 History predniSONE [Deltasone] 40 mg PO DAILY@1600 06/07/20 06/07/20 History Allergies Allergy/AdvReac Type Severity Reaction Status Date / Time No Known Allergies Allergy Verified 05/20/20 11:12 Physical Exam Vitals: Vital Signs Temp Pulse Pulse Resp BP Pulse Ox 06/08/20 10:28 98.2 F 100 18 175/79 06/08/20 07:57 96 06/08/20 07:45 92 06/08/20 05:02 98.1 F 91 18 141/66 99 06/07/20 23:31 98.9 F 97 16 163/67 98 06/07/20 20:56 99.2 F 96 18 160/76 96 06/07/20 20:37 100 06/07/20 16:16 100 06/07/20 16:07 100 06/07/20 16:00 98.2 F 96 16 136/71 96 06/07/20 12:00 98.4 F 103 H 17 101/53 96 06/07/20 11:32 108 H Intake and Output 06/07/20 06/08/20 06/08/20 22:59 06:59 14:59 Intake Total 200 350 Balance 200 350 Intake: Intake, IV Titration 350 Amount Azithromycin 500 mg In 250 Sodium Chloride 0.9% 250 ml @ 250 mls/hr IVPB DAILY@2100 [facility] Rx#: [id number] Piperacillin-Tazobactam 3 100 .375 gm In Sodium Chloride 0.9% 100 ml @ 25 mls/hr IVPB Q8HR [facility] Rx# :[id number] Oral 200 Other: Voiding Method Bedpan Bedpan Bedpan Diaper Diaper # Bowel Movements 1 Weight 49 kg Examination is awake alert oriented comfortable She is cachectic HEENT exam is unremarkable no JVD neck is supple no facial asymmetry Lungs are significant for bronchial breath sounds on the right side is fairly good air entry bilaterally Heart sounds are unremarkable for any murmur rub gallop Abdomen soft nontender Extremity exam was no edema Neurologically awake alert oriented Results - Lab Results Most recent lab results Calcium 9.0 mg/dL (8.4-10.2) 06/06/20 23:18 06/06/20 23:18 06/06/20 23:18 Assessment and Plan Assessment: Impression 1. ESRD on dialysis Tuesday with a fistula left upper arm 2. Admitted with worsening respiratory status with pneumonia, empyema and effusion on the right. Previously has had bronchoscopy and a pigtail catheter that was removed subsequently 3. History of diabetes 4. Cachexia. 5. [facility] resident 6. History of chronic inflammatory demyelination syndrome with past IV Ig infusions. 7. Anemia ESRD hemoglobin is 8.2 Recommendation 1. Will start her on a scheduled dialysis tomorrow. We'll take off 2-1/2 L based on a chest x-ray possibility of congestive heart failure 2. Rule out iron deficiency 3. Maintain calcium phosphorus hemoglobin. Thank you for this consultation and we'll continue to follow
[2020-06-08 11:55] LABS: Glucose,Whole Blood 169 mg/dL (75-99)
[2020-06-08] MEDS: guaiFENesin 600 MG TABLET.ER PO SCH ×2 (12:03→20:53)
--- NOTE | 2020-06-08 12:15 | P.PN ---
Subjective Progress Note Date: 06/08/20 Principal diagnosis: Acute on chronic hypoxemic respiratory failure secondary to increasing right- sided pleural effusion/atelectasis/consolidation This is a 60-year-old female patient who follows with Dr. Morillo as her primary care provider. She has a history of chronic hypoxemic respiratory failure secondary to chronic persistent bronchial asthma, chronic right lower lobe changes, recurrent right pleural effusion and empyema requiring pigtail placement and subsequent removal. She has end-stage renal disease receiving hemodialysis Tuesday. She also has a history of congestive heart failure, diabetes Uriel, hyperlipidemia, hypertension, hypothyroidism. She had recently been discharged from here on 05/26/2020 to [facility] for inpatient rehabilitation. A chest x-ray yesterday revealed increasing right-sided pleural effusion and she was transferred back here for the same. She is seen today in consultation on the selective care unit. She is currently resting in bed. Awake and alert in no acute distress. She is maintaining O2 saturations in the mid 90s on 2 L/m per nasal cannula. She's been afebrile. Hemodynamically stable. White count 16.4. Hemoglobin 8.2. Sodium 137. Potassium 4.3. Creatinine 1.82. Troponin 0.247, 0.292. ProBNP 120,000. Pro- calcitonin 2.22. Chest x-ray reveals evidence of congestive heart failure with increasing right-sided pleural effusion and right lower lobe infiltrate compared to previous of 05/26/2020. Echocardiogram reveals preserved left ventricular systolic function with ejection fraction 55-60%. She has been initiated and DuoNeb inhalations, Symbicort, oral diuretics, azithromycin and Zosyn. Ultrasound of the chest is pending. The patient is seen today 06/08/2020 in follow-up on the selective care unit. She is currently awake and alert in no acute distress. Resting fairly comfortably in bed. Continues with a loose nonproductive cough. She's been afebrile. Maintaining O2 saturations in the 90s on 2 L/m per nasal cannula. Blood cultures reveal no growth to date. Blood glucose 169. Ultrasound of the right chest revealed minimal free-flowing fluid. CAT scan of the chest revealed residual debris/endobronchial material throughout the bronchus intermedius and more distal right middle lobe/lower lobe though improved from 05/20/2020. There is however severest disease/pneumonia involving most of the right mid and lower lung, worsening from 05/20/2020. There is interval development of a rounded 4.9 cm area in the periphery of the right midlung. Less likely felt to be neoplasm. Possible early developing abscess. Additional areas of interstitial and groundglass opacity throughout the remainder of the lungs. She remains on bronchodilators. Antibiotics in the form of daptomycin and cefepime. Objective - Vital Signs Vital signs: Vital Signs Temp 98.2 F 06/08/20 10:28 Pulse 92 06/08/20 11:34 Resp 18 06/08/20 10:28 BP 175/79 06/08/20 10:28 Pulse Ox 99 06/08/20 05:02 Intake & Output 06/07/20 06/08/20 06/08/20 18:59 06:59 18:59 Intake Total 200 350 Balance 200 350 Weight 49.5 kg 49 kg Intake: Intake, IV Titration 350 Amount Azithromycin 500 mg In 250 Sodium Chloride 0.9% 250 ml @ 250 mls/hr IVPB DAILY@2100 [facility] Rx#: [id number] Piperacillin-Tazobactam 3 100 .375 gm In Sodium Chloride 0.9% 100 ml @ 25 mls/hr IVPB Q8HR [facility] Rx# :[id number] Oral 200 Other: Voiding Method Bedpan Bedpan Bedpan Diaper Diaper # Voids 2 # Bowel Movements 1 - Exam GENERAL EXAM: Alert, 60-year-old female patient, appears older than stated age, on 2 L nasal cannula with O2 saturation 99%, comfortable in no apparent distress. HEAD: Normocephalic. EYES: Normal reaction of pupils, equal size. NOSE: Clear with pink turbinates. THROAT: No erythema or exudates. NECK: No masses, no JVD. CHEST: No chest wall deformity. LUNGS: Equal air entry with basilar crackles right greater than left, diminished CVS: S1 and S2 normal with no audible murmur, regular rhythm. ABDOMEN: No hepatosplenomegaly, normal bowel sounds, no guarding or rigidity. SPINE: No scoliosis or deformity SKIN: No rashes CENTRAL NERVOUS SYSTEM: No focal deficits, tone is normal in all 4 extremities. EXTREMITIES: Left upper extremity AV fistula. There is trace peripheral edema. No clubbing, no cyanosis. Peripheral pulses are intact. - Labs CBC & Chem 7: 06/06/20 23:18 06/06/20 23:18 Labs: Abnormal Lab Results - Last 24 Hours (Table) 06/07/20 06/07/20 06/07/20 Range/Units 09:05 17:13 20:04 POC Glucose (mg/dL) 180 H 141 H (75-99) mg/dL TSH 9.300 H (0.465-4.680) mIU/L 06/08/20 06/08/20 06/08/20 Range/Units 10:13 10:29 11:53 POC Glucose (mg/dL) 61 L 60 L 169 H (75-99) mg/dL TSH (0.465-4.680) mIU/L Microbiology - Last 24 Hours (Table) 06/07/20 02:40 Blood Culture - Preliminary Blood No Growth after 24 hours 06/07/20 00:23 Blood Culture - Preliminary Blood No Growth after 24 hours Assessment and Plan Assessment: 1 Acute on chronic hypoxemic respiratory failure secondary to increasing right- sided atelectasis and consolidation/pneumonia with rounded area of possible empyema. 2 Recent episode of pneumonia/right-sided empyema status post pigtail catheter placement and subsequent removal. CAT scan 06/07/2020 continues to show significant consolidation additional rounded 4.9 cm area of the periphery of the right midlung, possible early abscess 3 End stage renal disease currently receiving hemodialysis Tuesday 4 History of chronic bronchial asthma 5 History of diastolic congestive heart failure 6 Diabetes mellitus 7 Hyperlipidemia 8 Hypertension 9 Hypothyroidism 10 Chronic hypoxemic respiratory failure 11 Poor overall functional performance based on the above-mentioned multiple comorbidities. Plan: The patient was seen and evaluated by Dr. Stinson CAT scan, ultrasound and labs reviewed No free fluid for thoracentesis We'll keep nothing by mouth tonight Will need bronchoscopy possibly tomorrow or Tuesday Continue diuretics and bronchodilators Continue antibiotics We will continue to follow and make further recommendations based on her clinical status I, the cosigning physician, performed a history & physical examination of the patient. Lungs sounds with basilar crackles right greater than left, diminished. Maintaining good O2 saturations in the 90s on 2 L/m per nasal cannula. I discussed the assessment and plan of care with my nurse practitioner, Myla rivera. I attest to the above note as dictated by her.
[2020-06-08] MEDS: CEFEPIME 1 GM in SODIUM CHLORIDE 0.9% 50 ML IVPB SCH ×2 (12:26→20:52)
[2020-06-08] MEDS: DAPTOmycin 500 MG in SODIUM CHLORIDE 0.9% 50 ML IVPB SCH (12:36)
[2020-06-08] MEDS ORDERED: DAPTOmycin 500 MG in SODIUM CHLORIDE 0.9% 50 ML IVPB SCH (13:00)
--- NOTE | 2020-06-08 16:04 | P.PN ---
Progress Note - Text Progress Note Date: 06/08/20 Chief Complaint: Cough History of presenting complaint: This is the patient was brought in from the [facility] to the ER. Patient was here in the hospital in March 2020 seconds to right-sided pneumonia empyema with a pigtail catheter in a current TPA infusions. Patient also received hemodialysis. Patient with having cough with some phlegm for 5 days. Rather congested. Does have some fever and chills. Patient had rehab. Appetite is not good. Wheezing. History of asthma. Nonsmoker. Tired and rundown. Braden colored sputum. today-tired. Coughing up phlegm. Some oral intake. Short of breath. Review of systems: Was done for constitutional, cardiovascular, GI, pulmonary. relevant finding as above Active Medications Acetaminophen (Acetaminophen Tab 325 Mg Tab) 650 mg PO Q6H PRN PRN Reason: Pain Albuterol/Ipratropium (Ipratropium-Albuterol 3 Ml Neb) 3 ml INHALATION RT-Q4H PRN PRN Reason: shortness of breath Last Admin: 06/07/20 08:01 Dose: 3 ml Documented by: Albuterol/Ipratropium (Ipratropium-Albuterol 3 Ml Neb) 3 ml INHALATION RT-QID [facility] Last Admin: 06/08/20 11:24 Dose: 3 ml Documented by: Alprazolam (Alprazolam 0.25 Mg Tab) 0.25 mg PO Q8H PRN PRN Reason: Anxiety Last Admin: 06/07/20 20:57 Dose: 0.25 mg Documented by: Atorvastatin Calcium (Atorvastatin 40 Mg Tab) 40 mg PO DAILY [facility] Last Admin: 06/08/20 09:04 Dose: 40 mg Documented by: Budesonide/Formoterol Fumarate (Symbicort 160-4.5 Mcg Inhaler) 2 puff INHALATION RT-BID@0800,2000 [facility] Last Admin: 06/08/20 07:45 Dose: 2 puff Documented by: Furosemide (Furosemide 40 Mg Tab) 40 mg PO DAILY [facility] Guaifenesin (Guaifenesin 600 Mg Tablet.Er) 1,200 mg PO Q12HR [facility] Last Admin: 06/08/20 12:03 Dose: 1,200 mg Documented by: Hydralazine HCl (Hydralazine Hcl 25 Mg Tab) 25 mg PO TID [facility] Last Admin: 06/08/20 15:48 Dose: 25 mg Documented by: Cefepime HCl 1 gm/ Sodium (Chloride) 50 mls @ 12.5 mls/hr IVPB Q12HR [facility] Last Admin: 06/08/20 12:26 Dose: 12.5 mls/hr Documented by: Daptomycin 500 mg/ Sodium (Chloride) 50 mls @ 100 mls/hr IVPB Q48H [facility]; Protocol Last Admin: 06/08/20 12:36 Dose: 100 mls/hr Documented by: Levothyroxine Sodium (Levothyroxine 100 Mcg Tab) 200 mcg PO DAILY@0600 [facility] Last Admin: 06/08/20 06:23 Dose: 200 mcg Documented by: Loperamide HCl (Loperamide 2 Mg Cap) 2 mg PO QID PRN PRN Reason: Diarrhea Miscellaneous Information (Pneumonia Protocol Utilized 1 Each Misc) 1 each PO ONCE PRN PRN Reason: Per Protocol Montelukast Sodium (Montelukast 10 Mg Tab) 10 mg PO HS@2000 [facility] Last Admin: 06/07/20 20:58 Dose: 10 mg Documented by: Nifedipine (Nifedipine Xl 30 Mg Tab.Er.24) 30 mg PO DAILY@0800 [facility] Last Admin: 06/08/20 09:04 Dose: 30 mg Documented by: Ondansetron HCl (Ondansetron 4 Mg Tab) 4 mg PO Q6H PRN PRN Reason: Nausea Sevelamer Carbonate (Sevelamer 800 Mg Tab) 1,600 mg PO TID@0830,1230,1730 [facility] Last Admin: 06/08/20 12:03 Dose: 1,600 mg Documented by: Sodium Chloride (Sodium Chloride 0.9% Flush 10 Ml Syringe) 10 ml IV BID [facility] Last Admin: 06/08/20 10:36 Dose: 10 ml Documented by: Physical examination: VITAL SIGNS: 98.2, 100, 18, 97/50, 90% on 3 L GENERAL: , laying in bed, tired awake. EYES: [Pupils equal. Conjunctiva pale l. NECK: JVD not raised; masses not palpable. HEART: First and second heart sounds are normal; no edema. LUNGS: Respiratory rate increased, diminished breath sounds some wheezing. ABDOMEN: Soft, nontender, liver spleen not palpable, no masses palpable. PSYCH: Alert and oriented x3; mood and affect anxiousl MUSCULAR skeletal: Loss of subcutaneous fat, bony prominences. INVESTIGATIONS, reviewed in the clinical context: Computed tomography scan of the chest-interval development of Fergon 180 in the Edwin. The right midlung 4.9 cm. Interstitial changes with patchy groundglass throughout the remainder of the lungs. Severe airspace disease involving most of the right mid and lower lung. Accu-Cheks 61, 60, 75 TSH 9.3, free T4 2 0.18 Admission testing White count 13.4 hemoglobin 8.2 platelets 287 potassium 4.3 creatinine 1.8 to Troponin I 0.247, 0.292, albumin 3.0 pro-calcitonin 2.2 to EKG tracing personally reviewed by me-sinus rhythm, P pulmonale Chest x-ray film personally reviewed by [id number]-pidce-mrkbj infiltrate, not too different from the one on May 26 Previous testing: Creatinine 4.87 on May 26 Assessment: -Pneumonia, suspect gram-negative organism,-slow to respond -Severe persistent asthma with acute exacerbation-slow to respond -Essential hypertension -Hyperlipidemia -Hypothyroid -Normocytic anemia-multifactorial including chronic kidney disease -Chronic hypoxic respiratory failure home oxygen 2 L -Chronic inflammatory demyelinating polyneuritis with weekly injections -Chronic kidney disease stage 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 No acute: Coronary syndrome Plan: continue DuoNeb, . DC Zosyn and Zithromax. Start the patient on IV cefepime and vancomycin. . Recheck TSH. sputum culture pending.
[2020-06-08 16:41] LABS: Glucose,Whole Blood 98 mg/dL (75-99)
[2020-06-08 16:46] LABS: % Iron Saturation 6.22 (12.00-45.00)
[2020-06-08] MEDS: BUDESONIDE 1 MG/2 ML NEBU INHALATION SCH (20:16)
[2020-06-08] MEDS: FORMOTEROL FUMARATE 20 MCG/2 ML NEBU INHALATION SCH (20:16)
[2020-06-08 20:20] LABS: Glucose,Whole Blood 120 mg/dL (75-99)
[2020-06-08] MEDS: MONTELUKAST 10 MG TAB PO SCH (20:53)
[2020-06-08] MEDS: ALPRAZolam 0.25 MG TAB PO PRN (20:53)
[2020-06-09] MEDS ORDERED: LEVOTHYROXINE 100 MCG TAB ONE (06:00)
[2020-06-09 06:17] LABS: Glucose,Whole Blood 84 mg/dL (75-99)
[2020-06-09] MEDS: LEVOTHYROXINE 100 MCG TAB PO SCH (06:33)
[2020-06-09] MEDS: FORMOTEROL FUMARATE 20 MCG/2 ML NEBU INHALATION SCH ×2 (07:32→21:26)
[2020-06-09] MEDS: BUDESONIDE 1 MG/2 ML NEBU INHALATION SCH ×2 (07:32→21:26)
[2020-06-09] MEDS: IPRATROPIUM-ALBUTEROL 3 ML NEB INHALATION SCH ×4 (07:32→21:26)
[2020-06-09] MEDS: guaiFENesin 600 MG TABLET.ER PO SCH ×2 (07:41→21:49)
[2020-06-09] MEDS: SEVELAMER 800 MG TAB PO SCH ×3 (07:41→18:20)
[2020-06-09] MEDS: ATORVASTATIN 40 MG TAB PO SCH (07:42)
[2020-06-09] MEDS: ALPRAZolam 0.25 MG TAB PO PRN ×2 (08:04→23:04)
[2020-06-09] MEDS ORDERED: FUROSEMIDE 10 MG/ML 10 ML VIAL IV STA (08:29)
[2020-06-09] MEDS ORDERED: FUROSEMIDE 10 MG/ML 4 ML VIAL ONE (08:32)
--- NOTE | 2020-06-09 08:57 | XR ---
EXAMINATION TYPE: XR chest 1V portable DATE OF EXAM: 06/09/2020 COMPARISON: Prior chest x-ray dated 06/08/2020 HISTORY: Difficulty breathing, shortness of breath TECHNIQUE: Single frontal view of the chest is obtained. FINDINGS: Apical pleural thickening on the right, pleural parenchymal changes within the right hemit horax are similar. Patchy density also present in the left lung. No evident pneumothorax. Heart is en larged. There are overlying cardiac leads. Aorta is dense. IMPRESSION: Correlate for pneumonia, atypical congestive heart failure not excluded. Cardiomegaly. There is a right pleural effusion.
[2020-06-09] MEDS ORDERED: FUROSEMIDE 40 MG TAB PO SCH (09:00)
--- NOTE | 2020-06-09 10:14 | P.PN ---
Subjective Patient is seen in follow-up for incisional disease. She is maintained on hemodialysis on Tuesday schedule. Feels more short of breath. She states that she is having a panic attack. Denies chest pain. Vital signs are stable. General: The patient appeared well nourished and normally developed. HEENT: Head exam is unremarkable. Neck is without jugular venous distension. LUNGS: Breath sounds decreased. HEART: Rate and Rhythm are regular. ABDOMEN: Soft, nontender. EXTREMITITES: No clubbing, cyanosis, or edema. Objective - Vital Signs Vital signs: Vital Signs Temp 97.9 F 06/09/20 07:46 Pulse 94 06/09/20 07:54 Resp 18 06/09/20 07:46 BP 198/92 06/09/20 07:46 Pulse Ox 100 06/09/20 07:46 Intake & Output 06/08/20 06/09/20 06/09/20 18:59 06:59 18:59 Intake Total 20 Output Total 1 Balance 20 -1 Weight 47.5 kg Intake: Oral 20 Output: Urine 1 Other: Voiding Method Bedpan Bedpan Diaper # Voids 3 # Bowel Movements 3 - Labs CBC & Chem 7: 06/06/20 23:18 06/06/20 23:18 Labs: Abnormal Lab Results - Last 24 Hours (Table) 06/08/20 06/08/20 06/08/20 Range/Units 10:13 10:29 11:53 POC Glucose (mg/dL) 61 L 60 L 169 H (75-99) mg/dL Iron (50-170) ug/dL TIBC (228-460) ug/dL % Saturation (12.00-45.00) 06/08/20 06/08/20 Range/Units 11:55 20:18 POC Glucose (mg/dL) 120 H (75-99) mg/dL Iron 12 L (50-170) ug/dL TIBC 193 L (228-460) ug/dL % Saturation 6.22 L (12.00-45.00) Microbiology - Last 24 Hours (Table) 06/07/20 02:40 Blood Culture - Preliminary Blood No Growth after 48 hours 06/07/20 00:23 Blood Culture - Preliminary Blood No Growth after 48 hours Assessment and Plan Plan: Assessment 1. End-stage renal disease maintained on hemodialysis on Tuesday schedule. 2. Pneumonia maintained on antibiotics. 3. Hypertension with chronic kidney disease. 4. Chronic kidney disease mineral bone disease maintained on Renvela. 5. Anemia of chronic kidney disease. Iron deficiency noted. Plan: Currently seen while undergoing hemodialysis. Possible bronchoscopy today. IV iron 3 doses. First was today. Add Aranesp.
[2020-06-09] MEDS ORDERED: DARBEPOETIN ALFA 40 MCG/0.4 ML SYRINGE SQ SCH (10:30)
[2020-06-09] MEDS: hydrALAZINE HCL 25 MG TAB PO SCH ×3 (10:32→21:49)
[2020-06-09 11:57] LABS: Glucose,Whole Blood 74 mg/dL (75-99)
[2020-06-09] MEDS ORDERED: DEXTROSE 50% SYRINGE 50 ML IVP ONE (12:18)
[2020-06-09] MEDS: SODIUM FERRIC GLUCONAT-SUCROSE 125 MG in SODIUM CHLORIDE 0.9% 100 ML IVPB SCH (12:21)
[2020-06-09] MEDS: NIFEdipine XL 30 MG TAB.ER.24 PO SCH (12:29)
[2020-06-09] MEDS: CEFEPIME 1 GM in SODIUM CHLORIDE 0.9% 50 ML IVPB SCH ×2 (12:53→21:49)
[2020-06-09] MEDS ORDERED: LIDOCAINE 1% INJ 10MG/ML (20 ML MDV) ONE (13:05)
[2020-06-09] MEDS ORDERED: PROPOFOL 10 MG/ML 20 ML VIAL IV ONE (13:05)
--- NOTE | 2020-06-09 13:08 | P.CRDCN ---
History of Present Illness History of present illness: HISTORY OF PRESENTING ILLNESS This is a pleasant 60-year-old female past medical history significant for end-stage renal disease on hemodialysis, hypertension, dyslipidemia, diabe alexsander mellitus, recurrent pleural effusion requiring pigtail catheter placement and subsequent remova, chronic diastolic heart failure l and chronic respiratory failure. She denies prior history of coronary artery disease and does not follow in the office with a administration vice president. We have been asked to see in consultation for elevated troponin. She presented to the hospital from [facility] with symptoms of cough and shortness of breath and worsening effusion on xray. She is currently undergoing hemodialysis. She is clinically stable with no signficant shortness of breath.She denies chest pain, dizziness or palptiations. Most recent echocardiogram obtained earlier this month revealed preserved LV systolic function with ejection fraction 55-60%, grade 2 diastolic dysfunction, mild aortic stenosis with a mean gradient of 10 mmHg across the valve, mild MR and mild TR. Repeat limited echo continued to revealed preserved LV function with ejection fraction 60-65% with no significant wall motion abnormalities noted. Pulmonary care team is following and plans for bronchoscopy today for possible early developing abscess. DIAGNOSTICS EKG reveals sinus tachycardia heart rate of 101 with left axis deviation. Chest xray chest x-ray obtained this morning reveals ongoing pneumonia and right pleural effusion.. Laboratory reviewed, WBC 16.4, hemoglobin 8.2, platelets 287, sodium 137, potassium 4.3, creatinine 1.82, troponin 0.247 and 0.292, TSH 9.3, NT proBNP 120,000. Current cardiac medications include atorvastatin 40 mg daily, nifedipine 30 mg daily and hydralazine 25 mg 3 times a day. REVIEW OF SYSTEMS At the time of my exam: CONSTITUTIONAL: Denies fever or chills. CARDIOVASCULAR: Denies chest pain, shortness of breath, orthopnea, PND or palpitations. RESPIRATORY: Denies cough. GASTROINTESTINAL: Denies abdominal pain, diarrhea, constipation, nausea or vomiting. MUSCULOSKELETAL: Denies myalgias. NEUROLOGIC: Denies numbness, tingling or weakness. ENDOCRINE: Denies fatigue, weight change, polydipsia or polyurina. GENITOURINARY: Denies burning, hematuria or urgency with micturation. HEMATOLOGIC: Denies history of anemia or bleeding. PHYSICAL EXAMINATION Blood pressure 138/70 heart rate 98 afebrile and maintaining oxygen saturation on nasal cannula. CONSTITUTIONAL: No apparent distress. Generalized pallor. Frail and appears older than stated age. HEENT: Head is normocephalic. Pupils are equal, round. Sclerae anicteric. Mucous membranes of the mouth are moist. No JVD. No carotid bruit. CHEST EXAMINATION: Scattered rhonchi, no rales or wheezes. Diminished bilaterally. No chest wall tenderness is noted on palpation or with deep breathing. HEART EXAMINATION: Regular rate and rhythm. S1, S2 heard. Systolic ejection murmur at the base, no gallops or rub. ABDOMEN: Soft, nontender. Positive bowel sounds. EXTREMITIES: 2+ peripheral pulses, no lower extremity edema and no calf tenderness. NEUROLOGIC EXAMINATION: Patient is awake, alert and oriented x3. ASSESSMENT Shortness of breath secondary to pleural effusion Recurrent pneumonia Leukocytosis End-stage renal disease on hemodialysis Diabetes mellitus Hypertension Dyslipidemia Chronic hypoxic respiratory failure PLAN She is currently undergoing hemodialysis. Plan is for bronchoscopy today. Continue management per pulmonary care team No further cardiac testing or recommendations. Thank you kindly for this consultation. Nurse Practitioner note has been reviewed, I agree with a documented findings and plan of care. Patient was seen and examined. Past Medical History Past Medical History: Asthma, Heart Failure, Diabetes Mellitus, Hyperlipidemia, Hypertension, Pneumonia, Renal Disease, Thyroid Disorder Additional Past Medical History / Comment(s): Pt admitted to [facility] on 04/10/20 with sepsis, acute on chronic respiratory failure/sepsis r/t pneumonia, R side pneumonia/empyema/R sided pleural effusion/chest tube with small pneumo. Other hx: NIDDM type II-no rx since wt loss, ESRD with hemodialysis M/W/F, mineral bone disease, normocytic anemia, chronic respiratory failure/home oxygen at 2L/NC ATC, chronic inflammatory demyelination polyneuritis with injections weekly, past IVIG infusions, hypothyroid. History of Any Multi-Drug Resistant Organisms: None Reported Past Surgical History: Appendectomy, Hysterectomy Additional Past Surgical History / Comment(s): 04/03/20 bronchoscopy, dialysis port Past Anesthesia/Blood Transfusion Reactions: No Reported Reaction Past Psychological History: No Psychological Hx Reported Additional Psychological History / Comment(s): Pt resides with her spouse. She was released from [facility] ago. Home care had to be switched to [facility] to cover weekly injections. Nona scheduled to come this , 05/15/20. Pt able to stand/pivot to wheelchair/toilet. She has home oxygen/nebulizer and glucometer. Smoking Status: Never smoker Past Alcohol Use History: None Reported Past Drug Use History: None Reported - Past Family History Mother Family Medical History: Unable to Obtain Additional Family Medical History / Comment(s): Mother was wheelchair bound. Father Family Medical History: Unable to Obtain Additional Family Medical History / Comment(s): no reported hx Medications and Allergies Home Medications Medication Instructions Recorded Confirmed Type Acetaminophen Tab [Tylenol] 650 mg PO Q6H PRN 03/31/20 06/07/20 History Albuterol Sulfate [Ventolin HFA] 2 puff INHALATION RT-Q4H PRN 03/31/20 06/07/20 History Budesonide-Formot 160-4.5 Mcg 2 puff INHALATION RT-BID@799,199903/31/20 06/07/20 History [Symbicort 160-4.5 Mcg Inhaler] EPINEPHrine (Auto Inject) [Epipen] 0.3 mg IM ONCE PRN 03/31/20 06/07/20 History Montelukast Sodium [Singulair] 10 mg PO HS@199903/31/20 06/07/20 History Ondansetron [Zofran] 4 mg PO Q6H PRN 03/31/20 06/07/20 History sevelamer HCL [Sevelamer HCl] 1,600 mg PO TID@0830,1230,1730 03/31/20 06/07/20 History Furosemide [Lasix] 40 mg PO BID #60 tablet 04/10/20 06/07/20 Rx Ipratropium-Albuterol Nebulize 3 ml INHALATION RT-QID ml 04/10/20 06/07/20 Rx [Duoneb 0.5 mg-3 mg/3 ml Soln] Atorvastatin [Lipitor] 40 mg PO DAILY #30 tab 05/15/20 06/07/20 Rx Loperamide [Imodium] 2 mg PO QID PRN #1 cap 05/15/20 06/07/20 Rx hydrALAZINE HCL [Apresoline] 25 mg PO TID #30 tab 05/15/20 06/07/20 Rx ALPRAZolam [Xanax] 0.25 mg PO Q8H PRN 06/07/20 06/07/20 History Levothyroxine Sodium 200 mcg PO DAILY@0600 06/07/20 06/07/20 History NIFEdipine [Procardia] 30 mg PO DAILY@0800 06/07/20 06/07/20 History predniSONE [Deltasone] 40 mg PO DAILY@1600 06/07/20 06/07/20 History Allergies Allergy/AdvReac Type Severity Reaction Status Date / Time No Known Allergies Allergy Verified 05/20/20 11:12 Physical Exam Vitals: Vital Signs Temp Pulse Pulse Resp BP BP Pulse Ox 06/07/20 12:00 98.4 F 103 H 17 101/53 96 06/07/20 11:32 108 H 06/07/20 11:22 112 H 06/07/20 08:15 104 H 06/07/20 08:01 104 H 06/07/20 08:00 97.4 F L 92 18 153/80 94 L 06/07/20 04:00 98.1 F 104 H 18 148/71 96 06/07/20 03:35 98.8 F 101 H 16 158/81 99 06/07/20 02:07 18 164/83 06/07/20 02:00 101 H 18 97 06/07/20 01:00 101 H 97 06/07/20 00:55 100 06/07/20 00:35 100 06/07/20 00:00 104 H 18 97 06/06/20 23:00 104 H 18 96 06/06/20 22:15 98.7 F 101 H 18 151/69 98 Intake and Output 06/06/20 06/07/20 06/07/20 22:59 06:59 14:59 Other: Voiding Method Bedpan Bedpan Diaper Diaper # Voids 1 Weight 45.359 kg 49.5 kg 49.5 kg Results 06/06/20 23:18 06/06/20 23:18 Cardiac Enzymes 06/06/20 06/06/20 06/07/20 Range/Units 23:18 23:18 09:05 AST 30 (14-36) U/L Troponin I 0.247 H* 0.292 H* (0.000-0.034) ng/mL Coagulation 06/06/20 Range/Units 23:18 PT 11.2 (9.0-12.0) sec APTT 24.7 (22.0-30.0) sec CBC 06/06/20 Range/Units 23:18 WBC 16.4 H (3.8-10.6) k/uL RBC 2.75 L (3.80-5.40) m/uL Hgb 8.2 L (11.4-16.0) gm/dL Hct 27.0 L (34.0-46.0) % Plt Count 287 (150-450) k/uL Comprehensive Metabolic Panel 06/06/20 Range/Units 23:18 Sodium 137 (137-145) mmol/L Potassium 4.3 (3.5-5.1) mmol/L Chloride 99 (98-107) mmol/L Carbon Dioxide 34 H (22-30) mmol/L BUN 11 (7-17) mg/dL Creatinine 1.82 H (0.52-1.04) mg/dL Glucose 165 H (74-99) mg/dL Calcium 9.0 (8.4-10.2) mg/dL AST 30 (14-36) U/L ALT 15 (4-34) U/L Alkaline Phosphatase 154 H (38-126) U/L Total Protein 6.0 L (6.3-8.2) g/dL Albumin 3.0 L (3.5-5.0) g/dL Current Medications Generic Name Dose Route Start Last Admin Trade Name Freq PRN Reason Stop Dose Admin Acetaminophen 650 mg 06/07/20 01:03 Acetaminophen Tab 325 Mg Tab PO Q6H PRN Pain Albuterol/Ipratropium 3 ml 06/07/20 00:56 06/07/20 08:01 Ipratropium-Albuterol 3 Ml Neb INHALATION 3 ml RT-Q4H PRN Administration shortness of breath Albuterol/Ipratropium 3 ml 06/07/20 12:00 06/07/20 11:22 Ipratropium-Albuterol 3 Ml Neb INHALATION 3 ml RT-QID DARWIN Administration Alprazolam 0.25 mg 06/07/20 10:41 Alprazolam 0.25 Mg Tab PO Q8H PRN Anxiety Atorvastatin Calcium 40 mg 06/07/20 09:00 06/07/20 08:32 Atorvastatin 40 Mg Tab PO 40 mg DAILY DARWIN Administration Budesonide/Formoterol Fumarate 2 puff 06/07/20 08:00 06/07/20 08:01 Symbicort 160-4.5 Mcg Inhaler INHALATION 2 puff RT-BID@0800,1999 DARWIN Administration Furosemide 40 mg 06/07/20 09:00 06/07/20 08:32 Furosemide 40 Mg Tab PO 40 mg BID DARWIN Administration Hydralazine HCl 25 mg 06/07/20 09:00 06/07/20 08:32 Hydralazine Hcl 25 Mg Tab PO 25 mg TID DARWIN Administration Piperacillin Sod/Tazobactam 100 mls @ 25 mls/hr 06/07/20 08:00 06/07/20 08:32 Sod 3.375 gm/ Sodium Chloride IVPB 06/14/20 08:01 25 mls/hr Q8HR DARWIN Administration Azithromycin 500 mg/ Sodium 250 mls @ 250 mls/hr 06/08/20 01:15 Chloride IVPB DAILY@2100 [facility] Levothyroxine Sodium 200 mcg 06/07/20 06:00 06/07/20 06:40 Levothyroxine 100 Mcg Tab PO 200 mcg DAILY@0600 DARWIN Administration Loperamide HCl 2 mg 06/07/20 01:03 Loperamide 2 Mg Cap PO QID PRN Diarrhea Miscellaneous Information 1 each 06/07/20 00:56 Pneumonia Protocol Utilized 1 Each Misc PO ONCE PRN Per Protocol Montelukast Sodium 10 mg 06/07/20 20:00 Montelukast 10 Mg Tab PO HS@1999 [facility] Nifedipine 30 mg 06/07/20 08:00 06/07/20 08:32 Nifedipine Xl 30 Mg Tab.Er.24 PO 30 mg DAILY@0800 [facility] Administration Ondansetron HCl 4 mg 06/07/20 01:03 Ondansetron 4 Mg Tab PO Q6H PRN Nausea Sevelamer Carbonate 1,600 mg 06/07/20 08:30 06/07/20 12:15 Sevelamer 800 Mg Tab PO 1,600 mg TID@0830,1230,1730 DARWIN Administration Sodium Chloride 10 ml 06/07/20 09:00 06/07/20 08:34 Sodium Chloride 0.9% Flush 10 Ml Syringe IV 10 ml BID DARWIN Administration Intake and Output 06/06/20 06/07/20 06/07/20 22:59 06:59 14:59 Other: Voiding Method Bedpan Bedpan Diaper Diaper # Voids 1 Weight 45.359 kg 49.5 kg 49.5 kg Patient Weight 06/08/20 06:59 Weight 49.5 kg 06/06/20 23:18 06/06/20 23:18
[2020-06-09] MEDS ORDERED: IV FLUID CONTINUATION 1,000 ML IV ONE (13:09)
[2020-06-09] MEDS ORDERED: LIDOCAINE 2% INJ 20 MG/ML INTRATRACH ONE (13:14)
[2020-06-09 13:58] LABS: Glucose,Whole Blood 117 mg/dL (75-99)
[2020-06-09] MEDS: FUROSEMIDE 80 MG TAB PO SCH (15:55)
[2020-06-09 16:02] LABS: Appearance,BF Cloudy; Nucleated Cells, Body Fluid 680 /uL; RBC, Body Fluid 70 /uL
--- NOTE | 2020-06-09 16:18 | PCN ---
PROCEDURE NOTE PROCEDURE: Bronchoscopy, airway examination, therapeutic lavage and bronchoalveolar lavage, right lower lobe. PREOPERATIVE DIAGNOSIS: Pneumonia and empyema. POSTOPERATIVE DIAGNOSIS: Pneumonia and empyema. Fredi Sena CRNA provided general anesthesia. The patient's procedure was done in room #1. There was informed consent and universal timeout. OPERATORS: 1. Dr. Dietrich. 2. Melita Ortiz. PROCEDURE DESCRIPTION: After the patient was adequately sedated and being fully monitored, the bronchoscope was inserted through the right nostril. It passed through the right nasopharynx into the oropharynx. The hypopharynx was identified and topicalized. The hypopharyngeal structures, including anterior commissure, true cords, false cords, arytenoids, piriform sinuses, right and left valleculae and epiglottis, all appeared normal. After topicalization, the bronchoscope was inserted through the glottic opening into the trachea. The trachea appeared normal. Tracheal briana was sharp. The left mainstem was topicalized. The left upper lobe and its 2 segments, the lingula and its 2 segments, and the left lower lobe and its 4 segments were all found to be normal. There were minimal secretions. There was no dominant mass or tumor. On the right side, of note was the fact that in the distal trachea there was an accessory segment. The right upper lobe distal to that appeared normal and had 3 segments. The right middle lobe had 2 segments and the right lower lobe had 5 segments. There were thick secretions noted in the right lower lobe. They were suctioned with some difficulty. There was no dominant mass or tumor. The airways were mildly hyperemic and erythematous. There was some vascular prominence. The bronchoscope was wedged into the right lower lobe. The BAL took place. More than 30 mL was recovered. The fluid will be sent to the laboratory for analysis. There was no immediate complication. The patient tolerated the procedure well and will be recovered. MMODL / IJN: [id number] /
[2020-06-09 16:24] LABS: Mononuclear WBC,Body Fluid 12 %; Polynuclear WBC,Body Fluid 88 %; Total Cells Counted,Body Fluid 100
--- NOTE | 2020-06-09 16:30 | P.PN ---
Progress Note - Text Progress Note Date: 06/09/20 Chief Complaint: Cough History of presenting complaint: This is the patient was brought in from the [facility] to the ER. Patient was here in the hospital in March 2020 seconds to right-sided pneumonia empyema with a pigtail catheter in a current TPA infusions. Patient also received hemodialysis. Patient with having cough with some phlegm for 5 days. Rather congested. Does have some fever and chills. Patient had rehab. Appetite is not good. Wheezing. History of asthma. Nonsmoker. Tired and rundown. Braden colored sputum. today-patient was short of breath this morning. Had hemodialysis today. 4 L were removed. Also received a dose of Lasix 80 mg morning. Tired. Review of systems: Was done for constitutional, cardiovascular, GI, pulmonary. relevant finding as above Active Medications Acetaminophen (Acetaminophen Tab 325 Mg Tab) 650 mg PO Q6H PRN PRN Reason: Pain Albuterol/Ipratropium (Ipratropium-Albuterol 3 Ml Neb) 3 ml INHALATION RT-Q4H PRN PRN Reason: shortness of breath Last Admin: 06/07/20 08:01 Dose: 3 ml Documented by: Albuterol/Ipratropium (Ipratropium-Albuterol 3 Ml Neb) 3 ml INHALATION RT-QID [facility] Last Admin: 06/09/20 16:19 Dose: 3 ml Documented by: Alprazolam (Alprazolam 0.25 Mg Tab) 0.25 mg PO Q8H PRN PRN Reason: Anxiety Last Admin: 06/09/20 08:04 Dose: 0.25 mg Documented by: Atorvastatin Calcium (Atorvastatin 40 Mg Tab) 40 mg PO DAILY [facility] Last Admin: 06/09/20 07:42 Dose: 40 mg Documented by: Budesonide (Budesonide 1 Mg/2 Ml Nebu) 1 mg INHALATION RT-BID [facility] Last Admin: 06/09/20 07:32 Dose: 1 mg Documented by: Darbepoetin Angelo (Darbepoetin Angelo 40 Mcg/0.4 Ml Syringe) 40 mcg SQ Q7D [facility] Last Admin: 06/09/20 14:51 Dose: 40 mcg Documented by: Formoterol Fumarate (Formoterol Fumarate 20 Mcg/2 Ml Nebu) 20 mcg INHALATION RT-BID [facility] Last Admin: 06/09/20 07:32 Dose: 20 mcg Documented by: Furosemide (Furosemide 80 Mg Tab) 80 mg PO BID@0900,1600 [facility] Last Admin: 06/09/20 15:55 Dose: 80 mg Documented by: Guaifenesin (Guaifenesin 600 Mg Tablet.Er) 1,200 mg PO Q12HR [facility] Last Admin: 06/09/20 07:41 Dose: 1,200 mg Documented by: Hydralazine HCl (Hydralazine Hcl 25 Mg Tab) 25 mg PO TID [facility] Last Admin: 06/09/20 15:55 Dose: 25 mg Documented by: Cefepime HCl 1 gm/ Sodium (Chloride) 50 mls @ 12.5 mls/hr IVPB Q12HR [facility] Last Admin: 06/09/20 12:53 Dose: Not Given Documented by: Daptomycin 500 mg/ Sodium (Chloride) 50 mls @ 100 mls/hr IVPB Q48H [facility]; Protocol Last Admin: 06/08/20 12:36 Dose: 100 mls/hr Documented by: Ferric Sodium Gluconate 125 mg (/ Sodium Chloride) 110 mls @ 100 mls/hr IVPB DAILY [facility] Stop: 06/12/20 10:31 Last Admin: 06/09/20 12:21 Dose: 100 mls/hr Documented by: Levothyroxine Sodium (Levothyroxine 100 Mcg Tab) 200 mcg PO DAILY@0600 [facility] Last Admin: 06/09/20 06:33 Dose: Not Given Documented by: Loperamide HCl (Loperamide 2 Mg Cap) 2 mg PO QID PRN PRN Reason: Diarrhea Miscellaneous Information (Pneumonia Protocol Utilized 1 Each Misc) 1 each PO ONCE PRN PRN Reason: Per Protocol Montelukast Sodium (Montelukast 10 Mg Tab) 10 mg PO HS@2000 [facility] Last Admin: 06/08/20 20:53 Dose: 10 mg Documented by: Nifedipine (Nifedipine Xl 30 Mg Tab.Er.24) 30 mg PO DAILY@0800 [facility] Last Admin: 06/09/20 12:29 Dose: Not Given Documented by: Ondansetron HCl (Ondansetron 4 Mg Tab) 4 mg PO Q6H PRN PRN Reason: Nausea Sevelamer Carbonate (Sevelamer 800 Mg Tab) 1,600 mg PO TID@0830,1230,1730 [facility] Last Admin: 06/09/20 12:29 Dose: Not Given Documented by: Sodium Chloride (Sodium Chloride 0.9% Flush 10 Ml Syringe) 10 ml IV BID [facility] Last Admin: 06/09/20 07:44 Dose: 10 ml Documented by: Physical examination: VITAL SIGNS: 97.7, 98, 20, 1:30 dose 70, 100% on 3 L GENERAL: , laying in bed, tired awake. EYES: Pupils equal. Conjunctiva pale . NECK: JVD not raised; masses not palpable. HEART: First and second heart sounds are normal; no edema. LUNGS: Respiratory rate increased, diminished breath sounds. Coarse breath sounds. ABDOMEN: Soft, nontender, liver spleen not palpable, no masses palpable. PSYCH: Alert and oriented x3; mood and affect anxious MUSCULAR skeletal: Loss of subcutaneous fat, bony prominences. INVESTIGATIONS, reviewed in the clinical context: Computed tomography scan of the chest-interval development of Fergon 180 in the Edwin. The right midlung 4.9 cm. Interstitial changes with patchy groundglass throughout the remainder of the lungs. Severe airspace disease involving most of the right mid and lower lung. Accu-Cheks 61, 60, 75 TSH 9.3, free T4 2 0.18 Admission testing White count 13.4 hemoglobin 8.2 platelets 287 potassium 4.3 creatinine 1.8 to Troponin I 0.247, 0.292, albumin 3.0 pro-calcitonin 2.2 to EKG tracing personally reviewed by me-sinus rhythm, P pulmonale Chest x-ray film personally reviewed by [id number] infiltrate, not too different from the one on May 26 Previous testing: Creatinine 4.87 on May 26 Assessment: -Pneumonia, suspect gram-negative organism,-slow to respond -Severe persistent asthma with acute exacerbation-had an episode of worsening this morning. -Essential hypertension -Hyperlipidemia -Hypothyroid -Normocytic anemia-multifactorial including chronic kidney disease -Chronic hypoxic respiratory failure home oxygen 2 L -Chronic inflammatory demyelinating polyneuritis with weekly injections -End-stage kidney disease on hemodialysis Tuesday -Troponin leak the setting of chronic kidney disease and hemodynamic mismatch. No acute Coronary syndrome Plan: Continue with IV cefepime and daptomycin. . Pending to go down for bronchoscopy this afternoon. Other medications to continue. Cutback dose of Synthroid.
--- NOTE | 2020-06-09 16:31 | P.PN ---
Subjective Progress Note Date: 06/09/20 Principal diagnosis: Acute on chronic hypoxemic restaurant failure secondary to increasing right- sided pleural effusion/atelectasis/consolidation This is a 60-year-old female patient who follows with Dr. Morillo as her primary care provider. She has a history of chronic hypoxemic respiratory failure secondary to chronic persistent bronchial asthma, chronic right lower lobe changes, recurrent right pleural effusion and empyema requiring pigtail placement and subsequent removal. She has end-stage renal disease receiving hemodialysis Tuesday. She also has a history of congestive heart failure, diabetes Uriel, hyperlipidemia, hypertension, hypothyroidism. She had recently been discharged from here on 05/26/2020 to [facility] for inpatient rehabilitation. A chest x-ray yesterday revealed increasing right-sided pleural effusion and she was transferred back here for the same. She is seen today in consultation on the selective care unit. She is currently resting in bed. Awake and alert in no acute distress. She is maintaining O2 saturations in the mid 90s on 2 L/m per nasal cannula. She's been afebrile. Hemodynamically stable. White count 16.4. Hemoglobin 8.2. Sodium 137. Potassium 4.3. Creatinine 1.82. Troponin 0.247, 0.292. ProBNP 120,000. Pro- calcitonin 2.22. Chest x-ray reveals evidence of congestive heart failure with increasing right-sided pleural effusion and right lower lobe infiltrate compared to previous of 05/26/2020. Echocardiogram reveals preserved left ventricular systolic function with ejection fraction 55-60%. She has been initiated and DuoNeb inhalations, Symbicort, oral diuretics, azithromycin and Zosyn. Ultrasound of the chest is pending. The patient is seen today 06/08/2020 in follow-up on the selective care unit. She is currently awake and alert in no acute distress. Resting fairly comfortably in bed. Continues with a loose nonproductive cough. She's been afebrile. Maintaining O2 saturations in the 90s on 2 L/m per nasal cannula. Blood cultures reveal no growth to date. Blood glucose 169. Ultrasound of the right chest revealed minimal free-flowing fluid. CAT scan of the chest revealed residual debris/endobronchial material throughout the bronchus intermedius and more distal right middle lobe/lower lobe though improved from 05/20/2020. There is however severest disease/pneumonia involving most of the right mid and lower lung, worsening from 05/20/2020. There is interval development of a rounded 4.9 cm area in the periphery of the right midlung. Less likely felt to be neoplasm. Possible early developing abscess. Additional areas of interstitial and groundglass opacity throughout the remainder of the lungs. She remains on bronchodilators. Antibiotics in the form of daptomycin and cefepime. On 06/09/2020 patient seen in follow-up on selective care unit, she has finished her dialysis today, tolerated well, she is drowsy, but easily wakes up and answ ers questions, appears very weak. Has a weak congested nonproductive cough, she had 3 L of oxygen pulse ox 97%, his vital signs have been stable, she's been afebrile. She continues on nebulized bronchodilators, she is on cefepime and daptomycin for empiric antibiotic coverage, patient had her bronchoscopy with BAL today by Dr. Dietrich, she tolerated procedure very well. She has had no fever or chills. Her last chest x-ray today showed apical pleural thickening on the right, pleural parenchymal changes within the right hemithorax, patchy density in the left lung. This had no hemoptysis. No complaints of chest pain. She had troponin elevation for which cardiology is following, and it is not thought to be related to acute coronary syndrome. Objective - Vital Signs Vital signs: Vital Signs Temp 97.8 F 06/09/20 16:00 Pulse 88 06/09/20 16:20 Resp 17 06/09/20 16:00 BP 152/65 06/09/20 16:00 Pulse Ox 96 06/09/20 16:00 Intake & Output 06/08/20 06/09/20 06/09/20 18:59 06:59 18:59 Intake Total 20 50 Output Total 1 0 Balance 20 -1 50 Weight 47.5 kg Intake: IV 50 Oral 20 Output: Urine 1 0 Stool 0 Other: Voiding Method Bedpan Bedpan Diaper Diaper # Voids 3 # Bowel Movements 3 - Exam GENERAL EXAM: There is, but arousable, 60-year-old white female, appears very frail, weak does have the congested nonproductive cough, on 3 L of oxygen pulse ox of 97% comfortable in no apparent distress. HEAD: Normocephalic/atraumatic. EYES: Normal reaction of pupils, equal size. Conjunctiva pink, sclera white. NOSE: Clear with pink turbinates. THROAT: No erythema or exudates. NECK: No masses, no JVD, no thyroid enlargement, no adenopathy. CHEST: No chest wall deformity. Symmetrical expansion. LUNGS: Equal air entry with coarse crackles, bilateral bases CVS: Regular rate and rhythm, normal S1 and S2, no gallops, no murmurs, no rubs ABDOMEN: Soft, nontender. No hepatosplenomegaly, normal bowel sounds, no guarding or rigidity. EXTREMITIES: No clubbing, no edema, no cyanosis, 2+ pulses and upper and lower extremities. MUSCULOSKELETAL: Muscle strength and tone normal. SPINE: No scoliosis or deformity SKIN: No rashes CENTRAL NERVOUS SYSTEM: Alert and oriented -3. No focal deficits, tone is normal in all 4 extremities. PSYCHIATRIC: Alert and oriented -3. Appropriate affect. Intact judgment and insight. - Labs CBC & Chem 7: 06/06/20 23:18 06/06/20 23:18 Labs: Abnormal Lab Results - Last 24 Hours (Table) 06/08/20 06/08/20 06/09/20 Range/Units 11:55 20:18 11:55 POC Glucose (mg/dL) 120 H 74 L (75-99) mg/dL Iron 12 L (50-170) ug/dL TIBC 193 L (228-460) ug/dL % Saturation 6.22 L (12.00-45.00) 06/09/20 Range/Units 13:56 POC Glucose (mg/dL) 117 H (75-99) mg/dL Iron (50-170) ug/dL TIBC (228-460) ug/dL % Saturation (12.00-45.00) Microbiology - Last 24 Hours (Table) 06/07/20 02:40 Blood Culture - Preliminary Blood No Growth after 48 hours 06/07/20 00:23 Blood Culture - Preliminary Blood No Growth after 48 hours Assessment and Plan Plan: Assessment: 1 Acute on chronic hypoxemic respiratory failure secondary to increasing right- sided atelectasis and consolidation/pneumonia with rounded area of possible empyema. 2 Recent episode of pneumonia/right-sided empyema status post pigtail catheter placement and subsequent removal. CAT scan 06/07/2020 continues to show significant consolidation additional rounded 4.9 cm area of the periphery of the right midlung, possible early abscess 3 End stage renal disease currently receiving hemodialysis Tuesday 4 History of chronic bronchial asthma 5 History of diastolic congestive heart failure 6 Diabetes mellitus 7 Hyperlipidemia 8 Hypertension 9 Hypothyroidism 10 Chronic hypoxemic respiratory failure 11 Poor overall functional performance based on the above-mentioned multiple comorbidities. Plan: Continue current antibiotics, patient underwent bronchoscopy with BAL, cultures and cytology sent, will await results, hemodynamically patient is stable, she's had no fever or chills. Continues on hemodialysis, generally appears very weak, debilitated. Maintain aspiration precautions, will continue to follow, continue bronchodilators. I performed a history & physical examination of the patient and discussed their management with my nurse practitioner, Teresa Ortiz. I reviewed the nurse practitioner's note and agree with the documented findings and plan of care. Lung sounds are positive for diminished breath. The findings and the impression was discussed with the patient. I attest to the documentation by the nurse practitioner. Time with Patient: Less than 30
[2020-06-09 16:43] LABS: Glucose,Whole Blood 80 mg/dL (75-99)
[2020-06-09 21:03] LABS: Glucose,Whole Blood 79 mg/dL (75-99)
[2020-06-09] MEDS: MONTELUKAST 10 MG TAB PO SCH (21:49)
[2020-06-10 06:04] LABS: Glucose,Whole Blood 106 mg/dL (75-99)
[2020-06-10] MEDS: LEVOTHYROXINE 100 MCG TAB PO SCH (06:15)
[2020-06-10] MEDS: IPRATROPIUM-ALBUTEROL 3 ML NEB INHALATION SCH ×5 (08:47→19:37)
[2020-06-10] MEDS: FORMOTEROL FUMARATE 20 MCG/2 ML NEBU INHALATION SCH ×3 (08:48→19:36)
[2020-06-10] MEDS: BUDESONIDE 1 MG/2 ML NEBU INHALATION SCH ×3 (08:48→19:36)
[2020-06-10] MEDS: NIFEdipine XL 30 MG TAB.ER.24 PO SCH (09:06)
[2020-06-10] MEDS: SODIUM FERRIC GLUCONAT-SUCROSE 125 MG in SODIUM CHLORIDE 0.9% 100 ML IVPB SCH ×2 (09:06→12:19)
[2020-06-10] MEDS: SEVELAMER 800 MG TAB PO SCH ×3 (09:06→16:34)
[2020-06-10] MEDS: ATORVASTATIN 40 MG TAB PO SCH (09:06)
[2020-06-10] MEDS: guaiFENesin 600 MG TABLET.ER PO SCH ×2 (09:06→21:47)
[2020-06-10] MEDS: FUROSEMIDE 80 MG TAB PO SCH ×2 (09:06→16:34)
[2020-06-10] MEDS: hydrALAZINE HCL 25 MG TAB PO SCH ×3 (09:06→21:46)
[2020-06-10] MEDS: CEFEPIME 1 GM in SODIUM CHLORIDE 0.9% 50 ML IVPB SCH ×3 (09:06→21:47)
--- NOTE | 2020-06-10 10:06 | P.PN ---
Subjective Patient is seen in follow-up for end-stage renal disease. She is maintained on hemodialysis on Tuesday schedule. Feels better today. Underwent bronchoscopy June 09 with removal of secretions. Tolerated 4 L ultrafiltration yesterday. Vital signs are stable. General: The patient appeared well nourished and normally developed. HEENT: Head exam is unremarkable. Neck is without jugular venous distension. LUNGS: Breath sounds decreased. HEART: Rate and Rhythm are regular. ABDOMEN: Soft, nontender. EXTREMITITES: No clubbing, cyanosis, or edema. Objective - Vital Signs Vital signs: Vital Signs Temp 98 F 06/10/20 07:54 Pulse 89 06/10/20 08:00 Resp 19 06/10/20 08:00 BP 163/74 06/10/20 07:54 Pulse Ox 100 06/10/20 07:54 Intake & Output 06/09/20 06/10/20 06/10/20 18:59 06:59 18:59 Intake Total 140 350 360 Output Total 0 Balance 140 350 360 Weight 48.6 kg Intake: IV 50 Intake, IV Titration 50 Amount Cefepime 1 gm In Sodium 50 Chloride 0.9% 50 ml @ 12. 5 mls/hr IVPB Q12HR [facility] Rx#:[id number] Oral 90 300 360 Output: Urine 0 Stool 0 Other: Voiding Method Diaper Diaper Bedside Commode # Voids 1 1 # Bowel Movements 1 - Labs CBC & Chem 7: 06/06/20 23:18 06/06/20 23:18 Labs: Abnormal Lab Results - Last 24 Hours (Table) 06/09/20 06/09/20 06/10/20 Range/Units 11:55 13:56 06:02 POC Glucose (mg/dL) 74 L 117 H 106 H (75-99) mg/dL Microbiology - Last 24 Hours (Table) 06/07/20 02:40 Blood Culture - Preliminary Blood No Growth after 72 hours 06/07/20 00:23 Blood Culture - Preliminary Blood No Growth after 72 hours 06/09/20 13:30 Gram Stain - Preliminary Bronchial Washings - Random Bronchial Washings Culture - Preliminary 06/09/20 13:30 Acid Fast Bacilli Culture - Preliminary Bronchial Washings - Random 06/09/20 13:30 Fungal Culture - Preliminary Bronchial Washings - Random Assessment and Plan Plan: Assessment 1. End-stage renal disease maintained on hemodialysis on Tuesday schedule. 2. Pneumonia maintained on antibiotics. Status post bronchoscopy on June 09. 3. Hypertension with chronic kidney disease. 4. Chronic kidney disease mineral bone disease maintained on Renvela. 5. Anemia of chronic kidney disease. Iron deficiency noted. Maintained on Aranesp. Plan: Hemodialysis tomorrow. Maintain IV iron. Second dose today. Maintain Lasix.
[2020-06-10 11:41] LABS: Glucose,Whole Blood 143 mg/dL (75-99)
[2020-06-10] MEDS: DAPTOmycin 500 MG in SODIUM CHLORIDE 0.9% 50 ML IVPB SCH (14:38)
--- NOTE | 2020-06-10 15:27 | PN ---
PROGRESS NOTE PULMONARY/CRITICAL CARE PROGRESS NOTE: DATE OF SERVICE: 06/10/2020 This is a 60-year-old female with a history of acute on chronic hypoxemic respiratory failure secondary to right-sided pneumonia/empyema, and right-sided pleural effusion. The patient underwent bronchoscopy yesterday. Samples are currently pending. In addition, her right-sided empyema was drained in the past with pigtail catheter placement and subsequent removal. He does have a history of end-stage renal disease, currently on 6-vwam-g-week hemodialysis, asthma, diastolic CHF, diabetes, hypertension, hyperlipidemia, hypothyroidism, chronic hypoxemic respiratory failure, and general medical debility. Unfortunately, the patient is 60, but looks like she is 80 or 89. No complaints today. Current vital signs include temperature 97.9, heart rate 89, respiratory rate 20, blood pressure 173/80 mean 111, 3 L saturation 96%. Appears in no acute distress. Certainly no respiratory distress. HEENT: Examination is grossly unremarkable. NECK: Supple, full range of motion. No adenopathy. Neck veins are flat. CARDIOVASCULAR: Examination reveals regular rhythm and rate. Heart rate about 90 beats per minute. S1, S2 normal. LUNGS: Reveal diminished breath sounds at the right base. A few scattered rhonchi noted. ABDOMEN: Soft, bowel sounds are heard. EXTREMITIES: Intact. No edema. SKIN: Without rash. NEUROLOGIC: Examination is brief but nonfocal. LABS: Reviewed. Nothing actually from today. From yesterday, the bronch wash is cloudy in color. There are 70 RBCs, 680 nucleated cells and 88 PMNs and 12% monocytes. The other data is currently not yet back from the bronch washings. Medications are reviewed. ASSESSMENT: 1. Acute on chronic hypoxemic respiratory failure, secondary to right basilar atelectasis, consolidations/pneumonia, and possible underlying empyema. The patient underwent bronchoscopy and BAL yesterday on June 09. 2. Recent episode of right-sided pneumonia/empyema, status post pigtail catheter placement and subsequent removal. 3. End-stage renal disease, currently on 3 time a week hemodialysis. 4. History of chronic bronchial asthma. 5. History of diastolic congestive heart failure. 6. History of diabetes mellitus, hyperlipidemia. 7. Essential hypertension. 8. Hypothyroidism. 9. Chronic hypoxemic respiratory failure. 10.General medical debility. PLAN: Will await the results of the bronchoscopy performed yesterday. The patient is stable from the respiratory status. It could be considered for discharge in the near future. The patient did have a chest x-ray today which continues to show dense consolidation in the right lower lobe. It is hard to tell that the infiltrate versus fluid versus a combination of factors. The patient will see us back as needed. No additional recommendations are made. Will continue to follow. Prognosis is guarded. MMODL / IJN: [id number] /
[2020-06-10 16:37] LABS: Glucose,Whole Blood 134 mg/dL (75-99)
--- NOTE | 2020-06-10 16:39 | XR ---
EXAMINATION TYPE: XR chest 1V portable DATE OF EXAM: 06/10/2020 COMPARISON: 06/09/2020 HISTORY: Follow-up pneumonia TECHNIQUE: Single frontal view of the chest is obtained. FINDINGS: There is persistent moderate opacity with consolidation in the right mid lower lung with a ccompanying small to moderate pleural effusion. There is near complete resolution of streaky opacitie s in the left lung base. No pneumothorax. Stable enlarged cardiac silhouette. The osseous structures are intact. IMPRESSION: As above.
[2020-06-10 20:32] LABS: Glucose,Whole Blood 152 mg/dL (75-99)
--- NOTE | 2020-06-10 20:32 | P.PN ---
Progress Note - Text Progress Note Date: 06/10/20 Chief Complaint: Cough History of presenting complaint: This is the patient was brought in from the [facility] to the ER. Patient was here in the hospital in March 2020 seconds to right-sided pneumonia empyema with a pigtail catheter in a current TPA infusions. Patient also received hemodialysis. Patient with having cough with some phlegm for 5 days. Rather congested. Does have some fever and chills. Patient had rehab. Appetite is not good. Wheezing. History of asthma. Nonsmoker. Tired and rundown. Braden colored sputum. Admitted with severe pneumonia, asthma exacerbation. Underwent bronchoscopy. With lavage today-tired. Congested chest. Bringing up sputum. Review of systems: Was done for constitutional, cardiovascular, GI, pulmonary. relevant finding as above Active Medications Acetaminophen (Acetaminophen Tab 325 Mg Tab) 650 mg PO Q6H PRN PRN Reason: Pain Albuterol/Ipratropium (Ipratropium-Albuterol 3 Ml Neb) 3 ml INHALATION RT-Q4H PRN PRN Reason: shortness of breath Last Admin: 06/07/20 08:01 Dose: 3 ml Documented by: Albuterol/Ipratropium (Ipratropium-Albuterol 3 Ml Neb) 3 ml INHALATION RT-QID [facility] Last Admin: 06/10/20 19:37 Dose: 3 ml Documented by: Alprazolam (Alprazolam 0.25 Mg Tab) 0.25 mg PO Q8H PRN PRN Reason: Anxiety Last Admin: 06/09/20 23:04 Dose: 0.25 mg Documented by: Atorvastatin Calcium (Atorvastatin 40 Mg Tab) 40 mg PO DAILY [facility] Last Admin: 06/10/20 09:06 Dose: 40 mg Documented by: Budesonide (Budesonide 1 Mg/2 Ml Nebu) 1 mg INHALATION RT-BID DARWIN Last Admin: 06/10/20 19:36 Dose: 1 mg Documented by: Darbepoetin Angelo (Darbepoetin Angelo 40 Mcg/0.4 Ml Syringe) 40 mcg SQ Q7D [facility] Last Admin: 06/09/20 14:51 Dose: 40 mcg Documented by: Formoterol Fumarate (Formoterol Fumarate 20 Mcg/2 Ml Nebu) 20 mcg INHALATION RT-BID DARWIN Last Admin: 06/10/20 19:36 Dose: 20 mcg Documented by: Furosemide (Furosemide 80 Mg Tab) 80 mg PO BID@0900,1600 [facility] Last Admin: 06/10/20 16:34 Dose: 80 mg Documented by: Guaifenesin (Guaifenesin 600 Mg Tablet.Er) 1,200 mg PO Q12HR [facility] Last Admin: 06/10/20 09:06 Dose: 1,200 mg Documented by: Hydralazine HCl (Hydralazine Hcl 25 Mg Tab) 25 mg PO TID [facility] Last Admin: 06/10/20 16:34 Dose: 25 mg Documented by: Cefepime HCl 1 gm/ Sodium (Chloride) 50 mls @ 12.5 mls/hr IVPB Q12HR [facility] Last Admin: 06/10/20 14:38 Dose: 12.5 mls/hr Documented by: Daptomycin 500 mg/ Sodium (Chloride) 50 mls @ 100 mls/hr IVPB Q48H [facility]; Protocol Last Admin: 06/10/20 14:38 Dose: 100 mls/hr Documented by: Ferric Sodium Gluconate 125 mg (/ Sodium Chloride) 110 mls @ 100 mls/hr IVPB DAILY [facility] Stop: 06/12/20 10:31 Last Admin: 06/10/20 12:19 Dose: 100 mls/hr Documented by: Levothyroxine Sodium (Levothyroxine 100 Mcg Tab) 100 mcg PO DAILY@0630 [facility] Last Admin: 06/10/20 06:15 Dose: 100 mcg Documented by: Loperamide HCl (Loperamide 2 Mg Cap) 2 mg PO QID PRN PRN Reason: Diarrhea Miscellaneous Information (Pneumonia Protocol Utilized 1 Each Misc) 1 each PO ONCE PRN PRN Reason: Per Protocol Montelukast Sodium (Montelukast 10 Mg Tab) 10 mg PO HS@2000 [facility] Last Admin: 06/09/20 21:49 Dose: 10 mg Documented by: Nifedipine (Nifedipine Xl 30 Mg Tab.Er.24) 30 mg PO DAILY@0800 [facility] Last Admin: 06/10/20 09:06 Dose: 30 mg Documented by: Ondansetron HCl (Ondansetron 4 Mg Tab) 4 mg PO Q6H PRN PRN Reason: Nausea Sevelamer Carbonate (Sevelamer 800 Mg Tab) 1,600 mg PO TID@0830,1230,1730 [facility] Last Admin: 06/10/20 16:34 Dose: 1,600 mg Documented by: Sodium Chloride (Sodium Chloride 0.9% Flush 10 Ml Syringe) 10 ml IV BID [facility] Last Admin: 06/10/20 09:07 Dose: 10 ml Documented by: Physical examination: VITAL SIGNS: 37.9, 89, 20, 173/80, 96% on 3 L GENERAL: , Propped up in bed, coughing, tired EYES: Pupils equal. Conjunctiva pale . NECK: JVD not raised; masses not palpable. HEART: First and second heart sounds are normal; no edema. LUNGS: Respiratory rate increased, diminished breath sounds. Coarse breath sounds. ABDOMEN: Soft, nontender, liver spleen not palpable, no masses palpable. PSYCH: Alert and oriented x3; mood and affect anxious MUSCULAR skeletal: Loss of subcutaneous fat, bony prominences. INVESTIGATIONS, reviewed in the clinical context: Computed tomography scan of the chest-interval development of Fergon 180 in the Edwin. The right midlung 4.9 cm. Interstitial changes with patchy groundglass throughout the remainder of the lungs. Severe airspace disease involving most of the right mid and lower lung. Accu-Cheks 61, 60, 75 TSH 9.3, free T4 2 0.18 Admission testing White count 13.4 hemoglobin 8.2 platelets 287 potassium 4.3 creatinine 1.8 to Troponin I 0.247, 0.292, albumin 3.0 pro-calcitonin 2.2 to EKG tracing personally reviewed by me-sinus rhythm, P pulmonale Chest x-ray film personally reviewed by [id number] infiltrate, not too different from the one on May 26 Previous testing: Creatinine 4.87 on May 26 Assessment: -Pneumonia, suspect gram-negative organism,-slow to respond -Status post bronchoscopy-cultures pending -Severe persistent asthma with acute slow to respond -Essential hypertension -Hyperlipidemia -Hypothyroid -Normocytic anemia-multifactorial including chronic kidney disease -Chronic hypoxic respiratory failure home oxygen 2 L -Chronic inflammatory demyelinating polyneuritis with weekly injections off immunoglobulin -End-stage kidney disease on hemodialysis Tuesday -Troponin leak the setting of chronic kidney disease and hemodynamic mismatch. No acute Coronary syndrome Plan: Continue with IV cefepime and daptomycin. Continue bronchodilators. Spoke to patient's on the phone at length. Did explain guarded prognosis because of the current immune system. The long of infectious to clear up. Follow with pulmonary. Total time spent today about 40 minutes with over 20 minutes of discussion
[2020-06-10] MEDS: MONTELUKAST 10 MG TAB PO SCH (21:48)
[2020-06-10] MEDS: ALPRAZolam 0.25 MG TAB PO PRN (23:07)
[2020-06-11 06:12] LABS: Glucose,Whole Blood 82 mg/dL (75-99)
[2020-06-11] MEDS: LEVOTHYROXINE 100 MCG TAB PO SCH (06:12)
[2020-06-11] MEDS: BUDESONIDE 1 MG/2 ML NEBU INHALATION SCH ×2 (07:08→22:20)
[2020-06-11] MEDS: FORMOTEROL FUMARATE 20 MCG/2 ML NEBU INHALATION SCH ×2 (07:08→22:20)
[2020-06-11] MEDS: IPRATROPIUM-ALBUTEROL 3 ML NEB INHALATION SCH ×4 (07:08→22:20)
--- NOTE | 2020-06-11 09:11 | P.PN ---
Subjective Patient is seen in follow-up for end-stage renal disease. She is maintained on hemodialysis on Tuesday schedule. Underwent bronchoscopy June 09 with removal of secretions. Feels a little short of breath today. Currently having breakfast. Vital signs are stable. General: The patient appeared well nourished and normally developed. HEENT: Head exam is unremarkable. Neck is without jugular venous distension. LUNGS: Breath sounds decreased. HEART: Rate and Rhythm are regular. ABDOMEN: Soft, nontender. EXTREMITITES: No clubbing, cyanosis, or edema. Objective - Vital Signs Vital signs: Vital Signs Temp 98.3 F 06/11/20 08:00 Pulse 90 06/11/20 08:00 Resp 27 H 06/11/20 08:00 BP 163/78 06/11/20 08:00 Pulse Ox 97 06/11/20 04:00 Intake & Output 06/10/20 06/11/20 06/11/20 18:59 06:59 18:59 Intake Total 697 550 Output Total 0 200 Balance 697 550 -200 Weight 47 kg Intake: Intake, IV Titration 50 Amount Cefepime 1 gm In Sodium 50 Chloride 0.9% 50 ml @ 12. 5 mls/hr IVPB Q12HR [facility] Rx#:[id number] Oral 697 500 Output: Urine 200 Stool 0 Other: Voiding Method Bedside Commode Diaper Bedpan # Voids 1 1 # Bowel Movements 1 2 - Labs CBC & Chem 7: 06/06/20 23:18 06/06/20 23:18 Labs: Abnormal Lab Results - Last 24 Hours (Table) 06/10/20 06/10/20 06/10/20 Range/Units 11:36 16:36 20:24 POC Glucose (mg/dL) 143 H 134 H 152 H (75-99) mg/dL Microbiology - Last 24 Hours (Table) 06/09/20 13:30 Gram Stain - Final Bronchial Washings - Random Bronchial Washings Culture - Final 06/07/20 02:40 Blood Culture - Preliminary Blood No Growth after 96 hours 06/07/20 00:23 Blood Culture - Preliminary Blood No Growth after 96 hours 06/09/20 13:30 Acid Fast Bacilli Smear - Final Bronchial Washings - Random Acid Fast Bacilli Culture - Preliminary Assessment and Plan Plan: Assessment 1. End-stage renal disease maintained on hemodialysis on Tuesday schedule. 2. Pneumonia maintained on antibiotics. Status post bronchoscopy on June 09. 3. Hypertension with chronic kidney disease. 4. Chronic kidney disease mineral bone disease maintained on Renvela. 5. Anemia of chronic kidney disease. Iron deficiency noted. Maintained on Aranesp. Plan: Hemodialysis today. Will try for 3-4 L ultrafiltration as able to tolerate. Maintain IV iron. Third dose today. Maintain Lasix.
[2020-06-11] MEDS: NIFEdipine XL 30 MG TAB.ER.24 PO SCH (10:22)
[2020-06-11] MEDS: SEVELAMER 800 MG TAB PO SCH ×3 (10:26→17:10)
[2020-06-11] MEDS: ATORVASTATIN 40 MG TAB PO SCH (10:26)
[2020-06-11] MEDS: FUROSEMIDE 80 MG TAB PO SCH ×2 (10:27→17:10)
[2020-06-11] MEDS: guaiFENesin 600 MG TABLET.ER PO SCH ×2 (10:27→20:54)
[2020-06-11] MEDS: hydrALAZINE HCL 25 MG TAB PO SCH ×3 (10:28→22:46)
[2020-06-11] MEDS: SODIUM FERRIC GLUCONAT-SUCROSE 125 MG in SODIUM CHLORIDE 0.9% 100 ML IVPB SCH (10:35)
[2020-06-11 11:29] LABS: Glucose,Whole Blood 143 mg/dL (75-99)
[2020-06-11] MEDS: CEFEPIME 1 GM in SODIUM CHLORIDE 0.9% 50 ML IVPB SCH ×2 (12:37→20:57)
--- NOTE | 2020-06-11 12:38 | P.PN ---
Subjective Progress Note Date: 06/11/20 Principal diagnosis: Acute on chronic hypoxemic respiratory failure secondary to increasing right- sided pleural effusion/atelectasis/consolidation This is a 60-year-old female patient who follows with Dr. Morillo as her primary care provider. She has a history of chronic hypoxemic respiratory failure secondary to chronic persistent bronchial asthma, chronic right lower lobe changes, recurrent right pleural effusion and empyema requiring pigtail placement and subsequent removal. She has end-stage renal disease receiving hemodialysis Tuesday. She also has a history of congestive heart failure, diabetes Uriel, hyperlipidemia, hypertension, hypothyroidism. She had recently been discharged from here on 05/26/2020 to [facility] for inpatient rehabilitation. A chest x-ray yesterday revealed increasing right-sided pleural effusion and she was transferred back here for the same. She is seen today in consultation on the selective care unit. She is currently resting in bed. Awake and alert in no acute distress. She is maintaining O2 saturations in the mid 90s on 2 L/m per nasal cannula. She's been afebrile. Hemodynamically stable. White count 16.4. Hemoglobin 8.2. Sodium 137. Potassium 4.3. Creatinine 1.82. Troponin 0.247, 0.292. ProBNP 120,000. Pro- calcitonin 2.22. Chest x-ray reveals evidence of congestive heart failure with increasing right-sided pleural effusion and right lower lobe infiltrate compared to previous of 05/26/2020. Echocardiogram reveals preserved left ventricular systolic function with ejection fraction 55-60%. She has been initiated and DuoNeb inhalations, Symbicort, oral diuretics, azithromycin and Zosyn. Ultrasound of the chest is pending. The patient is seen today 06/08/2020 in follow-up on the selective care unit. She is currently awake and alert in no acute distress. Resting fairly comfortably in bed. Continues with a loose nonproductive cough. She's been afebrile. Maintaining O2 saturations in the 90s on 2 L/m per nasal cannula. Blood cultures reveal no growth to date. Blood glucose 169. Ultrasound of the right chest revealed minimal free-flowing fluid. CAT scan of the chest revealed residual debris/endobronchial material throughout the bronchus intermedius and more distal right middle lobe/lower lobe though improved from 05/20/2020. There is however severest disease/pneumonia involving most of the right mid and lower lung, worsening from 05/20/2020. There is interval development of a rounded 4.9 cm area in the periphery of the right midlung. Less likely felt to be neoplasm. Possible early developing abscess. Additional areas of interstitial and groundglass opacity throughout the remainder of the lungs. She remains on bronchodilators. Antibiotics in the form of daptomycin and cefepime. On 06/09/2020 patient seen in follow-up on selective care unit, she has finished her dialysis today, tolerated well, she is drowsy, but easily wakes up and answ ers questions, appears very weak. Has a weak congested nonproductive cough, she had 3 L of oxygen pulse ox 97%, his vital signs have been stable, she's been afebrile. She continues on nebulized bronchodilators, she is on cefepime and daptomycin for empiric antibiotic coverage, patient had her bronchoscopy with BAL today by Dr. Dietrich, she tolerated procedure very well. She has had no fever or chills. Her last chest x-ray today showed apical pleural thickening on the right, pleural parenchymal changes within the right hemithorax, patchy density in the left lung. This had no hemoptysis. No complaints of chest pain. She had troponin elevation for which cardiology is following, and it is not thought to be related to acute coronary syndrome. The patient is seen today 06/11/2020 in follow-up on the selective care unit. She is currently resting comfortably in bed. Awake and alert in no acute distress. She is maintaining O2 saturations up to 100% on 3 L/m per nasal cannula. She's afebrile. Bronchial wash cultures are pending. Blood cultures reveal no growth. Blood glucose 143. She is currently on DuoNeb inhalations, Pulmicort and Perforomist inhalations antibiotics in the form of daptomycin and cefepime. Objective - Vital Signs Vital signs: Vital Signs Temp 98.4 F 06/11/20 11:37 Pulse 91 06/11/20 11:37 Resp 21 06/11/20 12:00 BP 171/81 06/11/20 11:37 Pulse Ox 100 06/11/20 11:37 Intake & Output 06/10/20 06/11/20 06/11/20 18:59 06:59 18:59 Intake Total 697 550 Output Total 0 200 Balance 697 550 -200 Weight 47 kg 47 kg Intake: Intake, IV Titration 50 Amount Cefepime 1 gm In Sodium 50 Chloride 0.9% 50 ml @ 12. 5 mls/hr IVPB Q12HR [facility] Rx#:[id number] Oral 697 500 Output: Urine 200 Stool 0 Other: Voiding Method Bedside Commode Diaper Bedpan # Voids 1 1 # Bowel Movements 1 2 - Exam GENERAL EXAM: Alert, 60-year-old female patient, appears older than stated age, on 3 L nasal cannula with O2 saturation 100%, comfortable in no apparent d istress. HEAD: Normocephalic. EYES: Normal reaction of pupils, equal size. NOSE: Clear with pink turbinates. THROAT: No erythema or exudates. NECK: No masses, no JVD. CHEST: No chest wall deformity. LUNGS: Equal air entry with basilar crackles right greater than left, diminished CVS: S1 and S2 normal with no audible murmur, regular rhythm. ABDOMEN: No hepatosplenomegaly, normal bowel sounds, no guarding or rigidity. SPINE: No scoliosis or deformity SKIN: No rashes CENTRAL NERVOUS SYSTEM: No focal deficits, tone is normal in all 4 extremities. EXTREMITIES: Left upper extremity AV fistula. There is trace peripheral edema. No clubbing, no cyanosis. Peripheral pulses are intact. - Labs CBC & Chem 7: 06/06/20 23:18 06/06/20 23:18 Labs: Abnormal Lab Results - Last 24 Hours (Table) 06/10/20 06/10/20 06/11/20 Range/Units 16:36 20:24 11:27 POC Glucose (mg/dL) 134 H 152 H 143 H (75-99) mg/dL Microbiology - Last 24 Hours (Table) 06/09/20 13:30 Gram Stain - Final Bronchial Washings - Random Bronchial Washings Culture - Final 06/07/20 02:40 Blood Culture - Preliminary Blood No Growth after 96 hours 06/07/20 00:23 Blood Culture - Preliminary Blood No Growth after 96 hours 06/09/20 13:30 Acid Fast Bacilli Smear - Final Bronchial Washings - Random Acid Fast Bacilli Culture - Preliminary Assessment and Plan Assessment: 1 Acute on chronic hypoxemic respiratory failure secondary to increasing right- sided atelectasis and consolidation/pneumonia with rounded area of possible empyema. Status post bronchoscopy with BAL on 06/09/2020. Cultures pending 2 Recent episode of pneumonia/right-sided empyema status post pigtail catheter placement and subsequent removal. CAT scan 06/07/2020 continues to show si gnificant consolidation additional rounded 4.9 cm area of the periphery of the right midlung, possible early abscess 3 End stage renal disease currently receiving hemodialysis Tuesday 4 History of chronic bronchial asthma 5 History of diastolic congestive heart failure 6 Diabetes mellitus 7 Hyperlipidemia 8 Hypertension 9 Hypothyroidism 10 Chronic hypoxemic respiratory failure 11 Poor overall functional performance based on the above-mentioned multiple comorbidities. Plan: The patient was seen and evaluated by Dr. Dietrich The plan is to transfer back [facility] after hemodialysis today Continue bronchodilators, titrate FiO2 as tolerated I, the cosigning physician, performed a history & physical examination of the patient. Lungs sounds with basilar crackles right greater than left, diminished. Maintaining good O2 saturations in the 90s on 3 L/m per nasal cannula. I discussed the assessment and plan of care with my nurse practitioner, Myla Carrizales. I attest to the above note as dictated by her.
[2020-06-11] MEDS: ALPRAZolam 0.25 MG TAB PO PRN (14:53)
--- NOTE | 2020-06-11 16:27 | P.PN ---
Progress Note - Text Progress Note Date: 06/11/20 Chief Complaint: Cough History of presenting complaint: This is the patient was brought in from the [facility] to the ER. Patient was here in the hospital in March 2020 seconds to right-sided pneumonia empyema with a pigtail catheter in a current TPA infusions. Patient also received hemodialysis. Patient with having cough with some phlegm for 5 days. Rather congested. Does have some fever and chills. Patient had rehab. Appetite is not good. Wheezing. History of asthma. Nonsmoker. Tired and rundown. Braden colored sputum. Admitted with severe pneumonia, asthma exacerbation. Underwent bronchoscopy. With lavage today-getting dialyzed today. Breathing better today. at the bedside. I spoke at to patient's on the phone yesterday. Updated. Review of systems: Was done for constitutional, cardiovascular, GI, pulmonary. relevant finding as above Active Medications Acetaminophen (Acetaminophen Tab 325 Mg Tab) 650 mg PO Q6H PRN PRN Reason: Pain Albuterol/Ipratropium (Ipratropium-Albuterol 3 Ml Neb) 3 ml INHALATION RT-Q4H PRN PRN Reason: shortness of breath Last Admin: 06/07/20 08:01 Dose: 3 ml Documented by: Albuterol/Ipratropium (Ipratropium-Albuterol 3 Ml Neb) 3 ml INHALATION RT-QID [facility] Last Admin: 06/11/20 14:57 Dose: 3 ml Documented by: Alprazolam (Alprazolam 0.25 Mg Tab) 0.25 mg PO Q8H PRN PRN Reason: Anxiety Last Admin: 06/11/20 14:53 Dose: 0.25 mg Documented by: Atorvastatin Calcium (Atorvastatin 40 Mg Tab) 40 mg PO DAILY [facility] Last Admin: 06/11/20 10:26 Dose: 40 mg Documented by: Budesonide (Budesonide 1 Mg/2 Ml Nebu) 1 mg INHALATION RT-BID [facility] Last Admin: 06/11/20 07:08 Dose: 1 mg Documented by: Darbepoetin Angelo (Darbepoetin Angelo 40 Mcg/0.4 Ml Syringe) 40 mcg SQ Q7D [facility] Last Admin: 06/09/20 14:51 Dose: 40 mcg Documented by: Formoterol Fumarate (Formoterol Fumarate 20 Mcg/2 Ml Nebu) 20 mcg INHALATION RT-BID [facility] Last Admin: 06/11/20 07:08 Dose: 20 mcg Documented by: Furosemide (Furosemide 80 Mg Tab) 80 mg PO BID@0900,1600 [facility] Last Admin: 06/11/20 10:27 Dose: 80 mg Documented by: Guaifenesin (Guaifenesin 600 Mg Tablet.Er) 1,200 mg PO Q12HR [facility] Last Admin: 06/11/20 10:27 Dose: 1,200 mg Documented by: Hydralazine HCl (Hydralazine Hcl 25 Mg Tab) 25 mg PO TID [facility] Last Admin: 06/11/20 10:28 Dose: 25 mg Documented by: Cefepime HCl 1 gm/ Sodium (Chloride) 50 mls @ 12.5 mls/hr IVPB Q12HR [facility] Last Admin: 06/11/20 12:37 Dose: Not Given Documented by: Daptomycin 500 mg/ Sodium (Chloride) 50 mls @ 100 mls/hr IVPB Q48H [facility]; Protocol Last Admin: 06/10/20 14:38 Dose: 100 mls/hr Documented by: Ferric Sodium Gluconate 125 mg (/ Sodium Chloride) 110 mls @ 100 mls/hr IVPB DAILY [facility] Stop: 06/12/20 10:31 Last Admin: 06/11/20 10:35 Dose: 100 mls/hr Documented by: Levothyroxine Sodium (Levothyroxine 100 Mcg Tab) 100 mcg PO DAILY@0630 [facility] Last Admin: 06/11/20 06:12 Dose: 100 mcg Documented by: Loperamide HCl (Loperamide 2 Mg Cap) 2 mg PO QID PRN PRN Reason: Diarrhea Miscellaneous Information (Pneumonia Protocol Utilized 1 Each Misc) 1 each PO ONCE PRN PRN Reason: Per Protocol Montelukast Sodium (Montelukast 10 Mg Tab) 10 mg PO HS@2000 [facility] Last Admin: 06/10/20 21:48 Dose: 10 mg Documented by: Nifedipine (Nifedipine Xl 30 Mg Tab.Er.24) 30 mg PO DAILY@0800 [facility] Last Admin: 06/11/20 10:22 Dose: 30 mg Documented by: Ondansetron HCl (Ondansetron 4 Mg Tab) 4 mg PO Q6H PRN PRN Reason: Nausea Sevelamer Carbonate (Sevelamer 800 Mg Tab) 1,600 mg PO TID@0830,1230,1730 [facility] Last Admin: 06/11/20 11:44 Dose: Not Given Documented by: Sodium Chloride (Sodium Chloride 0.9% Flush 10 Ml Syringe) 10 ml IV BID [facility] Last Admin: 06/11/20 10:32 Dose: Not Given Documented by: Physical examination: VITAL SIGNS: 97.9, 83, 26, 126/68, 99% on partial nonrebreather GENERAL: , Propped up in bed, more rested EYES: Pupils equal. Conjunctiva pale . NECK: JVD not raised; masses not palpable. HEART: First and second heart sounds are normal; no edema. LUNGS: Respiratory rate increased, diminished breath sounds. ABDOMEN: Soft, nontender, liver spleen not palpable, no masses palpable. PSYCH: Alert and oriented x3; mood and affect anxious MUSCULAR skeletal: Loss of subcutaneous fat, bony prominences. INVESTIGATIONS, reviewed in the clinical context: Gram stain from bronchial washing culture-negative Computed tomography scan of the chest-interval development of Fergon 180 in the Edwin. The right midlung 4.9 cm. Interstitial changes with patchy groundglass throughout the remainder of the lungs. Severe airspace disease involving most of the right mid and lower lung. Accu-Cheks 61, 60, 75 TSH 9.3, free T4 2 0.18 Admission testing White count 13.4 hemoglobin 8.2 platelets 287 potassium 4.3 creatinine 1.8 to Troponin I 0.247, 0.292, albumin 3.0 pro-calcitonin 2.2 to EKG tracing personally reviewed by me-sinus rhythm, P pulmonale Chest x-ray film personally reviewed by [id number] infiltrate, not too different from the one on May 26 Previous testing: Creatinine 4.87 on May 26 Assessment: -Pneumonia, suspect gram-negative organism,-clinically better -Status post bronchoscopy-cultures pending -Severe persistent asthma with acute exacerbation-improving -Essential hypertension -Hyperlipidemia -Hypothyroid -Normocytic anemia-multifactorial including chronic kidney disease -Chronic hypoxic respiratory failure home oxygen 2 L -Chronic inflammatory demyelinating polyneuritis with weekly injections off immunoglobulin -End-stage kidney disease on hemodialysis Tuesday -Troponin leak the setting of chronic kidney disease and hemodynamic mismatch. No acute Coronary syndrome Plan: Continue with IV cefepime and daptomycin. Continue bronchodilators. Patient looking better today. Discussed with pulmonary. If remains stable hopefully discharge tomorrow. Getting hemodialysis today.
[2020-06-11 17:09] LABS: Glucose,Whole Blood 88 mg/dL (75-99)
[2020-06-11 17:22] LABS: Anisocytosis Slight; HCT 29.8 % (34.0-46.0); HGB 8.9 gm/dL (11.4-16.0); Hypochromasia Marked; MCH 29.6 pg (25.0-35.0); MCHC 29.8 g/dL (31.0-37.0); MCV 99.1 fL (80.0-100.0); Macrocytosis Slight; Mean Platelet Volume 7.3; Platelet Count 373 k/uL (150-450); RBC 3.01 m/uL (3.80-5.40); RDW 17.8 % (11.5-15.5); WBC 8.9 k/uL (3.8-10.6)
[2020-06-11 17:43] LABS: Calcium 9.9 mg/dL (8.4-10.2); Potassium 3.8 mmol/L (3.5-5.1)
[2020-06-11] MEDS: MONTELUKAST 10 MG TAB PO SCH (20:54)
[2020-06-11 20:57] LABS: Glucose,Whole Blood 71 mg/dL (75-99)
[2020-06-11 21:11] LABS: Glucose,Whole Blood 87 mg/dL (75-99)
[2020-06-12 00:02] LABS: Glucose,Whole Blood 113 mg/dL (75-99)
[2020-06-12 05:55] LABS: Glucose,Whole Blood 86 mg/dL (75-99)
[2020-06-12] MEDS: LEVOTHYROXINE 100 MCG TAB PO SCH (06:28)
[2020-06-12] MEDS: BUDESONIDE 1 MG/2 ML NEBU INHALATION SCH (07:45)
[2020-06-12] MEDS: FORMOTEROL FUMARATE 20 MCG/2 ML NEBU INHALATION SCH (07:45)
[2020-06-12] MEDS: IPRATROPIUM-ALBUTEROL 3 ML NEB INHALATION SCH ×4 (07:45→19:36)
[2020-06-12] MEDS: SODIUM FERRIC GLUCONAT-SUCROSE 125 MG in SODIUM CHLORIDE 0.9% 100 ML IVPB SCH (09:09)
--- NOTE | 2020-06-12 09:10 | P.PN ---
Subjective Patient is seen in follow-up for end-stage renal disease. She is maintained on hemodialysis on Tuesday schedule. Underwent bronchoscopy June 09 with removal of secretions. No active complaints at this time. Feels tired. Tolerated dialysis yesterday with 3.8 L ultrafiltration. Vital signs are stable. General: The patient appeared well nourished and normally developed. HEENT: Head exam is unremarkable. Neck is without jugular venous distension. LUNGS: Breath sounds decreased. HEART: Rate and Rhythm are regular. ABDOMEN: Soft, nontender. EXTREMITITES: No clubbing, cyanosis, or edema. Objective - Vital Signs Vital signs: Vital Signs Temp 98 F 06/11/20 20:00 Pulse 72 06/12/20 08:08 Resp 16 06/12/20 04:00 BP 107/59 06/12/20 04:00 Pulse Ox 100 06/12/20 04:00 Intake & Output 06/11/20 06/12/20 06/12/20 18:59 06:59 18:59 Output Total 4000 Balance -4000 Weight 47 kg 46.5 kg Output: Urine 200 Hemodialysis 3800 Other: Voiding Method Bedpan Bedside Commode # Voids 1 # Bowel Movements 1 - Labs CBC & Chem 7: 06/11/20 17:10 06/11/20 17:10 Labs: Abnormal Lab Results - Last 24 Hours (Table) 06/09/20 06/11/20 06/11/20 Range/Units 13:30 11:27 17:10 RBC 3.01 L (3.80-5.40) m/uL Hgb 8.9 L (11.4-16.0) gm/dL Hct 29.8 L (34.0-46.0) % MCHC 29.8 L (31.0-37.0) g/dL RDW 17.8 H (11.5-15.5) % Sodium (137-145) mmol/L Creatinine (0.52-1.04) mg/dL POC Glucose (mg/dL) 143 H (75-99) mg/dL Viral Test See Below H 06/11/20 06/11/20 06/11/20 Range/Units 17:10 20:42 23:50 RBC (3.80-5.40) m/uL Hgb (11.4-16.0) gm/dL Hct (34.0-46.0) % MCHC (31.0-37.0) g/dL RDW (11.5-15.5) % Sodium 135 L (137-145) mmol/L Creatinine 2.04 H (0.52-1.04) mg/dL POC Glucose (mg/dL) 71 L 113 H (75-99) mg/dL Viral Test Microbiology - Last 24 Hours (Table) 06/07/20 02:40 Blood Culture - Preliminary Blood No Growth after 120 hours 06/07/20 00:23 Blood Culture - Preliminary Blood No Growth after 120 hours 06/09/20 13:30 Gram Stain - Final Bronchial Washings - Random Bronchial Washings Culture - Final Assessment and Plan Plan: Assessment 1. End-stage renal disease maintained on hemodialysis on Tuesday schedule. 2. Pneumonia maintained on antibiotics. Status post bronchoscopy on June 09. 3. Hypertension with chronic kidney disease. Controlled. 4. Chronic kidney disease mineral bone disease maintained on Renvela. 5. Anemia of chronic kidney disease. Iron deficiency noted. Status post IV iron. Maintained on Aranesp. Plan: Hemodialysis tomorrow. Maintain Lasix.
[2020-06-12] MEDS: hydrALAZINE HCL 25 MG TAB PO SCH ×3 (11:03→20:57)
[2020-06-12] MEDS: FUROSEMIDE 80 MG TAB PO SCH ×2 (11:04→17:00)
[2020-06-12] MEDS: NIFEdipine XL 30 MG TAB.ER.24 PO SCH (11:04)
[2020-06-12] MEDS: guaiFENesin 600 MG TABLET.ER PO SCH ×2 (11:04→20:56)
[2020-06-12] MEDS: SEVELAMER 800 MG TAB PO SCH ×3 (11:04→17:00)
[2020-06-12] MEDS: ATORVASTATIN 40 MG TAB PO SCH (11:05)
[2020-06-12] MEDS: CEFEPIME 1 GM in SODIUM CHLORIDE 0.9% 50 ML IVPB SCH (11:05)
[2020-06-12 11:59] LABS: Glucose,Whole Blood 142 mg/dL (75-99)
--- NOTE | 2020-06-12 12:49 | P.PN ---
Subjective Progress Note Date: 06/12/20 Principal diagnosis: Acute on chronic hypoxemic restaurant failure secondary to increasing right- sided pleural effusion/atelectasis/consolidation This is a 60-year-old female patient who follows with Dr. Morillo as her primary care provider. She has a history of chronic hypoxemic respiratory failure secondary to chronic persistent bronchial asthma, chronic right lower lobe changes, recurrent right pleural effusion and empyema requiring pigtail placement and subsequent removal. She has end-stage renal disease receiving hemodialysis Tuesday. She also has a history of congestive heart failure, diabetes Uriel, hyperlipidemia, hypertension, hypothyroidism. She had recently been discharged from here on 05/26/2020 to [facility] for inpatient rehabilitation. A chest x-ray yesterday revealed increasing right-sided pleural effusion and she was transferred back here for the same. She is seen today in consultation on the selective care unit. She is currently resting in bed. Awake and alert in no acute distress. She is maintaining O2 saturations in the mid 90s on 2 L/m per nasal cannula. She's been afebrile. Hemodynamically stable. White count 16.4. Hemoglobin 8.2. Sodium 137. Potassium 4.3. Creatinine 1.82. Troponin 0.247, 0.292. ProBNP 120,000. Pro- calcitonin 2.22. Chest x-ray reveals evidence of congestive heart failure with increasing right-sided pleural effusion and right lower lobe infiltrate compared to previous of 05/26/2020. Echocardiogram reveals preserved left ventricular systolic function with ejection fraction 55-60%. She has been initiated and DuoNeb inhalations, Symbicort, oral diuretics, azithromycin and Zosyn. Ultrasound of the chest is pending. The patient is seen today 06/08/2020 in follow-up on the selective care unit. She is currently awake and alert in no acute distress. Resting fairly comfortably in bed. Continues with a loose nonproductive cough. She's been afebrile. Maintaining O2 saturations in the 90s on 2 L/m per nasal cannula. Blood cultures reveal no growth to date. Blood glucose 169. Ultrasound of the right chest revealed minimal free-flowing fluid. CAT scan of the chest revealed residual debris/endobronchial material throughout the bronchus intermedius and more distal right middle lobe/lower lobe though improved from 05/20/2020. There is however severest disease/pneumonia involving most of the right mid and lower lung, worsening from 05/20/2020. There is interval development of a rounded 4.9 cm area in the periphery of the right midlung. Less likely felt to be neoplasm. Possible early developing abscess. Additional areas of interstitial and groundglass opacity throughout the remainder of the lungs. She remains on bronchodilators. Antibiotics in the form of daptomycin and cefepime. On 06/09/2020 patient seen in follow-up on selective care unit, she has finished her dialysis today, tolerated well, she is drowsy, but easily wakes up and answ ers questions, appears very weak. Has a weak congested nonproductive cough, she had 3 L of oxygen pulse ox 97%, his vital signs have been stable, she's been afebrile. She continues on nebulized bronchodilators, she is on cefepime and daptomycin for empiric antibiotic coverage, patient had her bronchoscopy with BAL today by Dr. Dietrich, she tolerated procedure very well. She has had no fever or chills. Her last chest x-ray today showed apical pleural thickening on the right, pleural parenchymal changes within the right hemithorax, patchy density in the left lung. This had no hemoptysis. No complaints of chest pain. She had troponin elevation for which cardiology is following, and it is not thought to be related to acute coronary syndrome. On 06/12/2020 patient seen in follow-up on selective care unit, she is awake and alert, resting comfortably in bed, denies any acute respite or distress, she is currently on 3 L of oxygen with a pulse ox of 100%, she's been afebrile, vital signs have been stable, lung sounds reveal diminished breath sounds with some mild crackles at the bases, patient is status post bronchoscopy with bronchoalveolar lavage, and bronchial lavage cultures have been negative. Cytology has been negative. Last chest x-ray done on 06/10/2020 showed persistent moderate opacity with consolidation in the right mid lower lung with small to moderate pleural effusion, and complete resolution of the streaky opacities in the left lung base. Antibiotic coverage is no form of cefepime, patient has received 5 doses of the cefepime while in the hospital, vital signs have been stable, no worsening dyspnea, from pulmonary perspective she can be discharged on 5 more days of oral Augmentin Objective - Vital Signs Vital signs: Vital Signs Temp 98 F 06/11/20 20:00 Pulse 96 06/12/20 11:27 Resp 16 06/12/20 11:27 BP 104/56 06/12/20 11:27 Pulse Ox 100 06/12/20 11:27 Intake & Output 06/11/20 06/12/20 06/12/20 18:59 06:59 18:59 Output Total 4000 0 Balance -4000 0 Weight 47 kg 46.5 kg Output: Urine 200 Stool 0 Hemodialysis 3800 Other: Voiding Method Bedpan Bedside Commode Bedside Commode # Voids 1 0 # Bowel Movements 1 - Exam GENERAL EXAM: There is, but arousable, 60-year-old white female, appears very frail, weak does have the congested nonproductive cough, on 3 L of oxygen pulse ox of 97-100% comfortable in no apparent distress. HEAD: Normocephalic/atraumatic. EYES: Normal reaction of pupils, equal size. Conjunctiva pink, sclera white. NOSE: Clear with pink turbinates. THROAT: No erythema or exudates. NECK: No masses, no JVD, no thyroid enlargement, no adenopathy. CHEST: No chest wall deformity. Symmetrical expansion. LUNGS: Equal air entry with coarse crackles, bilateral bases CVS: Regular rate and rhythm, normal S1 and S2, no gallops, no murmurs, no rubs ABDOMEN: Soft, nontender. No hepatosplenomegaly, normal bowel sounds, no guarding or rigidity. EXTREMITIES: No clubbing, no edema, no cyanosis, 2+ pulses and upper and lower extremities. MUSCULOSKELETAL: Muscle strength and tone normal. SPINE: No scoliosis or deformity SKIN: No rashes CENTRAL NERVOUS SYSTEM: Alert and oriented -3. No focal deficits, tone is normal in all 4 extremities. PSYCHIATRIC: Alert and oriented -3. Appropriate affect. Intact judgment and insight. - Labs CBC & Chem 7: 06/11/20 17:10 06/11/20 17:10 Labs: Abnormal Lab Results - Last 24 Hours (Table) 06/09/20 06/11/20 06/11/20 Range/Units 13:30 17:10 17:10 RBC 3.01 L (3.80-5.40) m/uL Hgb 8.9 L (11.4-16.0) gm/dL Hct 29.8 L (34.0-46.0) % MCHC 29.8 L (31.0-37.0) g/dL RDW 17.8 H (11.5-15.5) % Sodium 135 L (137-145) mmol/L Creatinine 2.04 H (0.52-1.04) mg/dL POC Glucose (mg/dL) (75-99) mg/dL Viral Test See Below H 06/11/20 06/11/20 06/12/20 Range/Units 20:42 23:50 11:58 RBC (3.80-5.40) m/uL Hgb (11.4-16.0) gm/dL Hct (34.0-46.0) % MCHC (31.0-37.0) g/dL RDW (11.5-15.5) % Sodium (137-145) mmol/L Creatinine (0.52-1.04) mg/dL POC Glucose (mg/dL) 71 L 113 H 142 H (75-99) mg/dL Viral Test Microbiology - Last 24 Hours (Table) 06/07/20 02:40 Blood Culture - Preliminary Blood No Growth after 120 hours 06/07/20 00:23 Blood Culture - Preliminary Blood No Growth after 120 hours Assessment and Plan Plan: Assessment: 1 Acute on chronic hypoxemic respiratory failure secondary to increasing right- sided atelectasis and consolidation/pneumonia with rounded area of possible empyema. 2 Recent episode of pneumonia/right-sided empyema status post pigtail catheter placement and subsequent removal. CAT scan 06/07/2020 continues to show significant consolidation additional rounded 4.9 cm area of the periphery of the right midlung, possible early abscess 3 End stage renal disease currently receiving hemodialysis Tuesday 4 History of chronic bronchial asthma 5 History of diastolic congestive heart failure 6 Diabetes mellitus 7 Hyperlipidemia 8 Hypertension 9 Hypothyroidism 10 Chronic hypoxemic respiratory failure 11 Poor overall functional performance based on the above-mentioned multiple co morbidities. Plan: Bronchial lavage cultures have been negative, cytology has been negative, vital signs have been stable, no fever or chills, no worsening dyspnea, from pulmonary perspective patient is stable for discharge to ECF or home today, if cleared by medicine, on 5 more days of oral Augmentin. She will need outpatient follow-up with Dr. Dietrich in the office in 7 days I performed a history & physical examination of the patient and discussed their management with my nurse practitioner, Teresa Ortiz. I reviewed the nurse practitioner's note and agree with the documented findings and plan of care. Lung sounds are positive for diminished breath. The findings and the impression was discussed with the patient. I attest to the documentation by the nurse practitioner. Time with Patient: Less than 30
--- NOTE | 2020-06-12 15:56 | P.DS ---
Providers Date of admission: 06/07/20 00:56 Expected date of discharge: 06/12/20 Attending physician: Klaus Ornelas Consults: 06/07/20 00:56 Consult Physician Routine Consulting Provider: Harjinder Haines Consult Reason/Comments: CHF, elevated troponin. Do you want consulting provider notified?: Yes 06/07/20 01:01 Consult Physician Routine Consulting Provider: Earline Stinson Consult Reason/Comments: worsening pleural effusion Do you want consulting provider notified?: Yes 06/07/20 21:20 Consult Physician Routine Consulting Provider: Manasa Wells Consult Reason/Comments: CK D Do you want consulting provider notified?: Yes Primary care physician: [facility] Course: Chief Complaint: Cough History of presenting complaint: This is the patient was brought in from the [facility] to the ER. Patient was here in the hospital in March 2020 seconds to right-sided pneumonia empyema with a pigtail catheter in a current TPA infusions. Patient also received hemodialysis. Patient with having cough with some phlegm for 5 days. Rather congested. Does have some fever and chills. Patient had rehab. Appetite is not good. Wheezing. History of asthma. Nonsmoker. Tired and rundown. Braden colored sputum. Admitted with severe pneumonia, asthma exacerbation. Underwent bronchoscopy. With lavage. Cultures Were Negative. Fungal Cultures Are Pending. today-oral intake remains low. Cleared by Dr. Dietrich for discharge. They prescribed Augmentin for DC. Patient does feel tired. Consultation: Dr. Dietrich from pulmonary Dr. Bagley from nephrology Physical examination: VITAL SIGNS: Afebrile, 76, 16, 104/56, 100% on 3 L GENERAL: , Propped up in bed, tired EYES: Pupils equal. Conjunctiva pale . NECK: JVD not raised; masses not palpable. HEART: First and second heart sounds are normal; no edema. LUNGS: Respiratory rate increased, diminished breath sounds. ABDOMEN: Soft, nontender, liver spleen not palpable, no masses palpable. PSYCH: Alert and oriented x3; mood and affect anxious MUSCULAR skeletal: Loss of subcutaneous fat, bony prominences. INVESTIGATIONS, reviewed in the clinical context: Gram stain from bronchial washing culture-negative Computed tomography scan of the chest-interval development of Fergon 180 in the Edwin. The right midlung 4.9 cm. Interstitial changes with patchy groundglass throughout the remainder of the lungs. Severe airspace disease involving most of the right mid and lower lung. Accu-Cheks 61, 60, 75 TSH 9.3, free T4 2 0.18 Admission testing White count 13.4 hemoglobin 8.2 platelets 287 potassium 4.3 creatinine 1.8 to Troponin I 0.247, 0.292, albumin 3.0 pro-calcitonin 2.2 to EKG tracing personally reviewed by me-sinus rhythm, P pulmonale Chest x-ray film personally reviewed by [id number] infiltrate, not too different from the one on May 26 Previous testing: Creatinine 4.87 on May 26 Assessment: -Pneumonia, suspect gram-negative organism,-POA -Status post Gram stain and culture negative -Severe persistent asthma with acute POA -Essential hypertension -Hyperlipidemia -Hypothyroid -Normocytic anemia-multifactorial including chronic kidney disease -Chronic hypoxic respiratory failure home oxygen 2 L -Chronic inflammatory demyelinating polyneuritis with weekly injections off immunoglobulin -End-stage kidney disease on hemodialysis Tuesday -Troponin leak the setting of chronic kidney disease and hemodynamic mismatch. No acute Coronary syndrome Disposition: [facility] Patient Condition at Discharge: Undetermined Plan - Discharge Summary Discharge Rx Participant: Yes New Discharge Prescriptions: New Darbepoetin Angelo [Aranesp] 40 mcg SQ Q7D syringe Furosemide [Lasix] 80 mg PO BID@0900,1600 tab guaiFENesin [Mucinex] 1,200 mg PO Q12HR tablet.er Amoxic-Pot Clav 875-125Mg [Augmentin 875-125] 1 tab PO Q12HR 5 Days #10 tab Continue Budesonide-Formot 160-4.5 Mcg [Symbicort 160-4.5 Mcg Inhaler] 2 puff INHALATION RT-BID@799,1999 Montelukast Sodium [Singulair] 10 mg PO HS@1999 Acetaminophen Tab [Tylenol] 650 mg PO Q6H PRN PRN Reason: Pain Ondansetron [Zofran] 4 mg PO Q6H PRN PRN Reason: Nausea Albuterol Sulfate [Ventolin HFA] 2 puff INHALATION RT-Q4H PRN PRN Reason: Shortness Of Breath EPINEPHrine (Auto Inject) [Epipen] 0.3 mg IM ONCE PRN PRN Reason: Anaphylaxis sevelamer HCL [Sevelamer HCl] 1,600 mg PO TID@0830,1230,1730 Ipratropium-Albuterol Nebulize [Duoneb 0.5 mg-3 mg/3 ml Soln] 3 ml INHALATION RT-QID ml hydrALAZINE HCL [Apresoline] 25 mg PO TID #30 tab Atorvastatin [Lipitor] 40 mg PO DAILY #30 tab NIFEdipine [Procardia] 30 mg PO DAILY@0800 Folic Acid-Vit B Complex-Vit C [Nephrocaps] 1 mg PO DAILY Loperamide [Imodium] 2 mg PO QID PRN #12 cap PRN Reason: Diarrhea ALPRAZolam [Xanax] 0.25 mg PO Q8H PRN #9 tab PRN Reason: Anxiety Changed Levothyroxine Sodium 100 mcg PO DAILY@0600 #0 Discontinued Furosemide [Lasix] 40 mg PO BID #60 tablet predniSONE [Deltasone] 40 mg PO DAILY@1600 Non Formulary Drug 1 each SQ WEEKLY Discharge Medication List Acetaminophen Tab [Tylenol] 650 mg PO Q6H PRN 03/31/20 [History] Albuterol Sulfate [Ventolin HFA] 2 puff INHALATION RT-Q4H PRN 03/31/20 [History] Budesonide-Formot 160-4.5 Mcg [Symbicort 160-4.5 Mcg Inhaler] 2 puff INHALATION RT-BID@0800,199903/31/20 [History] EPINEPHrine (Auto Inject) [Epipen] 0.3 mg IM ONCE PRN 03/31/20 [History] Montelukast Sodium [Singulair] 10 mg PO HS@199903/31/20 [History] Ondansetron [Zofran] 4 mg PO Q6H PRN 03/31/20 [History] sevelamer HCL [Sevelamer HCl] 1,600 mg PO TID@0830,1230,1730 03/31/20 [History] Ipratropium-Albuterol Nebulize [Duoneb 0.5 mg-3 mg/3 ml Soln] 3 ml INHALATION RT-QID ml 04/10/20 [Rx] Atorvastatin [Lipitor] 40 mg PO DAILY #30 tab 05/15/20 [Rx] hydrALAZINE HCL [Apresoline] 25 mg PO TID #30 tab 05/15/20 [Rx] NIFEdipine [Procardia] 30 mg PO DAILY@0800 06/07/20 [History] Folic Acid-Vit B Complex-Vit C [Nephrocaps] 1 mg PO DAILY 06/11/20 [History] ALPRAZolam [Xanax] 0.25 mg PO Q8H PRN #9 tab 06/12/20 [Rx] Amoxic-Pot Clav 875-125Mg [Augmentin 875-125] 1 tab PO Q12HR 5 Days #10 tab 06/12/20 [Rx] Darbepoetin Angelo [Aranesp] 40 mcg SQ Q7D syringe 06/12/20 [Rx] Furosemide [Lasix] 80 mg PO BID@0900,1600 tab 06/12/20 [Rx] Levothyroxine Sodium 100 mcg PO DAILY@0600 #0 06/12/20 [Rx] Loperamide [Imodium] 2 mg PO QID PRN #12 cap 06/12/20 [Rx] guaiFENesin [Mucinex] 1,200 mg PO Q12HR tablet.er 06/12/20 [Rx] Follow up Appointment(s)/Referral(s): Harshil Dietrich DO [Doctor of Osteopathic Medicine] - 1 Week Vjiay Bagley DO [STAFF PHYSICIAN] - 1 Week Nestor Hodge MD [Primary Care Provider] - 1 Week Activity/Diet/Wound Care/Special Instructions: antibiotics per dr Dietrich cbc/bmp - 3 days
[2020-06-12 16:35] LABS: Glucose,Whole Blood 82 mg/dL (75-99)
[2020-06-12] MEDS: DAPTOmycin 500 MG in SODIUM CHLORIDE 0.9% 50 ML IVPB SCH (16:59)
[2020-06-12] MEDS: SYMBICORT 160-4.5 MCG INHALER INHALATION SCH (19:51)
[2020-06-12 20:06] LABS: Glucose,Whole Blood 136 mg/dL (75-99)
--- NOTE | 2020-06-12 20:13 | P.PN ---
Progress Note - Text Progress Note Date: 06/12/20 Chief Complaint: Cough History of presenting complaint: This is the patient was brought in from the [facility] to the ER. Patient was here in the hospital in March 2020 seconds to right-sided pneumonia empyema with a pigtail catheter in a current TPA infusions. Patient also received hemodialysis. Patient with having cough with some phlegm for 5 days. Rather congested. Does have some fever and chills. Patient had rehab. Appetite is not good. Wheezing. History of asthma. Nonsmoker. Tired and rundown. Braden colored sputum. Admitted with severe pneumonia, asthma exacerbation. Underwent bronchoscopy. With lavage today-diet. Laying in bed. Cleared by pulmonary to be discharged. Decreased oral intake Review of systems: Was done for constitutional, cardiovascular, GI, pulmonary. relevant finding as above Active Medications Acetaminophen (Acetaminophen Tab 325 Mg Tab) 650 mg PO Q6H PRN PRN Reason: Pain Albuterol/Ipratropium (Ipratropium-Albuterol 3 Ml Neb) 3 ml INHALATION RT-Q4H PRN PRN Reason: shortness of breath Last Admin: 06/07/20 08:01 Dose: 3 ml Documented by: Albuterol/Ipratropium (Ipratropium-Albuterol 3 Ml Neb) 3 ml INHALATION RT-QID [facility] Last Admin: 06/12/20 19:36 Dose: 3 ml Documented by: Alprazolam (Alprazolam 0.25 Mg Tab) 0.25 mg PO Q8H PRN PRN Reason: Anxiety Last Admin: 06/11/20 14:53 Dose: 0.25 mg Documented by: Atorvastatin Calcium (Atorvastatin 40 Mg Tab) 40 mg PO DAILY [facility] Last Admin: 06/12/20 11:05 Dose: 40 mg Documented by: Budesonide/Formoterol Fumarate (Symbicort 160-4.5 Mcg Inhaler) 2 puff INHALATION RT-BID [facility] Last Admin: 06/12/20 19:51 Dose: 2 puff Documented by: Darbepoetin Angelo (Darbepoetin Angelo 40 Mcg/0.4 Ml Syringe) 40 mcg SQ Q7D [facility] Last Admin: 06/09/20 14:51 Dose: 40 mcg Documented by: Furosemide (Furosemide 80 Mg Tab) 80 mg PO BID@0900,1600 [facility] Last Admin: 06/12/20 17:00 Dose: 80 mg Documented by: Guaifenesin (Guaifenesin 600 Mg Tablet.Er) 1,200 mg PO Q12HR [facility] Last Admin: 06/12/20 11:04 Dose: 1,200 mg Documented by: Hydralazine HCl (Hydralazine Hcl 25 Mg Tab) 25 mg PO TID [facility] Last Admin: 06/12/20 17:00 Dose: Not Given Documented by: Cefepime HCl 1 gm/ Sodium (Chloride) 50 mls @ 12.5 mls/hr IVPB Q12HR [facility] Last Admin: 06/12/20 11:05 Dose: 12.5 mls/hr Documented by: Daptomycin 500 mg/ Sodium (Chloride) 50 mls @ 100 mls/hr IVPB Q48H [facility]; Protocol Last Admin: 06/12/20 16:59 Dose: 100 mls/hr Documented by: Levothyroxine Sodium (Levothyroxine 100 Mcg Tab) 100 mcg PO DAILY@0630 [facility] Last Admin: 06/12/20 06:28 Dose: 100 mcg Documented by: Loperamide HCl (Loperamide 2 Mg Cap) 2 mg PO QID PRN PRN Reason: Diarrhea Miscellaneous Information (Pneumonia Protocol Utilized 1 Each Misc) 1 each PO ONCE PRN PRN Reason: Per Protocol Montelukast Sodium (Montelukast 10 Mg Tab) 10 mg PO HS@2000 [facility] Last Admin: 06/11/20 20:54 Dose: 10 mg Documented by: Nifedipine (Nifedipine Xl 30 Mg Tab.Er.24) 30 mg PO DAILY@0800 [facility] Last Admin: 06/12/20 11:04 Dose: 30 mg Documented by: Ondansetron HCl (Ondansetron 4 Mg Tab) 4 mg PO Q6H PRN PRN Reason: Nausea Sevelamer Carbonate (Sevelamer 800 Mg Tab) 1,600 mg PO TID@0830,1230,1730 [facility] Last Admin: 06/12/20 17:00 Dose: 1,600 mg Documented by: Sodium Chloride (Sodium Chloride 0.9% Flush 10 Ml Syringe) 10 ml IV BID [facility] Last Admin: 06/12/20 11:05 Dose: 10 ml Documented by: Physical examination: VITAL SIGNS: Afebrile, 96, 16, 104/56, 100% on 3 L GENERAL: , Propped up in bed, resting EYES: Pupils equal. Conjunctiva pale . NECK: JVD not raised; masses not palpable. HEART: First and second heart sounds are normal; no edema. LUNGS: Respiratory rate increased, diminished breath sounds. ABDOMEN: Soft, nontender, liver spleen not palpable, no masses palpable. PSYCH: Alert and oriented x3; mood and affect anxious MUSCULAR skeletal: Loss of subcutaneous fat, bony prominences. INVESTIGATIONS, reviewed in the clinical context: White count 8.9 hemoglobin 8.9 potassium 3.8 creatinine 2.04 Gram stain from bronchial washing culture-negative Computed tomography scan of the chest-interval development of Fergon 180 in the Edwin. The right midlung 4.9 cm. Interstitial changes with patchy groundglass throughout the remainder of the lungs. Severe airspace disease involving most of the right mid and lower lung. Accu-Cheks 61, 60, 75 TSH 9.3, free T4 2 0.18 Admission testing White count 13.4 hemoglobin 8.2 platelets 287 potassium 4.3 creatinine 1.8 to Troponin I 0.247, 0.292, albumin 3.0 pro-calcitonin 2.2 to EKG tracing personally reviewed by me-sinus rhythm, P pulmonale Chest x-ray film personally reviewed by [id number] infiltrate, not too different from the one on May 26 Previous testing: Creatinine 4.87 on May 26 Assessment: -Pneumonia, suspect gram-negative organism,-clinically better -Status post bronchoscopy-cultures pending -Severe persistent asthma with acute exacerbation-improving -Essential hypertension -Hyperlipidemia -Hypothyroid -Normocytic anemia-multifactorial including chronic kidney disease -Chronic hypoxic respiratory failure home oxygen 2 L -Chronic inflammatory demyelinating polyneuritis with weekly injections off immunoglobulin -End-stage kidney disease on hemodialysis Tuesday -Troponin leak the setting of chronic kidney disease and hemodynamic mismatch. No acute Coronary syndrome Plan: Patient was prepared for discharge. Late does inform that authorization not controlled. Patient to be switched over to Augmentin as per pulmonary. DC IV antibiotics.
[2020-06-12] MEDS: MONTELUKAST 10 MG TAB PO SCH (20:56)
[2020-06-12] MEDS: AMOXIC-POT CLAV 875-125MG 1 EACH TAB PO SCH (20:56)
[2020-06-13 06:23] LABS: Glucose,Whole Blood 79 mg/dL (75-99)
[2020-06-13] MEDS: LEVOTHYROXINE 100 MCG TAB PO SCH (06:25)
[2020-06-13] MEDS: SYMBICORT 160-4.5 MCG INHALER INHALATION SCH ×2 (06:56→19:09)
[2020-06-13] MEDS: IPRATROPIUM-ALBUTEROL 3 ML NEB INHALATION SCH ×4 (06:56→19:09)
--- NOTE | 2020-06-13 09:09 | P.PN ---
Subjective Patient is seen in follow-up for end-stage renal disease. She is maintained on hemodialysis on Tuesday schedule. Underwent bronchoscopy June 09 with removal of secretions. No active complaints at this time. Feels tired. Blood pressure stable. Scheduled for dialysis today. Vital signs are stable. General: The patient appeared well nourished and normally developed. HEENT: Head exam is unremarkable. Neck is without jugular venous distension. LUNGS: Breath sounds decreased. HEART: Rate and Rhythm are regular. ABDOMEN: Soft, nontender. EXTREMITITES: No clubbing, cyanosis, or edema. Objective - Vital Signs Vital signs: Vital Signs Temp 98 F 06/12/20 19:42 Pulse 88 06/13/20 07:07 Resp 20 06/13/20 04:00 BP 133/63 06/13/20 04:00 Pulse Ox 98 06/13/20 04:00 Intake & Output 06/12/20 06/13/20 06/13/20 18:59 06:59 18:59 Intake Total 60 Output Total 0 0 Balance 60 0 Weight 42.5 kg Intake: Oral 60 Output: Stool 0 0 Other: Voiding Method Bedside Commode Bedside Commode # Voids 0 0 - Labs CBC & Chem 7: 06/11/20 17:10 06/11/20 17:10 Labs: Abnormal Lab Results - Last 24 Hours (Table) 06/12/20 06/12/20 Range/Units 11:58 20:02 POC Glucose (mg/dL) 142 H 136 H (75-99) mg/dL Microbiology - Last 24 Hours (Table) 06/07/20 02:40 Blood Culture - Final Blood No Growth after 144 hours 06/07/20 00:23 Blood Culture - Final Blood No Growth after 144 hours Assessment and Plan Plan: Assessment 1. End-stage renal disease maintained on hemodialysis on Tuesday schedule. 2. Pneumonia maintained on antibiotics. Status post bronchoscopy on June 09. 3. Hypertension with chronic kidney disease. Controlled. 4. Chronic kidney disease mineral bone disease maintained on Renvela. 5. Anemia of chronic kidney disease. Iron deficiency noted. Status post IV iron. Maintained on Aranesp. Plan: Hemodialysis today. Maintain Lasix. Anticipate discharge soon.
[2020-06-13 11:42] LABS: Glucose,Whole Blood 79 mg/dL (75-99)
--- NOTE | 2020-06-13 12:47 | P.PN ---
Subjective Progress Note Date: 06/13/20 Principal diagnosis: Acute on chronic hypoxemic restaurant failure secondary to increasing right- sided pleural effusion/atelectasis/consolidation This is a 60-year-old female patient who follows with Dr. Morillo as her primary care provider. She has a history of chronic hypoxemic respiratory failure secondary to chronic persistent bronchial asthma, chronic right lower lobe changes, recurrent right pleural effusion and empyema requiring pigtail placement and subsequent removal. She has end-stage renal disease receiving hemodialysis Tuesday. She also has a history of congestive heart failure, diabetes Uriel, hyperlipidemia, hypertension, hypothyroidism. She had recently been discharged from here on 05/26/2020 to [facility] for inpatient rehabilitation. A chest x-ray yesterday revealed increasing right-sided pleural effusion and she was transferred back here for the same. She is seen today in consultation on the selective care unit. She is currently resting in bed. Awake and alert in no acute distress. She is maintaining O2 saturations in the mid 90s on 2 L/m per nasal cannula. She's been afebrile. Hemodynamically stable. White count 16.4. Hemoglobin 8.2. Sodium 137. Potassium 4.3. Creatinine 1.82. Troponin 0.247, 0.292. ProBNP 120,000. Pro- calcitonin 2.22. Chest x-ray reveals evidence of congestive heart failure with increasing right-sided pleural effusion and right lower lobe infiltrate compared to previous of 05/26/2020. Echocardiogram reveals preserved left ventricular systolic function with ejection fraction 55-60%. She has been initiated and DuoNeb inhalations, Symbicort, oral diuretics, azithromycin and Zosyn. Ultrasound of the chest is pending. The patient is seen today 06/08/2020 in follow-up on the selective care unit. She is currently awake and alert in no acute distress. Resting fairly comfortably in bed. Continues with a loose nonproductive cough. She's been afebrile. Maintaining O2 saturations in the 90s on 2 L/m per nasal cannula. Blood cultures reveal no growth to date. Blood glucose 169. Ultrasound of the right chest revealed minimal free-flowing fluid. CAT scan of the chest revealed residual debris/endobronchial material throughout the bronchus intermedius and more distal right middle lobe/lower lobe though improved from 05/20/2020. There is however severest disease/pneumonia involving most of the right mid and lower lung, worsening from 05/20/2020. There is interval development of a rounded 4.9 cm area in the periphery of the right midlung. Less likely felt to be neoplasm. Possible early developing abscess. Additional areas of interstitial and groundglass opacity throughout the remainder of the lungs. She remains on bronchodilators. Antibiotics in the form of daptomycin and cefepime. On 06/09/2020 patient seen in follow-up on selective care unit, she has finished her dialysis today, tolerated well, she is drowsy, but easily wakes up and answ ers questions, appears very weak. Has a weak congested nonproductive cough, she had 3 L of oxygen pulse ox 97%, his vital signs have been stable, she's been afebrile. She continues on nebulized bronchodilators, she is on cefepime and daptomycin for empiric antibiotic coverage, patient had her bronchoscopy with BAL today by Dr. Dietrich, she tolerated procedure very well. She has had no fever or chills. Her last chest x-ray today showed apical pleural thickening on the right, pleural parenchymal changes within the right hemithorax, patchy density in the left lung. This had no hemoptysis. No complaints of chest pain. She had troponin elevation for which cardiology is following, and it is not thought to be related to acute coronary syndrome. On 06/12/2020 patient seen in follow-up on selective care unit, she is awake and alert, resting comfortably in bed, denies any acute respite or distress, she is currently on 3 L of oxygen with a pulse ox of 100%, she's been afebrile, vital signs have been stable, lung sounds reveal diminished breath sounds with some mild crackles at the bases, patient is status post bronchoscopy with bronchoalveolar lavage, and bronchial lavage cultures have been negative. Cytology has been negative. Last chest x-ray done on 06/10/2020 showed persistent moderate opacity with consolidation in the right mid lower lung with small to moderate pleural effusion, and complete resolution of the streaky opacities in the left lung base. Antibiotic coverage is no form of cefepime, patient has received 5 doses of the cefepime while in the hospital, vital signs have been stable, no worsening dyspnea, from pulmonary perspective she can be discharged on 5 more days of oral Augmentin On 06/13/2020 patient seen in follow-up on the selective care unit. She is awake and alert, she is resting in the recliner, 2 L of oxygen pulse ox is 94%, hemodynamically stable, she's been afebrile, no worsening dyspnea, breathing comfortably, patient remains on Augmentin IV antibiotics have been discontinued. No acute events overnight, no fever or chills. She is awaiting insurance hospitalization so she can be placed in the [facility]. Objective - Vital Signs Vital signs: Vital Signs Temp 98 F 06/12/20 19:42 Pulse 88 06/13/20 11:19 Resp 16 06/13/20 11:45 BP 121/63 06/13/20 08:00 Pulse Ox 94 L 06/13/20 08:00 Intake & Output 06/12/20 06/13/20 06/13/20 18:59 06:59 18:59 Intake Total 60 Output Total 0 0 0 Balance 60 0 0 Weight 42.5 kg Intake: Oral 60 Output: Stool 0 0 0 Other: Voiding Method Bedside Commode Bedside Commode Bedside Commode # Voids 0 0 - Exam GENERAL EXAM: There is, but arousable, 60-year-old white female, appears very frail, weak does have the congested nonproductive cough, on 3 L of oxygen pulse ox of 97-100% comfortable in no apparent distress. HEAD: Normocephalic/atraumatic. EYES: Normal reaction of pupils, equal size. Conjunctiva pink, sclera white. NOSE: Clear with pink turbinates. THROAT: No erythema or exudates. NECK: No masses, no JVD, no thyroid enlargement, no adenopathy. CHEST: No chest wall deformity. Symmetrical expansion. LUNGS: Equal air entry with coarse crackles, bilateral bases CVS: Regular rate and rhythm, normal S1 and S2, no gallops, no murmurs, no rubs ABDOMEN: Soft, nontender. No hepatosplenomegaly, normal bowel sounds, no guarding or rigidity. EXTREMITIES: No clubbing, no edema, no cyanosis, 2+ pulses and upper and lower extremities. MUSCULOSKELETAL: Muscle strength and tone normal. SPINE: No scoliosis or deformity SKIN: No rashes CENTRAL NERVOUS SYSTEM: Alert and oriented -3. No focal deficits, tone is n ormal in all 4 extremities. PSYCHIATRIC: Alert and oriented -3. Appropriate affect. Intact judgment and insight. - Labs CBC & Chem 7: 06/11/20 17:10 06/11/20 17:10 Labs: Abnormal Lab Results - Last 24 Hours (Table) 06/12/20 Range/Units 20:02 POC Glucose (mg/dL) 136 H (75-99) mg/dL Microbiology - Last 24 Hours (Table) 06/07/20 02:40 Blood Culture - Final Blood No Growth after 144 hours 06/07/20 00:23 Blood Culture - Final Blood No Growth after 144 hours Assessment and Plan Plan: Assessment: 1 Acute on chronic hypoxemic respiratory failure secondary to increasing right- sided atelectasis and consolidation/pneumonia with rounded area of possible empyema. 2 Recent episode of pneumonia/right-sided empyema status post pigtail catheter placement and subsequent removal. CAT scan 06/07/2020 continues to show significant consolidation additional rounded 4.9 cm area of the periphery of the right midlung, possible early abscess 3 End stage renal disease currently receiving hemodialysis Tuesday 4 History of chronic bronchial asthma 5 History of diastolic congestive heart failure 6 Diabetes mellitus 7 Hyperlipidemia 8 Hypertension 9 Hypothyroidism 10 Chronic hypoxemic respiratory failure 11 Poor overall functional performance based on the above-mentioned multiple comorbidities. Plan: Continue oral antibiotics, breathing treatments, patient is doing well, hemodynamically stable, afebrile, no worsening dyspnea, awaiting insurance authorization for placement to the [facility] I performed a history & physical examination of the patient and discussed their management with my nurse practitioner, Teresa Ortiz. I reviewed the nurse practitioner's note and agree with the documented findings and plan of care. Lung sounds are positive for diminished breath. The findings and the impression was discussed with the patient. I attest to the documentation by the nurse prac titioner.
[2020-06-13 13:59] VITALS: BMI 18.3
--- NOTE | 2020-06-13 15:20 | P.DS ---
Providers Date of admission: 06/07/20 00:56 Expected date of discharge: 06/13/20 Attending physician: Klaus Ornelas Consults: 06/07/20 00:56 Consult Physician Routine Consulting Provider: Harjinder Haines Consult Reason/Comments: CHF, elevated troponin. Do you want consulting provider notified?: Yes 06/07/20 01:01 Consult Physician Routine Consulting Provider: Earline Stinson Consult Reason/Comments: worsening pleural effusion Do you want consulting provider notified?: Yes 06/07/20 21:20 Consult Physician Routine Consulting Provider: Manasa Wells Consult Reason/Comments: CK D Do you want consulting provider notified?: Yes Primary care physician: [facility] Course: Chief Complaint: Cough History of presenting complaint: This is the patient was [facility]. Patient was here in the hospital in March 2020 seconds to right-sided pneumonia empyema with a pigtail catheter in a current TPA infusions. Patient also received hemodialysis. Patient with having cough with some phlegm for 5 days. Rather congested. Does have some fever and chills. Patient had rehab. Appetite is not good. Wheezing. History of asthma. Nonsmoker. Tired and rundown. Braden colored sputum. Admitted with severe pneumonia, asthma exacerbation. Underwent bronchoscopy. With lavage. Cultures Were Negative. Fungal Cultures Are Pending. today-oral intake remains low. On oral Augmentin. Patient encouraged to oral intake. Tired Consultation: Dr. Dietrich from pulmonary Dr. Bagley from nephrology Physical examination: VITAL SIGNS: Afebrile, 86, 16, 121/63, 94% on 2 L GENERAL: , Propped up in bed, tired EYES: Pupils equal. Conjunctiva pale . NECK: JVD not raised; masses not palpable. HEART: First and second heart sounds are normal; no edema. LUNGS: Respiratory rate increased, diminished breath sounds. ABDOMEN: Soft, nontender, liver spleen not palpable, no masses palpable. PSYCH: Alert and oriented x3; mood and affect anxious MUSCULAR skeletal: Loss of subcutaneous fat, bony prominences. INVESTIGATIONS, reviewed in the clinical context: Gram stain from bronchial washing culture-negative Computed tomography scan of the chest-interval development of Fergon 180 in the Edwin. The right midlung 4.9 cm. Interstitial changes with patchy groundglass throughout the remainder of the lungs. Severe airspace disease involving most of the right mid and lower lung. Accu-Cheks 61, 60, 75 TSH 9.3, free T4 2 0.18 Admission testing White count 13.4 hemoglobin 8.2 platelets 287 potassium 4.3 creatinine 1.8 to Troponin I 0.247, 0.292, albumin 3.0 pro-calcitonin 2.2 to EKG tracing personally reviewed by me-sinus rhythm, P pulmonale Chest x-ray film personally reviewed by [id number] infiltrate, not too different from the one on May 26 Previous testing: Creatinine 4.87 on May 26 Assessment: -Pneumonia, suspect gram-negative organism,-POA -Status post Gram stain and culture negative -Severe persistent asthma with acute POA -Essential hypertension -Hyperlipidemia -Hypothyroid -Normocytic anemia-multifactorial including chronic kidney disease -Chronic hypoxic respiratory failure home oxygen 2 L -Chronic inflammatory demyelinating polyneuritis with weekly injections off immunoglobulin -End-stage kidney disease on hemodialysis Tuesday -Troponin leak the setting of chronic kidney disease and hemodynamic mismatch. No acute Coronary syndrome Disposition: [facility] Patient Condition at Discharge: Undetermined Plan - Discharge Summary Discharge Rx Participant: Yes New Discharge Prescriptions: New Darbepoetin Angelo [Aranesp] 40 mcg SQ Q7D syringe Furosemide [Lasix] 80 mg PO BID@0900,1600 tab guaiFENesin [Mucinex] 1,200 mg PO Q12HR tablet.er Amoxic-Pot Clav 875-125Mg [Augmentin 875-125] 1 tab PO Q12HR 5 Days #10 tab Continue Budesonide-Formot 160-4.5 Mcg [Symbicort 160-4.5 Mcg Inhaler] 2 puff INHALATION RT-BID@0800,1999 Montelukast Sodium [Singulair] 10 mg PO HS@1999 Acetaminophen Tab [Tylenol] 650 mg PO Q6H PRN PRN Reason: Pain Ondansetron [Zofran] 4 mg PO Q6H PRN PRN Reason: Nausea Albuterol Sulfate [Ventolin HFA] 2 puff INHALATION RT-Q4H PRN PRN Reason: Shortness Of Breath EPINEPHrine (Auto Inject) [Epipen] 0.3 mg IM ONCE PRN PRN Reason: Anaphylaxis sevelamer HCL [Sevelamer HCl] 1,600 mg PO TID@0830,1230,1730 Ipratropium-Albuterol Nebulize [Duoneb 0.5 mg-3 mg/3 ml Soln] 3 ml INHALATION RT-QID ml hydrALAZINE HCL [Apresoline] 25 mg PO TID #30 tab Atorvastatin [Lipitor] 40 mg PO DAILY #30 tab NIFEdipine [Procardia] 30 mg PO DAILY@0800 Folic Acid-Vit B Complex-Vit C [Nephrocaps] 1 mg PO DAILY Loperamide [Imodium] 2 mg PO QID PRN #12 cap PRN Reason: Diarrhea ALPRAZolam [Xanax] 0.25 mg PO Q8H PRN #9 tab PRN Reason: Anxiety Changed Levothyroxine Sodium 100 mcg PO DAILY@0600 #0 Discontinued Furosemide [Lasix] 40 mg PO BID #60 tablet predniSONE [Deltasone] 40 mg PO DAILY@1600 Non Formulary Drug 1 each SQ WEEKLY Discharge Medication List Acetaminophen Tab [Tylenol] 650 mg PO Q6H PRN 03/31/20 [History] Albuterol Sulfate [Ventolin HFA] 2 puff INHALATION RT-Q4H PRN 03/31/20 [History] Budesonide-Formot 160-4.5 Mcg [Symbicort 160-4.5 Mcg Inhaler] 2 puff INHALATION RT-BID@08,199903/31/20 [History] EPINEPHrine (Auto Inject) [Epipen] 0.3 mg IM ONCE PRN 03/31/20 [History] Montelukast Sodium [Singulair] 10 mg PO HS@199903/31/20 [History] Ondansetron [Zofran] 4 mg PO Q6H PRN 03/31/20 [History] sevelamer HCL [Sevelamer HCl] 1,600 mg PO TID@0830,1230,1730 03/31/20 [History] Ipratropium-Albuterol Nebulize [Duoneb 0.5 mg-3 mg/3 ml Soln] 3 ml INHALATION RT-QID ml 04/10/20 [Rx] Atorvastatin [Lipitor] 40 mg PO DAILY #30 tab 05/15/20 [Rx] hydrALAZINE HCL [Apresoline] 25 mg PO TID #30 tab 05/15/20 [Rx] NIFEdipine [Procardia] 30 mg PO DAILY@0800 06/07/20 [History] Folic Acid-Vit B Complex-Vit C [Nephrocaps] 1 mg PO DAILY 06/11/20 [History] ALPRAZolam [Xanax] 0.25 mg PO Q8H PRN #9 tab 06/12/20 [Rx] Amoxic-Pot Clav 875-125Mg [Augmentin 875-125] 1 tab PO Q12HR 5 Days #10 tab 06/12/20 [Rx] Darbepoetin Angelo [Aranesp] 40 mcg SQ Q7D syringe 06/12/20 [Rx] Furosemide [Lasix] 80 mg PO BID@0900,1600 tab 06/12/20 [Rx] Levothyroxine Sodium 100 mcg PO DAILY@0600 #0 06/12/20 [Rx] Loperamide [Imodium] 2 mg PO QID PRN #12 cap 06/12/20 [Rx] guaiFENesin [Mucinex] 1,200 mg PO Q12HR tablet.er 06/12/20 [Rx] Follow up Appointment(s)/Referral(s): Harshil Dietrich DO [Doctor of Osteopathic Medicine] - 1 Week Vijay Bagley DO [STAFF PHYSICIAN] - 1 Week Nestor Hodge MD [Primary Care Provider] - 1 Week Activity/Diet/Wound Care/Special Instructions: cbc/bmp - 3 days
[2020-06-13 16:50] LABS: Glucose,Whole Blood 96 mg/dL (75-99)
[2020-06-13] MEDS: AMOXIC-POT CLAV 875-125MG 1 EACH TAB PO SCH (17:12)
[2020-06-13] MEDS: SEVELAMER 800 MG TAB PO SCH ×3 (17:12→17:16)
[2020-06-13] MEDS: NIFEdipine XL 30 MG TAB.ER.24 PO SCH (17:12)
[2020-06-13] MEDS: ATORVASTATIN 40 MG TAB PO SCH (17:12)
[2020-06-13] MEDS: hydrALAZINE HCL 25 MG TAB PO SCH ×2 (17:13→17:14)
[2020-06-13] MEDS: guaiFENesin 600 MG TABLET.ER PO SCH (17:13)
[2020-06-13] MEDS: FUROSEMIDE 80 MG TAB PO SCH ×2 (17:13→17:16)
[2020-06-13 17:18] VITALS: BP 126/61; RESP 18; TEMP 97.2
[2020-06-13 19:14] VITALS: PULSE 86
== END 2020-06-13 19:53 | DRG 177 ==
LOC: SUPCPDRO 22:13 → EC 22:13 → 3SCARD 06-07 00:56
PROVIDERS: ADMIT Hospitalist; ATTEND Hospitalist
PROC: 5A1D70Z Performance of Urinary Filtration, Intermittent, Less than 6 Hours Per Day (ICD-10-PCS; 2020-06-09)
PROC: 0BJ08ZZ Inspection of Tracheobronchial Tree, Via Natural or Artificial Opening Endoscopic (ICD-10-PCS; principal; 2020-06-09 09:05)
PROC: 0B9F8ZZ Drainage of Right Lower Lung Lobe, Via Natural or Artificial Opening Endoscopic (ICD-10-PCS; principal; 2020-06-09 09:05)
DX: J15.6 Pneumonia due to other Gram-negative bacteria (principal); J96.21 Acute and chronic respiratory failure with hypoxia; J86.9 Pyothorax without fistula; N18.6 End stage renal disease; G61.81 Chronic inflammatory demyelinating polyneuritis; I13.2 Hypertensive heart and chronic kidney disease with heart failure and with stage 5 chronic kidney disease, or end stage renal disease; I50.32 Chronic diastolic (congestive) heart failure; J45.51 Severe persistent asthma with (acute) exacerbation; J98.11 Atelectasis; R64 Cachexia; Z68.1 Body mass index [BMI] 19.9 or less, adult; D63.1 Anemia in chronic kidney disease; E03.9 Hypothyroidism, unspecified; E11.22 Type 2 diabetes mellitus with diabetic chronic kidney disease; E61.1 Iron deficiency; E78.5 Hyperlipidemia, unspecified; F41.0 Panic disorder [episodic paroxysmal anxiety]; J98.4 Other disorders of lung; Z79.51 Long term (current) use of inhaled steroids; Z79.890 Hormone replacement therapy; Z79.899 Other long term (current) drug therapy; Z87.01 Personal history of pneumonia (recurrent); Z90.710 Acquired absence of both cervix and uterus; Z99.2 Dependence on renal dialysis; R79.89 Other specified abnormal findings of blood chemistry; R53.83 Other fatigue; Z90.49 Acquired absence of other specified parts of digestive tract; Z99.81 Dependence on supplemental oxygen
CPT/HCPCS: 31624; 36415; 71045; 71046; 71250; 76604; 80048; 80053; 83540; 83550; 83605; 83880; 84145; 84439; 84443; 84484; 85025; 85027; 85610; 85730; 87040; 87070; 87102; 87116; 87205; 87206; 87252; 87496; 87498; 87502; 87529; 87634; 87798; 88108; 88305; 89050; 90935; 93005; 93308; 94640; 94667; 94668; 94760; 96365; 99285